=== PATIENT | male | born 1935 | race Two or more races ===

== ENCOUNTER 2017-02-19 11:00 | Inpatient (IN) | payer OTHER ==
[~2017-02-19] VITALS: Ht 172.7 cm; Wt 70.3 kg
[2017-02-19] MEDS ORDERED: HYDROCHLOROTH12.5 M2 ORAL (11:13)
[2017-02-19] MEDS ORDERED: TYLENOL EXTRA500 MG ORAL (11:13)
[2017-02-19] MEDS ORDERED: LANTUS SOL100 UNIT/1 SUBQ (11:13)
[2017-02-19] MEDS ORDERED: MIRTAZAPINE15 MG ORAL (11:13)
[2017-02-19] MEDS ORDERED: ASPIR 8181 MG ORAL (11:13)
[2017-02-19] MEDS ORDERED: DOCUSATE SODIU100 MG ORAL (11:13)
[2017-02-19] MEDS ORDERED: NORCO 10-325 T1 EACH ORAL (11:13)
--- NOTE | 2017-02-19 12:45 | Diagnostic Imaging Report ---
Indication: Head trauma, altered level of consciousness Technique: spiral acquisitions obtained through the brain. Angled axial and coronal 5 x 5 mm slices were reconstructed. No IV contrast utilized. Radiation dose was minimized using automated exposure control Total dose length product 1383 mGycm. CTDIvol(s) 70 mGy Comparison: none FINDINGS: No acute hemorrhage or edema. No mass effect or midline shift. There is age-related enlargement of the ventricles and extra axial CSF spaces. There is periventricular deep white matter ischemic change. Normal rodriguez-white differentiation. 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 Visualized orbits are unremarkable. There is ethmoid sinus disease and sphenoid sinus mucosal thickening. Intact calvarium. IMPRESSION: Chronic and age-related changes. Negative for acute intracranial bleed or mass effect Sinus disease The CT scanner at [facility] is accredited by the [employer] and the scans are performed using protocols designed to limit radiation exposure to as low as reasonably achievable to attain images of sufficient resolution adequate for diagnostic evaluation
[2017-02-19 12:47] LABS: EOSINOPHILS % (AUTO) 2.2 % (0.0-3.0); HEMOGLOBIN 14.6 G/DL (14.2-18.0); LYMPHOCYTES % (AUTO) 9.3 % (20.0-45.0); MEAN CORPUSCULAR VOLUME 89 FL (80-99); NEUTROPHILS % (AUTO) 78.5 % (45.0-75.0); PLATELET COUNT 185 K/UL (150-450); RED BLOOD COUNT 4.96 M/UL (4.70-6.10); WHITE BLOOD COUNT 7.1 K/UL (4.8-10.8)
--- NOTE | 2017-02-19 12:47 | Diagnostic Imaging Report ---
Indication: Chest pain Technique: One view of the chest Comparison: none Findings: There is a 2.6 cm mass in the right perihilar region. There is some atelectasis at the left lung base. The remainder the lungs and pleural spaces are clear. The heart size is upper limits of normal. The aorta is tortuous Impression: 2.6 cm right lung mass, worrisome for neoplasm. Further evaluation with chest CT recommended. Left basilar atelectasis
[2017-02-19 12:50] LABS: AMMONIA 25 umol/L (11-32); ANION GAP 11 mmol/L (5-15); BLOOD UREA NITROGEN 22 mg/dL (7-18); CALCIUM 7.5 MG/DL (8.5-10.1); CARBON DIOXIDE 24 MMOL/L (21-32); CHLORIDE 103 MMOL/L (98-107); CREATININE 0.9 MG/DL (0.55-1.30); POTASSIUM 3.4 MMOL/L (3.5-5.1); SODIUM 138 MMOL/L (136-145)
[2017-02-19 13:01] LABS: ALANINE AMINOTRANSFERASE 14 U/L (12-78); ALBUMIN 3.1 G/DL (3.4-5.0); ALBUMIN/GLOBULIN RATIO 0.8 (1.0-2.7); ALKALINE PHOSPHATASE 88 U/L (46-116); ASPARTATE AMINO TRANSFERASE 21 U/L (15-37); BILIRUBIN,TOTAL 0.5 MG/DL (0.2-1.0); CREATINE KINASE 341 U/L (26-308)
[2017-02-19 14:10] VITALS: BP 126/60
--- NOTE | 2017-02-19 16:25 | Emergency Room Report ---
History of Present Illness General Chief Complaint: Multiple Trauma/Fall Source: EMS Present Illness HPI The patient is sent in after a fall. Patient is unable to ambulate at the facility. He has also had a cough. He denies pain at this time. He is sent in for evaluation after the fall. He denies NVD, dysuria, chest pain, palpitations. Patient poor historian and only complains of weakness. In the past he was identified as high fall risk patient. Discharge dx 09/2016 from [facility]: H/O diabetes. H/O aortic aneurism. H/O bradycardia UTI-sepsis Allergies: Coded Allergies: No Known Allergies (Unverified , 02/19/17) Patient History Limited by: medical condition Past Medical History: see triage record Past Surgical History: other - aortic aneurism Social History Narrative SNF - Rehab Center [facility] Reviewed Nursing Documentation: PMH: Agreed, PSxH: Agreed Nursing Documentation-PMH Past Medical History: No History, Except For Hx Cardiac Problems: Yes - AAA Hx Diabetes: Yes Review of Systems All Other Systems: limited Physical Exam Vital Signs Date Time Temp Pulse Resp B/P (MAP) Pulse Ox O2 Delivery O2 Flow Rate FiO2 02/19/17 10:51 99.1 96 20 126/60 99 Nasal Cannula 3.0 Sp02 EP Interpretation: reviewed, normal General Appearance: no apparent distress, GCS 15, Chronically Ill Head: normocephalic Eyes: bilateral eye normal inspection, bilateral eye PERRL ENT: moist mucus membranes Neck: supple Respiratory: lungs clear, normal breath sounds Cardiovascular #1: regular rate, rhythm Cardiovascular #2: 2+ radial (R) Gastrointestinal: normal inspection, normal bowel sounds, non tender, no mass, non-distended, scaphoid Musculoskeletal: back normal, normal range of motion Neurologic: alert, motor strength/tone normal, DTRs symmetric, sensory intact, speech normal, oriented - X1 Psychiatric: mood/affect normal Skin: normal inspection, warm/dry Medical Decision Making Diagnostic Impression: Primary Impression: Pulmonary mass Additional Impressions: Multiple falls Weakness ER Course Patient presents after a fall. Ddx: CVA, AMI, chronic falls/weakness, electrolyte abnormalities, occult infection amongst others. No localized neurologic findings, but CT indicated. Evaluation with CT, CXR, EKG, labs. Treatment with gentle hydration. EKG without injury. CXR with lung mass. Labs with normal H/H, wbc, lytes ( slightly low potassium). Urine not obtained. CT with age related changes. Patient with continued unsteady gait. High risk for recurrent falls. With new lung mass and unsteady on feet, needs admission to hospital. Admit med, Dr. Aldana. Laboratory Tests Test 02/19/17 12:20 White Blood Count 7.1 K/UL (4.8-10.8) Red Blood Count 4.96 M/UL (4.70-6.10) Hemoglobin 14.6 G/DL (14.2-18.0) Hematocrit 44.0 % (42.0-52.0) Mean Corpuscular Volume 89 FL (80-99) Mean Corpuscular Hemoglobin 29.5 PG (27.0-31.0) Mean Corpuscular Hemoglobin Concent 33.3 G/DL (32.0-36.0) Red Cell Distribution Width 12.0 % (11.6-14.8) Platelet Count 185 K/UL (150-450) Mean Platelet Volume 8.4 FL (6.5-10.1) Neutrophils (%) (Auto) 78.5 % (45.0-75.0) H Lymphocytes (%) (Auto) 9.3 % (20.0-45.0) L Monocytes (%) (Auto) 9.0 % (1.0-10.0) Eosinophils (%) (Auto) 2.2 % (0.0-3.0) Basophils (%) (Auto) 1.0 % (0.0-2.0) Prothrombin Time 10.8 SEC (9.30-11.50) Prothrombin Time INR 1.0 (0.9-1.1) PTT 34 SEC (23-33) H Sodium Level 138 MMOL/L (136-145) Potassium Level 3.4 MMOL/L (3.5-5.1) L Chloride Level 103 MMOL/L (98-107) Carbon Dioxide Level 24 MMOL/L (21-32) Anion Gap 11 mmol/L (5-15) Blood Urea Nitrogen 22 mg/dL (7-18) H Creatinine 0.9 MG/DL (0.55-1.30) Estimate Glomerular Filtration Rate mL/min (>60) Glucose Level 207 MG/DL (74-106) H Lactic Acid Level 1.30 mmol/L (0.66-2.22) Calcium Level 7.5 MG/DL (8.5-10.1) L Magnesium Level 1.5 MG/DL (1.8-2.4) L Total Bilirubin 0.5 MG/DL (0.2-1.0) Aspartate Amino Transferase (AST) 21 U/L (15-37) Alanine Aminotransferase (ALT) 14 U/L (12-78) Alkaline Phosphatase 88 U/L (46-116) Ammonia 25 umol/L (11-32) Total Creatine Kinase 341 U/L (26-308) H Troponin I 0.040 ng/mL (0.000-0.056) Pro-B-Type Natriuretic Peptide 633 pg/mL (0-125) H Total Protein 6.8 G/DL (6.4-8.2) Albumin 3.1 G/DL (3.4-5.0) L Globulin 3.7 g/dL Albumin/Globulin Ratio 0.8 (1.0-2.7) L Lipase 69 U/L (73-393) L EKG Diagnostic Results Rate: normal Rhythm: NSR ST Segments: no acute changes - [facility] Rhythm Strip Diag. Results EP Interpretation: yes Rhythm: NSR, no PVC's, no ectopy Chest X-Ray Diagnostic Results Chest X-Ray Diagnostic Results : Chest X-Ray Ordered: Yes # of Views/Limited/Complete: 1 View Indication: Other EP Interpretation: Yes Interpretation: no consolidation, no effusion, no pneumothorax, other Impression: Other Electronically Signed by: Liang Cedillo MD CT/MRI/US Diagnostic Results CT/MRI/US Diagnostic Results : Imaging Test Ordered: head Impression age related changes. Sinus disease Last Vital Signs Date Time Temp Pulse Resp B/P (MAP) Pulse Ox O2 Delivery O2 Flow Rate FiO2 02/19/17 18:16 98.6 86 17 131/70 99 Room Air 02/19/17 14:10 3.0 Status: improved Disposition: ADMITTED INPATIENT Condition: Serious Referrals: NON PHYSICIAN (PCP) Liang Cedillo M.D. Feb 19, 2017 16:25
[2017-02-19 17:09] VITALS: BP 130/72
[2017-02-19 18:16] VITALS: BP 131/70
[2017-02-19 20:00] VITALS: BP 140/76
--- NOTE | 2017-02-19 21:56 | History & Physical ---
History and Physical History & Physicial The patient was noted to be confused and was sent in after a fall. Patient is unable to ambulate at the facility now worse than baseline. Patient is a poor historian and only complains of weakness. In the past he was identified as high fall risk patient. PMH H/O diabetes. H/O aortic aneurism. H/O bradycardia UTI-sepsis Allergies: No Known Allergies (Unverified , 02/19/17) Past Surgical History: aortic aneurysm Social History Narrative SNF - Rehab Center [facility] Reviewed of systems: noted physical exam WDWN NAD clear breath sounds bilaterally without rhonchi or wheeze [id number] without MRG NABS nontender no HSM no CCE confused Labs Test 02/19/17 12:20 White Blood Count 7.1 K/UL (4.8-10.8) Red Blood Count 4.96 M/UL (4.70-6.10) Hemoglobin 14.6 G/DL (14.2-18.0) Hematocrit 44.0 % (42.0-52.0) Mean Corpuscular Volume 89 FL (80-99) Mean Corpuscular Hemoglobin 29.5 PG (27.0-31.0) Mean Corpuscular Hemoglobin Concent 33.3 G/DL (32.0-36.0) Red Cell Distribution Width 12.0 % (11.6-14.8) Platelet Count 185 K/UL (150-450) Mean Platelet Volume 8.4 FL (6.5-10.1) Neutrophils (%) (Auto) 78.5 % (45.0-75.0) Lymphocytes (%) (Auto) 9.3 % (20.0-45.0) Monocytes (%) (Auto) 9.0 % (1.0-10.0) Eosinophils (%) (Auto) 2.2 % (0.0-3.0) Basophils (%) (Auto) 1.0 % (0.0-2.0) Prothrombin Time 10.8 SEC (9.30-11.50) Prothromb Time International Ratio 1.0 (0.9-1.1) Activated Partial Thromboplast Time 34 SEC (23-33) Sodium Level 138 MMOL/L (136-145) Potassium Level 3.4 MMOL/L (3.5-5.1) Chloride Level 103 MMOL/L (98-107) Carbon Dioxide Level 24 MMOL/L (21-32) Anion Gap 11 mmol/L (5-15) Blood Urea Nitrogen 22 mg/dL (7-18) Creatinine 0.9 MG/DL (0.55-1.30) Estimat Glomerular Filtration Rate mL/min (>60) Glucose Level 207 MG/DL (74-106) Lactic Acid Level 1.30 mmol/L (0.66-2.22) Calcium Level 7.5 MG/DL (8.5-10.1) Magnesium Level 1.5 MG/DL (1.8-2.4) Total Bilirubin 0.5 MG/DL (0.2-1.0) Aspartate Amino Transf (AST/SGOT) 21 U/L (15-37) Alanine Aminotransferase (ALT/SGPT) 14 U/L (12-78) Alkaline Phosphatase 88 U/L (46-116) Ammonia 25 umol/L (11-32) Total Creatine Kinase 341 U/L (26-308) Troponin I 0.040 ng/mL (0.000-0.056) Pro-B-Type Natriuretic Peptide 633 pg/mL (0-125) Total Protein 6.8 G/DL (6.4-8.2) Albumin 3.1 G/DL (3.4-5.0) Globulin 3.7 g/dL Albumin/Globulin Ratio 0.8 (1.0-2.7) Lipase 69 U/L (73-393) IMPRESSION s/pfall cough confusion acute on chronic encephalopathy possible mass PLAN care noted monitor PT resume meds CT noted impression, plan, and exam edited and reviewed in detail care discussed with REY PINEDA Feb 19, 2017 21:56
[2017-02-19] MEDS ORDERED: HYDROcodone/Acetamin 10/325 tab ORAL PRN ×2 (22:00→22:30)
[2017-02-19] MEDS ORDERED: Acetaminophen 500mg (ES) tab ORAL PRN (22:00)
[2017-02-20] VITALS: BP 135/73
[2017-02-20 04:00] VITALS: BP 133/87
[2017-02-20 08:00] VITALS: BP 105/63
[2017-02-20] MEDS ORDERED: Docusate 100mg cap ORAL SCH (09:00)
[2017-02-20] MEDS ORDERED: Heparin 5000 units/ml inj SUBQ SCH (09:00)
[2017-02-20] MEDS ORDERED: Aspirin EC 81mg tab ORAL SCH (09:00)
[2017-02-20 12:00] VITALS: BP 118/72
--- NOTE | 2017-02-20 12:58 | General Progress Note ---
Assessment/Plan Assessment/Plan IMPRESSION s/pfall cough confusion acute on chronic encephalopathy possible mass PLAN care noted ok to dc back to SNF impression, plan, and exam edited and reviewed in detail care discussed with RN Subjective Allergies: Coded Allergies: No Known Allergies (Unverified , 02/19/17) Subjective appears chronically confused no acute changes Objective Last 24 Hour Vital Signs Date Time Temp Pulse Resp B/P (MAP) Pulse Ox O2 Delivery O2 Flow Rate FiO2 02/20/17 12:00 98.1 78 19 118/72 94 Room Air 02/20/17 08:00 97.8 93 19 105/63 92 Room Air 02/20/17 04:00 86 02/20/17 04:00 98.2 90 22 133/87 96 02/20/17 00:00 91 02/20/17 00:00 99.1 96 21 135/73 95 02/19/17 20:00 98.4 87 21 140/76 93 02/19/17 20:00 92 02/19/17 18:16 98.6 86 17 131/70 99 Room Air 02/19/17 17:09 99.1 86 18 130/72 99 Room Air 02/19/17 14:10 99.1 78 20 126/60 99 Nasal Cannula 3.0 Height (Feet): 5 Height (Inches): 8.00 Weight (Pounds): 155 Objective WDWN NAD clear breath sounds bilaterally without rhonchi or wheeze [id number] without MRG NABS nontender no HSM no CCE nonfocal appears confused REY CARMEN Feb 20, 2017 12:58
--- NOTE | 2017-02-24 10:58 | Discharge Summary ---
Discharge Summary Hospital Course Date of Admission Feb 19, 2017 at 14:50 Date of Discharge Feb 20, 2017 at 17:30 Admitting Diagnosis sepsis/falls HPI Kt Vargas is a 81 year old male who was admitted on Feb 19, 2017 at 14 :50 for Sepsis,Falls Hospital Course dc summary #[id number] Discharge Condition Upon Discharge: stable Discharge Disposition Patient was discharged to SNF/Subacute Facility(03) Discharge Diagnoses: Discharge Instructions Discharge Instructions Special Instructions I have been assigned to complete a D/C Summary on this account. I was not involved in the patient management Caroline Purvis NP (Vanchtein) Feb 24, 2017 10:58
--- NOTE | 2017-02-24 20:30 | Discharge Summary 2 SIG ---
DATE OF ADMISSION: 02/19/2017 DATE OF DISCHARGE: 02/20/2017 REASON FOR ADMISSION: 81-year-old male with past medical history significant for diabetes, aortic aneurysm, urinary tract infection, sepsis, and bradycardia, was [facility] from the [facility] facility for evaluation after he sustained a fall. The patient noted to have cough. He denied nausea, vomiting, diarrhea, dysuria, chest pain, palpitations. Patient denied pain at that time. The patient was a poor historian and was only complaining of the weakness. Vital signs were stable. Pulse oximetry was stable on three liters of oxygen. CT of the head revealed no acute cardiopulmonary pathology. Troponin was negative. Pro-BNP - 633. Lactic acid -1.3. Albumin- 3.1. Potassium -3.4. Magnesium-1.5. Chest x-ray revealed a 2.6 cm right lung mass, worrisome for neoplasm and left basilar atelectasis. The patient was admitted status post fall with a history of recurrent falls, cough, acute on chronic encephalopathy, possible pulmonary mass. HOSPITAL COURSE: The patient was admitted. The patient was started on gentle IV hydration. PT/OT evaluation was requested along with swallow evaluation. The patient passed swallow evaluation, however, will benefit from speech therapy treatment for cognitive impairment. DVT prophylaxis provided. Bowel regimen instituted. Electrolytes such as potassium and magnesium were replaced. Supplemental oxygen titrated to keep pulse oximetry above 92%. Prior to discharge, pulse oximetry stable on room air. The patient will need an outpatient CT of the chest for further workup for pulmonary mass. The patient was stable for discharge. Due to the rapid and unexpected improvement in the patient's condition, the patient was discharged in one day. FINAL DIAGNOSES: 1. Status post fall with a history of multiple falls. 2. Cough. 3. Acute on chronic encephalopathy. 4. Possible pulmonary mass. DISCHARGE MEDICATIONS: List of medication was sent to admitting facility. DISCHARGE INSTRUCTIONS: The patient was discharged to [facility] facility. Outpatient workup for possible pulmonary mass. Micky Aldana M.D. I have been assigned to dictate discharge summary on this account and I was not involved in the patient's management. Caroline Purvis N.P. (Vanchtein) DR: CONSUELO JOB#: [id number] CC: THOR
--- NOTE | 2017-03-03 00:14 | Cardiology Report ---
APPROVED REPORT EKG Measurement Heart [id number] Normal sinus rhythm Left anterior fascicular block Inferior-posterior infarct, age undetermined Possible Anterolateral infarct, age undetermined Abnormal ECG
== END 2017-02-20 17:30 | DRG 947 ==
LOC: EDBD 11:00 → EMR 11:50 → 2E 14:50 → EDBEDREQ 16:17 → 2E 19:23
DX: R53.1 Weakness (principal); G93.49 Other encephalopathy; J98.11 Atelectasis; E11.9 Type 2 diabetes mellitus without complications; R05 Cough; R91.8 Other nonspecific abnormal finding of lung field; Z91.81 History of falling
CPT/HCPCS: 36415; 70450; 71010; 80053; 82140; 82550; 82962; 83605; 83690; 83735; 83880; 84484; 85025; 85610; 85730; 87040; 87081; 93005; 99285

== ENCOUNTER 2017-08-01 14:02 | Emergency (ER) | payer MEDICARE ==
[~2017-08-01] VITALS: Ht 162.6 cm; Wt 70.3 kg
[~2017-08-01 14:02] MED LIST: ASPIR 8181 MG ORAL; DOCUSATE SODIU100 MG ORAL; HYDROCHLOROTH12.5 M2 ORAL; LANTUS SOL100 UNIT/1 SUBQ; MIRTAZAPINE15 MG ORAL; NORCO 10-325 T1 EACH ORAL; TYLENOL EXTRA500 MG ORAL
--- NOTE | 2017-08-01 14:08 | Emergency Room Report ---
History of Present Illness General Chief Complaint: Male Urogenital Problems Source: Patient, EMS Present Illness HPI Patient presents from assisted living. He complains of dysuria. This has been going on for several days. He also has difficulty initiating a stream and also has dribbling afterwards. He feels like he can't move his bowels also and feels constipated. There is no nausea and vomiting and no diarrhea. The pain is pressure in his lower abdomen and also in the penis. He also complains of a rash on the penis which is painful. It is burning and he requests some cream to treat. Patient is a diabetic. History of aortic aneurysm. No chest pain, dyspnea, URI sy, extremity pain, headache, dizziness, change in vision. Allergies: Coded Allergies: No Known Allergies (Unverified , 02/19/17) Patient History Past Medical History: see triage record Social History: Denies: smoking, alcohol use Social History Narrative assisted-living Reviewed Nursing Documentation: PMH: Agreed; PSxH: Agreed Nursing Documentation-PMH Hx Cardiac Problems: Yes - AAA Hx Hypertension: Yes Hx Diabetes: Yes Review of Systems All Other Systems: negative except mentioned in HPI Physical Exam Vital Signs Date Time Temp Pulse Resp B/P (MAP) Pulse Ox O2 Delivery O2 Flow Rate FiO2 08/01/17 13:47 98.3 78 18 141/84 94 Room Air 98.2 Sp02 EP Interpretation: reviewed, normal General Appearance: well appearing, no apparent distress, GCS 15 Head: normocephalic Eyes: bilateral eye PERRL, bilateral eye other - Arcus ENT: moist mucus membranes Neck: supple Respiratory: lungs clear, normal breath sounds Cardiovascular #1: regular rate, rhythm Cardiovascular #2: 2+ radial (R) Gastrointestinal: normal inspection, normal bowel sounds, non tender, no mass, non-distended Rectal: other - uncircumcised with some inflammation under foreskin with out erythema Genitourinary: no CVA tenderness Musculoskeletal: back normal, gait/station normal, normal range of motion Neurologic: alert, normal gait, grossly normal, oriented - X2 Psychiatric: mood/affect normal Skin: normal inspection, warm/dry Medical Decision Making Diagnostic Impression: Primary Impression: Balanitis Additional Impressions: Diabetes Qualified Codes: E11.9 - Type 2 diabetes mellitus without complications; Z79.4 - group home (current) use of insulin Constipation Qualified Codes: K59.00 - Constipation, unspecified ER Course Patient presents with dysuria and difficulty moving his bowels. Differential includes urinary tract infection, urinary retention, aortic aneurysm exacerbation, constipation, exacerbation of diabetes amongst others. The patient will be evaluated with urinalysis and lab abdominal films. Depends on what these findings are. WBC, H/H and CMP normal. UA without pyuria. Bacitracin applied. Attempt to determine residual bladder volume (unable). Patient states improved. IV insulin given for hyperglycemia. Discussed with Dr. Gross who agrees with outpatient observation. Laboratory Tests Test 08/01/17 14:15 08/01/17 14:45 Urine Color Pale yellow Urine Appearance Clear Urine pH 6.5 (4.5-8.0) Urine Specific Gering 1.010 (1.005-1.035) Urine Protein Negative (NEGATIVE) Urine Glucose (UA) 4+ (NEGATIVE) H Urine Ketones Negative (NEGATIVE) Urine Occult Blood Negative (NEGATIVE) Urine Nitrite Negative (NEGATIVE) Urine Bilirubin Negative (NEGATIVE) Urine Urobilinogen Normal MG/DL (0.0-1.0) Urine Leukocyte Esterase 1+ (NEGATIVE) H Urine RBC 0-2 /HPF (0 - 0) H Urine WBC 0-2 /HPF (0 - 0) Urine Squamous Epithelial Cells None /LPF (NONE/OCC) Urine Bacteria None /HPF (NONE) White Blood Count 5.7 K/UL (4.8-10.8) Red Blood Count 5.01 M/UL (4.70-6.10) Hemoglobin 15.3 G/DL (14.2-18.0) Hematocrit 43.3 % (42.0-52.0) Mean Corpuscular Volume 86 FL (80-99) Mean Corpuscular Hemoglobin 30.6 PG (27.0-31.0) Mean Corpuscular Hemoglobin Concent 35.4 G/DL (32.0-36.0) Red Cell Distribution Width 12.1 % (11.6-14.8) Platelet Count 178 K/UL (150-450) Mean Platelet Volume 6.3 FL (6.5-10.1) L Neutrophils (%) (Auto) 63.6 % (45.0-75.0) Lymphocytes (%) (Auto) 21.5 % (20.0-45.0) Monocytes (%) (Auto) 7.8 % (1.0-10.0) Eosinophils (%) (Auto) 6.2 % (0.0-3.0) H Basophils (%) (Auto) 1.0 % (0.0-2.0) Prothrombin Time 10.7 SEC (9.30-11.50) Prothrombin Time INR 1.0 (0.9-1.1) PTT 34 SEC (23-33) H Sodium Level 138 MMOL/L (136-145) Potassium Level 3.7 MMOL/L (3.5-5.1) Chloride Level 102 MMOL/L (98-107) Carbon Dioxide Level 26 MMOL/L (21-32) Anion Gap 10 mmol/L (5-15) Blood Urea Nitrogen 13 mg/dL (7-18) Creatinine 0.8 MG/DL (0.55-1.30) Estimate Glomerular Filtration Rate mL/min (>60) Glucose Level 315 MG/DL (74-106) H Calcium Level 9.0 MG/DL (8.5-10.1) Total Bilirubin 0.4 MG/DL (0.2-1.0) Aspartate Amino Transferase (AST) 19 U/L (15-37) Alanine Aminotransferase (ALT) 19 U/L (12-78) Alkaline Phosphatase 106 U/L (46-116) Troponin I 0.009 ng/mL (0.000-0.056) Total Protein 7.5 G/DL (6.4-8.2) Albumin 3.6 G/DL (3.4-5.0) Globulin 3.9 g/dL Albumin/Globulin Ratio 0.9 (1.0-2.7) L Lipase 79 U/L (73-393) EKG Diagnostic Results Rate: normal Rhythm: NSR ST Segments: no acute changes Rhythm Strip Diag. Results EP Interpretation: yes Rhythm: NSR, no PVC's, no ectopy Other X-Ray Diagnostic Results Other X-Ray Diagnostic Results : X-Ray ordered: abd # of Views/Limited Vs Complete: 1 View Indication: Other Interpretation: nonspecific bowel gas, no sbo, other - DJD Impression: Other Electronically Signed by: Electronically signed by Liang Ceidllo MD Last Vital Signs Date Time Temp Pulse Resp B/P (MAP) Pulse Ox O2 Delivery O2 Flow Rate FiO2 6/9/18 19:12 98.3 73 18 149/92 98 Room Air 98.3 Status: improved Disposition: ASSISTED LIVING Condition: Improved Scripts Clotrimazole* (LOTRIMIN*) 15 Gm Cream..g. 1 APPLIC TOPIC TWICE A DAY, #20 GM Prov: Liang Cedillo M.D. 08/01/17 Bacitracin (Bacitracin) 28.4 Gm Oint...g. 1 APPLIC TOPIC BID, #20 GM 1 Refill Prov: Liang Cedillo M.D. 08/01/17 Liang Cedillo M.D. Aug 01, 2017 14:08
[2017-08-01] MEDS ORDERED: Lactulose 20gm/30ml UDC ORAL ONE (14:15)
[2017-08-01 14:39] LABS: APPEARANCE,URINE CLEAR; BILIRUBIN, URINE NEGATIVE (NEGATIVE); COLOR,URINE PALE YELLOW; GLUCOSE, URINE (UA) 4+ (NEGATIVE); KETONES,URINE NEGATIVE (NEGATIVE); LEUKOCYTE ESTERASE ,URINE 1+ (NEGATIVE); NITRITE,URINE NEGATIVE (NEGATIVE); PH,URINE 6.5 (4.5-8.0); PROTEIN,URINE NEGATIVE (NEGATIVE); UROBILINOGEN,URINE NORMAL MG/DL (0.0-1.0)
--- NOTE | 2017-08-01 14:51 | Diagnostic Imaging Report ---
EXAM: XR Abdomen, 2 Views CLINICAL HISTORY: ABD PAIN TECHNIQUE: Frontal view of the abdomen/pelvis with upright view of the abdomen. COMPARISON: No relevant prior studies available. FINDINGS: Intraperitoneal space: No free air. Gastrointestinal tract: Mild gaseous distention of colonic loops which remain within normal limits in diameter. Mild fecal retention in the right and transverse colon. Nonspecific, nonobstructive bowel gas pattern. No evidence of pneumatosis intestinalis, pneumoperitoneum, or portal venous gas. Renal shadows obscured by overlying bowel gas. No suspicious calcifications in the abdomen or pelvis. Radiodense sutures in the left pelvis. Bones/joints: Mild degenerative changes throughout the visualized lumbar spine and bilateral hip joints. IMPRESSION: Nonobstructive, nonspecific bowel gas pattern. Mild constipation in the ascending and transverse colon.
[2017-08-01 15:32] LABS: EOSINOPHILS % (AUTO) 6.2 % (0.0-3.0); HEMATOCRIT 43.3 % (42.0-52.0); HEMOGLOBIN 15.3 G/DL (14.2-18.0); LYMPHOCYTES % (AUTO) 21.5 % (20.0-45.0); MEAN CORPUSCULAR VOLUME 86 FL (80-99); MONOCYTES % (AUTO) 7.8 % (1.0-10.0); NEUTROPHILS % (AUTO) 63.6 % (45.0-75.0); PLATELET COUNT 178 K/UL (150-450); RED BLOOD COUNT 5.01 M/UL (4.70-6.10); RED CELL DISTRIBUTION WIDTH 12.1 % (11.6-14.8); WHITE BLOOD COUNT 5.7 K/UL (4.8-10.8)
[2017-08-01 15:54] LABS: ANION GAP 10 mmol/L (5-15); BLOOD UREA NITROGEN 13 mg/dL (7-18); CARBON DIOXIDE 26 MMOL/L (21-32); CHLORIDE 102 MMOL/L (98-107); CREATININE 0.8 MG/DL (0.55-1.30); POTASSIUM 3.7 MMOL/L (3.5-5.1); SODIUM 138 MMOL/L (136-145)
[2017-08-01 16:01] LABS: ALANINE AMINOTRANSFERASE 19 U/L (12-78); ALBUMIN 3.6 G/DL (3.4-5.0); ALBUMIN/GLOBULIN RATIO 0.9 (1.0-2.7); ALKALINE PHOSPHATASE 106 U/L (46-116); ASPARTATE AMINO TRANSFERASE 19 U/L (15-37); BILIRUBIN,TOTAL 0.4 MG/DL (0.2-1.0)
[2017-08-01 16:42] VITALS: BP 149/92
[2017-08-01] MEDS ORDERED: Bacitracin Oint UD TOPIC ONE (17:00)
[2017-08-01] MEDS ORDERED: Insulin Human Regular 100units/ml 3ml IV ONE (18:15)
[2017-08-01] MEDS ORDERED: CLOTRIMAZOLE15 GM TOPIC (18:16)
[2017-08-01] MEDS ORDERED: BACITRACIN15 GM TOPIC (18:16)
[2017-08-01 19:12] VITALS: BP 149/92
--- NOTE | 2017-08-04 14:14 | Cardiology Report ---
APPROVED REPORT EKG Measurement Heart [id number] Normal sinus rhythm Left anterior fascicular block Inferior infarct, age undetermined Abnormal ECG
== END 2017-08-01 19:13 | disposition home or self-care (01) ==
LOC: EDBD 14:02 → EMR 15:00
DX: N48.1 Balanitis (principal); E11.9 Type 2 diabetes mellitus without complications; Z79.4 Long term (current) use of insulin; K59.00 Constipation, unspecified; I10 Essential (primary) hypertension; I71.4 Abdominal aortic aneurysm, without rupture
CPT/HCPCS: 36415; 74018; 80053; 81003; 83690; 84484; 85025; 85610; 85730; 93005; 96374; 96375; 99284; J1815

== ENCOUNTER 2018-03-23 11:03 | Inpatient (IN) | payer MEDICARE, MEDICAID ==
[~2018-03-23] VITALS: Ht 167.6 cm; Wt 76.7 kg
[~2018-03-23 11:03] MED LIST changes: +BACITRACIN15 GM TOPIC; +CLOTRIMAZOLE15 GM TOPIC
[2018-03-23] MEDS ORDERED: SEROQUEL50 MG ORAL (11:11)
[2018-03-23] MEDS ORDERED: REMERON15 M1 ORAL (11:11)
[2018-03-23] MEDS ORDERED: TAMSULOSIN HCL0.4 MG ORAL (11:11)
[2018-03-23] MEDS ORDERED: LANTUS SOL100 UNIT/1 SUBQ (11:11)
[2018-03-23] MEDS ORDERED: HYDROCHLOROTH12.5 M2 ORAL (11:11)
[2018-03-23] MEDS ORDERED: DONEPEZIL HCL10 M2 ORAL (11:11)
--- NOTE | 2018-03-23 11:20 | NUR ---
ED Nurse Note: Pt came from [facility] due to staff stating that he has been weak x 2 days. According to staff, pt used to be able to walk and right now he is unable to do so. Denies pain. Pt has left eye swelling. Slight redness noted around the left eye area. A + O x4. Skin warm to touch. Icelandic speaking.
[2018-03-23 11:22] VITALS: BP 84/71
--- NOTE | 2018-03-23 11:45 | NUR ---
ED Nurse Note: Pt went down to CT
[2018-03-23 11:56] LABS: BASOPHILS % (AUTO) 0.9 % (0.0-2.0); EOSINOPHILS % (AUTO) 5.3 % (0.0-3.0); HEMATOCRIT 41.2 % (42.0-52.0); HEMOGLOBIN 13.9 G/DL (14.2-18.0); LYMPHOCYTES % (AUTO) 21.7 % (20.0-45.0); MEAN CORPUSCULAR VOLUME 87 FL (80-99); MONOCYTES % (AUTO) 7.1 % (1.0-10.0); NEUTROPHILS % (AUTO) 64.9 % (45.0-75.0); PLATELET COUNT 167 K/UL (150-450); RED BLOOD COUNT 4.76 M/UL (4.70-6.10); RED CELL DISTRIBUTION WIDTH 12.8 % (11.6-14.8); WHITE BLOOD COUNT 5.4 K/UL (4.8-10.8)
[2018-03-23 12:04] LABS: ANION GAP 7 mmol/L (5-15); BLOOD UREA NITROGEN 14 mg/dL (7-18); CALCIUM 8.8 MG/DL (8.5-10.1); CARBON DIOXIDE 27 MMOL/L (21-32); CHLORIDE 103 MMOL/L (98-107); CREATININE 0.9 MG/DL (0.55-1.30); POTASSIUM 4.1 MMOL/L (3.5-5.1); SODIUM 137 MMOL/L (136-145)
--- NOTE | 2018-03-23 12:04 | NUR ---
ED Nurse Note: Pt came back from CT.
[2018-03-23 12:08] LABS: ALANINE AMINOTRANSFERASE 24 U/L (12-78); ALBUMIN/GLOBULIN RATIO 0.9 (1.0-2.7); ALKALINE PHOSPHATASE 90 U/L (46-116); ASPARTATE AMINO TRANSFERASE 17 U/L (15-37); BILIRUBIN,TOTAL 0.5 MG/DL (0.2-1.0)
--- NOTE | 2018-03-23 12:08 | Diagnostic Imaging Report ---
Indication: Cough Technique: One view of the chest Comparison: 02/19/2017 Findings: Previously demonstrated right perihilar mass is less evident currently although likely still present. There is some atelectasis at the left lung base. The remainder of the lungs and pleural spaces are clear. The heart is mildly enlarged. The aorta is tortuous ectatic and calcified Impression: Right midlung mass, previously demonstrated, less apparent currently although still evident. Correlate with results of any prior workup Left basilar atelectasis. Borderline cardiomegaly
[2018-03-23 12:12] LABS: APPEARANCE,URINE CLEAR; BILIRUBIN, URINE NEGATIVE (NEGATIVE); COLOR,URINE PALE YELLOW; GLUCOSE, URINE (UA) 4+ (NEGATIVE); KETONES,URINE NEGATIVE (NEGATIVE); LEUKOCYTE ESTERASE ,URINE NEGATIVE (NEGATIVE); NITRITE,URINE NEGATIVE (NEGATIVE); PH,URINE 7 (4.5-8.0); PROTEIN,URINE 1+ (NEGATIVE); UROBILINOGEN,URINE NORMAL MG/DL (0.0-1.0)
--- NOTE | 2018-03-23 12:13 | Diagnostic Imaging Report ---
Indications: Altered mental status, left eye swelling, weakness Technique: Spiral acquisitions obtained through the brain. Angled axial and coronal 5 x 5 mm slices were reconstructed. Total dose length product 1326.82 mGycm. CTDI vol(s) 70.38 mGy. Dose reduction achieved using automated exposure control Comparison: 02/19/2017 Findings: Again demonstrated is age-related enlargement of the ventricles and extra axial CSF spaces. New finding of encephalomalacia in the posterior left frontal lobe. Small calcification on the right side of the interhemispheric fissure anteriorly is again demonstrated. Small calcification on the left side of the interhemispheric fissure near the vertex again demonstrated. Cortical calcification in the left anterior parasagittal frontal lobe is again demonstrated New finding of small lacunar infarct in the right caudate body. No acute intracranial hemorrhage nor edema. No mass effect or midline shift. Again demonstrated is periventricular deep white matter low-attenuation, consistent with chronic ischemic change. There is evidence of prior cataract surgery on the left. There is fairly extensive ethmoid and sphenoid sinus disease again demonstrated. The mastoids are clear. 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
--- NOTE | 2018-03-23 12:15 | NUR ---
ED Nurse Note: Notified MD of troponin level of 0.249. Will continue to monitor.
[2018-03-23 14:16] VITALS: BP 135/67
--- NOTE | 2018-03-23 15:13 | Emergency Room Report ---
History of Present Illness General Chief Complaint: Generalized Weakness Source: EMS Present Illness HPI Patient presents emergency department today complaining of generalized weakness. Patient apparently has been falling a lot he stays at a [place] [facility] is not doing well. Patient was sent to the emergency department for further thrive. Patient is Greek-speaking at baseline demented neighbor provide much history. History of same from medical records and discussion primary care physician. Patient's primary care physician is Dr. Ally Tovar. No other modifying factors. No other associated signs and symptoms. No other complaints were noted. Allergies: Coded Allergies: No Known Allergies (Unverified , 03/23/18) Patient History Past Medical History: DM, HTN, CAD Past Surgical History: none Pertinent Family History: none Social History: Denies: smoking, alcohol use, drug use Reviewed Nursing Documentation: PMH: Agreed; PSxH: Agreed Nursing Documentation-PMH Hx Cardiac Problems: Yes - AAA Hx Hypertension: Yes Hx Diabetes: Yes Review of Systems All Other Systems: negative except mentioned in HPI Physical Exam Vital Signs Date Time Temp Pulse Resp B/P (MAP) Pulse Ox O2 Delivery O2 Flow Rate FiO2 03/23/18 11:06 98.1 85 20 104/65 94 Room Air 03/23/18 11:22 97 Sp02 EP Interpretation: reviewed, normal General Appearance: alert, mild distress Head: atraumatic ENT: normal ENT inspection, hearing grossly normal, normal voice Neck: normal inspection, full range of motion, supple, no bony tend Respiratory: normal inspection, lungs clear, normal breath sounds, no respiratory distress, no retraction, no wheezing Cardiovascular #1: regular rate, rhythm, no edema Gastrointestinal: normal inspection, normal bowel sounds, non tender, soft, no guarding, no hernia Genitourinary: no CVA tenderness Musculoskeletal: normal inspection, back normal, normal range of motion Neurologic: normal inspection, alert, responsive, speech normal Psychiatric: depressed affect Skin: normal inspection, normal color, no rash Procedures Critical Care Time Critical Care Time Patient had a critical medical condition which untreated could potentially result in life or limb threatening injury. Total critical care time excluding procedures was approximately 45 minutes. Medical Decision Making Diagnostic Impression: Primary Impression: Altered mental status Additional Impressions: ACS (acute coronary syndrome) Elevated troponin Dehydration Falls ER Course Patient presents emergency department today with acute altered mental status. Differential considerations include acute CVA, acute electrolyte abnormality, acute VT, infectious process just name a few.Given the severity of the patient' s presentation I felt this is a highly complex patient. This patient required extensive workup. Patient's laboratory workup shows elevated elevated troponin. Patient also had evidence of dehydration was given fluids. Because of patient's altered mental status head CT was performed which is negative. Given patient's presentation I felt the patient require admission for further treatment. Case discussed with Dr. Ally Tovar for admission. Patient was given aspirin for the elevated troponin. Patient had a critical medical condition which untreated could potentially result in life or limb threatening injury. Total critical care time excluding procedures was approximately 45 minutes. Labs Test 03/23/18 11:30 White Blood Count 5.4 K/UL (4.8-10.8) Red Blood Count 4.76 M/UL (4.70-6.10) Hemoglobin 13.9 G/DL (14.2-18.0) Hematocrit 41.2 % (42.0-52.0) Mean Corpuscular Volume 87 FL (80-99) Mean Corpuscular Hemoglobin 29.1 PG (27.0-31.0) Mean Corpuscular Hemoglobin Concent 33.6 G/DL (32.0-36.0) Red Cell Distribution Width 12.8 % (11.6-14.8) Platelet Count 167 K/UL (150-450) Mean Platelet Volume 7.1 FL (6.5-10.1) Neutrophils (%) (Auto) 64.9 % (45.0-75.0) Lymphocytes (%) (Auto) 21.7 % (20.0-45.0) Monocytes (%) (Auto) 7.1 % (1.0-10.0) Eosinophils (%) (Auto) 5.3 % (0.0-3.0) Basophils (%) (Auto) 0.9 % (0.0-2.0) Urine Color Pale yellow Urine Appearance Clear Urine pH 7 (4.5-8.0) Urine Specific [place] 1.005 (1.005-1.035) Urine Protein 1+ (NEGATIVE) Urine Glucose (UA) 4+ (NEGATIVE) Urine Ketones Negative (NEGATIVE) Urine Blood Negative (NEGATIVE) Urine Nitrite Negative (NEGATIVE) Urine Bilirubin Negative (NEGATIVE) Urine Urobilinogen Normal MG/DL (0.0-1.0) Urine Leukocyte Esterase Negative (NEGATIVE) Urine RBC 0-2 /HPF (0 - 0) Urine WBC 0-2 /HPF (0 - 0) Urine Squamous Epithelial Cells Occasional /LPF Urine Bacteria Few /HPF (NONE) Sodium Level 137 MMOL/L (136-145) Potassium Level 4.1 MMOL/L (3.5-5.1) Chloride Level 103 MMOL/L (98-107) Carbon Dioxide Level 27 MMOL/L (21-32) Anion Gap 7 mmol/L (5-15) Blood Urea Nitrogen 14 mg/dL (7-18) Creatinine 0.9 MG/DL (0.55-1.30) Estimat Glomerular Filtration Rate mL/min (>60) Glucose Level 395 MG/DL (74-106) Calcium Level 8.8 MG/DL (8.5-10.1) Total Bilirubin 0.5 MG/DL (0.2-1.0) Aspartate Amino Transf (AST/SGOT) 17 U/L (15-37) Alanine Aminotransferase (ALT/SGPT) 24 U/L (12-78) Alkaline Phosphatase 90 U/L (46-116) Troponin I 0.249 ng/mL (0.000-0.056) Total Protein 6.4 G/DL (6.4-8.2) Albumin 3.0 G/DL (3.4-5.0) Globulin 3.4 g/dL Albumin/Globulin Ratio 0.9 (1.0-2.7) Lipase 94 U/L (73-393) EKG Diagnostic Results Rate: normal Rhythm: NSR ST Segments: no acute changes Other Impression left anterior fascicular block. T-wave flattening in V5 V6. Rhythm Strip Diag. Results EP Interpretation: yes Rate: 77 Rhythm: NSR, no PVC's, no ectopy Chest X-Ray Diagnostic Results Chest X-Ray Diagnostic Results : Chest X-Ray Ordered: Yes # of Views/Limited/Complete: 1 View Indication: Chest Pain EP Interpretation: No Impression: Other - Lung mass CT/MRI/US Diagnostic Results CT/MRI/US Diagnostic Results : Imaging Test Ordered: Head CT: Negative per rad Last Vital Signs Date Time Temp Pulse Resp B/P (MAP) Pulse Ox O2 Delivery O2 Flow Rate FiO2 03/23/18 14:16 98.1 70 14 135/67 100 Room Air 97 Status: improved Disposition: ADMITTED INPATIENT Condition: Serious Referrals: Ally Gross MD (PCP) Pierre London MD Mar 23, 2018 15:13
--- NOTE | 2018-03-23 15:33 | NUR ---
ED Nurse Note: Gave telephone report to ALICIA Chirinos. Bed and packet unavailable. Will call again.
--- NOTE | 2018-03-23 16:05 | NUR ---
ED Nurse Note: bed unavailable.
--- NOTE | 2018-03-23 16:43 | NUR ---
ED Nurse Note: Pt transferred to SDU unit. No acute distress noted. Left ER w/ all belongings. Pt received by ALICIA Chirinos.
--- NOTE | 2018-03-23 16:45 | NUR ---
NURSE NOTES: Received patient from ALICIA Ayala. Patient VS stable at this time. Patient BP 142/73, HR 56, temp 92.9, HR 85, and O2 98%. Patient denies pain at this time. Patient was admitted to ER for weakness and altered mental status x 2 days. Patient came from [facility]. Patient is on RA with stable saturation. Patient alert and oriented and burmese speaking at this time. Patient showing sinus rhythm on the monitor. Patient blood sugar is 150 at this time. Patient has a high troponin level of 0.249 at this time. ECG was done with no acute findings. Patient uses urinal for voiding. Urinal at the bedside. Patient weight on the bedscale is 77Kg. Patient bed in low position with bed alarm on and call light in reach at this time.
--- NOTE | 2018-03-23 17:00 | NUR ---
NURSE NOTES: Called Dr Gross for admission orders.
--- NOTE | 2018-03-23 19:28 | NUR ---
CASE MANAGEMENT: REVIEW 82/M FLORENTIN FROM [facility] CC: GENERALIZED WEAKNESS X2 DAYS SI: AMS . DEHYDRATION T 98.1 HR 81 RR 20 BP 84/71 SAT 97% ROOM AIR GLUCOSE 395 TROPONIN I 0.249 IS: NS IVF BOLUS X1 INTERQUAL CRITERIA MET: PATIENT ADMITTED TO STEP DOWN UNIT 03/23/2018 DCP: PATIENT IS FROM [facility]
--- NOTE | 2018-03-23 19:44 | NUR ---
HAND-OFF: Report given to ALICIA Ewing. Patient VS stable at this time with no sign of acute distress. Admission orders have been placed at this time. Patient does not have an order for repeat troponin at this time although the first troponin was elevated. Endorsed to follow up.
--- NOTE | 2018-03-23 19:45 | NUR ---
NURSE NOTES: Bedside report received from ALICIA Chirinos. Pt is Ecuadorean speaking, AOx4. 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 RA; sating well. Pt uses urinal, at bedside. Skin is intact, skin tear on hand prior to admission. RAC 20g SL; asymptomatic. Troponin elevated AM nurse will alert MD. Bed is locked in lowest position, SR x3, bed alarm on. Will continue to monitor and follow with plan of care.
[2018-03-23 20:00] VITALS: BP 153/77
--- NOTE | 2018-03-23 20:03 | NUR ---
NURSE NOTES: Called and left message for Dr. Gross regarding elevated troponin. Pt is asymptomatic at this time, will continue to monitor.
[2018-03-23] MEDS: NovoLOG Insulin Flexpen SUBQ SCH (20:42)
[2018-03-23] MEDS ORDERED: HYDROcodone/Acetamin 10/325 tab ORAL PRN ×2 (20:45→21:00)
[2018-03-23] MEDS ORDERED: Acetaminophen 500mg (ES) tab ORAL PRN (20:45)
--- NOTE | 2018-03-23 21:00 | NUR ---
NURSE NOTES: Spoke with the niece regarding refusal of troponin lab draw, had her speak with him on the phone. Still refusing. Will let MD know when he calls back. Niece does not want pt to return to same facility will endorse to AM nurse.
--- NOTE | 2018-03-23 22:00 | NUR ---
NURSE NOTES: Spoke w/ Dr. Gross regarding elevated troponin, no new orders. Repeat troponin first one stat was refused. MD aware, continue with AM troponin draw. Will continue to monitor and follow plan of care.
[2018-03-24] VITALS: BP 145/87
[2018-03-24 04:00] VITALS: BP 113/75
[2018-03-24 05:45] LABS: BASOPHILS % (AUTO) 0.8 % (0.0-2.0); EOSINOPHILS % (AUTO) 4.4 % (0.0-3.0); HEMATOCRIT 41.2 % (42.0-52.0); LYMPHOCYTES % (AUTO) 20.2 % (20.0-45.0); MEAN CORPUSCULAR VOLUME 86 FL (80-99); MONOCYTES % (AUTO) 6.5 % (1.0-10.0); NEUTROPHILS % (AUTO) 68.1 % (45.0-75.0); PLATELET COUNT 164 K/UL (150-450); RED CELL DISTRIBUTION WIDTH 12.8 % (11.6-14.8); WHITE BLOOD COUNT 5.8 K/UL (4.8-10.8)
[2018-03-24] MEDS: NovoLOG Insulin Flexpen SUBQ SCH ×4 (06:05→20:01)
[2018-03-24 06:30] LABS: ALANINE AMINOTRANSFERASE 21 U/L (12-78); ALBUMIN 2.9 G/DL (3.4-5.0); ALBUMIN/GLOBULIN RATIO 0.9 (1.0-2.7); ALKALINE PHOSPHATASE 76 U/L (46-116); ANION GAP 8 mmol/L (5-15); ASPARTATE AMINO TRANSFERASE 16 U/L (15-37); BILIRUBIN,TOTAL 0.5 MG/DL (0.2-1.0); BLOOD UREA NITROGEN 10 mg/dL (7-18); CALCIUM 8.6 MG/DL (8.5-10.1); CARBON DIOXIDE 26 MMOL/L (21-32); CHLORIDE 108 MMOL/L (98-107); CREATININE 0.7 MG/DL (0.55-1.30); POTASSIUM 3.2 MMOL/L (3.5-5.1); SODIUM 142 MMOL/L (136-145)
--- NOTE | 2018-03-24 07:19 | NUR ---
NURSE NOTES: TROPONIN RESULTS THIS MORNING, TROPONIN TRENDING DOWN FROM 0.249 TO 0.128.
--- NOTE | 2018-03-24 07:20 | NUR ---
HAND-OFF: Report given to ALICIA SHARP.
--- NOTE | 2018-03-24 07:30 | NUR ---
NURSE NOTES: Received report from Sujey Jackson RN. Patient asleep in bed, opens eyes spontaneously, oriented x 3-4. On room air, respirations even and unlabored. Right AC 20g saline lock patent and asymptomatic. Bed locked in lowest position with side rails up x 3. Bed alarm on. All needs attended to. Call light within reach. Will continue to monitor.
[2018-03-24 08:00] VITALS: BP 131/74
[2018-03-24] MEDS: hydroCHLOROthiazide 12.5mg TAB ORAL SCH (08:53)
[2018-03-24] MEDS: Donepezil 10mg tab ORAL SCH (08:53)
[2018-03-24] MEDS: Tamsulosin 0.4mg cap ORAL SCH (08:53)
[2018-03-24] MEDS: Levemir Flexpen SUBQ SCH (08:57)
--- NOTE | 2018-03-24 09:45 | Consultation ---
DATE OF CONSULTATION: 03/24/2018 ENDOCRINOLOGY CONSULTATION CONSULTING PHYSICIAN: Stas Angel M.D. REFERRING PHYSICIAN: Ally Gross M.D. REASON FOR CONSULTATION: Diabetes management. HISTORY OF PRESENT ILLNESS: The patient is an 82-year-old male with past medical history of diabetes, who presented to the hospital with chest discomfort, altered mental status, and glucose of 300. Troponin was elevated and admitted to telemetry bed for observation and treatment. I was called to manage diabetes. At home, he takes Lantus. PAST MEDICAL HISTORY: 1. Diabetes. 2. Hypertension. 3. Coronary artery disease. PAST SURGICAL HISTORY: None. ALLERGIES TO MEDICATIONS: None. MEDICATIONS: Reviewed and reconciled. FAMILY HISTORY: Diabetes. SOCIAL HISTORY: Denies smoking, alcohol, or drug use. REVIEW OF SYSTEMS: Difficult to obtain. LABORATORY VALUES: Sodium 142, potassium 3.2, chloride 108, bicarbonate 26, BUN 10, creatinine 0.7, glucose of 98, calcium of 8.6. Troponin of 0.128. Lipase of 94. PHYSICAL EXAMINATION: VITAL SIGNS: Blood pressure is 145/87, pulse 67, temperature of 98.3, and respiratory rate of 20. HEENT: Pupils equal and reactive to light. Sclerae anicteric. NECK: No JVD. HEART: Regular. LUNGS: Clear. ABDOMEN: Positive bowel sounds. Soft. EXTREMITIES: No clubbing, cyanosis, or edema. DIAGNOSES: 1. Elevated troponin. 2. Altered mental status. 3. Hyperglycemia. PLAN: 1. Start Levemir 8 units daily. 2. NovoLog sliding scale before meals and at bedtime. 3. Cardiac diabetic diet. 4. Further adjustment according to blood glucose values. 5. Check hemoglobin A1c. 6. I will follow the patient closely during hospital stay. Thank you, Dr. Gross, for the courtesy of this consultation. Stas Angel M.D. DR: John JOB#: [id number] CC:
[2018-03-24 12:00] VITALS: BP 136/78
[2018-03-24 16:00] VITALS: BP 153/73
--- NOTE | 2018-03-24 17:40 | Cardiology Report ---
APPROVED REPORT EKG Measurement Heart [id number] Normal sinus rhythm Left anterior fascicular block Inferior infarct, age undetermined Possible Anterolateral infarct, age undetermined Abnormal ECG
--- NOTE | 2018-03-24 19:20 | NUR ---
HAND-OFF: Report given to Orlando Delaney RN.
--- NOTE | 2018-03-24 19:25 | NUR ---
NURSE NOTES: Received report from Mouna VARGAS,. pt. in bed awake, able to make needs known, A/O x's 3, no signs of acute cardiac or respiratory distress noted, bed in lowest position and call light within easy reach, bed alarm on, side rails up x's3 and safety brakes engaged, pt. appears to be resting comfortably, pt. appears to be sating well on room air at 98%- no distress noted, Urinal at bedside and within easy reach, pt. is aware to ask for assistance when ambulating- per endorsement pt. does ambulate, Rt. AC 20G- Iv intact and patent, safety measures continued, will continue with plan of care.
--- NOTE | 2018-03-24 19:56 | NUR ---
NURSE NOTES: pt. refusing to have blood sugar checked and refusing to take 2100 medications- Seroquel and Remeron- pt. is Nepali speaking and had Zacarias Gu from ICU translate, pt. continued to refuse- risks and benefits were explained- but pt. stated that he does not need medications as he will be leaving tomorrow. Addendum: 03/24/18 at 2001 by KATHLEEN NIX RN RN pt. refused blood sugar check as well.
[2018-03-24 20:00] VITALS: BP 133/76
--- NOTE | 2018-03-24 20:00 | Cardiology Progress Note ---
Assessment/Plan Assessment/Plan The patient is seen and examined, full consult note will be dictated. Objective Last 24 Hour Vital Signs Date Time Temp Pulse Resp B/P (MAP) Pulse Ox O2 Delivery O2 Flow Rate FiO2 03/24/18 16:00 Room Air 03/24/18 16:00 69 03/24/18 16:00 97.3 72 18 153/73 (99) 99 03/24/18 12:00 97.3 69 20 136/78 (97) 96 03/24/18 12:00 Room Air 03/24/18 12:00 80 03/24/18 08:00 Room Air 03/24/18 08:00 71 03/24/18 08:00 97.5 64 18 131/74 (93) 97 03/24/18 04:00 55 03/24/18 04:00 98.0 62 20 113/75 (88) 95 03/24/18 04:00 Room Air 03/24/18 00:00 98.4 69 20 145/87 (106) 96 03/24/18 00:00 Room Air 03/24/18 00:00 68 Intake and Output 03/23/18 03/24/18 19:00 07:00 Intake Total 1240 ml Output Total 1100 ml Balance 1240 ml -1100 ml Intake Oral 240 ml IV Total 1000 ml Output Urine Total 1100 ml # Voids 4 Laboratory Tests Test 03/24/18 04:00 03/24/18 12:10 White Blood Count 5.8 K/UL (4.8-10.8) Red Blood Count 4.80 M/UL (4.70-6.10) Hemoglobin 14.0 G/DL (14.2-18.0) L Hematocrit 41.2 % (42.0-52.0) L Mean Corpuscular Volume 86 FL (80-99) Mean Corpuscular Hemoglobin 29.2 PG (27.0-31.0) Mean Corpuscular Hemoglobin Concent 34.1 G/DL (32.0-36.0) Red Cell Distribution Width 12.8 % (11.6-14.8) Platelet Count 164 K/UL (150-450) Mean Platelet Volume 6.2 FL (6.5-10.1) L Neutrophils (%) (Auto) 68.1 % (45.0-75.0) Lymphocytes (%) (Auto) 20.2 % (20.0-45.0) Monocytes (%) (Auto) 6.5 % (1.0-10.0) Eosinophils (%) (Auto) 4.4 % (0.0-3.0) H Basophils (%) (Auto) 0.8 % (0.0-2.0) Sodium Level 142 MMOL/L (136-145) Potassium Level 3.2 MMOL/L (3.5-5.1) L Chloride Level 108 MMOL/L (98-107) H Carbon Dioxide Level 26 MMOL/L (21-32) Anion Gap 8 mmol/L (5-15) Blood Urea Nitrogen 10 mg/dL (7-18) Creatinine 0.7 MG/DL (0.55-1.30) Estimat Glomerular Filtration Rate mL/min (>60) Glucose Level 98 MG/DL (74-106) # Hemoglobin A1c 9.5 % (4.3-6.0) H Calcium Level 8.6 MG/DL (8.5-10.1) Total Bilirubin 0.5 MG/DL (0.2-1.0) Aspartate Amino Transf (AST/SGOT) 16 U/L (15-37) Alanine Aminotransferase (ALT/SGPT) 21 U/L (12-78) Alkaline Phosphatase 76 U/L (46-116) Troponin I 0.128 ng/mL (0.000-0.056) 0.091 ng/mL (0.000-0.056) Total Protein 6.1 G/DL (6.4-8.2) L Albumin 2.9 G/DL (3.4-5.0) L Globulin 3.2 g/dL Albumin/Globulin Ratio 0.9 (1.0-2.7) L Microbiology Date/Time Source Procedure Growth Status 03/23/18 12:45 Rectum Received Rogerio Conway MD Mar 24, 2018 20:00
--- NOTE | 2018-03-24 21:15 | Consultation ---
DATE OF CONSULTATION: 03/24/2018 CARDIOLOGY CONSULTATION: CONSULTING PHYSICIAN: Rogerio Conway M.D. REFERRING PHYSICIAN: Ally Gross M.D. REASON FOR CONSULTATION: Management of elevated troponin I level. HISTORY OF PRESENT ILLNESS: The patient is a very unfortunate 82-year-old gentleman, who is a poor historian, presents to the hospital with generalized weakness and frequent falls at the nursing facility. The patient at the time of arrival to the hospital had a blood pressure of 104/65 mmHg and pulse of 85. A 12-lead electrocardiogram was significant for sinus rhythm with left axis deviation, left anterior fascicular block, but no acute ST and T-wave abnormalities except there were some nonspecific ST and T-wave abnormalities. The patient's risk factors for coronary artery disease including diabetes mellitus, hypertension. There is also prior history of coronary artery disease, the detail of which is unknown. The patient also suffers from abdominal aortic aneurysm. At the time of arrival to the hospital, laboratory findings showed glucosuria with 4+ sugar in the urine as well as hyperglycemia with a blood sugar of 395 and troponin I level, which was elevated at 0.249. The patient was admitted to [facility] for altered level of consciousness as well as acute coronary syndrome. Cardiology consultation was made at request of Dr. Gross for evaluation and management of this condition. PAST MEDICAL HISTORY: Diabetes mellitus, hypertension, history of coronary artery disease. PAST SURGICAL HISTORY: None. FAMILY HISTORY: No premature coronary artery disease in the first-degree relatives. SOCIAL HISTORY: Denies any tobacco, alcohol, or illicit drug use. ALLERGIES: No known drug allergies. REVIEW OF SYSTEMS: HEENT: Denies any headache, diplopia, or blurred vision. CONSTITUTIONAL: Complains of generalized weakness, but no fever, chills, or night sweats. PULMONARY: Denies any cough, hemoptysis, or wheezing. CARDIOVASCULAR: Denies any chest pain, shortness of breath, PND, orthopnea, or leg swelling. GASTROINTESTINAL: Denies any nausea, vomiting, diarrhea, constipation, abdominal pain, or GI bleed. GENITOURINARY: Denies any hematuria, dysuria, or incontinence. NEUROLOGY: Denies any motor dysfunction, sensory deficit, or altered speech. MEDICATIONS: List of medications in the nursing facility includes acetaminophen 500 mg q.6 hours p.r.n. temperature above 100.5 and mild pain, aspirin 81 mg p.o. daily, bacitracin topical twice daily, Lotrimin 1 application topical twice daily, Colace 100 mg twice daily, donepezil 10 mg p.o. daily, hydrochlorothiazide 12.5 mg p.o. daily, [place] 10/325 one tablet q.6 hours p.r.n. pain, insulin Lantus 22 units subcutaneous at bedtime, Remeron 50 mg p.o. at bedtime, Seroquel 25 mg p.o. daily, tamsulosin 0.5 mg p.o. at bedtime. PHYSICAL EXAMINATION: VITAL SIGNS: Blood pressure is 104/65, pulse of 85, respirations 20, temperature 98.1 degrees Fahrenheit, and O2 saturation 94% on room air. GENERAL: The patient is a very unfortunate 82-year-old gentleman, in no apparent respiratory distress. Alert and oriented x4. HEENT: Atraumatic and normocephalic. Anicteric. Pupils are equal, round, and reactive to light and accommodation. Extraocular muscles intact. NECK: JVP less than 5 cm. No carotid bruit. Carotid upstrokes 2+ bilaterally. CARDIOVASCULAR: Normal S1, S2. Regular rate and rhythm. No murmurs, gallops, or rubs. PMI is at fourth intercostal space at the midclavicular line. LUNGS: Clear to auscultation bilaterally. ABDOMEN: Soft, nontender, and nondistended. No hepatosplenomegaly. Positive bowel sounds. EXTREMITIES: No evidence of edema, clubbing, or cyanosis. LABORATORY FINDINGS: At the time of arrival to the hospital, sodium was 137, potassium is 4.1, chloride 103, bicarbonate 27, BUN of 14, creatinine 0.9, glucose is 395, calcium is 8.8. WBC is 5.4, hemoglobin of 13.9, hematocrit 41.2, and platelet count is 167. Chest x-ray showed right mid lung mass, left basilar atelectasis, borderline cardiomegaly. CT of head showed negative for acute intracranial bleed or mass effect. Left frontal encephalomalacia consistent with nonacute right caudate body lacunar infarct, which is new, chronic and age-related changes. ASSESSMENT AND PLAN: The patient is a very unfortunate 82-year-old gentleman who is seen in Cardiology consultation at request of Dr. Gross. 1. Elevated troponin I level in this patient could be demand ischemia or type 2 non-ST elevation myocardial infarction. A 12-lead electrocardiogram however does not show any acute changes. We will like to obtain 2D echocardiography for assessment of LV wall motion. If left ventricular systolic function is affected and is below 40%, then we may have to consider left heart catheterization and coronary angiography to address elevated troponin I level. In the meantime, the patient will be on aspirin, statins, and beta-blockers. 2. Diabetes mellitus, uncontrolled hyperglycemia. 3. History of CAD. 4. History of hypertension. The patient will be continued on hydrochlorothiazide. I would like to thank Dr. Gross for allowing me to participate in the care of this patient. Rogerio Conway M.D. DR: SANJEEV JOB#: [id number] CC:
--- NOTE | 2018-03-24 22:30 | History and Physical Report ---
DATE OF ADMISSION: 03/23/2018 HISTORY OF PRESENT ILLNESS: The patient basically is admitted for altered mental status. The patient is a poor historian. Comes from assisted living. The patient was complaining of weakness. Has been also falling at the assisted living. The patient is speaking Ukrainian and is a poor historian. Admitted for altered mental status. The patient also denies pain. Denies shortness of breath. Denies nausea, vomiting, or diarrhea. The patient is also found to have elevated troponin and elevated sugar as well. Admitted to [facility]. Cannot get any further history from the patient. PAST MEDICAL HISTORY: NIDDM, organic brain syndrome, hypertension, CAD. Also history of constipation, dementia, psychosis, BPH, and depression. ALLERGIES: No known allergies. MEDICATIONS: Aspirin, benazepril, hydrochlorothiazide, insulin Lantus, Remeron, Flomax, and Seroquel. FAMILY HISTORY: Noncontributory. SOCIAL HISTORY: Denies smoking. Denies history of drugs. Denies history of alcohol abuse. REVIEW OF SYSTEMS: HEENT: Denies headaches. RESPIRATORY: Denies shortness of breath. Denies cough. CARDIOVASCULAR: Denies chest pain. GASTROINTESTINAL: Denies nausea, vomiting, or diarrhea. EXTREMITIES: Denies pain in lower extremities. CENTRAL NERVOUS SYSTEM: Denies change in vision or speech pattern, however, he is a poor historian. PHYSICAL EXAMINATION: VITAL SIGNS: Temperature 98.4, pulse is 68, blood pressure 145/87. HEENT: PERRLA. NECK: Supple. No lymphadenopathy. CHEST: Clear to auscultation. CARDIOVASCULAR: Regular rate and rhythm. No murmurs or extra sounds. GASTROINTESTINAL: Soft, nontender, nondistended. No organomegaly. EXTREMITIES: 1+ edema. Reflexes equal on both sides. Moves all extremities. NEUROLOGIC: Oriented x2. LABORATORY AND DIAGNOSTIC DATA: WBC of 5.4, hemoglobin 13.9, platelet 167. Sodium 142, potassium 3.2, BUN of 10, creatinine 0.7. Troponin 0.249. EKG, no significant changes. No ST elevation. ASSESSMENT AND PLAN: Electrolyte imbalance, hypokalemia, elevated troponin, AMS, and elevated blood sugar. I have asked Dr. Conway, Dr. Angel, and Dr. Casey to see the patient for the above-mentioned diagnoses and treatment. Ally Gross M.D. DR: RUPESH JOB#: [id number] CC:
[2018-03-25] VITALS: BP 130/72
[2018-03-25 04:00] VITALS: BP 147/95
[2018-03-25] MEDS: NovoLOG Insulin Flexpen SUBQ SCH ×4 (05:39→20:33)
--- NOTE | 2018-03-25 05:40 | NUR ---
NURSE NOTES: pt. refused to have blood sugar checked- explained benefits and importance of having blood sugar checked- pt. continued to refuse.
--- NOTE | 2018-03-25 07:11 | General Progress Note ---
Assessment/Plan Problem List: (1) Altered mental status ICD Codes: R41.82 - Altered mental status, unspecified SNOMED: 275432912 (2) Diabetes ICD Codes: E11.9 - Type 2 diabetes mellitus without complications SNOMED: 57742426 (3) Weakness ICD Codes: R53.1 - Weakness SNOMED: 37458792 Assessment/Plan increase Levemir to 12 units daily continue NISS Subjective Allergies: Coded Allergies: No Known Allergies (Unverified , 03/23/18) All Systems: reviewed and negative except above Subjective events noted glucose in 200 ranged received Levemir 8 units but refused Novolog coverage Objective Last 24 Hour Vital Signs Date Time Temp Pulse Resp B/P (MAP) Pulse Ox O2 Delivery O2 Flow Rate FiO2 03/25/18 04:00 53 03/25/18 04:00 Room Air 03/25/18 04:00 97.8 66 20 147/95 (112) 98 03/25/18 00:00 Room Air 03/25/18 00:00 67 03/25/18 00:00 97.6 70 20 130/72 (91) 97 03/24/18 20:00 Room Air 03/24/18 20:00 97.9 71 20 133/76 (95) 97 03/24/18 20:00 71 03/24/18 16:00 Room Air 03/24/18 16:00 69 03/24/18 16:00 97.3 72 18 153/73 (99) 99 03/24/18 12:00 97.3 69 20 136/78 (97) 96 03/24/18 12:00 Room Air 03/24/18 12:00 80 03/24/18 08:00 Room Air 03/24/18 08:00 71 03/24/18 08:00 97.5 64 18 131/74 (93) 97 Intake and Output 03/24/18 03/25/18 19:00 07:00 Intake Total 720 ml Output Total 1150 ml Balance -430 ml Intake Oral 720 ml Output Urine Total 1150 ml # Voids 4 Laboratory Tests 03/24/18 12:10: Troponin I 0.091H Height (Feet): 5 Height (Inches): 6.00 Weight (Pounds): 169 General Appearance: no apparent distress Neck: normal alignment Cardiovascular: normal rate Respiratory/Chest: normal breath sounds Abdomen: normal bowel sounds Objective Current Medications Medications (Trade) Dose Ordered Sig/Charlette Route PRN Reason Start Time Stop Time Status Last Admin Dose Admin Acetaminophen (Tylenol) 500 mg Q6H PRN ORAL Mild Pain/Temp > 100.5 03/23/18 20:45 04/22/18 20:44 Acetaminophen/ Hydrocodone Bitart ([place] 10/325) 1 tab Q6H PRN ORAL For severe Pain (7-10) 03/23/18 21:00 03/30/18 20:44 Dextrose (Dextrose 50%) 25 ml Q30M PRN IV Hypoglycemia 03/24/18 07:30 04/23/18 07:29 Dextrose (Dextrose 50%) 50 ml Q30M PRN IV Hypoglycemia 03/24/18 07:30 04/23/18 07:29 Donepezil HCl (Aricept) 10 mg DAILY ORAL 03/24/18 09:00 04/23/18 08:59 03/24/18 08:53 Hydrochlorothiazide (Hydrodiuril) 12.5 mg DAILY ORAL 03/24/18 09:00 04/23/18 08:59 03/24/18 08:53 Insulin Aspart (NovoLOG) BEFORE MEALS AND HS SUBQ 03/23/18 21:00 04/22/18 20:59 03/24/18 16:42 Insulin Detemir (Levemir) 8 units DAILY SUBQ 03/24/18 09:00 04/23/18 08:59 03/24/18 08:57 Mirtazapine (Remeron) 15 mg BEDTIME ORAL 03/23/18 21:00 04/22/18 20:59 03/23/18 20:42 Quetiapine Fumarate (SEROquel) 25 mg QHS ORAL 03/23/18 21:00 04/22/18 20:59 03/23/18 20:42 Tamsulosin HCl (Flomax) 0.4 mg DAILY ORAL 03/24/18 09:00 04/23/18 08:59 03/24/18 08:53 Item Value Date Time Bedside Blood Glucose 203 mg/dl H 03/24/18 1642 Bedside Blood Glucose 239 mg/dl H 03/24/18 1118 Bedside Blood Glucose 252 mg/dl H 03/24/18 0857 Bedside Blood Glucose 121 mg/dl H 03/24/18 0622 Stas Angel MD Mar 25, 2018 07:11
--- NOTE | 2018-03-25 07:15 | NUR ---
NURSE NOTES: RECEIVED BED SIDE REPORT FROM SANTOSH COAT OPERATOR INSULATOR OF NOC SHIFT.RECEIVED PT RESTING IN BED QUIETLY,AWAKE AND ALERT ESTONIAN SPEAKING ABLE TO FOLLOWS SIMPLE COMMANDS.PT DENIES CP OR SOB AT THIS TIME.FULL BODY ASSESSMENT DONE.PT WITH YaaL ON RT AC G# 20 INTACT.PT REMAINS FREE OF INJURIES AT THIS TIME.WILL CONT TO MONITOR.
--- NOTE | 2018-03-25 07:30 | NUR ---
6HAND-OFF: Report given to Prosper RN, pt. remains stable and no signs of distress noted.
[2018-03-25 08:00] VITALS: BP 139/77
[2018-03-25] MEDS: Levemir Flexpen SUBQ SCH (09:59)
[2018-03-25] MEDS: Donepezil 10mg tab ORAL SCH (09:59)
[2018-03-25] MEDS: Tamsulosin 0.4mg cap ORAL SCH (09:59)
[2018-03-25] MEDS: hydroCHLOROthiazide 12.5mg TAB ORAL SCH (09:59)
[2018-03-25 12:00] VITALS: BP 118/83
[2018-03-25 16:00] VITALS: BP 160/88
--- NOTE | 2018-03-25 19:10 | NUR ---
NURSE NOTES: Received report from Prosper VARGAS,. pt. in bed awake, able to make needs known, A/O x's 2, no signs of acute cardiac or respiratory distress noted, bed in lowest position and call light within easy reach, Pt. aware to ask for assistance when ambulating, bed alarm on, side rails up x's3 and safety brakes engaged, pt. appears to be resting comfortably, pt. appears to be sating well on room air at 99%- no distress noted, Urinal at bedside and within easy reach, Rt. AC 20G- Iv intact and patent, comfort measures provided, linens changed and bed bath given to patient, safety measures continued, will continue with plan of care.
--- NOTE | 2018-03-25 19:15 | NUR ---
HAND-OFF: Report given to .SANTOSH VARGAS.
[2018-03-25 20:00] VITALS: BP 129/75
--- NOTE | 2018-03-25 20:41 | Consultation ---
History of Present Illness General Chief Complaint: Generalized Weakness Present Illness HPI 82-year-old male , who is a poor historian, presents to the hospital with generalized weakness and frequent falls at the nursing facility. the pt has hx of dementia and mdd. the pt was agitated with poor cognition. the pt is on seroquel and remron Allergies: Coded Allergies: No Known Allergies (Unverified , 03/23/18) Medication History Scheduled Aspirin* (Aspir 81*), 81 MG ORAL DAILY, (Reported) Bacitracin (Bacitracin), 1 APPLIC TOPIC BID Clotrimazole* (Lotrimin*), 1 APPLIC TOPIC TWICE A DAY Docusate Sodium* (Docusate Sodium*), 100 MG ORAL TWICE A DAY, (Reported) Donepezil Hcl* (Donepezil Hcl*), 10 MG ORAL DAILY, (Reported) Hydrochlorothiazide* (Hydrochlorothiazide*), 12.5 MG ORAL DAILY, (Reported) Hydrochlorothiazide* (Hydrochlorothiazide*), 12.5 MG ORAL DAILY, (Reported) Insulin Glargine (Lantus), 0 SUBQ BEDTIME, (Reported) Insulin Glargine (Lantus), 0 SUBQ BEDTIME, (Reported) Insulin Glargine (Lantus), 22 SUBQ BEDTIME, (Reported) Mirtazapine (Remeron), 15 MG ORAL BEDTIME, (Reported) Mirtazapine* (Remeron*), 7.5 MG ORAL BEDTIME, (Reported) Quetiapine Fumarate (Seroquel), 25 MG ORAL DAILY, (Reported) Tamsulosin Hcl (Tamsulosin Hcl*), 0.4 MG ORAL BEDTIME, (Reported) Scheduled PRN Acetaminophen* (Tylenol Extra Strength*), 500 MG ORAL Q6H PRN for Mild Pain/ Temp > 100.5, (Reported) Hydrocodone Bit/Acetaminophen 10-325* ([place] 10-325*), 1 TAB ORAL Q6H PRN for For Pain, (Reported) Patient History Limited by: medical condition History Provided By: Patient, Medical Record, PMD Healthcare decision maker Resuscitation status Full Code Advanced Directive on File No Past Medical/Surgical History Past Medical/Surgical History: (1) Balanitis (2) Dehydration (3) Falls (4) ACS (acute coronary syndrome) (5) Elevated troponin (6) Diabetes (7) Weakness (8) Altered mental status (9) Constipation (10) Encephalopathy acute Review of Systems Psychiatric: Reports: prior hx, anxiety, depressed feelings, emotional problems Physical Exam General Appearance: no apparent distress, alert, confused, agitated Last 24 Hour Vital Signs Date Time Temp Pulse Resp B/P (MAP) Pulse Ox O2 Delivery O2 Flow Rate FiO2 03/25/18 16:00 Room Air 03/25/18 16:00 97.5 72 20 160/88 (112) 98 03/25/18 15:30 73 03/25/18 12:00 98.6 110 16 118/83 (95) 100 03/25/18 11:47 80 03/25/18 08:00 63 03/25/18 08:00 Room Air 03/25/18 08:00 97.7 77 20 139/77 (97) 97 03/25/18 04:00 53 03/25/18 04:00 Room Air 03/25/18 04:00 97.8 66 20 147/95 (112) 98 03/25/18 00:00 Room Air 03/25/18 00:00 67 03/25/18 00:00 97.6 70 20 130/72 (91) 97 Intake and Output 03/24/18 03/25/18 19:00 07:00 Intake Total 720 ml Output Total 1150 ml Balance -430 ml Intake Oral 720 ml Output Urine Total 1150 ml # Voids 4 Laboratory Tests Test 03/25/18 06:50 Troponin I 0.091 ng/mL (0.000-0.056) Height (Feet): 5 Height (Inches): 6.00 Weight (Pounds): 169 Medications Current Medications Medications (Trade) Dose Ordered Sig/Charlette Route PRN Reason Start Time Stop Time Status Last Admin Dose Admin Acetaminophen (Tylenol) 500 mg Q6H PRN ORAL Mild Pain/Temp > 100.5 03/23/18 20:45 04/22/18 20:44 Acetaminophen/ Hydrocodone Bitart ([place] 10/325) 1 tab Q6H PRN ORAL For severe Pain (7-10) 03/23/18 21:00 03/30/18 20:44 Dextrose (Dextrose 50%) 25 ml Q30M PRN IV Hypoglycemia 03/24/18 07:30 04/23/18 07:29 Dextrose (Dextrose 50%) 50 ml Q30M PRN IV Hypoglycemia 03/24/18 07:30 04/23/18 07:29 Donepezil HCl (Aricept) 10 mg DAILY ORAL 03/24/18 09:00 04/23/18 08:59 03/25/18 09:59 Hydrochlorothiazide (Hydrodiuril) 12.5 mg DAILY ORAL 03/24/18 09:00 04/23/18 08:59 03/25/18 09:59 Insulin Aspart (NovoLOG) BEFORE MEALS AND HS SUBQ 03/23/18 21:00 04/22/18 20:59 03/25/18 20:33 Insulin Detemir (Levemir) 8 units DAILY SUBQ 03/24/18 09:00 04/23/18 08:59 03/25/18 09:59 Mirtazapine (Remeron) 15 mg BEDTIME ORAL 03/23/18 21:00 04/22/18 20:59 03/25/18 20:31 Quetiapine Fumarate (SEROquel) 25 mg QHS ORAL 03/23/18 21:00 04/22/18 20:59 03/25/18 20:31 Tamsulosin HCl (Flomax) 0.4 mg DAILY ORAL 03/24/18 09:00 04/23/18 08:59 03/25/18 09:59 Assessment/Plan Problem List: (1) Encephalopathy acute ICD Codes: G93.40 - Encephalopathy, unspecified SNOMED: 67743931, 410242744 Assessment/Plan lauren tai provided /Klaudia Cross MD Mar 25, 2018 20:41
--- NOTE | 2018-03-25 20:41 | Cardiology Progress Note ---
Assessment/Plan Assessment/Plan 1. Elevated troponin I level in this patient could be demand ischemia or type 2 non-ST elevation myocardial infarction. 12-lead electrocardiogram however does not show any acute changes. 2D echocardiography reveals normal LV systolic function with normalwall motion, continue aspirin, statins, and beta-blockers. 2. Diabetes mellitus, uncontrolled hyperglycemia. 3. History of CAD. 4. History of hypertension, continue HCTZ. Subjective Subjective Sinus rhythm at rate of 72. Objective Last 24 Hour Vital Signs Date Time Temp Pulse Resp B/P (MAP) Pulse Ox O2 Delivery O2 Flow Rate FiO2 03/25/18 16:00 Room Air 03/25/18 16:00 97.5 72 20 160/88 (112) 98 03/25/18 15:30 73 03/25/18 12:00 98.6 110 16 118/83 (95) 100 03/25/18 11:47 80 03/25/18 08:00 63 03/25/18 08:00 Room Air 03/25/18 08:00 97.7 77 20 139/77 (97) 97 03/25/18 04:00 53 03/25/18 04:00 Room Air 03/25/18 04:00 97.8 66 20 147/95 (112) 98 03/25/18 00:00 Room Air 03/25/18 00:00 67 03/25/18 00:00 97.6 70 20 130/72 (91) 97 Intake and Output 03/24/18 03/25/18 19:00 07:00 Intake Total 720 ml Output Total 1150 ml Balance -430 ml Intake Oral 720 ml Output Urine Total 1150 ml # Voids 4 2D Echo: LVEF 55%, Grade I LVDD, RVSP 14 mmHg Laboratory Tests Test 03/25/18 06:50 Troponin I 0.091 ng/mL (0.000-0.056) Microbiology Date/Time Source Procedure Growth Status 03/23/18 12:45 Nasal Nares MRSA Culture - Final NO METHICILLIN RESISTANT STAPH AUREUS... Complete 03/23/18 12:45 Rectum - Final NO CARBAPENEM-RESISTANT ENTEROBACTERI... Complete 03/23/18 12:45 Rectum VRE Culture - Final NO VANCOMYCIN RESISTANT ENTEROCOCCUS ... Complete Objective HEENT: Atraumatic and normocephalic. Anicteric. Pupils are equal, round, and reactive to light and accommodation. Extraocular muscles intact. NECK: JVP less than 5 cm. No carotid bruit. Carotid upstrokes 2+ bilaterally. CARDIOVASCULAR: Normal S1, S2. Regular rate and rhythm. No murmurs, gallops, or rubs. PMI is at fourth intercostal space at the midclavicular line. LUNGS: Clear to auscultation bilaterally. ABDOMEN: Soft, nontender, and nondistended. No hepatosplenomegaly. Positive bowel sounds. EXTREMITIES: No evidence of edema, clubbing, or cyanosis. Rogerio Conway MD Mar 25, 2018 20:41
--- NOTE | 2018-03-25 21:17 | General Progress Note ---
Assessment/Plan Problem List: (1) Constipation ICD Codes: K59.00 - Constipation, unspecified SNOMED: 23462925 (2) ACS (acute coronary syndrome) ICD Codes: I24.9 - Acute ischemic heart disease, unspecified SNOMED: 891445673 (3) Elevated troponin ICD Codes: R74.8 - Abnormal levels of other serum enzymes SNOMED: 464943663, 898437031, 887134451 (4) Diabetes ICD Codes: E11.9 - Type 2 diabetes mellitus without complications SNOMED: 88155376 (5) Weakness ICD Codes: R53.1 - Weakness SNOMED: 14980077 (6) Altered mental status ICD Codes: R41.82 - Altered mental status, unspecified SNOMED: 771010348 Status: progressing Assessment/Plan afebrile ams elevated sugar elevated troponin dehydration improving elev trop can be due to dehyration as well Subjective ROS Limited/Unobtainable: Yes Allergies: Coded Allergies: No Known Allergies (Unverified , 03/23/18) Objective Last 24 Hour Vital Signs Date Time Temp Pulse Resp B/P (MAP) Pulse Ox O2 Delivery O2 Flow Rate FiO2 03/25/18 20:00 98.2 78 20 129/75 (93) 96 03/25/18 19:25 78 03/25/18 16:00 Room Air 03/25/18 16:00 97.5 72 20 160/88 (112) 98 03/25/18 15:30 73 03/25/18 12:00 98.6 110 16 118/83 (95) 100 03/25/18 11:47 80 03/25/18 08:00 63 03/25/18 08:00 Room Air 03/25/18 08:00 97.7 77 20 139/77 (97) 97 03/25/18 04:00 53 03/25/18 04:00 Room Air 03/25/18 04:00 97.8 66 20 147/95 (112) 98 03/25/18 00:00 Room Air 03/25/18 00:00 67 03/25/18 00:00 97.6 70 20 130/72 (91) 97 Intake and Output 03/24/18 03/25/18 19:00 07:00 Intake Total 720 ml Output Total 1150 ml Balance -430 ml Intake Oral 720 ml Output Urine Total 1150 ml # Voids 4 Laboratory Tests 03/25/18 06:50: Troponin I 0.091H Height (Feet): 5 Height (Inches): 6.00 Weight (Pounds): 169 General Appearance: confused Cardiovascular: normal rate Respiratory/Chest: lungs clear Abdomen: soft Ally Gross MD Mar 25, 2018 21:17
[2018-03-26] VITALS: BP 132/76
[2018-03-26 04:00] VITALS: BP 143/94
[2018-03-26] MEDS: NovoLOG Insulin Flexpen SUBQ SCH ×4 (06:25→21:02)
--- NOTE | 2018-03-26 07:07 | NUR ---
HAND-OFF: Report given to Mouna Gu, pt. remains stable and no signs of distress noted.
--- NOTE | 2018-03-26 07:15 | NUR ---
NURSE NOTES: Received report from Orlando Delaney RN. Patient asleep in bed, opens eyes spontaneously, oriented x 2-3. On room air, respirations even and unlabored. Right AC 20g saline lock patent and asymptomatic. Bed locked in lowest position with side rails up x 3. Bed alarm on. All needs attended to. Call light within reach. Will continue to monitor.
[2018-03-26 08:00] VITALS: BP 117/70
[2018-03-26] MEDS: Tamsulosin 0.4mg cap ORAL SCH (08:54)
[2018-03-26] MEDS: Donepezil 10mg tab ORAL SCH (08:54)
[2018-03-26] MEDS: hydroCHLOROthiazide 12.5mg TAB ORAL SCH (08:54)
[2018-03-26] MEDS: Levemir Flexpen SUBQ SCH (08:55)
--- NOTE | 2018-03-26 09:09 | Cardiology Report ---
APPROVED REPORT EXAM: Two-dimensional and M-mode echocardiogram with Doppler and color Doppler. INDICATION LV FUNCTION M-Mode DIMENSIONS IVSd1.4 (0.7-1.1cm)Left Atrium (MM)2.7 (1.6-4.0cm) LVDd3.0 (3.5-5.6cm)Aortic Root3.5 (2.0-3.7cm) PWd0.8 (0.7-1.1cm)Aortic Cusp Exc.1.7 (1.5-2.0cm) IVSs1.6 cm LVDs1.9 (2.5-4.0cm) PWs1.2 cm Technically difficult study due to poor acoustical windows. Study quality precludes accurate assessment of regional wall motion. Normal left ventricular chamber size, systolic function and wall motion to extent visualized. Left ventricular ejection fraction estimated to be grossly normal. No left ventricular hypertrophy. All other cardiac chamber sizes are within normal limits. Focal aortic valve sclerosis with adequate cusp excursion. Thickened mitral valve leaflets with normal cusp excursion. Mitral annulus and aortic root calcification. Pulmonic valve not well visualized. IVC at normal size with physiologic collapse . A color flow and spectral Doppler study was performed and revealed: No aortic insufficiency . Mitral diastolic velocities suggest reduced left ventricular relaxation c/w mild LV diastolic dysfunction (Grade I ) Trace mitral regurgitation. Trace tricuspid regurgitation. Tricuspid systolic velocities suggests peak right ventricular systolic pressure of 14mmHg
[2018-03-26 12:00] VITALS: BP 131/87
--- NOTE | 2018-03-26 12:36 | NUR ---
HAND-OFF: Report given to Amari Kline RN.
--- NOTE | 2018-03-26 12:40 | NUR ---
NURSE NOTES: Assumed pt care,report received from Mouna Whyte RN.Pt awake appears confused ,ambulating around the room,noted no resp distress,denies any c/o pain or discomfort,SR on the monitor.Pt assisted back to bed ,SR up x2 call rico placed within reach ,HOB elevated ,bed lock in lowest position,Uses urinal to void,IV site to RAC intact,skin warm and dry to touch,will continue to monitor pt.
[2018-03-26 16:00] VITALS: BP 132/80
--- NOTE | 2018-03-26 18:00 | NUR ---
NURSE NOTES: Pt stable no resp distress presented ,ambulatory.
--- NOTE | 2018-03-26 19:15 | NUR ---
HAND-OFF: Report given to Stephanie York RN .
--- NOTE | 2018-03-26 19:26 | NUR ---
NURSE NOTES: Received patient from Erica Kline RN. Patient is awake, alert and oriented x2-3 German speaking only. Patient is in bed but ambulatory. Urinal at bedside, bed on lowest position, and call light within reach. Patient shows no signs and symptoms of pain and distress. Will continue plan of care.
[2018-03-26 20:00] VITALS: BP 124/81
--- NOTE | 2018-03-26 21:32 | General Progress Note ---
Assessment/Plan Problem List: (1) Constipation ICD Codes: K59.00 - Constipation, unspecified SNOMED: 80034761 (2) ACS (acute coronary syndrome) ICD Codes: I24.9 - Acute ischemic heart disease, unspecified SNOMED: 515174966 (3) Elevated troponin ICD Codes: R74.8 - Abnormal levels of other serum enzymes SNOMED: 011598105, 523888393, 543850861 (4) Diabetes ICD Codes: E11.9 - Type 2 diabetes mellitus without complications SNOMED: 13598426 (5) Weakness ICD Codes: R53.1 - Weakness SNOMED: 51609100 (6) Altered mental status ICD Codes: R41.82 - Altered mental status, unspecified SNOMED: 730627343 Status: progressing Assessment/Plan elevated sugar elevated troponin is stable niddm weak and debilitated needs snf for pt/ot dehydration improv Subjective ROS Limited/Unobtainable: Yes Allergies: Coded Allergies: No Known Allergies (Unverified , 03/23/18) Objective Last 24 Hour Vital Signs Date Time Temp Pulse Resp B/P (MAP) Pulse Ox O2 Delivery O2 Flow Rate FiO2 03/26/18 20:00 97.2 66 18 124/81 (95) 100 03/26/18 20:00 65 03/26/18 16:00 97.5 66 20 132/80 (97) 98 03/26/18 16:00 73 03/26/18 16:00 Room Air 03/26/18 12:00 98.3 63 18 131/87 (102) 96 03/26/18 12:00 70 03/26/18 12:00 Room Air 03/26/18 08:00 84 03/26/18 08:00 98.1 72 20 117/70 (86) 97 03/26/18 08:00 Room Air 03/26/18 04:00 Room Air 03/26/18 04:00 97.3 82 22 143/94 (110) 98 03/26/18 03:44 67 03/26/18 00:00 98.0 77 20 132/76 (94) 96 03/26/18 00:00 Room Air 03/25/18 23:54 61 Intake and Output 03/25/18 03/26/18 19:00 07:00 Intake Total 800 ml Output Total 680 ml Balance 120 ml Intake Oral 800 ml Output Urine Total 680 ml # Voids 3 4 Height (Feet): 5 Height (Inches): 6.00 Weight (Pounds): 169 Neck: supple Cardiovascular: normal rate Respiratory/Chest: lungs clear Abdomen: soft Ally Gross MD Mar 26, 2018 21:32
--- NOTE | 2018-03-26 22:03 | Cardiology Progress Note ---
Assessment/Plan Assessment/Plan 1. Elevated troponin I level in this patient could be demand ischemia or type 2 non-ST elevation myocardial infarction. 12-lead electrocardiogram however does not show any acute changes. 2D echocardiography reveals normal LV systolic function with normal wall motion, continue aspirin, statins, and beta-blockers. 2. Diabetes mellitus, uncontrolled hyperglycemia. 3. History of CAD. 4. History of hypertension, continue HCTZ. Subjective Subjective Sinus rhythm at rate of 66. Objective Last 24 Hour Vital Signs Date Time Temp Pulse Resp B/P (MAP) Pulse Ox O2 Delivery O2 Flow Rate FiO2 03/26/18 20:00 97.2 66 18 124/81 (95) 100 03/26/18 20:00 65 03/26/18 16:00 97.5 66 20 132/80 (97) 98 03/26/18 16:00 73 03/26/18 16:00 Room Air 03/26/18 12:00 98.3 63 18 131/87 (102) 96 03/26/18 12:00 70 03/26/18 12:00 Room Air 03/26/18 08:00 84 03/26/18 08:00 98.1 72 20 117/70 (86) 97 03/26/18 08:00 Room Air 03/26/18 04:00 Room Air 03/26/18 04:00 97.3 82 22 143/94 (110) 98 03/26/18 03:44 67 03/26/18 00:00 98.0 77 20 132/76 (94) 96 03/26/18 00:00 Room Air 03/25/18 23:54 61 Intake and Output 03/25/18 03/26/18 19:00 07:00 Intake Total 800 ml Output Total 680 ml Balance 120 ml Intake Oral 800 ml Output Urine Total 680 ml # Voids 3 4 2D Echo: LVEF 55%, Grade I LVDD, RVSP 14 mmHg Objective GENERAL: The patient is a very unfortunate 82-year-old gentleman, in no apparent respiratory distress. Alert and oriented x4. HEENT: Atraumatic and normocephalic. Anicteric. Pupils are equal, round, and reactive to light and accommodation. Extraocular muscles intact. NECK: JVP less than 5 cm. No carotid bruit. Carotid upstrokes 2+ bilaterally. CARDIOVASCULAR: Normal S1, S2. Regular rate and rhythm. No murmurs, gallops, or rubs. PMI is at fourth intercostal space at the midclavicular line. LUNGS: Clear to auscultation bilaterally. ABDOMEN: Soft, nontender, and nondistended. No hepatosplenomegaly. Positive bowel sounds. EXTREMITIES: No evidence of edema, clubbing, or cyanosis. Rogerio Conway MD Mar 26, 2018 22:03
--- NOTE | 2018-03-26 23:58 | General Progress Note ---
Assessment/Plan Problem List: (1) MDD (major depressive disorder), recurrent episode ICD Codes: F33.9 - Major depressive disorder, recurrent, unspecified SNOMED: 017454908 (2) Encephalopathy acute ICD Codes: G93.40 - Encephalopathy, unspecified SNOMED: 44592046, 576615017 Assessment/Plan remron seroquel provided ro/st Subjective Neurologic/Psychiatric: Reports: anxiety, depressed, emotional problems Allergies: Coded Allergies: No Known Allergies (Unverified , 03/23/18) Objective Last 24 Hour Vital Signs Date Time Temp Pulse Resp B/P (MAP) Pulse Ox O2 Delivery O2 Flow Rate FiO2 03/26/18 21:00 Room Air 03/26/18 20:00 97.2 66 18 124/81 (95) 100 03/26/18 20:00 65 03/26/18 16:00 97.5 66 20 132/80 (97) 98 03/26/18 16:00 73 03/26/18 16:00 Room Air 03/26/18 12:00 98.3 63 18 131/87 (102) 96 03/26/18 12:00 70 03/26/18 12:00 Room Air 03/26/18 08:00 84 03/26/18 08:00 98.1 72 20 117/70 (86) 97 03/26/18 08:00 Room Air 03/26/18 04:00 Room Air 03/26/18 04:00 97.3 82 22 143/94 (110) 98 03/26/18 03:44 67 03/26/18 00:00 98.0 77 20 132/76 (94) 96 03/26/18 00:00 Room Air Intake and Output 03/25/18 03/26/18 19:00 07:00 Intake Total 800 ml Output Total 680 ml Balance 120 ml Intake Oral 800 ml Output Urine Total 680 ml # Voids 3 4 Height (Feet): 5 Height (Inches): 6.00 Weight (Pounds): 169 General Appearance: alert, lethargic, confused, agitated Klaudia Samuels MD Mar 26, 2018 23:58
[2018-03-27] VITALS: BP 132/79
[2018-03-27 04:00] VITALS: BP 124/82
--- NOTE | 2018-03-27 04:59 | NUR ---
HAND-OFF: Report given to ALICIA Reynolds. Patient is cleaned and stable.
[2018-03-27] MEDS: NovoLOG Insulin Flexpen SUBQ SCH ×5 (05:15→20:55)
--- NOTE | 2018-03-27 05:50 | NUR ---
TRANSFER TO FLOOR: Patient transferred to Telemetry Unit. Report given to ALICIA Adams. Belongings and medication taken to floor. Pt in no acute distress. VSS.
--- NOTE | 2018-03-27 06:00 | NUR ---
NURSE NOTES: Pt. transferred from 2 [place] to [facility] via bed without any incident. personnel monitor is in placed, IV site intact, asymptomatic and patent. Bed is in the lowest position and locked. Call light within reach. Belongings list check and accounted. No acute distress noted at this time. Will continue plan of care. Addendum: 03/27/18 at 2006 by Renetta Yen Mai, RN Report received from ALICIA Reynolds.
--- NOTE | 2018-03-27 07:12 | General Progress Note ---
Assessment/Plan Problem List: (1) Altered mental status ICD Codes: R41.82 - Altered mental status, unspecified SNOMED: 365396995 (2) Diabetes ICD Codes: E11.9 - Type 2 diabetes mellitus without complications SNOMED: 65366248 (3) Weakness ICD Codes: R53.1 - Weakness SNOMED: 58073518 Assessment/Plan increase Levemir to 14 units daily add Starlix 120 mg ac tid continue NISS Subjective ROS Limited/Unobtainable: No Allergies: Coded Allergies: No Known Allergies (Unverified , 03/23/18) Subjective events noted he is feeling better Objective Last 24 Hour Vital Signs Date Time Temp Pulse Resp B/P (MAP) Pulse Ox O2 Delivery O2 Flow Rate FiO2 03/27/18 04:00 65 03/27/18 04:00 97.2 64 18 124/82 (96) 100 03/27/18 00:00 74 03/27/18 00:00 97.2 69 20 132/79 (96) 92 03/26/18 21:00 Room Air 03/26/18 20:00 97.2 66 18 124/81 (95) 100 03/26/18 20:00 65 03/26/18 16:00 97.5 66 20 132/80 (97) 98 03/26/18 16:00 73 03/26/18 16:00 Room Air 03/26/18 12:00 98.3 63 18 131/87 (102) 96 03/26/18 12:00 70 03/26/18 12:00 Room Air 03/26/18 08:00 84 03/26/18 08:00 98.1 72 20 117/70 (86) 97 03/26/18 08:00 Room Air Intake and Output 03/26/18 03/27/18 18:59 06:59 Intake Total 960 ml 920 ml Output Total 800 ml 800 ml Balance 160 ml 120 ml Intake Oral 960 ml 920 ml Output Urine Total 800 ml 800 ml # Voids 4 3 Height (Feet): 5 Height (Inches): 6.00 Weight (Pounds): 169 General Appearance: no apparent distress Neck: normal alignment Cardiovascular: normal rate Respiratory/Chest: normal breath sounds Abdomen: normal bowel sounds Objective Current Medications Medications (Trade) Dose Ordered Sig/Charlette Route PRN Reason Start Time Stop Time Status Last Admin Dose Admin Acetaminophen (Tylenol) 500 mg Q6H PRN ORAL Mild Pain/Temp > 100.5 03/27/18 08:45 04/22/18 20:44 Acetaminophen/ Hydrocodone Bitart ([place] 10/325) 1 tab Q6H PRN ORAL For severe Pain (7-10) 03/27/18 09:00 03/30/18 20:44 Dextrose (Dextrose 50%) 25 ml Q30M PRN IV Hypoglycemia 03/27/18 06:00 04/23/18 07:29 Dextrose (Dextrose 50%) 50 ml Q30M PRN IV Hypoglycemia 03/27/18 06:00 04/23/18 07:29 Donepezil HCl (Aricept) 10 mg DAILY ORAL 03/27/18 09:00 04/23/18 08:59 Hydrochlorothiazide (Hydrodiuril) 12.5 mg DAILY ORAL 03/27/18 09:00 04/23/18 08:59 Insulin Aspart (NovoLOG) BEFORE MEALS AND HS SUBQ 03/27/18 06:30 04/22/18 20:59 Insulin Detemir (Levemir) 8 units DAILY SUBQ 03/27/18 09:00 04/23/18 08:59 Mirtazapine (Remeron) 15 mg BEDTIME ORAL 03/27/18 21:00 04/22/18 20:59 Quetiapine Fumarate (SEROquel) 25 mg QHS ORAL 03/27/18 21:00 04/22/18 20:59 Tamsulosin HCl (Flomax) 0.4 mg DAILY ORAL 03/27/18 09:00 04/23/18 08:59 Item Value Date Time Bedside Blood Glucose 136 mg/dl H 03/27/18 0630 Bedside Blood Glucose 338 mg/dl H 03/26/18 210 Bedside Blood Glucose 234 mg/dl H 03/26/18 1826 Bedside Blood Glucose 261 mg/dl H 03/26/18 1136 Bedside Blood Glucose 274 mg/dl H 03/26/18 0855 Stas Angel MD Mar 27, 2018 07:12
--- NOTE | 2018-03-27 07:28 | NUR ---
NURSE NOTES: Received report from ALICIA Beltran. Patient is resting in bed, in stable condition. No s/sx of SOB, breathing is even and unlabored. Denies any presence of pain or discomfort at this time. Bed is in lowest position, brakes engaged. Call light is kept within easy reach. Will continue to monitor patient.
--- NOTE | 2018-03-27 07:38 | NUR ---
HAND-OFF: Report given to ALICIA Steward.
[2018-03-27 08:00] VITALS: BP 117/70
[2018-03-27] MEDS: Tamsulosin 0.4mg cap ORAL SCH (08:17)
[2018-03-27] MEDS: Donepezil 10mg tab ORAL SCH (08:17)
[2018-03-27] MEDS: hydroCHLOROthiazide 12.5mg TAB ORAL SCH (08:17)
[2018-03-27] MEDS ORDERED: Acetaminophen 500mg (ES) tab ORAL PRN (08:45)
[2018-03-27] MEDS ORDERED: HYDROcodone/Acetamin 10/325 tab ORAL PRN (09:00)
[2018-03-27] MEDS ORDERED: Levemir Flexpen SUBQ SCH (09:00)
[2018-03-27 09:43] LABS: ALANINE AMINOTRANSFERASE 22 U/L (12-78); ALBUMIN 2.9 G/DL (3.4-5.0); ALBUMIN/GLOBULIN RATIO 0.8 (1.0-2.7); ALKALINE PHOSPHATASE 84 U/L (46-116); ANION GAP 8 mmol/L (5-15); ASPARTATE AMINO TRANSFERASE 13 U/L (15-37); BILIRUBIN,TOTAL 0.5 MG/DL (0.2-1.0); BLOOD UREA NITROGEN 14 mg/dL (7-18); CALCIUM 8.6 MG/DL (8.5-10.1); CARBON DIOXIDE 27 MMOL/L (21-32); CHLORIDE 106 MMOL/L (98-107); CREATININE 0.9 MG/DL (0.55-1.30); POTASSIUM 3.7 MMOL/L (3.5-5.1); SODIUM 141 MMOL/L (136-145)
[2018-03-27] MEDS: Levemir Flexpen SUBQ SCH (09:50)
[2018-03-27 10:03] LABS: BASOPHILS % (AUTO) 0.6 % (0.0-2.0); EOSINOPHILS % (AUTO) 4.1 % (0.0-3.0); HEMATOCRIT 44.2 % (42.0-52.0); HEMOGLOBIN 15.1 G/DL (14.2-18.0); LYMPHOCYTES % (AUTO) 16.2 % (20.0-45.0); MEAN CORPUSCULAR VOLUME 86 FL (80-99); NEUTROPHILS % (AUTO) 73.1 % (45.0-75.0); PLATELET COUNT 155 K/UL (150-450); RED BLOOD COUNT 5.15 M/UL (4.70-6.10); RED CELL DISTRIBUTION WIDTH 12.9 % (11.6-14.8); WHITE BLOOD COUNT 6.5 K/UL (4.8-10.8)
[2018-03-27 12:00] VITALS: BP 129/82
[2018-03-27 16:00] VITALS: BP 104/70
--- NOTE | 2018-03-27 18:09 | General Progress Note ---
Assessment/Plan Problem List: (1) Constipation ICD Codes: K59.00 - Constipation, unspecified SNOMED: 66959626 (2) ACS (acute coronary syndrome) ICD Codes: I24.9 - Acute ischemic heart disease, unspecified SNOMED: 611721984 (3) Elevated troponin ICD Codes: R74.8 - Abnormal levels of other serum enzymes SNOMED: 901710399, 534491826, 078282875 (4) Diabetes ICD Codes: E11.9 - Type 2 diabetes mellitus without complications SNOMED: 10881795 (5) Weakness ICD Codes: R53.1 - Weakness SNOMED: 48164660 (6) Altered mental status ICD Codes: R41.82 - Altered mental status, unspecified SNOMED: 984206197 Status: progressing Assessment/Plan no cp reviewed chart and labs elevated sugar is improving elevated troponin is stable niddm weak and debilitated needs snf for pt/ot Subjective ROS Limited/Unobtainable: Yes Allergies: Coded Allergies: No Known Allergies (Unverified , 03/23/18) Objective Last 24 Hour Vital Signs Date Time Temp Pulse Resp B/P (MAP) Pulse Ox O2 Delivery O2 Flow Rate FiO2 03/27/18 16:00 98.4 80 19 104/70 (81) 98 03/27/18 12:00 98.1 81 19 129/82 (98) 98 03/27/18 12:00 81 03/27/18 09:00 Room Air 03/27/18 08:00 74 03/27/18 08:00 97.8 81 18 117/70 (86) 98 03/27/18 04:00 65 03/27/18 04:00 97.2 64 18 124/82 (96) 100 03/27/18 00:00 74 03/27/18 00:00 97.2 69 20 132/79 (96) 92 03/26/18 21:00 Room Air 03/26/18 20:00 97.2 66 18 124/81 (95) 100 03/26/18 20:00 65 Intake and Output 03/26/18 03/27/18 19:00 07:00 Intake Total 960 ml 920 ml Output Total 800 ml 800 ml Balance 160 ml 120 ml Intake Oral 960 ml 920 ml Output Urine Total 800 ml 800 ml # Voids 4 3 Laboratory Tests 2/2/19 09:08: White Blood Count 6.5, Red Blood Count 5.15, Hemoglobin 15.1, Hematocrit 44.2, Mean Corpuscular Volume 86, Mean Corpuscular Hemoglobin 29.2, Mean Corpuscular Hemoglobin Concent 34.1, Red Cell Distribution Width 12.9, Platelet Count 155, Mean Platelet Volume 6.7, Neutrophils (%) (Auto) 73.1, Lymphocytes (%) (Auto) 16.2L, Monocytes (%) (Auto) 6.0, Eosinophils (%) (Auto) 4.1H, Basophils (%) ( Auto) 0.6, Sodium Level 141, Potassium Level 3.7, Chloride Level 106, Carbon Dioxide Level 27, Anion Gap 8, Blood Urea Nitrogen 14, Creatinine 0.9, Estimat Glomerular Filtration Rate , Glucose Level 275H, Calcium Level 8.6, Total Bilirubin 0.5, Aspartate Amino Transf (AST/SGOT) 13L, Alanine Aminotransferase ( ALT/SGPT) 22, Alkaline Phosphatase 84, Total Protein 6.4, Albumin 2.9L, Globulin 3.5, Albumin/Globulin Ratio 0.8L Height (Feet): 5 Height (Inches): 6.00 Weight (Pounds): 169 General Appearance: confused Neck: supple Cardiovascular: normal rate Respiratory/Chest: lungs clear Abdomen: soft Ally Gross MD Mar 27, 2018 18:09
--- NOTE | 2018-03-27 19:00 | NUR ---
NURSE NOTES: Received pt. and report from ALICIA Steward. Observed pt. resting in bed. Pt. is A/Ox3. nuclear monitoring technician is in placed, IV site intact, asymptomatic, and patent. Bed is in the lowest position and locked. Call light within reach. No altered mental status or acute distress noted at this time. Will continue plan of care.
--- NOTE | 2018-03-27 19:16 | NUR ---
HAND-OFF: Report given to ALICIA Beltran.
--- NOTE | 2018-03-27 23:02 | General Progress Note ---
Assessment/Plan Problem List: (1) Encephalopathy acute ICD Codes: G93.40 - Encephalopathy, unspecified SNOMED: 44219303, 586773873 Status: stable Assessment/Plan remron seroquel provided ro/st Subjective Neurologic/Psychiatric: Reports: anxiety, depressed, emotional problems Allergies: Coded Allergies: No Known Allergies (Unverified , 03/23/18) Objective Last 24 Hour Vital Signs Date Time Temp Pulse Resp B/P (MAP) Pulse Ox O2 Delivery O2 Flow Rate FiO2 03/27/18 20:00 68 03/27/18 16:00 98.4 80 19 104/70 (81) 98 03/27/18 16:00 75 03/27/18 12:00 98.1 81 19 129/82 (98) 98 03/27/18 12:00 81 03/27/18 09:00 Room Air 03/27/18 08:00 74 03/27/18 08:00 97.8 81 18 117/70 (86) 98 03/27/18 04:00 65 03/27/18 04:00 97.2 64 18 124/82 (96) 100 03/27/18 00:00 74 03/27/18 00:00 97.2 69 20 132/79 (96) 92 Intake and Output 03/26/18 03/27/18 19:00 07:00 Intake Total 960 ml 920 ml Output Total 800 ml 800 ml Balance 160 ml 120 ml Intake Oral 960 ml 920 ml Output Urine Total 800 ml 800 ml # Voids 4 3 Laboratory Tests 03/27/18 09:08: White Blood Count 6.5, Red Blood Count 5.15, Hemoglobin 15.1, Hematocrit 44.2, Mean Corpuscular Volume 86, Mean Corpuscular Hemoglobin 29.2, Mean Corpuscular Hemoglobin Concent 34.1, Red Cell Distribution Width 12.9, Platelet Count 155, Mean Platelet Volume 6.7, Neutrophils (%) (Auto) 73.1, Lymphocytes (%) (Auto) 16.2L, Monocytes (%) (Auto) 6.0, Eosinophils (%) (Auto) 4.1H, Basophils (%) ( Auto) 0.6, Sodium Level 141, Potassium Level 3.7, Chloride Level 106, Carbon Dioxide Level 27, Anion Gap 8, Blood Urea Nitrogen 14, Creatinine 0.9, Estimat Glomerular Filtration Rate , Glucose Level 275H, Calcium Level 8.6, Total Bilirubin 0.5, Aspartate Amino Transf (AST/SGOT) 13L, Alanine Aminotransferase ( ALT/SGPT) 22, Alkaline Phosphatase 84, Total Protein 6.4, Albumin 2.9L, Globulin 3.5, Albumin/Globulin Ratio 0.8L Height (Feet): 5 Height (Inches): 6.00 Weight (Pounds): 169 General Appearance: alert, confused, agitated Klaudia Samuels MD Mar 27, 2018 23:02
[2018-03-28] VITALS: BP 109/75
--- NOTE | 2018-03-28 01:14 | Cardiology Progress Note ---
Assessment/Plan Assessment/Plan LATE NOTE ENTRY DOS: Mar 27, 2018 Time of Encounter: 23:49 1. Elevated troponin I level in this patient could be demand ischemia or type 2 non-ST elevation myocardial infarction. 12-lead electrocardiogram however does not show any acute changes. 2D echocardiography reveals normal LV systolic function with normal wall motion, continue aspirin, statins, and beta-blockers. 2. Diabetes mellitus, uncontrolled hyperglycemia. 3. History of CAD. 4. History of hypertension, continue HCTZ. Subjective Subjective Sinus rhythm at rate of 77. Objective Last 24 Hour Vital Signs Date Time Temp Pulse Resp B/P (MAP) Pulse Ox O2 Delivery O2 Flow Rate FiO2 03/28/18 00:00 104 03/28/18 00:00 96.6 77 18 109/75 (86) 96 03/27/18 21:00 Room Air 03/27/18 20:00 68 03/27/18 16:00 98.4 80 19 104/70 (81) 98 03/27/18 16:00 75 03/27/18 12:00 98.1 81 19 129/82 (98) 98 03/27/18 12:00 81 03/27/18 09:00 Room Air 03/27/18 08:00 74 03/27/18 08:00 97.8 81 18 117/70 (86) 98 03/27/18 04:00 65 03/27/18 04:00 97.2 64 18 124/82 (96) 100 Intake and Output 03/27/18 03/28/18 19:00 07:00 Intake Total 750 ml Output Total 750 ml Balance 0 ml Intake Oral 750 ml Output Urine Total 750 ml # Bowel Movements 1 2D Echo: LVEF 55%, Grade I LVDD, RVSP 14 mmHg Laboratory Tests Test 03/27/18 09:08 White Blood Count 6.5 K/UL (4.8-10.8) Red Blood Count 5.15 M/UL (4.70-6.10) Hemoglobin 15.1 G/DL (14.2-18.0) Hematocrit 44.2 % (42.0-52.0) Mean Corpuscular Volume 86 FL (80-99) Mean Corpuscular Hemoglobin 29.2 PG (27.0-31.0) Mean Corpuscular Hemoglobin Concent 34.1 G/DL (32.0-36.0) Red Cell Distribution Width 12.9 % (11.6-14.8) Platelet Count 155 K/UL (150-450) Mean Platelet Volume 6.7 FL (6.5-10.1) Neutrophils (%) (Auto) 73.1 % (45.0-75.0) Lymphocytes (%) (Auto) 16.2 % (20.0-45.0) L Monocytes (%) (Auto) 6.0 % (1.0-10.0) Eosinophils (%) (Auto) 4.1 % (0.0-3.0) H Basophils (%) (Auto) 0.6 % (0.0-2.0) Sodium Level 141 MMOL/L (136-145) Potassium Level 3.7 MMOL/L (3.5-5.1) Chloride Level 106 MMOL/L (98-107) Carbon Dioxide Level 27 MMOL/L (21-32) Anion Gap 8 mmol/L (5-15) Blood Urea Nitrogen 14 mg/dL (7-18) Creatinine 0.9 MG/DL (0.55-1.30) Estimat Glomerular Filtration Rate mL/min (>60) Glucose Level 275 MG/DL (74-106) H Calcium Level 8.6 MG/DL (8.5-10.1) Total Bilirubin 0.5 MG/DL (0.2-1.0) Aspartate Amino Transf (AST/SGOT) 13 U/L (15-37) L Alanine Aminotransferase (ALT/SGPT) 22 U/L (12-78) Alkaline Phosphatase 84 U/L (46-116) Total Protein 6.4 G/DL (6.4-8.2) Albumin 2.9 G/DL (3.4-5.0) L Globulin 3.5 g/dL Albumin/Globulin Ratio 0.8 (1.0-2.7) L Objective GENERAL: The patient is a very unfortunate 82-year-old gentleman, in no apparent respiratory distress. Alert and oriented x4. HEENT: Atraumatic and normocephalic. Anicteric. Pupils are equal, round, and reactive to light and accommodation. Extraocular muscles intact. NECK: JVP less than 5 cm. No carotid bruit. Carotid upstrokes 2+ bilaterally. CARDIOVASCULAR: Normal S1, S2. Regular rate and rhythm. No murmurs, gallops, or rubs. PMI is at fourth intercostal space at the midclavicular line. LUNGS: Clear to auscultation bilaterally. ABDOMEN: Soft, nontender, and nondistended. No hepatosplenomegaly. Positive bowel sounds. EXTREMITIES: No evidence of edema, clubbing, or cyanosis. Rogerio Conway MD Mar 28, 2018 01:14
[2018-03-28 04:00] VITALS: BP 112/66
[2018-03-28] MEDS: NovoLOG Insulin Flexpen SUBQ SCH ×4 (06:05→20:31)
--- NOTE | 2018-03-28 07:10 | NUR ---
NURSE NOTES: Received report from ALICIA Beltran. Patient is sleeping in bed, in stable condition. No s/sx of SOB, breathing is even and unlabored. Observed no presence of pain or discomfort at this time. Bed is in lowest position, brakes engaged. Call light is kept within easy reach. Will continue to monitor patient.
--- NOTE | 2018-03-28 07:16 | General Progress Note ---
Assessment/Plan Problem List: (1) Altered mental status ICD Codes: R41.82 - Altered mental status, unspecified SNOMED: 787118310 (2) Diabetes ICD Codes: E11.9 - Type 2 diabetes mellitus without complications SNOMED: 68952391 (3) Weakness ICD Codes: R53.1 - Weakness SNOMED: 58862722 Assessment/Plan continue Levemir 14 units daily continue Starlix 120 mg ac tid continue NISS Subjective Allergies: Coded Allergies: No Known Allergies (Unverified , 03/23/18) All Systems: reviewed and negative except above Subjective events noted glycemic control improved Objective Last 24 Hour Vital Signs Date Time Temp Pulse Resp B/P (MAP) Pulse Ox O2 Delivery O2 Flow Rate FiO2 03/28/18 04:00 97.1 68 18 112/66 (81) 96 03/28/18 04:00 60 03/28/18 00:00 104 03/28/18 00:00 96.6 77 18 109/75 (86) 96 03/27/18 21:00 Room Air 03/27/18 20:00 68 03/27/18 16:00 98.4 80 19 104/70 (81) 98 03/27/18 16:00 75 03/27/18 12:00 98.1 81 19 129/82 (98) 98 03/27/18 12:00 81 03/27/18 09:00 Room Air 03/27/18 08:00 74 03/27/18 08:00 97.8 81 18 117/70 (86) 98 Intake and Output 03/27/18 03/28/18 18:59 06:59 Intake Total 750 ml Output Total 750 ml Balance 0 ml Intake Oral 750 ml Output Urine Total 750 ml # Voids 3 # Bowel Movements 1 Laboratory Tests 03/27/18 09:08: White Blood Count 6.5, Red Blood Count 5.15, Hemoglobin 15.1, Hematocrit 44.2, Mean Corpuscular Volume 86, Mean Corpuscular Hemoglobin 29.2, Mean Corpuscular Hemoglobin Concent 34.1, Red Cell Distribution Width 12.9, Platelet Count 155, Mean Platelet Volume 6.7, Neutrophils (%) (Auto) 73.1, Lymphocytes (%) (Auto) 16.2L, Monocytes (%) (Auto) 6.0, Eosinophils (%) (Auto) 4.1H, Basophils (%) ( Auto) 0.6, Sodium Level 141, Potassium Level 3.7, Chloride Level 106, Carbon Dioxide Level 27, Anion Gap 8, Blood Urea Nitrogen 14, Creatinine 0.9, Estimat Glomerular Filtration Rate , Glucose Level 275H, Calcium Level 8.6, Total Bilirubin 0.5, Aspartate Amino Transf (AST/SGOT) 13L, Alanine Aminotransferase ( ALT/SGPT) 22, Alkaline Phosphatase 84, Total Protein 6.4, Albumin 2.9L, Globulin 3.5, Albumin/Globulin Ratio 0.8L Height (Feet): 5 Height (Inches): 6.00 Weight (Pounds): 169 General Appearance: no apparent distress Neck: normal alignment Cardiovascular: normal rate Respiratory/Chest: lungs clear Abdomen: normal bowel sounds Pelvis: normal external exam Objective Current Medications Medications (Trade) Dose Ordered Sig/Charlette Route PRN Reason Start Time Stop Time Status Last Admin Dose Admin Acetaminophen (Tylenol) 500 mg Q6H PRN ORAL Mild Pain/Temp > 100.5 03/27/18 08:45 04/22/18 20:44 Acetaminophen/ Hydrocodone Bitart ([place] 10/325) 1 tab Q6H PRN ORAL For severe Pain (7-10) 03/27/18 09:00 03/30/18 20:44 Dextrose (Dextrose 50%) 25 ml Q30M PRN IV Hypoglycemia 03/27/18 06:00 04/23/18 07:29 Dextrose (Dextrose 50%) 50 ml Q30M PRN IV Hypoglycemia 03/27/18 06:00 04/23/18 07:29 Donepezil HCl (Aricept) 10 mg DAILY ORAL 03/27/18 09:00 04/23/18 08:59 03/27/18 08:17 Hydrochlorothiazide (Hydrodiuril) 12.5 mg DAILY ORAL 03/27/18 09:00 04/23/18 08:59 03/27/18 08:17 Insulin Aspart (NovoLOG) BEFORE MEALS AND HS SUBQ 03/27/18 06:30 04/22/18 20:59 03/28/18 06:05 Insulin Detemir (Levemir) 14 units DAILY SUBQ 03/27/18 09:00 04/23/18 08:59 03/27/18 09:50 Mirtazapine (Remeron) 15 mg BEDTIME ORAL 03/27/18 21:00 04/22/18 20:59 03/27/18 20:54 Nateglinide (Starlix) 120 mg TIAC ORAL 03/27/18 07:15 04/26/18 07:14 03/28/18 06:04 Quetiapine Fumarate (SEROquel) 25 mg QHS ORAL 03/27/18 21:00 04/22/18 20:59 03/27/18 20:53 Tamsulosin HCl (Flomax) 0.4 mg DAILY ORAL 03/27/18 09:00 04/23/18 08:59 03/27/18 08:17 Item Value Date Time Bedside Blood Glucose 128 mg/dl H 03/28/18 0630 Bedside Blood Glucose 214 mg/dl H 03/27/18 2100 Bedside Blood Glucose 156 mg/dl H 03/27/18 1718 Bedside Blood Glucose 194 mg/dl H 03/27/18 1155 Bedside Blood Glucose 191 mg/dl H 03/27/18 0950 Bedside Blood Glucose 136 mg/dl H 03/27/18 0630 Stas Angel MD Mar 28, 2018 07:16
--- NOTE | 2018-03-28 07:31 | NUR ---
HAND-OFF: Report given to ALICIA Steward.
[2018-03-28 08:00] VITALS: BP 113/68
[2018-03-28] MEDS: Tamsulosin 0.4mg cap ORAL SCH (08:31)
[2018-03-28] MEDS: hydroCHLOROthiazide 12.5mg TAB ORAL SCH (08:31)
[2018-03-28] MEDS: Donepezil 10mg tab ORAL SCH (08:31)
[2018-03-28] MEDS: Levemir Flexpen SUBQ SCH (08:32)
--- NOTE | 2018-03-28 11:13 | NUR ---
NURSE NOTES: patient remain SR in the monitor, vital sign stable, notified Dr Gross and gave okay to transfer to [facility].
[2018-03-28 12:00] VITALS: BP 117/81
--- NOTE | 2018-03-28 12:35 | NUR ---
RD ASSESSMENT & RECOMMENDATIONS SEE CARE ACTIVITY FOR COMPLETE ASSESSMENT DAILY ESTIMATED NEEDS: Needs based on DM 69kg 25-30 kcals/kg 1840-8605 total kcals 1-1.5 g protein/kg 69-104 g total protein Fluid per MD, on diuretics NUTRITION DIAGNOSIS: Altered nutrition related lab values r/t diabetes as evidenced by A1C 9.5, elev BG, elev POC, adm w/ Uglu 4+. CURRENT DIET: CCHO MED chopped PO DIET RECOMMENDATIONS: REC CCHO LOW + HIGH PROTEIN/ 1-CARB SNACK BID IN B/W MEALS ADDITIONAL RECOMMENDATIONS: 1) Obtain RE-calibrated bed scale wt (169# per EMR vs 152# per Bed wt) 2) Add B-complex for max glu metabolism 3) Monitor lytes daily on HCTZ 4) CAREER EDUCATION TEACHER eval for appropriate texture
--- NOTE | 2018-03-28 13:06 | NUR ---
NURSE NOTES: received patient A/A/Ox4, ambulatory. personal belongings reviewed and noted. no acute resp distress noted. bed is in lowest position and call light is within reach. siderails are up x3. will cont to monitor.
--- NOTE | 2018-03-28 13:11 | NUR ---
TRANSFER TO FLOOR: Patient transferred to [facility] RM 419-2, per Dr. Gross. Report given to Lauren. Belongings and medications given to Lauren. Family informed of transfer.
[2018-03-28] MEDS ORDERED: Acetaminophen 500mg (ES) tab ORAL PRN (14:45)
[2018-03-28] MEDS ORDERED: HYDROcodone/Acetamin 10/325 tab ORAL PRN (15:00)
[2018-03-28 16:00] VITALS: BP 131/88
--- NOTE | 2018-03-28 18:50 | NUR ---
NURSE NOTES: patient was sitting in a chair for dinner. no acute resp distress noted. ambulate with steady gait. kept bed in the lowest position. call light is within reach. will cont to monitor.
--- NOTE | 2018-03-28 19:02 | NUR ---
NURSE NOTES: Received patient on bed awake, no s/s of any distress, denies any pain. IV line patent and intact, Bed in low position and locked, call light within reach, will continue to monitor.
--- NOTE | 2018-03-28 19:02 | NUR ---
HAND-OFF: Report given to Darien.
[2018-03-28 20:00] VITALS: BP 130/75
--- NOTE | 2018-03-28 21:45 | General Progress Note ---
Assessment/Plan Problem List: (1) MDD (major depressive disorder), recurrent episode ICD Codes: F33.9 - Major depressive disorder, recurrent, unspecified SNOMED: 383483759 (2) Encephalopathy acute ICD Codes: G93.40 - Encephalopathy, unspecified SNOMED: 17775890, 849007566 Assessment/Plan remron seroquel provided ro/st Subjective Neurologic/Psychiatric: Reports: anxiety, depressed, emotional problems Allergies: Coded Allergies: No Known Allergies (Unverified , 03/23/18) Objective Last 24 Hour Vital Signs Date Time Temp Pulse Resp B/P (MAP) Pulse Ox O2 Delivery O2 Flow Rate FiO2 03/28/18 21:00 Room Air 03/28/18 20:00 98.0 77 18 130/75 (93) 96 03/28/18 16:00 97.9 80 18 131/88 (102) 96 03/28/18 12:00 97.3 77 18 117/81 (93) 95 03/28/18 09:00 Room Air 03/28/18 08:00 97.3 70 18 113/68 (83) 94 03/28/18 08:00 66 03/28/18 04:00 97.1 68 18 112/66 (81) 96 03/28/18 04:00 60 03/28/18 00:00 104 03/28/18 00:00 96.6 77 18 109/75 (86) 96 Intake and Output 03/27/18 03/28/18 19:00 07:00 Intake Total 750 ml Output Total 750 ml Balance 0 ml Intake Oral 750 ml Output Urine Total 750 ml # Voids 3 # Bowel Movements 1 Height (Feet): 5 Height (Inches): 6.00 Weight (Pounds): 169 General Appearance: alert, confused, agitated Klaudia Samuels MD Mar 28, 2018 21:45
--- NOTE | 2018-03-28 21:50 | General Progress Note ---
Assessment/Plan Problem List: (1) Constipation ICD Codes: K59.00 - Constipation, unspecified SNOMED: 16290241 (2) ACS (acute coronary syndrome) ICD Codes: I24.9 - Acute ischemic heart disease, unspecified SNOMED: 516900945 (3) Elevated troponin ICD Codes: R74.8 - Abnormal levels of other serum enzymes SNOMED: 473995592, 820298543, 905514472 (4) Diabetes ICD Codes: E11.9 - Type 2 diabetes mellitus without complications SNOMED: 07595565 (5) Weakness ICD Codes: R53.1 - Weakness SNOMED: 64672514 (6) Altered mental status ICD Codes: R41.82 - Altered mental status, unspecified SNOMED: 325402041 Status: progressing Assessment/Plan will dc in am no acute events no chest pain elevated troponin is stable niddm weak and debilitated needs snf for pt/ot Subjective ROS Limited/Unobtainable: Yes Allergies: Coded Allergies: No Known Allergies (Unverified , 03/23/18) Objective Last 24 Hour Vital Signs Date Time Temp Pulse Resp B/P (MAP) Pulse Ox O2 Delivery O2 Flow Rate FiO2 03/28/18 21:00 Room Air 03/28/18 20:00 98.0 77 18 130/75 (93) 96 03/28/18 16:00 97.9 80 18 131/88 (102) 96 03/28/18 12:00 97.3 77 18 117/81 (93) 95 03/28/18 09:00 Room Air 03/28/18 08:00 97.3 70 18 113/68 (83) 94 03/28/18 08:00 66 03/28/18 04:00 97.1 68 18 112/66 (81) 96 03/28/18 04:00 60 03/28/18 00:00 104 03/28/18 00:00 96.6 77 18 109/75 (86) 96 Intake and Output 03/27/18 03/28/18 19:00 07:00 Intake Total 750 ml Output Total 750 ml Balance 0 ml Intake Oral 750 ml Output Urine Total 750 ml # Voids 3 # Bowel Movements 1 Height (Feet): 5 Height (Inches): 6.00 Weight (Pounds): 169 General Appearance: confused Neck: supple Cardiovascular: normal rate Respiratory/Chest: lungs clear Abdomen: soft Hadadz,Ali MD Mar 28, 2018 21:50
--- NOTE | 2018-03-28 22:05 | Cardiology Progress Note ---
Assessment/Plan Assessment/Plan 1. Elevated troponin I level in this patient could be demand ischemia or type 2 non-ST elevation myocardial infarction. 12-lead electrocardiogram however does not show any acute changes. 2D echocardiography reveals normal LV systolic function with normal wall motion, continue aspirin, statins, and beta-blockers. 2. Diabetes mellitus, uncontrolled hyperglycemia. 3. History of CAD. 4. History of hypertension, continue HCTZ. Subjective Subjective No cardiac events. Objective Last 24 Hour Vital Signs Date Time Temp Pulse Resp B/P (MAP) Pulse Ox O2 Delivery O2 Flow Rate FiO2 03/28/18 21:00 Room Air 03/28/18 20:00 98.0 77 18 130/75 (93) 96 03/28/18 16:00 97.9 80 18 131/88 (102) 96 03/28/18 12:00 97.3 77 18 117/81 (93) 95 03/28/18 09:00 Room Air 03/28/18 08:00 97.3 70 18 113/68 (83) 94 03/28/18 08:00 66 03/28/18 04:00 97.1 68 18 112/66 (81) 96 03/28/18 04:00 60 03/28/18 00:00 104 03/28/18 00:00 96.6 77 18 109/75 (86) 96 Intake and Output 03/27/18 03/28/18 19:00 07:00 Intake Total 750 ml Output Total 750 ml Balance 0 ml Intake Oral 750 ml Output Urine Total 750 ml # Voids 3 # Bowel Movements 1 2D Echo: LVEF 55%, Grade I LVDD, RVSP 14 mmHg Objective HEENT: Atraumatic and normocephalic. Anicteric. Pupils are equal, round, and reactive to light and accommodation. Extraocular muscles intact. NECK: JVP less than 5 cm. No carotid bruit. Carotid upstrokes 2+ bilaterally. CARDIOVASCULAR: Normal S1, S2. Regular rate and rhythm. No murmurs, gallops, or rubs. PMI is at fourth intercostal space at the midclavicular line. LUNGS: Clear to auscultation bilaterally. ABDOMEN: Soft, nontender, and nondistended. No hepatosplenomegaly. Positive bowel sounds. EXTREMITIES: No evidence of edema, clubbing, or cyanosis. Rogerio Conway MD Mar 28, 2018 22:05
[2018-03-29] VITALS: BP 140/76
[2018-03-29 04:00] VITALS: BP 137/77
[2018-03-29] MEDS: NovoLOG Insulin Flexpen SUBQ SCH ×2 (05:47→11:30)
--- NOTE | 2018-03-29 06:41 | General Progress Note ---
Assessment/Plan Problem List: (1) Altered mental status ICD Codes: R41.82 - Altered mental status, unspecified SNOMED: 614025734 (2) Diabetes ICD Codes: E11.9 - Type 2 diabetes mellitus without complications SNOMED: 59284613 (3) Weakness ICD Codes: R53.1 - Weakness SNOMED: 34058224 Assessment/Plan continue Levemir 14 units daily continue Starlix 120 mg ac tid continue NISS Subjective ROS Limited/Unobtainable: Yes Allergies: Coded Allergies: No Known Allergies (Unverified , 03/23/18) Subjective events noted Objective Last 24 Hour Vital Signs Date Time Temp Pulse Resp B/P (MAP) Pulse Ox O2 Delivery O2 Flow Rate FiO2 03/29/18 04:00 96.5 60 18 137/77 (97) 98 03/29/18 00:00 96.4 65 18 140/76 (97) 98 03/28/18 21:00 Room Air 03/28/18 20:00 98.0 77 18 130/75 (93) 96 03/28/18 16:00 97.9 80 18 131/88 (102) 96 03/28/18 12:00 97.3 77 18 117/81 (93) 95 03/28/18 09:00 Room Air 03/28/18 08:00 97.3 70 18 113/68 (83) 94 03/28/18 08:00 66 Intake and Output 03/28/18 03/29/18 19:00 07:00 Intake Total 220 ml Balance 220 ml Intake Oral 220 ml # Voids 3 Height (Feet): 5 Height (Inches): 6.00 Weight (Pounds): 169 General Appearance: no apparent distress Neck: normal alignment Cardiovascular: regular rhythm Respiratory/Chest: lungs clear Abdomen: normal bowel sounds Pelvis: normal external exam Objective Current Medications Medications (Trade) Dose Ordered Sig/Charlette Route PRN Reason Start Time Stop Time Status Last Admin Dose Admin Acetaminophen (Tylenol) 500 mg Q6H PRN ORAL Mild Pain/Temp > 100.5 03/28/18 14:45 04/22/18 20:44 Acetaminophen/ Hydrocodone Bitart ([place] 10/325) 1 tab Q6H PRN ORAL For severe Pain (7-10) 03/28/18 15:00 03/30/18 20:44 Dextrose (Dextrose 50%) 25 ml Q30M PRN IV Hypoglycemia 03/28/18 13:30 04/23/18 07:29 Dextrose (Dextrose 50%) 50 ml Q30M PRN IV Hypoglycemia 03/28/18 13:30 04/23/18 07:29 Donepezil HCl (Aricept) 10 mg DAILY ORAL 03/29/18 09:00 04/23/18 08:59 Hydrochlorothiazide (Hydrodiuril) 12.5 mg DAILY ORAL 03/29/18 09:00 04/23/18 08:59 Insulin Aspart (NovoLOG) BEFORE MEALS AND HS SUBQ 03/28/18 16:30 04/22/18 20:59 03/29/18 05:47 Insulin Detemir (Levemir) 14 units DAILY SUBQ 03/29/18 09:00 04/23/18 08:59 Mirtazapine (Remeron) 15 mg BEDTIME ORAL 03/28/18 21:00 04/22/18 20:59 03/28/18 20:31 Nateglinide (Starlix) 120 mg TIAC ORAL 03/28/18 16:30 04/26/18 07:14 03/29/18 05:44 Quetiapine Fumarate (SEROquel) 25 mg QHS ORAL 03/28/18 21:00 04/22/18 20:59 03/28/18 20:31 Tamsulosin HCl (Flomax) 0.4 mg DAILY ORAL 03/29/18 09:00 04/23/18 08:59 Item Value Date Time Bedside Blood Glucose 167 mg/dl H 03/29/18 0549 Bedside Blood Glucose 226 mg/dl H 03/28/18 2100 Bedside Blood Glucose 233 mg/dl H 03/28/18 1722 Bedside Blood Glucose 191 mg/dl H 03/28/18 1200 Bedside Blood Glucose 119 mg/dl 03/28/18 0832 Bedside Blood Glucose 128 mg/dl H 03/28/18 0630 Stas Angel MD Mar 29, 2018 06:41
--- NOTE | 2018-03-29 07:46 | NUR ---
HAND-OFF: Report given to Vero VARGAS.
--- NOTE | 2018-03-29 07:50 | NUR ---
NURSE NOTES: Patient received in stable condition, eating breakfast in bed. Alert and oriented, breathing unlabored on room air. Denies SOB or pain at this time. IV site on right arm patent and intact. Call light within reach, will continue to monitor.
[2018-03-29 08:00] VITALS: BP 133/77
[2018-03-29] MEDS ORDERED: Donepezil 10mg tab ORAL SCH (09:00)
[2018-03-29] MEDS ORDERED: Tamsulosin 0.4mg cap ORAL SCH (09:00)
[2018-03-29] MEDS ORDERED: Levemir Flexpen SUBQ SCH (09:00)
[2018-03-29] MEDS ORDERED: hydroCHLOROthiazide 12.5mg TAB ORAL SCH (09:00)
[2018-03-29] MEDS ORDERED: ACETAMINOPHEN325 M1 ORAL (09:41)
[2018-03-29] MEDS ORDERED: HYDROCHLOROTHIA50 MG ORAL (09:42)
[2018-03-29] MEDS ORDERED: DONEPEZIL HCL10 MG ORAL (09:42)
[2018-03-29] MEDS ORDERED: HYDROCODON-ACE1 EA13 ORAL (09:44)
[2018-03-29] MEDS ORDERED: NOVOLOG100 UNITS1 SUBQ (09:46)
[2018-03-29] MEDS ORDERED: LEVEMIR FL100 UNIT/1 SUBQ (09:47)
[2018-03-29] MEDS ORDERED: STARLIX60 MG ORAL (09:48)
[2018-03-29] MEDS ORDERED: MIRTAZAPINE15 M3 ORAL (09:48)
[2018-03-29] MEDS ORDERED: QUETIAPINE FUMA25 MG ORAL (09:49)
[2018-03-29] MEDS ORDERED: TAMSULOSIN HCL0.4 MG ORAL (09:49)
--- NOTE | 2018-03-29 11:34 | NUR ---
*-* DISCHARGE PLANNING *-* PATIENT HAS BEEN REFERRED TO: [facility] P:[phone] F:[phone]
[2018-03-29 11:53] VITALS: BP 135/72
--- NOTE | 2018-03-29 12:16 | NUR ---
*-* DISCAHRGE PLANNED *-* [facility]B [facility] T:[phone] FOR NURSE TO NURSE REPORT [facility] HAS BEEN ARRAGEND FOR COLOR TELEVISION CONSOLE MONITOR AT 2PM S/W BASSEM [id number]
--- NOTE | 2018-03-29 13:36 | NUR ---
NURSE NOTES: RN spoke with patient's niece regarding patient's discharge to [facility] for rehabilitation. Natalie verbalized understanding.
--- NOTE | 2018-03-29 13:42 | NUR ---
NURSE NOTES: Patient discharged to [facility] on [address], transported by ambulance personnel. Patient in stable condition, breathing unlabored on room air. Ambulates independently with steady gait. IV safely removed, IV site covered with gauze and tape. Patient's belongings reviewed and confirmed. Contact Natalie aware of discharge. Report given to Carmen VARGAS at [facility].
--- NOTE | 2018-03-29 20:23 | General Progress Note ---
Assessment/Plan Problem List: (1) MDD (major depressive disorder), recurrent episode ICD Codes: F33.9 - Major depressive disorder, recurrent, unspecified SNOMED: 624371630 (2) Encephalopathy acute ICD Codes: G93.40 - Encephalopathy, unspecified SNOMED: 47555386, 774738247 Assessment/Plan remron seroquel provided ro/st Subjective Neurologic/Psychiatric: Reports: anxiety, depressed, emotional problems Allergies: Coded Allergies: No Known Allergies (Unverified , 03/23/18) Objective Last 24 Hour Vital Signs Date Time Temp Pulse Resp B/P (MAP) Pulse Ox O2 Delivery O2 Flow Rate FiO2 03/29/18 11:53 97.6 69 20 135/72 (93) 97 03/29/18 09:00 Room Air 03/29/18 08:00 97.5 73 20 133/77 (95) 97 03/29/18 04:00 96.5 60 18 137/77 (97) 98 03/29/18 00:00 96.4 65 18 140/76 (97) 98 03/28/18 21:00 Room Air Intake and Output 03/28/18 03/29/18 19:00 07:00 Intake Total 220 ml 200 ml Balance 220 ml 200 ml Intake Oral 220 ml 200 ml # Voids 3 2 Height (Feet): 5 Height (Inches): 6.00 Weight (Pounds): 169 General Appearance: alert, confused, agitated Klaudia Samuels MD Mar 29, 2018 20:23
--- NOTE | 2018-03-30 14:25 | Diagnostic Imaging Report ---
APPROVED REPORT CPT Code: 86063 Present Symptoms Comments: Screening BILATERAL: Imaging reveals a patent deep venous system bilaterally. There is no evidence of thrombus within the femoral, popliteal or tibial segments. The greater saphenous veins are also within normal limits. Doppler indicates normal spontaneous flow within these segments.
--- NOTE | 2018-03-31 09:36 | Discharge Summary ---
Discharge Summary Discharge Summary _ DATE OF ADMISSION: 03/23/2018 DATE OF DISCHARGE: 03/29/2018 DISCHARGED BY: Dr. Gross REASON FOR ADMISSION: 82 years old male with past medical history of diabetes mellitus, hypertension, coronary artery disease, aortic abdominal aneurysm, presented to emergency room from [facility] facility for evaluation due to generalized weakness. Patein by himself was unable to provide much of information. Upon evaluation vital signs were stable. Laboratory workup revealed no leukocytosis , stable hemoglobin hematocrit . Urinalysis revealed no evidence of UTI , but showed +4 glucose and negative for ketones. Glucose 395. Stable LFT and lipase. Troponin -0.249. EKG revealed normal sinus rhythm with left anterior fascicular block. No acute ischemic changes. CT of the head revealed no acute intracranial bleeding or mass-effect. Patient was admitted for further management. CONSULTANTS: commercial loan officer Dr. Steward psychiatrist wireless telegrapher Dr. Angel [facility] COURSE: Patient admitted to telemetry floor. Serial troponin were monitored ; trending down from initial 0.259 down to 0.091. Echocardiogram revealed normal left ventricular chamber size , systolic function and wall motion to the extent visualized. Right ventricular systolic pressure of 14. No aortic insufficiency. Venous duplex bilateral lower extremity revealed no evidence of acute DVT. Per commercial loan officer, elevated troponin could be demand ischemia or type II non- STEMI. 12-lead EKG did not show any acute changes. Antiplatelet therapy with aspirin , statin, and beta-jakub continued. Blood pressure was managed with beta-jakub and hydrochlorothiazide and remained stable. Pain management was addressed as needed. Supplemental oxygen provided as needed to keep pulse oximetry above 92% . Anti-glycemic regimen was optimized by wireless telegrapher and consisted of long- acting Levemir , Starlix and sliding scale of insulin as needed. Blood sugar stabilized. Hemoglobin A1c 9.5, not at goal. Patient was instructed on compliance with medication regimen and diet at the nursing facility. Patient will need further optimization of anti-glycemic regimen as outpatient. Psychiatrist closely followed. Patient was diagnosed woth of major depressive disorder with recurrent episode . Psychiatric medication regimen was optimized as per ps Supportive care provided. Fall precautions maintained. Patient was ambulated with the help of nursing staff. Bowel regimen instituted. Patient clinically stabilized and was ready for transfer back to [facility] facility FINAL DIAGNOSES: Acute encephalopathy with acute delirium Elevated troponin due to possible type II NSTEMI versus demand ischemia Hypertension History of coronary artery disease Diabetes mellitus , uncontrolled with hyperglycemia Major depressive disorder, recurrent episode DISCHARGE MEDICATIONS: See Medication Reconciliation list. DISCHARGE INSTRUCTIONS: Patient was discharged to the [facility] facility/ [facility], follow up with medical doctor at the facility. I have been assigned to dictate discharge summary for this account. I was not involved in the patient's management. Caroline Purvis NP Mar 31, 2018 09:35
== END 2018-03-29 14:00 | DRG 281 ==
LOC: EDUNIT# 11:03 → EDBD 11:03 → EMR 12:15 → EDBEDREQ 12:27 → 2W 12:43 → EDBEDREQ 15:06 → 2E 03-27 05:31 → 4E 03-28 13:08
DX: I21.A1 Myocardial infarction type 2 (principal); G93.40 Encephalopathy, unspecified; F05 Delirium due to known physiological condition; F33.9 Major depressive disorder, recurrent, unspecified; E86.0 Dehydration; I25.10 Atherosclerotic heart disease of native coronary artery without angina pectoris; I10 Essential (primary) hypertension; E11.65 Type 2 diabetes mellitus with hyperglycemia; F03.90 Unspecified dementia, unspecified severity, without behavioral disturbance, psychotic disturbance, mood disturbance, and anxiety; E87.6 Hypokalemia; K59.00 Constipation, unspecified; I44.4 Left anterior fascicular block; Z79.4 Long term (current) use of insulin
CPT/HCPCS: 36415; 70450; 71045; 80053; 81003; 82962; 83036; 83690; 84484; 85025; 87081; 93005; 93306; 93970; 96360; 99291; J1815; J8499; S5561

== ENCOUNTER 2018-07-08 17:00 | Inpatient (IN) | payer MEDICAID, MEDICARE ==
[~2018-07-08] VITALS: Ht 167.6 cm; Wt 77.1 kg
[~2018-07-08 17:00] MED LIST changes: +ACETAMINOPHEN325 M1 ORAL; +DONEPEZIL HCL10 M2 ORAL; +DONEPEZIL HCL10 MG ORAL; +HYDROCHLOROTHIA50 MG ORAL; +HYDROCODON-ACE1 EA13 ORAL; +LEVEMIR FL100 UNIT/1 SUBQ; +MIRTAZAPINE15 M3 ORAL; +NOVOLOG100 UNITS1 SUBQ; +QUETIAPINE FUMA25 MG ORAL; +REMERON15 M1 ORAL; +SEROQUEL50 MG ORAL; +STARLIX60 MG ORAL; +TAMSULOSIN HCL0.4 MG ORAL
--- NOTE | 2018-07-08 17:05 | NUR ---
ED Nurse Note: Patient brought in by [facility] ambulance from [facility] for abnormal lab: Increased hemoglobin A1C: 10.0 Dr. Gross referred patient to ED. Patient is alert awake ambulatory with minimal assistance, breathing unlabored and equal.
[2018-07-08] MEDS ORDERED: CRANBERRY500 M4 PO (17:25)
[2018-07-08] MEDS ORDERED: PAXIL10 MG ORAL (17:25)
[2018-07-08] MEDS ORDERED: MILK OF MA400 MG/51 ORAL (17:25)
--- NOTE | 2018-07-08 17:30 | NUR ---
ED Nurse Note: blood and urine sent to lab
[2018-07-08 17:32] VITALS: BP 132/72
[2018-07-08 17:40] LABS: APPEARANCE,URINE CLEAR; BILIRUBIN, URINE NEGATIVE (NEGATIVE); COLOR,URINE PALE YELLOW; GLUCOSE, URINE (UA) 4+ (NEGATIVE); KETONES,URINE NEGATIVE (NEGATIVE); LEUKOCYTE ESTERASE ,URINE NEGATIVE (NEGATIVE); NITRITE,URINE NEGATIVE (NEGATIVE); PH,URINE 7 (4.5-8.0); PROTEIN,URINE NEGATIVE (NEGATIVE); UROBILINOGEN,URINE NORMAL MG/DL (0.0-1.0)
--- NOTE | 2018-07-08 17:46 | Emergency Room Report ---
History of Present Illness General Chief Complaint: Abnormal Labs Source: Medical Record Present Illness HPI 83-year-old male presents ED for evaluation. Brought in from nursing home facility for elevated blood sugar. Per nursing staff sugar has been difficult to control. Upon arrival patient showing no signs of distress. No reported fevers or chills. No nausea or vomiting. No chest pain shortness of breath. No other aggravating relieving factors. Denies any other associated symptoms Allergies: Coded Allergies: No Known Allergies (Unverified , 03/23/18) Patient History Past Medical History: DM, HTN Pertinent Family History: none Social History: Denies: smoking, alcohol use, drug use Immunizations: UTD Reviewed Nursing Documentation: PMH: Agreed; PSxH: Agreed Nursing Documentation-PMH Past Medical History: No History, Except For Hx Cardiac Problems: Yes Hx Hypertension: Yes Hx Diabetes: Yes Hx Cancer: No Hx Gastrointestinal Problems: Yes - Dysphagia Hx Neurological Problems: No Review of Systems All Other Systems: negative except mentioned in HPI Physical Exam Vital Signs Date Time Temp Pulse Resp B/P (MAP) Pulse Ox O2 Delivery O2 Flow Rate FiO2 07/08/18 16:57 98.1 70 16 94 Room Air 07/08/18 17:32 132/72 Sp02 EP Interpretation: reviewed, normal General Appearance: no apparent distress, alert, GCS 15, non-toxic Head: normocephalic, atraumatic Eyes: bilateral eye normal inspection, bilateral eye PERRL ENT: hearing grossly normal, normal pharynx, no angioedema, normal voice Neck: full range of motion, supple/symm/no masses Respiratory: chest non-tender, lungs clear, normal breath sounds, speaking full sentences Cardiovascular #1: regular rate, rhythm, no edema Cardiovascular #2: 2+ carotid (R), 2+ carotid (L), 2+ radial (R), 2+ radial (L) , 2+ dorsalis pedis (R), 2+ dorsalis pedis (L) Gastrointestinal: normal bowel sounds, non tender, soft, non-distended, no guarding, no rebound Rectal: deferred Genitourinary: normal inspection, no CVA tenderness Musculoskeletal: back normal, gait/station normal, normal range of motion, non- tender Neurologic: alert, oriented x3, responsive, motor strength/tone normal, sensory intact, speech normal Psychiatric: judgement/insight normal, memory normal, mood/affect normal, no suicidal/homicidal ideation Reflexes: 3+ bicep (R), 3+ bicep (L), 3+ tricep (R), 3+ tricep (L), 3+ knee (R) , 3+ knee (L) Skin: normal color, no rash, warm/dry, well hydrated Lymphatic: no adenopathy Medical Decision Making Diagnostic Impression: Primary Impression: Uncontrolled diabetes mellitus Qualified Codes: E13.65 - Other specified diabetes mellitus with hyperglycemia ER Course Hospital Course 83 yo M presents with elevated FS from SNF Differential diagnoses include: ETOH/drug ingestion, sepsis, DKA Clinical course Patient placed on stretcher. On monitoring coordinator. After initial history and physical I ordered labs, IV fluids, urine and chest Xray Labs-glucose greater than 300, no evidence of DKA. no leukocytosis, hb/hct stable Chest x-ray unremarkable EKG - NSR, no acute ischemic changes interpreted by me IVFs given. given that glucose is difficult to control at SNF despite medication , patient will be admitted Case discussed with Dr. Gross and he agreed to accept the patient to his service for further care and support i. I feel this is a highly complex case requiring extensive working including EKG/Rhythm strip, Xray/CT/US, Blood/urine lab work, repeat exams while in ED, and administration of strong opiates/narcotics for pain control, admission to hospital or close patient follow up. diagnosis -Uncontrolled diabetes admitted to floor in serious condition Labs Test 07/08/18 17:14 07/08/18 17:23 Urine Color Pale yellow Urine Appearance Clear Urine pH 7 (4.5-8.0) Urine Specific [place] 1.010 (1.005-1.035) Urine Protein Negative (NEGATIVE) Urine Glucose (UA) 4+ (NEGATIVE) Urine Ketones Negative (NEGATIVE) Urine Blood Negative (NEGATIVE) Urine Nitrite Negative (NEGATIVE) Urine Bilirubin Negative (NEGATIVE) Urine Urobilinogen Normal MG/DL (0.0-1.0) Urine Leukocyte Esterase Negative (NEGATIVE) White Blood Count 6.3 K/UL (4.8-10.8) Red Blood Count 4.97 M/UL (4.70-6.10) Hemoglobin 14.5 G/DL (14.2-18.0) Hematocrit 41.5 % (42.0-52.0) Mean Corpuscular Volume 84 FL (80-99) Mean Corpuscular Hemoglobin 29.2 PG (27.0-31.0) Mean Corpuscular Hemoglobin Concent 34.9 G/DL (32.0-36.0) Red Cell Distribution Width 11.8 % (11.6-14.8) Platelet Count 161 K/UL (150-450) Mean Platelet Volume 5.7 FL (6.5-10.1) Neutrophils (%) (Auto) 66.9 % (45.0-75.0) Lymphocytes (%) (Auto) 20.2 % (20.0-45.0) Monocytes (%) (Auto) 7.7 % (1.0-10.0) Eosinophils (%) (Auto) 4.2 % (0.0-3.0) Basophils (%) (Auto) 1.1 % (0.0-2.0) Sodium Level 137 MMOL/L (136-145) Potassium Level 3.5 MMOL/L (3.5-5.1) Chloride Level 100 MMOL/L (98-107) Carbon Dioxide Level 29 MMOL/L (21-32) Anion Gap 8 mmol/L (5-15) Blood Urea Nitrogen 14 mg/dL (7-18) Creatinine 1.0 MG/DL (0.55-1.30) Estimat Glomerular Filtration Rate mL/min (>60) Glucose Level 305 MG/DL (74-106) Calcium Level 9.0 MG/DL (8.5-10.1) Magnesium Level 1.6 MG/DL (1.8-2.4) Total Bilirubin 0.4 MG/DL (0.2-1.0) Aspartate Amino Transf (AST/SGOT) 10 U/L (15-37) Alanine Aminotransferase (ALT/SGPT) 19 U/L (12-78) Alkaline Phosphatase 119 U/L (46-116) Total Protein 7.2 G/DL (6.4-8.2) Albumin 3.4 G/DL (3.4-5.0) Globulin 3.8 g/dL Albumin/Globulin Ratio 0.9 (1.0-2.7) Acetone Level Negative (NEGATIVE) EKG Diagnostic Results Rate: normal Rhythm: NSR ST Segments: no acute changes ASA given to the pt in ED: No Rhythm Strip Diag. Results EP Interpretation: yes Rhythm: NSR, no PVC's, no ectopy Chest X-Ray Diagnostic Results Chest X-Ray Diagnostic Results : Chest X-Ray Ordered: Yes # of Views/Limited/Complete: 1 View Indication: Other EP Interpretation: Yes Interpretation: no consolidation, no effusion, no pneumothorax, no acute cardiopulmonary disease Impression: No acute disease Electronically Signed by: Electronically signed by Darci Devries MD Last Vital Signs Date Time Temp Pulse Resp B/P (MAP) Pulse Ox O2 Delivery O2 Flow Rate FiO2 07/08/18 17:32 98.1 80 22 132/72 97 Room Air Status: improved Disposition: ADMITTED INPATIENT Condition: Serious Darci Devries MD July 08, 2018 17:46
[2018-07-08 18:04] LABS: ANION GAP 8 mmol/L (5-15); BLOOD UREA NITROGEN 14 mg/dL (7-18); CARBON DIOXIDE 29 MMOL/L (21-32); CHLORIDE 100 MMOL/L (98-107); POTASSIUM 3.5 MMOL/L (3.5-5.1); SODIUM 137 MMOL/L (136-145)
[2018-07-08 18:06] LABS: BASOPHILS % (AUTO) 1.1 % (0.0-2.0); EOSINOPHILS % (AUTO) 4.2 % (0.0-3.0); HEMATOCRIT 41.5 % (42.0-52.0); HEMOGLOBIN 14.5 G/DL (14.2-18.0); LYMPHOCYTES % (AUTO) 20.2 % (20.0-45.0); MEAN CORPUSCULAR VOLUME 84 FL (80-99); MONOCYTES % (AUTO) 7.7 % (1.0-10.0); NEUTROPHILS % (AUTO) 66.9 % (45.0-75.0); PLATELET COUNT 161 K/UL (150-450); RED BLOOD COUNT 4.97 M/UL (4.70-6.10); RED CELL DISTRIBUTION WIDTH 11.8 % (11.6-14.8); WHITE BLOOD COUNT 6.3 K/UL (4.8-10.8)
[2018-07-08 18:09] LABS: ALANINE AMINOTRANSFERASE 19 U/L (12-78); ALBUMIN 3.4 G/DL (3.4-5.0); ALBUMIN/GLOBULIN RATIO 0.9 (1.0-2.7); ALKALINE PHOSPHATASE 119 U/L (46-116); ASPARTATE AMINO TRANSFERASE 10 U/L (15-37); BILIRUBIN,TOTAL 0.4 MG/DL (0.2-1.0)
--- NOTE | 2018-07-08 18:33 | NUR ---
ED Nurse Note: called 3E x3, nobody is picking up at this time. Dr Srini olmedo for the patient to go up
--- NOTE | 2018-07-08 18:34 | NUR ---
ED Nurse Note: CN made aware that 3E not picking up
--- NOTE | 2018-07-08 19:02 | NUR ---
ED Nurse Note: 3E is not picking up mulitples phone calls tried.
--- NOTE | 2018-07-08 19:03 | NUR ---
HAND-OFF: Report given to Gloria VARGAS. patient is stable in bed
--- NOTE | 2018-07-08 19:14 | NUR ---
ED Nurse Note: Report given to 3E. all belongings and care endorsed to Sona VARGAS Patient is stable in bed. Sona RN said she has not been taking any reports yet, she said she cannot receive the patient at this time due to shift change. NESTOR Baker made aware
--- NOTE | 2018-07-08 19:21 | NUR ---
ED Nurse Note: endorsed Gloria RN that report was given and Sona VARGAS cannot take pt at this time.
[2018-07-08 19:25] VITALS: BP 148/69
[2018-07-08 19:50] VITALS: BP 164/85
--- NOTE | 2018-07-08 19:50 | NUR ---
ER Nurse Note: Report given to ALICIA Magallanes by AM nurse. Pt stable, no signs of distress. BS 196. Pt cleaned; left with all belongings.
--- NOTE | 2018-07-08 19:52 | NUR ---
NURSE NOTES: Pt received in stable condition, on room air, no signs of distress. Pt is a x O x2 to self and place, confused at times, on room air. Pt is supine in bed, bed alarm on, bed locked in lowest position. Side rails x2. urinal at bedside, call light within reach. Explained unit policies and educated pt. Pt verbalized understanding. Will continue to monitor pt.
[2018-07-08] MEDS ORDERED: Acetaminophen 500mg (ES) tab ORAL PRN (22:00)
[2018-07-08] MEDS ORDERED: HYDROcodone/Acetamin 10/325 tab ORAL PRN (22:00)
[2018-07-09] VITALS: BP 152/74
[2018-07-09] MEDS ORDERED: Milk of Magnesia 30ml Ud ORAL PRN (01:15)
[2018-07-09 04:00] VITALS: BP 141/78
[2018-07-09] MEDS: NovoLOG Insulin Flexpen SUBQ SCH ×4 (06:38→21:44)
[2018-07-09 06:55] LABS: BASOPHILS % (AUTO) 0.7 % (0.0-2.0); EOSINOPHILS % (AUTO) 5.3 % (0.0-3.0); HEMATOCRIT 41.4 % (42.0-52.0); HEMOGLOBIN 14.4 G/DL (14.2-18.0); LYMPHOCYTES % (AUTO) 23.6 % (20.0-45.0); MEAN CORPUSCULAR VOLUME 85 FL (80-99); NEUTROPHILS % (AUTO) 62.5 % (45.0-75.0); PLATELET COUNT 159 K/UL (150-450); RED BLOOD COUNT 4.88 M/UL (4.70-6.10); RED CELL DISTRIBUTION WIDTH 12.1 % (11.6-14.8); WHITE BLOOD COUNT 5.7 K/UL (4.8-10.8)
[2018-07-09 07:10] LABS: ALANINE AMINOTRANSFERASE 19 U/L (12-78); ALBUMIN/GLOBULIN RATIO 0.9 (1.0-2.7); ALKALINE PHOSPHATASE 87 U/L (46-116); ANION GAP 7 mmol/L (5-15); ASPARTATE AMINO TRANSFERASE 13 U/L (15-37); BILIRUBIN,TOTAL 0.5 MG/DL (0.2-1.0); BLOOD UREA NITROGEN 8 mg/dL (7-18); CALCIUM 8.2 MG/DL (8.5-10.1); CARBON DIOXIDE 29 MMOL/L (21-32); CHLORIDE 105 MMOL/L (98-107); CHOLESTEROL 133 MG/DL (< 200); CREATININE 0.7 MG/DL (0.55-1.30); GAMMA GLUTAMYL TRANSPEPTIDASE 15 U/L (5-85); HDL CHOLESTEROL 36 MG/DL (40-60); PHOSPHORUS 2.6 MG/DL (2.5-4.9); POTASSIUM 3.5 MMOL/L (3.5-5.1); SODIUM 140 MMOL/L (136-145); TRIGLYCERIDES 105 MG/DL (30-150)
--- NOTE | 2018-07-09 07:55 | NUR ---
HAND-OFF: Report given to ALICIA Ley.
[2018-07-09 08:00] VITALS: BP 130/65
--- NOTE | 2018-07-09 08:00 | NUR ---
NURSE NOTES: Received report from Aarti VARGAS. Patient is awake alert and oriented x2, no acute distress noted. IV intact and asymptomatic, running IVF as ordered. Reporting no pain. SCD's on. Fall precautions maintained. Needs met. Side rails upx3, bed low and locked, call light in reach. Will continue to monitor.
--- NOTE | 2018-07-09 08:17 | Cardiology Progress Note ---
Assessment/Plan Assessment/Plan The patient is seen and examined, full consult note will be dictated. Objective Last 24 Hour Vital Signs Date Time Temp Pulse Resp B/P (MAP) Pulse Ox O2 Delivery O2 Flow Rate FiO2 07/09/18 04:00 97.8 61 16 141/78 (99) 96 07/09/18 00:00 98.1 58 18 152/74 (100) 98 07/08/18 21:50 Room Air 07/08/18 20:20 Room Air 07/08/18 19:52 98.1 64 16 148/69 99 Room Air 07/08/18 19:50 98.2 54 21 164/85 (111) 98 07/08/18 19:25 98.1 64 16 148/69 99 Room Air 07/08/18 17:32 98.1 80 22 132/72 97 Room Air 07/08/18 16:57 98.1 70 16 94 Room Air Intake and Output 07/08/18 07/09/18 18:59 06:59 Intake Total 300 ml Output Total 825 ml Balance -525 ml Intake IV Total 300 ml Output Urine Total 825 ml Laboratory Tests Test 07/08/18 17:14 07/08/18 17:23 07/09/18 06:05 Urine Color Pale yellow Urine Appearance Clear Urine pH 7 (4.5-8.0) Urine Specific [place] 1.010 (1.005-1.035) Urine Protein Negative (NEGATIVE) Urine Glucose (UA) 4+ (NEGATIVE) H Urine Ketones Negative (NEGATIVE) Urine Blood Negative (NEGATIVE) Urine Nitrite Negative (NEGATIVE) Urine Bilirubin Negative (NEGATIVE) Urine Urobilinogen Normal MG/DL (0.0-1.0) Urine Leukocyte Esterase Negative (NEGATIVE) White Blood Count 6.3 K/UL (4.8-10.8) 5.7 K/UL (4.8-10.8) Red Blood Count 4.97 M/UL (4.70-6.10) 4.88 M/UL (4.70-6.10) Hemoglobin 14.5 G/DL (14.2-18.0) 14.4 G/DL (14.2-18.0) Hematocrit 41.5 % (42.0-52.0) L 41.4 % (42.0-52.0) L Mean Corpuscular Volume 84 FL (80-99) 85 FL (80-99) Mean Corpuscular Hemoglobin 29.2 PG (27.0-31.0) 29.5 PG (27.0-31.0) Mean Corpuscular Hemoglobin Concent 34.9 G/DL (32.0-36.0) 34.7 G/DL (32.0-36.0) Red Cell Distribution Width 11.8 % (11.6-14.8) 12.1 % (11.6-14.8) Platelet Count 161 K/UL (150-450) 159 K/UL (150-450) Mean Platelet Volume 5.7 FL (6.5-10.1) L 6.0 FL (6.5-10.1) L Neutrophils (%) (Auto) 66.9 % (45.0-75.0) 62.5 % (45.0-75.0) Lymphocytes (%) (Auto) 20.2 % (20.0-45.0) 23.6 % (20.0-45.0) Monocytes (%) (Auto) 7.7 % (1.0-10.0) 8.0 % (1.0-10.0) Eosinophils (%) (Auto) 4.2 % (0.0-3.0) H 5.3 % (0.0-3.0) H Basophils (%) (Auto) 1.1 % (0.0-2.0) 0.7 % (0.0-2.0) Sodium Level 137 MMOL/L (136-145) 140 MMOL/L (136-145) Potassium Level 3.5 MMOL/L (3.5-5.1) 3.5 MMOL/L (3.5-5.1) Chloride Level 100 MMOL/L (98-107) 105 MMOL/L (98-107) Carbon Dioxide Level 29 MMOL/L (21-32) 29 MMOL/L (21-32) Anion Gap 8 mmol/L (5-15) 7 mmol/L (5-15) Blood Urea Nitrogen 14 mg/dL (7-18) 8 mg/dL (7-18) Creatinine 1.0 MG/DL (0.55-1.30) 0.7 MG/DL (0.55-1.30) Estimat Glomerular Filtration Rate mL/min (>60) mL/min (>60) Glucose Level 305 MG/DL (74-106) H 212 MG/DL (74-106) H Calcium Level 9.0 MG/DL (8.5-10.1) 8.2 MG/DL (8.5-10.1) L Magnesium Level 1.6 MG/DL (1.8-2.4) L 1.7 MG/DL (1.8-2.4) L Total Bilirubin 0.4 MG/DL (0.2-1.0) 0.5 MG/DL (0.2-1.0) Aspartate Amino Transf (AST/SGOT) 10 U/L (15-37) L 13 U/L (15-37) L Alanine Aminotransferase (ALT/SGPT) 19 U/L (12-78) 19 U/L (12-78) Alkaline Phosphatase 119 U/L (46-116) H 87 U/L (46-116) Total Protein 7.2 G/DL (6.4-8.2) 6.3 G/DL (6.4-8.2) L Albumin 3.4 G/DL (3.4-5.0) 3.0 G/DL (3.4-5.0) L Globulin 3.8 g/dL 3.3 g/dL Albumin/Globulin Ratio 0.9 (1.0-2.7) L 0.9 (1.0-2.7) L Acetone Level Negative (NEGATIVE) Uric Acid 5.2 MG/DL (2.6-7.2) Phosphorus Level 2.6 MG/DL (2.5-4.9) Gamma Glutamyl Transpeptidase 15 U/L (5-85) C-Reactive Protein, Quantitative 0.7 mg/dL (0.00-0.90) Pro-B-Type Natriuretic Peptide 296 pg/mL (0-125) H Triglycerides Level 105 MG/DL (30-150) Cholesterol Level 133 MG/DL (< 200) LDL Cholesterol 87 mg/dL (<100) HDL Cholesterol 36 MG/DL (40-60) L Cholesterol/HDL Ratio 3.7 (3.3-4.4) Thyroid Stimulating Hormone (TSH) 1.479 uiU/mL (0.358-3.740) Microbiology Date/Time Source Procedure Growth Status 07/08/18 18:00 Rectum Received Rogerio Conway MD July 09, 2018 08:17
[2018-07-09] MEDS ORDERED: Milk of Magnesia 30ml Ud ORAL SCH (09:00)
[2018-07-09] MEDS: Donepezil 10mg tab ORAL SCH (09:33)
[2018-07-09] MEDS: Docusate 100mg cap ORAL SCH ×2 (09:34→18:26)
[2018-07-09] MEDS: Aspirin EC 81mg tab ORAL SCH (09:34)
[2018-07-09] MEDS: Tamsulosin 0.4mg cap ORAL SCH (09:34)
[2018-07-09] MEDS: Nateglinide 60mg tab ORAL SCH ×3 (09:34→18:26)
[2018-07-09] MEDS: Levemir Flexpen SUBQ SCH (09:36)
[2018-07-09] MEDS: PARoxetine 10mg tab ORAL SCH (09:43)
--- NOTE | 2018-07-09 10:26 | Consultation ---
Consult Note Consult Note asked to eval for BP and electrolyte management ER: 83-year-old male presents ED for evaluation. Brought in from longterm facility for elevated blood sugar. Per nursing staff sugar has been difficult to control. Upon arrival patient showing no signs of distress. No reported fevers or chills. No nausea or vomiting. No chest pain shortness of breath. No other aggravating relieving factors. Denies any other associated symptoms Allergies: Coded Allergies: No Known Allergies (Unverified , 03/23/18) Past Medical History: DM, HTN Pertinent Family History: none Social History: Denies: smoking, alcohol use, drug use Immunizations: UTD Reviewed Nursing Documentation: PMH: Agreed; PSxH: Agreed Past Medical History: No History, Except For Hx Cardiac Problems: Yes Hx Hypertension: Yes Hx Diabetes: Yes Hx Gastrointestinal Problems: Yes - Dysphagia examined interviewed via interpretor data reviewed Assessment/Plan DM OOC on insulin Abnormal electrolyte HTN BPH Plan: Adjust BP and BS meds DC IV Supplement Mag and k per orders Travis Casey MD July 09, 2018 10:26
[2018-07-09 12:00] VITALS: BP 136/71
--- NOTE | 2018-07-09 13:47 | Diagnostic Imaging Report ---
Indication: Dyspnea Comparison: 03/23/2018 A single view chest radiograph was obtained. Findings: There is prominence of the right hilum. Suggest further evaluation. Heart size is normal. The interstitium of the lung is prominent. Bones are unremarkable. IMPRESSION: Right hilar fullness. Suggest CT for further evaluation. This was discussed with Dr. Ally Kim in the emergency department. Patient was admitted
--- NOTE | 2018-07-09 14:03 | NUR ---
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 Suggest CT for further evaluation IS:NS x 1L IV POTASSIUM CHLORIDE 1,005mL IV MAGNESIUM SULFATE 100ml IVPB ADMITTED TO MED/SURG DCP: RETURN TO [facility]
[2018-07-09 16:00] VITALS: BP 139/71
--- NOTE | 2018-07-09 17:45 | Consultation ---
DATE OF CONSULTATION: 07/09/2018 ENDOCRINOLOGY CONSULTATION: CONSULTING PHYSICIAN: Stas Angel M.D. REFERRING PHYSICIAN: Ally Gross M.D. REASON FOR CONSULTATION: Diabetes management. HISTORY OF PRESENT ILLNESS: The patient is an 83-year-old male, known to me from his previous admission to the hospital in February with history of diabetes and history of longterm facility, brought to the hospital with uncontrolled glucose and chest pain for rule out acute coronary syndrome. I was called to manage diabetes. PAST MEDICAL HISTORY: 1. Diabetes. 2. Hypertension. 3. Coronary artery disease. PAST SURGICAL HISTORY: None. SOCIAL HISTORY: No smoking, alcohol, or drug use. From longterm. REVIEW OF SYSTEMS: As per HPI. MEDICATIONS: Reviewed and reconciled. LABORATORY DATA: WBC 6, hemoglobin 14, hematocrit 41, platelets of 161. Sodium 137, potassium 3.5, chloride 100, bicarbonate 29, BUN 14, creatinine 1.3, glucose of 305, calcium of 9. PHYSICAL EXAMINATION: VITAL SIGNS: Blood pressure 141/78, pulse 61, temperature 97.8, respiratory rate of 16. HEENT: Pupils are equal and reactive to light. Sclerae anicteric. NECK: No JVD. No thyromegaly. LUNGS: Clear. ABDOMEN: Positive bowel sounds. EXTREMITIES: No clubbing, cyanosis. Positive for trace edema. DIAGNOSES: 1. Diabetes, out of control. 2. Chest pain. 3. Hypertension. PLAN: 1. Start Levemir 14 units daily. 2. Start Starlix 120 mg before each meal. 3. NovoLog sliding scale before meals and at bedtime. 4. Further adjustment according to blood glucose values. Thank you, Dr. Gross, for the courtesy of this consultation. tSas Angel M.D. DR: KIKE JOB#: [id number] CC: THOR
--- NOTE | 2018-07-09 19:30 | NUR ---
NURSE NOTES: Received report from ALICIA Ley and rounds made. Received pt laying in bed, AOX4, Burmese speaking, able to make needs known without any prblems. Denies any pain, no distress noted. IV R AC # 20 heplock patent and intact. Safety measures maintained. Bed in lowest position and locked, side rails up x 2, call light within reach. Will continue to monitor.
--- NOTE | 2018-07-09 19:30 | NUR ---
HAND-OFF: Report given to Calderon VARGAS. Patient is in stable condition.
[2018-07-09 20:00] VITALS: BP 136/73
[2018-07-10] VITALS: BP 111/63
[2018-07-10 04:00] VITALS: BP 121/67
[2018-07-10] MEDS: NovoLOG Insulin Flexpen SUBQ SCH ×4 (05:49→20:33)
--- NOTE | 2018-07-10 06:51 | General Progress Note ---
Assessment/Plan Problem List: (1) Weakness ICD Codes: R53.1 - Weakness SNOMED: 03945943 (2) Altered mental status ICD Codes: R41.82 - Altered mental status, unspecified SNOMED: 058445317 (3) Constipation ICD Codes: K59.00 - Constipation, unspecified SNOMED: 23660084 (4) Uncontrolled diabetes mellitus ICD Codes: E11.65 - Type 2 diabetes mellitus with hyperglycemia SNOMED: 64944781, 879387131 Qualifiers: Qualified Codes: E13.65 - Other specified diabetes mellitus with hyperglycemia Assessment/Plan: continue Levemir 14 units daily continue Starlix 120 mg ac tid continue NISS ac / hs Subjective Allergies: Coded Allergies: No Known Allergies (Unverified , 03/23/18) All Systems: reviewed and negative except above Subjective events noted Item Value Date Time Bedside Blood Glucose 163 mg/dl H 07/10/18 0610 Bedside Blood Glucose 183 mg/dl H 07/09/18 2144 Bedside Blood Glucose 125 mg/dl H 07/09/18 1642 Bedside Blood Glucose 190 mg/dl H 07/09/18 1143 Objective Last 24 Hour Vital Signs Date Time Temp Pulse Resp B/P (MAP) Pulse Ox O2 Delivery O2 Flow Rate FiO2 07/10/18 04:00 97.5 63 20 121/67 (85) 94 07/10/18 00:00 97.6 60 20 111/63 (79) 95 07/09/18 21:00 Room Air 07/09/18 20:00 98.6 63 20 136/73 (94) 94 07/09/18 16:00 99.0 72 20 139/71 (93) 20 07/09/18 12:00 98.3 64 18 136/71 (92) 98 07/09/18 09:00 Room Air 07/09/18 08:00 98.3 60 18 130/65 (86) 95 Intake and Output 07/09/18 07/10/18 19:00 07:00 Intake Total 850 ml 100 ml Output Total 300 ml Balance 850 ml -200 ml Intake Oral 700 ml 100 ml IV Total 150 ml Output Urine Total 300 ml # Voids 5 2 Height (Feet): 5 Height (Inches): 6.00 Weight (Pounds): 170 General Appearance: no apparent distress Neck: normal alignment Cardiovascular: normal rate Respiratory/Chest: lungs clear Abdomen: normal bowel sounds Edema: no edema noted Arm (L), no edema noted Arm (R), no edema noted Leg (L), no edema noted Leg (R), no edema noted Pedal (L), no edema noted Pedal (R), no edema noted Generalized Objective Current Medications Medications (Trade) Dose Ordered Sig/Charlette Route PRN Reason Start Time Stop Time Status Last Admin Dose Admin Acetaminophen (Tylenol) 500 mg Q6HR PRN ORAL Mild Pain/Temp > 100.5 07/08/18 22:00 08/07/18 21:59 Acetaminophen/ Hydrocodone Bitart ([place] 10/325) 1 tab Q6H PRN ORAL Severe Pain (Pain Scale 7-10) 07/08/18 22:00 07/15/18 21:59 Aspirin (Ecotrin) 81 mg DAILY ORAL 07/09/18 09:00 08/08/18 08:59 07/09/18 09:34 Dextrose (Dextrose 50%) 25 ml Q30M PRN IV Hypoglycemia 07/08/18 22:15 08/07/18 22:14 Dextrose (Dextrose 50%) 50 ml Q30M PRN IV Hypoglycemia 07/08/18 22:15 08/07/18 22:14 Docusate Sodium (Colace) 100 mg TWICE A DAY ORAL 07/09/18 09:00 08/08/18 08:59 07/09/18 18:26 Donepezil HCl (Aricept) 10 mg DAILY ORAL 07/09/18 09:00 08/08/18 08:59 07/09/18 09:33 Insulin Aspart (NovoLOG) BEFORE MEALS AND HS SUBQ 07/09/18 06:30 08/08/18 06:29 07/10/18 05:49 Insulin Detemir (Levemir) 14 units DAILY SUBQ 07/09/18 09:00 08/08/18 08:59 07/09/18 09:36 Magnesium Hydroxide (Mom) 30 ml DAILYPRN PRN ORAL Constipation 07/09/18 01:15 08/08/18 01:14 Mirtazapine (Remeron) 7.5 mg BEDTIME ORAL 07/09/18 21:00 08/08/18 20:59 07/09/18 21:40 Nateglinide (Starlix) 120 mg THREE TIMES A DAY ORAL 07/09/18 09:00 08/08/18 08:59 07/09/18 18:26 Pantoprazole (Protonix) 40 mg DAILY ORAL 07/09/18 11:00 08/08/18 10:59 07/09/18 11:16 Paroxetine HCl (Paxil) 10 mg DAILY ORAL 07/09/18 09:00 08/08/18 08:59 07/09/18 09:43 Potassium Chloride (K-Dur) 40 meq DAILY ORAL 07/09/18 11:00 08/08/18 10:59 07/09/18 11:17 Quetiapine Fumarate (SEROquel) 25 mg QHS ORAL 07/09/18 21:00 08/08/18 20:59 07/09/18 21:40 Tamsulosin HCl (Flomax) 0.4 mg DAILY ORAL 07/09/18 09:00 08/08/18 08:59 07/09/18 09:34 Stas Angel MD July 10, 2018 06:51
--- NOTE | 2018-07-10 07:21 | NUR ---
NURSE NOTES:BEDSIDE ROUNDS DONE WITH NIGHT RN(CECIL),PATIENT EATING BREAKFAST,ROOM AIR,A/OX2-3,NO SIGN OF DISTRESS.WILL CONTINUE CURRENT PLAN OF CARE.
--- NOTE | 2018-07-10 07:21 | NUR ---
HAND-OFF: Report given to ALICIA Wilson. Pt in stable condition.
[2018-07-10 08:00] VITALS: BP 127/75
[2018-07-10] MEDS: Docusate 100mg cap ORAL SCH ×2 (08:25→16:25)
[2018-07-10] MEDS: PARoxetine 10mg tab ORAL SCH (08:25)
[2018-07-10] MEDS: Donepezil 10mg tab ORAL SCH (08:25)
[2018-07-10] MEDS: Aspirin EC 81mg tab ORAL SCH (08:26)
[2018-07-10] MEDS: Nateglinide 60mg tab ORAL SCH ×3 (08:26→16:25)
[2018-07-10] MEDS: Tamsulosin 0.4mg cap ORAL SCH (08:26)
[2018-07-10] MEDS: Levemir Flexpen SUBQ SCH (08:28)
[2018-07-10] MEDS ORDERED: Tubing IV Secondary IV ONE (10:10)
[2018-07-10 12:00] VITALS: BP 124/79
--- NOTE | 2018-07-10 13:55 | Nephrology Progress Note ---
Assessment/Plan Problem List: (1) Uncontrolled blood glucose (2) Uncontrolled diabetes mellitus (3) HTN (hypertension) (4) BPH (benign prostatic hyperplasia) Assessment DM OOC on insulin Abnormal electrolyte HTN BPH Plan Plan: Adjust BP and BS meds DC IV Supplement Mag and k per orders Subjective ROS Limited/Unobtainable: No Objective Objective Last 24 Hour Vital Signs Date Time Temp Pulse Resp B/P (MAP) Pulse Ox O2 Delivery O2 Flow Rate FiO2 07/10/18 12:00 98.3 74 19 124/79 (94) 94 07/10/18 08:00 98.3 84 17 127/75 (92) 93 07/10/18 07:21 Room Air 07/10/18 04:00 97.5 63 20 121/67 (85) 94 07/10/18 00:00 97.6 60 20 111/63 (79) 95 07/09/18 21:00 Room Air 07/09/18 20:00 98.6 63 20 136/73 (94) 94 07/09/18 16:00 99.0 72 20 139/71 (93) 20 Intake and Output 07/09/18 07/10/18 18:59 06:59 Intake Total 900 ml 100 ml Output Total 300 ml Balance 900 ml -200 ml Intake Oral 700 ml 100 ml IV Total 200 ml Output Urine Total 300 ml # Voids 5 2 Height (Feet): 5 Height (Inches): 6.00 Weight (Pounds): 170 General Appearance: no apparent distress Neck: limited range of motion Respiratory/Chest: decreased breath sounds Abdomen: soft Travis Casey MD July 10, 2018 13:55
[2018-07-10 16:00] VITALS: BP 126/73
--- NOTE | 2018-07-10 17:30 | History and Physical Report ---
DATE OF ADMISSION: 07/08/2018 HISTORY OF PRESENT ILLNESS: The patient is a relatively poor historian, comes with elevated sugar, labile sugar, low potassium, NIDDM, left-sided chest pain that is constant. EKG showed possible first-degree AV block and anterior fascicular block, for those reasons and hyperglycemia as well reliable history from the patient. PAST MEDICAL HISTORY: NIDDM, dementia, history of constipation, hypertension, mood disorder, psychosis. PAST SURGICAL HISTORY: Has abdominal surgical scar, but cannot tell me which surgery he had. Also has some kind of left lower extremity surgery and I again cannot ascertain what it is. The patient is a poor historian. ALLERGIES: No known allergies. MEDICATIONS: Aspirin, Colace, benazepril, insulin, mirtazapine, Seroquel, and Flomax. FAMILY HISTORY: Noncontributory. SOCIAL HISTORY: Denies history of smoking, alcohol, or illicit drugs. REVIEW OF SYSTEMS: HEENT: Denies headache. RESPIRATORY: Denies cough. CARDIOVASCULAR: Denies chest pain. . GASTROINTESTINAL: Denies nausea, vomiting, diarrhea. EXTREMITIES: Does have some left pain in the lower extremity, which is chronic. NEUROLOGIC: Denies any changes in speech pattern. He is a poor historian. PHYSICAL EXAMINATION: VITAL SIGNS: Temperature 97.8, pulse 61, blood pressure 141/78. HEENT: PERRLA. NECK: Supple. No lymphadenopathy. CHEST: Clear to auscultation. CARDIOVASCULAR: Regular rate and rhythm. GASTROINTESTINAL: Soft. Positive bowel sounds. EXTREMITIES: He does have contractures. . NEUROLOGIC: Reflexes in both sides. weakness, which is chronic . LABORATORY DATA: WBC of 6.3, hemoglobin 14.5, platelets 161. Sodium 137, potassium of 3.5, BUN of 14, creatinine of 1, glucose of 305. ASSESSMENT AND PLAN: Hyperglycemia, chest pain, uncontrolled diabetes mellitus. Dr. Conway, Dr. Sharif, Dr. Angel to see the patient for the management of the above-mentioned diagnoses and . Ally Gross M.D. DR: RUPESH JOB#: [id number] CC:
[2018-07-10] MEDS ORDERED: FLOMAX0.4 MG ORAL (18:23)
[2018-07-10] MEDS ORDERED: FLEET ENEMA133 ML RECTAL (18:23)
[2018-07-10] MEDS ORDERED: CRAN-MAX500 MG PO (18:23)
--- NOTE | 2018-07-10 19:02 | NUR ---
HAND-OFF: Report given to CECIL ALLISON RN.PATIENT STABLE.
--- NOTE | 2018-07-10 19:30 | NUR ---
NURSE NOTES: Received report from ALICIA Wilson and rounds done. Received pt laying in bed, awake, alert and oriented x 2, denies any pain, no distress noted. IV R FA # 20 patent and intact. Magnesium sulfate infusing at this time. Pt refused SCD. Bed lowest position and locked, side rails up x 2, call light within reach. Will continue to monitor.
[2018-07-10 20:00] VITALS: BP 116/61
--- NOTE | 2018-07-10 21:15 | General Progress Note ---
Assessment/Plan Problem List: (1) Diabetes ICD Codes: E11.9 - Type 2 diabetes mellitus without complications SNOMED: 17914739 (2) Weakness ICD Codes: R53.1 - Weakness SNOMED: 78802095 (3) Uncontrolled diabetes mellitus ICD Codes: E11.65 - Type 2 diabetes mellitus with hyperglycemia SNOMED: 15343045, 846092964 Qualifiers: Qualified Codes: E13.65 - Other specified diabetes mellitus with hyperglycemia (4) HTN (hypertension) ICD Codes: I10 - Essential (primary) hypertension SNOMED: 58267934 (5) BPH (benign prostatic hyperplasia) ICD Codes: N40.0 - Benign prostatic hyperplasia without lower urinary tract symptoms SNOMED: 366852259 Status: progressing Assessment/Plan: afebrile niddm uncontrolled niddm sugar is improving vitals stable Subjective ROS Limited/Unobtainable: Yes Allergies: Coded Allergies: No Known Allergies (Unverified , 03/23/18) Objective Last 24 Hour Vital Signs Date Time Temp Pulse Resp B/P (MAP) Pulse Ox O2 Delivery O2 Flow Rate FiO2 07/10/18 16:00 97.9 72 20 126/73 (90) 96 07/10/18 12:00 98.3 74 19 124/79 (94) 94 07/10/18 08:00 98.3 84 17 127/75 (92) 93 07/10/18 07:21 Room Air 07/10/18 04:00 97.5 63 20 121/67 (85) 94 07/10/18 00:00 97.6 60 20 111/63 (79) 95 Intake and Output 07/09/18 07/10/18 19:00 07:00 Intake Total 850 ml 100 ml Output Total 300 ml Balance 850 ml -200 ml Intake Oral 700 ml 100 ml IV Total 150 ml Output Urine Total 300 ml # Voids 5 2 Height (Feet): 5 Height (Inches): 6.00 Weight (Pounds): 170 Neck: supple Cardiovascular: normal rate Respiratory/Chest: lungs clear Abdomen: soft Ally Gross MD July 10, 2018 21:15
[2018-07-11] VITALS: BP 125/68
[2018-07-11 04:00] VITALS: BP 124/68
[2018-07-11] MEDS: NovoLOG Insulin Flexpen SUBQ SCH ×4 (05:58→20:53)
--- NOTE | 2018-07-11 07:31 | NUR ---
HAND-OFF: Report given to ALICIA Marte. Pt in stable condition .
[2018-07-11 07:53] LABS: ALANINE AMINOTRANSFERASE 18 U/L (12-78); ALBUMIN 2.9 G/DL (3.4-5.0); ALBUMIN/GLOBULIN RATIO 0.9 (1.0-2.7); ALKALINE PHOSPHATASE 81 U/L (46-116); ANION GAP 7 mmol/L (5-15); ASPARTATE AMINO TRANSFERASE 14 U/L (15-37); BILIRUBIN,TOTAL 0.5 MG/DL (0.2-1.0); BLOOD UREA NITROGEN 14 mg/dL (7-18); CALCIUM 8.2 MG/DL (8.5-10.1); CARBON DIOXIDE 28 MMOL/L (21-32); CHLORIDE 108 MMOL/L (98-107); CREATININE 0.7 MG/DL (0.55-1.30); POTASSIUM 3.8 MMOL/L (3.5-5.1); SODIUM 143 MMOL/L (136-145)
[2018-07-11 08:00] VITALS: BP 122/66
--- NOTE | 2018-07-11 08:03 | NUR ---
NURSE NOTES: Pt awake Japanese speaker mood calm . Per outgoing nurse report pt requires to be redirected, due to aggressive bx. Call light in reach. Current plan of care will be followed
[2018-07-11] MEDS: Docusate 100mg cap ORAL SCH ×3 (08:51→17:20)
[2018-07-11] MEDS: Donepezil 10mg tab ORAL SCH (08:51)
[2018-07-11] MEDS: Aspirin EC 81mg tab ORAL SCH (08:51)
[2018-07-11] MEDS: Nateglinide 60mg tab ORAL SCH ×3 (08:51→18:00)
--- NOTE | 2018-07-11 08:51 | General Progress Note ---
Assessment/Plan Problem List: (1) Weakness ICD Codes: R53.1 - Weakness SNOMED: 94720391 (2) Altered mental status ICD Codes: R41.82 - Altered mental status, unspecified SNOMED: 394946909 (3) Constipation ICD Codes: K59.00 - Constipation, unspecified SNOMED: 18278424 (4) Uncontrolled diabetes mellitus ICD Codes: E11.65 - Type 2 diabetes mellitus with hyperglycemia SNOMED: 40031674, 971281503 Qualifiers: Qualified Codes: E13.65 - Other specified diabetes mellitus with hyperglycemia Status: progressing Assessment/Plan: continue Levemir 14 units daily continue Starlix 120 mg ac tid continue NISS ac / hs Subjective Allergies: Coded Allergies: No Known Allergies (Unverified , 03/23/18) All Systems: reviewed and negative except above Subjective events noted Item Value Date Time Bedside Blood Glucose 111 mg/dl 07/11/18 0613 Bedside Blood Glucose 195 mg/dl H 07/10/18 2100 Bedside Blood Glucose 161 mg/dl H 07/10/18 1621 Bedside Blood Glucose 212 mg/dl H 07/10/18 1144 Bedside Blood Glucose 163 mg/dl H 07/10/18 0828 Objective Last 24 Hour Vital Signs Date Time Temp Pulse Resp B/P (MAP) Pulse Ox O2 Delivery O2 Flow Rate FiO2 07/11/18 04:00 98.0 67 18 124/68 (86) 94 07/11/18 00:00 98.2 64 18 125/68 (87) 97 07/10/18 21:00 Room Air 07/10/18 20:00 99.0 72 18 116/61 (79) 94 07/10/18 16:00 97.9 72 20 126/73 (90) 96 07/10/18 12:00 98.3 74 19 124/79 (94) 94 Intake and Output 07/10/18 07/11/18 19:00 07:00 Intake Total 300 ml 100 ml Balance 300 ml 100 ml Intake Oral 300 ml IV Total 100 ml # Voids 2 3 # Bowel Movements 1 Laboratory Tests 07/11/18 06:30: Sodium Level 143, Potassium Level 3.8, Chloride Level 108H, Carbon Dioxide Level 28, Anion Gap 7, Blood Urea Nitrogen 14, Creatinine 0.7, Estimat Glomerular Filtration Rate , Glucose Level 129H, Hemoglobin A1c 8.7H, Uric Acid 6.3, Calcium Level 8.2L, Calcium (Send out) [Pending], Magnesium Level 2.0, Total Bilirubin 0.5, Aspartate Amino Transf (AST/SGOT) 14L, Alanine Aminotransferase (ALT/SGPT) 18, Alkaline Phosphatase 81, Total Protein 6.2L, Albumin 2.9L, Globulin 3.3, Albumin/Globulin Ratio 0.9L, Parathyroid Hormone ( Intact) [Pending] Height (Feet): 5 Height (Inches): 6.00 Weight (Pounds): 170 General Appearance: no apparent distress Neck: normal alignment Cardiovascular: normal rate Respiratory/Chest: lungs clear Abdomen: normal bowel sounds Objective Current Medications Medications (Trade) Dose Ordered Sig/Charlette Route PRN Reason Start Time Stop Time Status Last Admin Dose Admin Acetaminophen (Tylenol) 500 mg Q6HR PRN ORAL Mild Pain/Temp > 100.5 07/08/18 22:00 08/07/18 21:59 Acetaminophen/ Hydrocodone Bitart ([place] 10/325) 1 tab Q6H PRN ORAL Severe Pain (Pain Scale 7-10) 07/08/18 22:00 07/15/18 21:59 Aspirin (Ecotrin) 81 mg DAILY ORAL 07/09/18 09:00 08/08/18 08:59 07/10/18 08:26 Dextrose (Dextrose 50%) 25 ml Q30M PRN IV Hypoglycemia 07/08/18 22:15 08/07/18 22:14 Dextrose (Dextrose 50%) 50 ml Q30M PRN IV Hypoglycemia 07/08/18 22:15 08/07/18 22:14 Docusate Sodium (Colace) 100 mg TID ORAL 07/10/18 18:00 08/08/18 08:59 Donepezil HCl (Aricept) 10 mg DAILY ORAL 07/09/18 09:00 08/08/18 08:59 07/10/18 08:25 Insulin Aspart (NovoLOG) BEFORE MEALS AND HS SUBQ 07/09/18 06:30 08/08/18 06:29 07/11/18 05:58 Insulin Detemir (Levemir) 14 units DAILY SUBQ 07/09/18 09:00 08/08/18 08:59 07/10/18 08:28 Magnesium Hydroxide (Mom) 30 ml DAILYPRN PRN ORAL Constipation 07/09/18 01:15 08/08/18 01:14 Mirtazapine (Remeron) 7.5 mg BEDTIME ORAL 07/09/18 21:00 08/08/18 20:59 07/10/18 20:30 Nateglinide (Starlix) 120 mg THREE TIMES A DAY ORAL 07/09/18 09:00 08/08/18 08:59 07/10/18 16:25 Pantoprazole (Protonix) 40 mg DAILY ORAL 07/09/18 11:00 08/08/18 10:59 07/10/18 08:25 Paroxetine HCl (Paxil) 10 mg DAILY ORAL 07/09/18 09:00 08/08/18 08:59 07/10/18 08:25 Potassium Chloride (K-Dur) 40 meq DAILY ORAL 07/09/18 11:00 08/08/18 10:59 07/10/18 08:25 Quetiapine Fumarate (SEROquel) 25 mg QHS ORAL 07/09/18 21:00 08/08/18 20:59 07/10/18 20:30 Tamsulosin HCl (Flomax) 0.4 mg DAILY ORAL 07/09/18 09:00 08/08/18 08:59 07/10/18 08:26 Stas Angel MD July 11, 2018 08:51
[2018-07-11] MEDS: PARoxetine 10mg tab ORAL SCH (08:52)
[2018-07-11] MEDS: Tamsulosin 0.4mg cap ORAL SCH (08:52)
[2018-07-11] MEDS: Levemir Flexpen SUBQ SCH (08:54)
--- NOTE | 2018-07-11 09:35 | NUR ---
NURSE NOTES: Pt cooperated with with medication regimen. Provided with water. Repositioned, able to verbalize what position he wants to be in . Call light well in reach
--- NOTE | 2018-07-11 10:44 | Consultation ---
DATE OF CONSULTATION: 07/09/2018 CARDIOLOGY CONSULTATION CONSULTING PHYSICIAN: Rogerio Conway M.D. REFERRING PHYSICIAN: Ally Gross M.D. REASON FOR CONSULTATION: Management of coronary artery disease in a patient with DKA. HISTORY OF PRESENT ILLNESS: The patient is a very unfortunate 83-year-old gentleman, resident of a [place] [facility] facility, who presents with another episode of hyperglycemia like his presentation in February of this year. The patient had trouble controlling his sugar in the nursing facility. At the time of arrival to the hospital, he did not have any chest pain or shortness of breath. As mentioned above, his cardiovascular history is significant for history of diabetes mellitus, hypertension, history of coronary artery disease detail of which is unknown, and history of non-ST elevation myocardial infarction in the previous admission in this facility in February 2018. At that time, a 2-D echocardiography was done and showed normal LV systolic function with no wall motion abnormalities, grade 1 LV diastolic dysfunction, and normal right ventricular systolic pressure measured at 14 mmHg. In this admission, his vital signs at time of arrival to the hospital was 132/72, pulse of 70. A 12-lead electrocardiogram showed sinus rhythm with no acute ischemia. ProBNP was 296. Chest x-ray showed right hilar fullness, but no acute cardiopulmonary disease. The patient was admitted to an Med/Surg unit for further evaluation and management of hyperglycemia. PAST MEDICAL HISTORY: 1. History of coronary artery disease. 2. History of diabetes mellitus. 3. History of hypertension. 4. History of non-ST elevation myocardial infarction. PAST SURGICAL HISTORY: None. ALLERGIES: No known drug allergies. MEDICATIONS: List of medication in nursing facility includes acetaminophen 1000 mg every 4 hours p.r.n. moderate pain or temperature above 100.5, cranberry 450 mg p.o. twice daily, Colace 100 mg p.o. daily, donepezil 10 mg p.o. daily, hydrochlorothiazide 12.5 mg p.o. daily, insulin Levemir 14 units subcutaneous daily, milk of magnesia 30 mL nightly p.r.n. constipation, Fleet Enema 133 mL rectal q.2 hours p.r.n. constipation, Starlix 60 mg p.o. three times a day, Paxil 10 mg p.o. daily, and Flomax 0.4 mg p.o. daily. FAMILY HISTORY: No premature coronary artery disease in first-degree relatives. SOCIAL HISTORY: No history of tobacco, alcohol, or illicit drug use. REVIEW OF SYSTEMS: HEENT: Denies any headache, diplopia, or blurred vision. CONSTITUTIONAL: Has complaints of generalized weakness, but no fever, chills, or night sweats. PULMONARY: Denies any cough, hemoptysis, or wheezing. CARDIOVASCULAR: Denies any chest pain, shortness of breath, PND, orthopnea, leg swelling, or syncope. GASTROINTESTINAL: Denies any nausea, vomiting, diarrhea, constipation, abdominal pain, or GI bleed. GENITOURINARY: Denies any hematuria, dysuria, or incontinence. NEUROLOGIC: Denies any motor dysfunction, sensory deficit, or altered speech. PHYSICAL EXAMINATION: VITAL SIGNS: Blood pressure at the time of arrival to the hospital was 132/72, pulse 70, respirations 16, and temperature 98.1 degrees Fahrenheit. O2 saturation 94% on room air. GENERAL: The patient is a very unfortunate 83-year-old gentleman, in no apparent respiratory distress. Alert and oriented x4. HEENT: Atraumatic and normocephalic. Anicteric. Pupils are equal, round, and reactive to light and accommodation. Extraocular muscles intact. NECK: JVP less than 5 cm. No carotid bruit. CARDIOVASCULAR: Normal S1, S2. Regular rate and rhythm. No murmurs, gallops, or rubs. PMI is at fourth intercostal space in the midclavicular. LUNGS: Clear to auscultation bilaterally. ABDOMEN: Soft, nontender, and nondistended. No hepatosplenomegaly. Positive bowel sounds. EXTREMITIES: No evidence of edema, clubbing, or cyanosis. LABORATORY FINDINGS: WBC 6.3, hemoglobin 14.5, hematocrit 41.5, and platelet count 161. Chemistry showed sodium 137, potassium 3.5, chloride 100, bicarbonate 29, BUN 14, and creatinine 1.0. Glucose is 305. Calcium 9.0. Magnesium 1.6. ProBNP was 296. LDL 87, total cholesterol 133, and HDL 36. TSH 1.479. ASSESSMENT AND PLAN: The patient is a very unfortunate 83-year-old gentleman, seen in Cardiology consultation. 1. History of coronary artery disease, stable. Last admission, the patient had type 2 non-ST elevation myocardial infarction, however, 12-lead ECG did not show any acute changes. A 12-lead EKG remains to be within normal limits in this admission as well. We will continue the patient on aspirin, statins, and beta blockers. Of note, 2-D echocardiography has revealed normal LV systolic function with grade 1 LV diastolic dysfunction, pulmonary artery pressure appears to be within normal limits. 2. Diabetes mellitus, uncontrolled hyperglycemia with hemoglobin A1c, which is elevated. Recommend Endocrine consultation. 3. History of hypertension. The patient will probably benefit from SHANITA inhibitors. However, in the nursing facility, he was on hydrochlorothiazide. Blood pressure at time of arrival to the hospital was within normal limits. We will consider adding SHANITA inhibitors to the regimen. 4. No further cardiac intervention is necessary. I would like to thank Dr. Gross for the courtesy of this consultation. Rogerio Conway M.D. DR: SAGE JOB#: [id number] CC:
[2018-07-11] MEDS: Lisinopril 2.5mg tab ORAL SCH (11:01)
[2018-07-11 12:00] VITALS: BP 135/81
--- NOTE | 2018-07-11 12:34 | Cardiology Progress Note ---
Assessment/Plan Assessment/Plan 1. History of coronary artery disease, stable. 2-D echocardiography has revealed normal LV systolic function. 2. Diabetes mellitus, uncontrolled hyperglycemia, f/u with endocrine. 3. History of hypertension. Continue lisinopril. Subjective Subjective No cardiac events. Objective Last 24 Hour Vital Signs Date Time Temp Pulse Resp B/P (MAP) Pulse Ox O2 Delivery O2 Flow Rate FiO2 07/11/18 11:01 120/66 07/11/18 09:00 Room Air 07/11/18 08:00 98.1 58 16 122/66 (84) 98 07/11/18 04:00 98.0 67 18 124/68 (86) 94 07/11/18 00:00 98.2 64 18 125/68 (87) 97 07/10/18 21:00 Room Air 07/10/18 20:00 99.0 72 18 116/61 (79) 94 07/10/18 16:00 97.9 72 20 126/73 (90) 96 Intake and Output 07/10/18 07/11/18 19:00 07:00 Intake Total 300 ml 100 ml Balance 300 ml 100 ml Intake Oral 300 ml IV Total 100 ml # Voids 2 3 # Bowel Movements 1 Laboratory Tests Test 07/11/18 06:30 Sodium Level 143 MMOL/L (136-145) Potassium Level 3.8 MMOL/L (3.5-5.1) Chloride Level 108 MMOL/L (98-107) H Carbon Dioxide Level 28 MMOL/L (21-32) Anion Gap 7 mmol/L (5-15) Blood Urea Nitrogen 14 mg/dL (7-18) Creatinine 0.7 MG/DL (0.55-1.30) Estimat Glomerular Filtration Rate mL/min (>60) Glucose Level 129 MG/DL (74-106) H Hemoglobin A1c 8.7 % (4.3-6.0) H Uric Acid 6.3 MG/DL (2.6-7.2) Calcium Level 8.2 MG/DL (8.5-10.1) L Calcium (Send out) Pending Magnesium Level 2.0 MG/DL (1.8-2.4) Total Bilirubin 0.5 MG/DL (0.2-1.0) Aspartate Amino Transf (AST/SGOT) 14 U/L (15-37) L Alanine Aminotransferase (ALT/SGPT) 18 U/L (12-78) Alkaline Phosphatase 81 U/L (46-116) Total Protein 6.2 G/DL (6.4-8.2) L Albumin 2.9 G/DL (3.4-5.0) L Globulin 3.3 g/dL Albumin/Globulin Ratio 0.9 (1.0-2.7) L Parathyroid Hormone (Intact) Pending Microbiology Date/Time Source Procedure Growth Status 07/08/18 18:00 Nasal Nares MRSA Culture - Final NO METHICILLIN RESISTANT STAPH AUREUS... Complete 07/08/18 18:00 Rectum - Final NO CARBAPENEM-RESISTANT ENTEROBACTERI... Complete 07/08/18 18:00 Rectum VRE Culture - Final NO VANCOMYCIN RESISTANT ENTEROCOCCUS ... Complete Objective HEENT: Atraumatic and normocephalic. Anicteric. Pupils are equal, round, and reactive to light and accommodation. Extraocular muscles intact. NECK: JVP less than 5 cm. No carotid bruit. CARDIOVASCULAR: Normal S1, S2. Regular rate and rhythm. No murmurs, gallops, or rubs. PMI is at fourth intercostal space in the midclavicular. LUNGS: Clear to auscultation bilaterally. ABDOMEN: Soft, nontender, and nondistended. No hepatosplenomegaly. Positive bowel sounds. EXTREMITIES: No evidence of edema, clubbing, or cyanosis. Rogerio Conway MD July 11, 2018 12:34
--- NOTE | 2018-07-11 12:47 | Nephrology Progress Note ---
Assessment/Plan Problem List: (1) Uncontrolled blood glucose (2) Uncontrolled diabetes mellitus (3) HTN (hypertension) (4) BPH (benign prostatic hyperplasia) Assessment DM OOC on insulin Abnormal electrolyte HTN BPH Plan Plan: Adjust BP and BS meds DC IV Supplement Mag and k per orders Subjective ROS Limited/Unobtainable: No Objective Objective Last 24 Hour Vital Signs Date Time Temp Pulse Resp B/P (MAP) Pulse Ox O2 Delivery O2 Flow Rate FiO2 07/11/18 11:01 120/66 07/11/18 09:00 Room Air 07/11/18 08:00 98.1 58 16 122/66 (84) 98 07/11/18 04:00 98.0 67 18 124/68 (86) 94 07/11/18 00:00 98.2 64 18 125/68 (87) 97 07/10/18 21:00 Room Air 07/10/18 20:00 99.0 72 18 116/61 (79) 94 07/10/18 16:00 97.9 72 20 126/73 (90) 96 Intake and Output 07/10/18 07/11/18 19:00 07:00 Intake Total 300 ml 100 ml Balance 300 ml 100 ml Intake Oral 300 ml IV Total 100 ml # Voids 2 3 # Bowel Movements 1 Laboratory Tests 07/11/18 06:30: Sodium Level 143, Potassium Level 3.8, Chloride Level 108H, Carbon Dioxide Level 28, Anion Gap 7, Blood Urea Nitrogen 14, Creatinine 0.7, Estimat Glomerular Filtration Rate , Glucose Level 129H, Hemoglobin A1c 8.7H, Uric Acid 6.3, Calcium Level 8.2L, Calcium (Send out) [Pending], Magnesium Level 2.0, Total Bilirubin 0.5, Aspartate Amino Transf (AST/SGOT) 14L, Alanine Aminotransferase (ALT/SGPT) 18, Alkaline Phosphatase 81, Total Protein 6.2L, Albumin 2.9L, Globulin 3.3, Albumin/Globulin Ratio 0.9L, Parathyroid Hormone ( Intact) [Pending] Height (Feet): 5 Height (Inches): 6.00 Weight (Pounds): 170 General Appearance: no apparent distress Objective no change Travis Casey MD July 11, 2018 12:47
--- NOTE | 2018-07-11 13:31 | NUR ---
NURSE NOTES: Pt incontinent episode x 3 . " Who keeps throwing water on me" " The water is coming from the jas" Pt clean and dry redirected, repositioned. Call light in reach
--- NOTE | 2018-07-11 15:12 | NUR ---
NURSE NOTES: Pt has intermittent confusion. Requires to be checked for incontinent episodes. Ate well without assistance. Call light is in reach, but baseline interferes with use. Anticipated needs require to be
--- NOTE | 2018-07-11 15:15 | NUR ---
NURSE NOTES: Pt laying in bed talking softly to self. Sitter remains at bedside Addendum: 07/11/18 at 1516 by Rosanna Coyle RN wrong pt
[2018-07-11 16:00] VITALS: BP 111/69
--- NOTE | 2018-07-11 18:19 | NUR ---
NURSE NOTES: Pt has periods of confusions has responded to direct questions appropriately , matters related incontinence, pt has been incontinent of urine and bm. Patient noted playing feces smearing feces on blanket. Required complete linen change times 3 . Currently sleeping
--- NOTE | 2018-07-11 19:46 | NUR ---
NURSE NOTES: Taryn VARGAS
[2018-07-11 20:00] VITALS: BP 131/69
--- NOTE | 2018-07-11 21:35 | General Progress Note ---
Assessment/Plan Problem List: (1) Diabetes ICD Codes: E11.9 - Type 2 diabetes mellitus without complications SNOMED: 08095880 (2) Weakness ICD Codes: R53.1 - Weakness SNOMED: 45684500 (3) Uncontrolled diabetes mellitus ICD Codes: E11.65 - Type 2 diabetes mellitus with hyperglycemia SNOMED: 88174819, 195702765 Qualifiers: Qualified Codes: E13.65 - Other specified diabetes mellitus with hyperglycemia (4) HTN (hypertension) ICD Codes: I10 - Essential (primary) hypertension SNOMED: 50708659 (5) BPH (benign prostatic hyperplasia) ICD Codes: N40.0 - Benign prostatic hyperplasia without lower urinary tract symptoms SNOMED: 217025843 Status: progressing Assessment/Plan: htn niddm uncontrolled niddm sugar is improving dc planning Subjective ROS Limited/Unobtainable: Yes Allergies: Coded Allergies: No Known Allergies (Unverified , 03/23/18) Objective Last 24 Hour Vital Signs Date Time Temp Pulse Resp B/P (MAP) Pulse Ox O2 Delivery O2 Flow Rate FiO2 07/11/18 16:00 98.4 79 20 111/69 (83) 07/11/18 12:00 97.3 76 19 135/81 (99) 07/11/18 11:01 120/66 07/11/18 09:00 Room Air 07/11/18 08:00 98.1 58 16 122/66 (84) 98 07/11/18 04:00 98.0 67 18 124/68 (86) 94 07/11/18 00:00 98.2 64 18 125/68 (87) 97 Intake and Output 07/10/18 07/11/18 18:59 06:59 Intake Total 300 ml 100 ml Balance 300 ml 100 ml Intake Oral 300 ml IV Total 100 ml # Voids 2 3 # Bowel Movements 1 Laboratory Tests 07/11/18 06:30: Sodium Level 143, Potassium Level 3.8, Chloride Level 108H, Carbon Dioxide Level 28, Anion Gap 7, Blood Urea Nitrogen 14, Creatinine 0.7, Estimat Glomerular Filtration Rate , Glucose Level 129H, Hemoglobin A1c 8.7H, Uric Acid 6.3, Calcium Level 8.2L, Calcium (Send out) [Pending], Magnesium Level 2.0, Total Bilirubin 0.5, Aspartate Amino Transf (AST/SGOT) 14L, Alanine Aminotransferase (ALT/SGPT) 18, Alkaline Phosphatase 81, Total Protein 6.2L, Albumin 2.9L, Globulin 3.3, Albumin/Globulin Ratio 0.9L, Parathyroid Hormone ( Intact) [Pending] Height (Feet): 5 Height (Inches): 6.00 Weight (Pounds): 170 General Appearance: confused Cardiovascular: normal rate Respiratory/Chest: lungs clear Ally Gross MD July 11, 2018 21:35
[2018-07-12] VITALS: BP 127/69
[2018-07-12 04:00] VITALS: BP 128/67
--- NOTE | 2018-07-12 06:47 | General Progress Note ---
Assessment/Plan Problem List: (1) Weakness ICD Codes: R53.1 - Weakness SNOMED: 34643134 (2) Altered mental status ICD Codes: R41.82 - Altered mental status, unspecified SNOMED: 823581494 (3) Constipation ICD Codes: K59.00 - Constipation, unspecified SNOMED: 47808779 (4) Uncontrolled diabetes mellitus ICD Codes: E11.65 - Type 2 diabetes mellitus with hyperglycemia SNOMED: 42794737, 976558813 Qualifiers: Qualified Codes: E13.65 - Other specified diabetes mellitus with hyperglycemia Status: progressing Assessment/Plan: continue Levemir 14 units daily continue Starlix 120 mg ac tid continue NISS ac / hs Subjective Allergies: Coded Allergies: No Known Allergies (Unverified , 03/23/18) All Systems: reviewed and negative except above Subjective events noted Item Value Date Time Bedside Blood Glucose 162 mg/dl H 07/12/18 0630 Bedside Blood Glucose 173 mg/dl H 07/11/18 2100 Bedside Blood Glucose 169 mg/dl H 07/11/18 1721 Bedside Blood Glucose 203 mg/dl H 07/11/18 1221 Bedside Blood Glucose 111 mg/dl 07/11/18 0854 Bedside Blood Glucose 111 mg/dl 07/11/18 0613 Objective Last 24 Hour Vital Signs Date Time Temp Pulse Resp B/P (MAP) Pulse Ox O2 Delivery O2 Flow Rate FiO2 07/12/18 04:00 97.0 68 20 128/67 (87) 07/12/18 00:00 98.1 74 20 127/69 (88) 07/11/18 21:00 Room Air 07/11/18 20:00 97.9 66 20 131/69 (89) 07/11/18 16:00 98.4 79 20 111/69 (83) 07/11/18 12:00 97.3 76 19 135/81 (99) 07/11/18 11:01 120/66 07/11/18 09:00 Room Air 07/11/18 08:00 98.1 58 16 122/66 (84) 98 Intake and Output 07/11/18 07/12/18 19:00 07:00 Intake Total 300 ml Balance 300 ml Intake Oral 300 ml # Voids 2 3 # Bowel Movements 2 Height (Feet): 5 Height (Inches): 6.00 Weight (Pounds): 170 General Appearance: no apparent distress Neck: normal alignment Cardiovascular: normal rate Respiratory/Chest: lungs clear Abdomen: normal bowel sounds Objective Current Medications Medications (Trade) Dose Ordered Sig/Charlette Route PRN Reason Start Time Stop Time Status Last Admin Dose Admin Acetaminophen (Tylenol) 500 mg Q6HR PRN ORAL Mild Pain/Temp > 100.5 07/08/18 22:00 08/07/18 21:59 Acetaminophen/ Hydrocodone Bitart (Deforest 10/325) 1 tab Q6H PRN ORAL Severe Pain (Pain Scale 7-10) 07/08/18 22:00 07/15/18 21:59 Aspirin (Ecotrin) 81 mg DAILY ORAL 07/09/18 09:00 08/08/18 08:59 07/11/18 08:51 Dextrose (Dextrose 50%) 25 ml Q30M PRN IV Hypoglycemia 07/08/18 22:15 08/07/18 22:14 Dextrose (Dextrose 50%) 50 ml Q30M PRN IV Hypoglycemia 07/08/18 22:15 08/07/18 22:14 Docusate Sodium (Colace) 100 mg TID ORAL 07/10/18 18:00 08/08/18 08:59 07/11/18 17:20 Donepezil HCl (Aricept) 10 mg DAILY ORAL 07/09/18 09:00 08/08/18 08:59 07/11/18 08:51 Insulin Aspart (NovoLOG) BEFORE MEALS AND HS SUBQ 07/09/18 06:30 08/08/18 06:29 07/11/18 20:53 Insulin Detemir (Levemir) 14 units DAILY SUBQ 07/09/18 09:00 08/08/18 08:59 07/11/18 08:54 Lisinopril (Zestril) 2.5 mg DAILY ORAL 07/11/18 09:00 08/10/18 08:59 Magnesium Hydroxide (Mom) 30 ml DAILYPRN PRN ORAL Constipation 07/09/18 01:15 08/08/18 01:14 Mirtazapine (Remeron) 7.5 mg BEDTIME ORAL 07/09/18 21:00 08/08/18 20:59 07/11/18 20:54 Nateglinide (Starlix) 120 mg THREE TIMES A DAY ORAL 07/09/18 09:00 08/08/18 08:59 07/11/18 18:00 Pantoprazole (Protonix) 40 mg DAILY ORAL 07/09/18 11:00 08/08/18 10:59 07/11/18 08:51 Paroxetine HCl (Paxil) 10 mg DAILY ORAL 07/09/18 09:00 08/08/18 08:59 07/11/18 08:52 Potassium Chloride (K-Dur) 40 meq DAILY ORAL 07/09/18 11:00 08/08/18 10:59 07/11/18 08:51 Quetiapine Fumarate (SEROquel) 25 mg QHS ORAL 07/09/18 21:00 08/08/18 20:59 07/11/18 20:53 Tamsulosin HCl (Flomax) 0.4 mg DAILY ORAL 07/09/18 09:00 08/08/18 08:59 07/11/18 08:52 Stas Angel MD July 12, 2018 06:47
[2018-07-12] MEDS: NovoLOG Insulin Flexpen SUBQ SCH ×2 (06:51→13:17)
--- NOTE | 2018-07-12 07:14 | NUR ---
NURSE NOTES: Pt sitting up eating breakfast. Will have to be supervised for incontinence of urine and bowel. Anticipated need require to be 2 to baseline
[2018-07-12 08:00] VITALS: BP 128/69
[2018-07-12] MEDS: Donepezil 10mg tab ORAL SCH (09:15)
[2018-07-12] MEDS: Tamsulosin 0.4mg cap ORAL SCH (09:15)
[2018-07-12 09:16] VITALS: BP 128/66
[2018-07-12] MEDS: Docusate 100mg cap ORAL SCH ×2 (09:16→13:15)
[2018-07-12] MEDS: Nateglinide 60mg tab ORAL SCH (09:16)
[2018-07-12] MEDS: Aspirin EC 81mg tab ORAL SCH (09:16)
[2018-07-12] MEDS: Lisinopril 2.5mg tab ORAL SCH (09:16)
[2018-07-12] MEDS: Levemir Flexpen SUBQ SCH (09:18)
[2018-07-12] MEDS: PARoxetine 10mg tab ORAL SCH (09:20)
--- NOTE | 2018-07-12 13:00 | NUR ---
NURSE NOTES: Pt family phoned earlier in shift to inform them that pt will be returning to [facility]. [employer] spoke to Rayne Martin. Pt is in stable condition. With no new orders provided.
--- NOTE | 2018-07-12 15:28 | Nephrology Progress Note ---
Assessment/Plan Problem List: (1) Uncontrolled blood glucose (2) Uncontrolled diabetes mellitus (3) HTN (hypertension) (4) BPH (benign prostatic hyperplasia) Assessment DM OOC on insulin Abnormal electrolyte HTN BPH Plan Plan: Adjust BP and BS meds DC IV Supplement Mag and k per orders Subjective ROS Limited/Unobtainable: No Interval Events/Complaints seen at 9.30 in am- late entry Objective Objective Last 24 Hour Vital Signs Date Time Temp Pulse Resp B/P (MAP) Pulse Ox O2 Delivery O2 Flow Rate FiO2 07/12/18 09:16 128/66 07/12/18 09:00 Room Air 07/12/18 08:00 98.9 69 19 128/69 (88) 07/12/18 04:00 97.0 68 20 128/67 (87) 07/12/18 00:00 98.1 74 20 127/69 (88) 07/11/18 21:00 Room Air 07/11/18 20:00 97.9 66 20 131/69 (89) 07/11/18 16:00 98.4 79 20 111/69 (83) Intake and Output 07/11/18 07/12/18 19:00 07:00 Intake Total 300 ml Balance 300 ml Intake Oral 300 ml # Voids 2 3 # Bowel Movements 2 Height (Feet): 5 Height (Inches): 6.00 Weight (Pounds): 170 General Appearance: no apparent distress Objective no change Travis Casey MD July 12, 2018 15:28
--- NOTE | 2018-07-12 15:33 | NUR ---
NURSE NOTES: Pt discharged to [facility] , IV removed. Belongings given, Report given to Boy at [facility]. Informed that pt was treated for hyperglycemia and will be returning with no new orders. Pt requires additional care , appearance is disheveled.
--- NOTE | 2018-07-12 19:47 | Cardiology Report ---
APPROVED REPORT EKG Measurement Heart [id number] OK [id number] Sinus rhythm with 1st degree AV block Left anterior fascicular block Possible Inferior infarct, age undetermined Cannot rule out Anterior infarct, age undetermined Abnormal ECG
--- NOTE | 2018-07-13 10:53 | Discharge Summary ---
Discharge Summary Discharge Summary _ DATE OF ADMISSION: 07/08/2018 DATE OF DISCHARGE: 07/12/2018 DISCHARGED BY: Dr Gross REASON FOR ADMISSION: 83 years old male with past medical history of diabetes mellitus, hypertension, resident of residential facility, presented for evaluation due to elevated blood sugar. According to nursing staff , blood sugar was difficult to control. Upon arrival patient denied fever or chills. He denied nausea and vomiting. He denied chest pain or shortness of breath. Vital signs were stable. Laboratory work-up revealed no leukocytosis, stable hemoglobin and hematocrit. Stable electrolytes and renal parameters. Glucose 305. No evidence of DKA. Magnesium 1.6. K-3.5. Stable LFT. Acetone level negative. Urinalysis revealed +4 glucose, no evidence of UTI. EKG revealed normal sinus rhythm , no acute ischemic changes. Chest x-ray revealed right hilar fullness. Patient started on the IV fluids and admitted for further management. CONSULTANTS: passenger elevator operator Dr. Conway pipe fitter marine Dr. Casey manager location Dr. Angel [facility] COURSE: Patient admitted and started on the IV fluids. Tanyard Worker followed. Hemoglobin A1c- 8.7. Blood sugar was managed with the long-acting Levemir, Starlix with meals and sliding scale of insulin as needed. Blood sugar stabilized while in the hospital. Patient will need further optimization of anti-glycemic regimen as outpatient. Diabetic diet provided. Patient was counseled on compliance with \diabetic diet and medication regimen. Internist Medical Doctor Md followed. Renal parameters and electrolytes were closely monitored. Electrolytes corrected as needed. Nephrotoxins were avoided. Antihypertensive medication regimen was optimized. Blood pressure was managed with SHANITA inhibitor and remained stable. IV fluids discontinued. Meter Maker followed . Patient with known a history of coronary artery disease. Echocardiogram revealed preserved ejection fraction. Antiplatelet therapy with aspirin was continued. GI prophylaxis provided. Pain management was addressed as needed. Supportive care provided. Bowel regimen instituted. SNF medications, including Aricept, Seroquel and Paxil continued. Patient clinically stabilized and was ready for transfer back to residential [facility] for continuation of care. FINAL DIAGNOSES: Uncontrolled diabetes mellitus with hyperglycemia Hypertension BPH Electrolyte abnormalities : hypokalemia , hypomagnesemia Coronary artery disease DISCHARGE MEDICATIONS: See Medication Reconciliation list. DISCHARGE INSTRUCTIONS: Patient was discharged to the residential facility. Follow up with medical doctor at the facility. I have been assigned to dictate discharge summary for this account. I was not involved in the patient's management. Caroline Purvis NP July 13, 2018 10:53
== END 2018-07-12 15:10 | DRG 639 ==
LOC: EDBD 17:00 → EMR 17:35 → 3E 17:49 → EDBEDREQ 18:22 → 3E 07-10 03:19
DX: E11.65 Type 2 diabetes mellitus with hyperglycemia (principal); I10 Essential (primary) hypertension; F03.90 Unspecified dementia, unspecified severity, without behavioral disturbance, psychotic disturbance, mood disturbance, and anxiety; Z79.811 Long term (current) use of aromatase inhibitors; Z79.4 Long term (current) use of insulin; N40.0 Benign prostatic hyperplasia without lower urinary tract symptoms; E87.6 Hypokalemia; E83.42 Hypomagnesemia; I25.10 Atherosclerotic heart disease of native coronary artery without angina pectoris; I25.2 Old myocardial infarction
CPT/HCPCS: 36415; 71045; 80053; 80061; 81003; 82009; 82962; 82977; 83036; 83735; 83880; 83970; 84100; 84443; 84550; 85025; 86140; 87081; 93005; 96361; 96365; 99285; J1815; J8499; S5561

== ENCOUNTER 2019-06-03 08:46 | Inpatient (IN) | payer MEDICARE, MEDICAID ==
[~2019-06-03] VITALS: Ht 165.1 cm; Wt 68.5 kg
[~2019-06-03 08:46] MED LIST changes: +CRAN-MAX500 MG PO; +CRANBERRY500 M4 PO; +FLEET ENEMA133 ML RECTAL; +FLOMAX0.4 MG ORAL; +MILK OF MA400 MG/51 ORAL; +PAXIL10 MG ORAL
[2019-06-03 09:19] VITALS: BP 136/88
--- NOTE | 2019-06-03 09:21 | Emergency Room Report ---
History of Present Illness General Chief Complaint: Upper Respiratory Illness Source: EMS Present Illness HPI Patient presents from nursing facility with reports of fever and upper respiratory symptoms including cough and runny nose patient himself does not provide significant input he had reported that he do not feel short of breath There was no reports of chest pain There was no reports of vomiting or diarrhea Patient does reside at a nursing facility Allergies: Coded Allergies: No Known Allergies (Unverified , 03/23/18) COVID-19 Screening Contact w/high risk pt: Yes Recent Travel to affected area: No Experienced COVID-19 symptoms?: Yes COVID-19 symptoms experienced: Fever (T>100.4F or >38C), Cough Patient History Past Medical History: see triage record Reviewed Nursing Documentation: PMH: Agreed; PSxH: Agreed Nursing Documentation-PMH Hx Cardiac Problems: Yes - acute ischemic heart disease Hx Hypertension: Yes - primary HTN Hx Diabetes: Yes - DM II with hyperglycemia Hx Cancer: No Hx Gastrointestinal Problems: No Hx Neurological Problems: Yes Hx Dementia: Yes - unspecified dementia without behavioral disturbance Hx Syncope: Yes Hx Weakness: Yes - muscle weakness, generalized Review of Systems All Other Systems: negative except mentioned in HPI Physical Exam Vital Signs Date Time Temp Pulse Resp B/P (MAP) Pulse Ox O2 Delivery O2 Flow Rate FiO2 06/03/19 08:46 100.8 95 22 136/88 (104) 99 Nasal Cannula 2.0 Sp02 EP Interpretation: reviewed, normal General Appearance: no apparent distress Head: normocephalic, atraumatic Eyes: bilateral eye PERRL ENT: EOM grossly intact, normal pharynx Neck: supple Respiratory: lungs clear, no respiratory distress, no retraction Cardiovascular #1: regular rate, rhythm Gastrointestinal: non tender, soft Musculoskeletal: other - No obvious focal deficit Neurologic: responsive - To physical and verbal stimuli Skin: no rash Lymphatic: no adenopathy Medical Decision Making Diagnostic Impression: Primary Impression: Cholelithiases Additional Impressions: Altered mental status Cholecystitis ER Course With the history exam and presentation, multiple differentials considered, including but not limited to appendicitis, gastritis, cholecystitis, diverticulitis Other differential such as upper respiratory infection and covid-19 entertained given the initial presentation of fever Blood work reveals elevated liver function test further investigation for cholecystitis is made Ultrasound shows gallstones Specialty consultation was made and patient admitted for further care Rhythm Strip Diag. Results EP Interpretation: yes Rate: 77 Rhythm: NSR, no PVC's, no ectopy Chest X-Ray Diagnostic Results Chest X-Ray Diagnostic Results : Chest X-Ray Ordered: Yes # of Views/Limited/Complete: 1 View Indication: Chest Pain EP Interpretation: Yes Interpretation: no consolidation, no effusion, no pneumothorax Impression: No acute disease Electronically Signed by: Ally Kim DO CT/MRI/US Diagnostic Results CT/MRI/US Diagnostic Results : Impression Abdominal ultrasoundImpression: Cholelithiasis and gallbladder sludge Mildly dilated common bile duct. May be related to senescent changes, but downstream obstruction also possible. Correlate with liver function tests Liver demonstrates diffusely increased echogenicity, consistent with diffuse hepatocellular disease, most likely fatty change. Note area of focal sparing adjacent to the gallbladder fossa Incidental finding bilateral renal cysts Last Vital Signs Date Time Temp Pulse Resp B/P (MAP) Pulse Ox O2 Delivery O2 Flow Rate FiO2 06/03/19 08:46 100.8 95 22 136/88 (104) 99 Nasal Cannula 2.0 Status: improved Disposition: ADMITTED INPATIENT Condition: Serious Referrals: Ally Gross MD (PCP) Ally Kim DO Jun 03, 2019 09:21
--- NOTE | 2019-06-03 09:23 | NUR ---
ED Nurse Note: Patient was BIB [id number] from [facility] home due to cough and fever 100.7 Patient presented calm, no pain, AAO x1, salvadorean speaking only. Patient's temp 99.5 at bedside, other VSS at this time, skin is warm to touch. IV acces established on L AC 20 ga, blood and urine spesimen collected sent down.
[2019-06-03 09:26] LABS: APPEARANCE,URINE SLIGHTLY CLOUDY; BILIRUBIN, URINE 1+ (NEGATIVE); COLOR,URINE BROWN; GLUCOSE, URINE (UA) 4+ (NEGATIVE); HEMATOCRIT 40.8 % (42.0-52.0); HEMOGLOBIN 13.9 G/DL (14.2-18.0); KETONES,URINE NEGATIVE (NEGATIVE); LEUKOCYTE ESTERASE ,URINE 1+ (NEGATIVE); MEAN CORPUSCULAR VOLUME 87 FL (80-99); NITRITE,URINE NEGATIVE (NEGATIVE); PH,URINE 6 (4.5-8.0); PLATELET COUNT 172 K/UL (150-450); PROTEIN,URINE 2+ (NEGATIVE); RED BLOOD COUNT 4.71 M/UL (4.70-6.10); RED CELL DISTRIBUTION WIDTH 12.8 % (11.6-14.8); UROBILINOGEN,URINE 4 MG/DL (0.0-1.0); WHITE BLOOD COUNT 15.3 K/UL (4.8-10.8)
[2019-06-03] MEDS ORDERED: FLEET ENEMA133 ML RECTAL (10:00)
[2019-06-03] MEDS ORDERED: SEROQUEL50 MG ORAL (10:00)
[2019-06-03] MEDS ORDERED: FLOMAX0.4 MG ORAL (10:00)
--- NOTE | 2019-06-03 10:00 | NUR ---
ED Nurse Note: Nazanin charge nurse notifyed Dr. Kim about patient's lactic acid (3.1). No further order.
[2019-06-03 10:04] LABS: ALANINE AMINOTRANSFERASE 217 U/L (12-78); ALBUMIN 2.9 G/DL (3.4-5.0); ALBUMIN/GLOBULIN RATIO 0.8 (1.0-2.7); ALKALINE PHOSPHATASE 219 U/L (46-116); ASPARTATE AMINO TRANSFERASE 288 U/L (15-37); BILIRUBIN,TOTAL 3.6 MG/DL (0.2-1.0); BLOOD UREA NITROGEN 14 mg/dL (7-18); CALCIUM 8.3 MG/DL (8.5-10.1); CHLORIDE 104 MMOL/L (98-107); CKMB 1.4 NG/ML (0.0-3.6); CREATINE KINASE 71 U/L (26-308); CREATININE 1.1 MG/DL (0.55-1.30); POTASSIUM 3.2 MMOL/L (3.5-5.1); SODIUM 142 MMOL/L (136-145)
[2019-06-03 10:07] LABS: BILIRUBIN,DIRECT 2.8 MG/DL (0.0-0.3); CARBON DIOXIDE 26 MMOL/L (21-32)
--- NOTE | 2019-06-03 13:36 | Diagnostic Imaging Report ---
Indication: Shortness of breath Technique: One view of the chest Comparison: 07/08/2018 Findings: Patient is rotated to the right. The lungs pleural spaces are clear. The heart size is normal. The aorta is tortuous ectatic and calcified. No significant interim change Impression: No acute process
--- NOTE | 2019-06-03 14:13 | NUR ---
ED Nurse Note: Called to give report, charge nurse stated will call back in 10 min
--- NOTE | 2019-06-03 14:25 | Diagnostic Imaging Report ---
Indication: Abnormal liver function tests, abdominal pain Technique: Oconnell-scale and duplex images of the upper abdomen were obtained Comparison: none Findings: Gallbladder demonstrates dependent layering of sludge and small stones. Sonographic Swift's sign is negative. Common bile duct measures 9 mm in diameter. No intrahepatic biliary ductal dilatation. Liver demonstrates diffusely increased echogenicity, consistent with diffuse hepatocellular disease, most likely fatty change. There is an area of focal sparing in the usual location adjacent to the gallbladder fossa. Portal vein and hepatic veins are patent. Pancreas is unremarkable. Spleen is unremarkable. Left kidney measures 11.4 cm in length. Right kidney measures 11 cm length. Both kidneys demonstrate normal echogenicity. There is no hydronephrosis. There are small cysts in both kidneys . Non-aneurysmal abdominal aorta . Impression: Cholelithiasis and gallbladder sludge Mildly dilated common bile duct. May be related to senescent changes, but downstream obstruction also possible. Correlate with liver function tests Liver demonstrates diffusely increased echogenicity, consistent with diffuse hepatocellular disease, most likely fatty change. Note area of focal sparing adjacent to the gallbladder fossa Incidental finding bilateral renal cysts Findings discussed by phone with Dr. Kim at the time of interpretation
[2019-06-03 15:28] VITALS: BP 102/54
--- NOTE | 2019-06-03 15:30 | NUR ---
CHARGE NURSE NOTE: Received patient from ER, Alert, oriented x1, thai speaking, noncontinent, skin is intact. No complains of pain or distress. R/o covid19. Er dep. sent 2nd test. According to ER nurse [facility] covid19 test is negative. Dr. Valero checked pt, no surgery needed. will be called for admission orders. Pt is on striker bed, call light within reach, pt instructed to call if he needs it.
--- NOTE | 2019-06-03 16:16 | Consultation ---
History of Present Illness General Date patient seen: Jun 03, 2019 Reason for Hospitalization: Upper Respiratory Illness Present Illness HPI This is a 84-year-old male with multiple medical communities who is a [facility] resident that presented with cough possible fever abnormal labs and was cited emergency department identified to have abnormal labs including LFTs and bilirubin with considerations for likely cholecystitis possible choledocholithiasis. Surgery called to evaluate and assist with care. Patient seen, patient evaluated, chart reviewed. Patient fairly comfortable appearing at this time. No nausea vomiting fever chills reported. Patient minimally communicative Allergies: Coded Allergies: No Known Allergies (Unverified , 03/23/18) COVID-19 Screening Contact w/high risk pt: Yes Recent Travel to affected area: No Experienced COVID-19 symptoms?: Yes COVID-19 symptoms experienced: Fever (T>100.4F or >38C), Cough Medication History Scheduled Cranberry Extract (Cran-Max), 450 MG PO BID, (Reported) Docusate Sodium* (Docusate Sodium*), 100 MG ORAL DAILY, (Reported) Donepezil Hcl* (Donepezil Hcl*), 10 MG ORAL DAILY, (Reported) Hydrochlorothiazide* (Hydrochlorothiazide*), 12.5 MG ORAL DAILY, (Reported) Insulin Detemir (Levemir Flexpen), 14 UNITS SUBQ DAILY, (Reported) Na Phos,M-B/Na Phos,Di-Ba* (Fleet Enema*), 133 ML RECTAL DAILY, (Reported) Nateglinide* (Starlix*), 60 MG ORAL TID AC, (Reported) Paroxetine Hcl* (Paxil*), 10 MG ORAL DAILY, (Reported) Quetiapine Fumarate (Seroquel), 25 MG ORAL DAILY, (Reported) Tamsulosin HCl (Flomax), 0.4 MG ORAL DAILY, (Reported) Tamsulosin HCl (Flomax), 0.4 MG ORAL DAILY, (Reported) Scheduled PRN Acetaminophen* (Tylenol Extra Strength*), 1,000 MG ORAL Q4H PRN for Moderate Pain (Pain Scale 4-6), (Reported) Acetaminophen* (Acetaminophen 325MG Tablet*), 650 MG ORAL Q4H PRN for Mild Pain/ Temp > 100.5, (Reported) Magnesium Hydroxide* (Milk Of Magnesia*), 30 ML ORAL QHS PRN for Constipation, ( Reported) Na Phos,M-B/Na Phos,Di-Ba* (Fleet Enema*), 133 ML RECTAL Q2DAYS PRN for Constipation, (Reported) Patient History Limited by: medical condition History Provided By: Patient, Medical Record, PMD Healthcare decision maker Resuscitation status Advanced Directive on File Past Medical/Surgical History Past Medical/Surgical History: (1) Encephalopathy acute (2) Balanitis (3) MDD (major depressive disorder), recurrent episode (4) Constipation (5) Weakness (6) Altered mental status (7) Uncontrolled blood glucose (8) HTN (hypertension) (9) BPH (benign prostatic hyperplasia) (10) Diabetes (11) Cholelithiases (12) Fever Review of Systems Review of Symptoms General ROS: no weight loss or fever Psychological ROS: no depression or mood changes, no memory loss Ophthalmic ROS: no visual changes or eye irritation ENT ROS: no nasal congestion, hearing loss, dizziness Allergy and Immunology ROS: no allergic symptoms or urticaria Hematological and Lymphatic ROS: no swollen glands, unusual bleeding or bruising Endocrine ROS: no polyuria, polydipsia, weight changes, temperature intolerance Respiratory ROS: no cough, shortness of breath, or wheezing Cardiovascular ROS: no chest pain or dyspnea on exertion Gastrointestinal ROS: denies abdominal pain, bright red blood in stool. Musculoskeletal ROS: no myalgias or arthralgias Neurological ROS: no TIA or stroke symptoms Dermatological ROS: no new or changing skin lesions, rashes or pruritis Physical Exam Physical Exam General appearance: alert, cooperative, no distress, appears stated age Head: Normocephalic, without obvious abnormality, atraumatic Eyes: conjunctivae/corneas clear. PERRL, EOM's intact. Fundi benign Throat: Lips, mucosa, and tongue normal. Teeth and gums normal Neck: supple, symmetrical, trachea midline, no adenopathy, thyroid: not enlarged, symmetric, no tenderness/mass/nodules, no carotid bruit and no JVD Lungs: clear to auscultation bilaterally Heart: regular rate and rhythm, S1, S2 normal, no murmur, click, rub or gallop Abdomen: soft, non-tender. Bowel sounds normal. No masses, no organomegaly Extremities: extremities normal, atraumatic, no cyanosis or edema Pulses: 2+ and symmetric Skin: Skin color, texture, turgor normal. No rashes or lesions Neurologic: Grossly normal Last 24 Hour Vital Signs Date Time Temp Pulse Resp B/P (MAP) Pulse Ox O2 Delivery O2 Flow Rate FiO2 06/03/19 15:28 97.8 67 16 102/54 (70) 96 06/03/19 09:19 99.5 89 22 136/88 99 Nasal Cannula 2.0 06/03/19 09:19 95 22 Nasal Cannula 2.0 06/03/19 08:46 100.8 95 22 136/88 (104) 99 Nasal Cannula 2.0 Laboratory Tests Test 06/03/19 09:00 06/03/19 11:00 White Blood Count 15.3 K/UL (4.8-10.8) H Red Blood Count 4.71 M/UL (4.70-6.10) Hemoglobin 13.9 G/DL (14.2-18.0) L Hematocrit 40.8 % (42.0-52.0) L Mean Corpuscular Volume 87 FL (80-99) Mean Corpuscular Hemoglobin 29.6 PG (27.0-31.0) Mean Corpuscular Hemoglobin Concent 34.1 G/DL (32.0-36.0) Red Cell Distribution Width 12.8 % (11.6-14.8) Platelet Count 172 K/UL (150-450) Mean Platelet Volume 6.2 FL (6.5-10.1) L Neutrophils (%) (Auto) % (45.0-75.0) Lymphocytes (%) (Auto) % (20.0-45.0) Monocytes (%) (Auto) % (1.0-10.0) Eosinophils (%) (Auto) % (0.0-3.0) Basophils (%) (Auto) % (0.0-2.0) Differential Total Cells Counted 100 Neutrophils % (Manual) 71 % (45-75) Lymphocytes % (Manual) 5 % (20-45) L Monocytes % (Manual) 6 % (1-10) Eosinophils % (Manual) 0 % (0-3) Basophils % (Manual) 0 % (0-2) Band Neutrophils 18 % (0-8) H Platelet Estimate Adequate Platelet Morphology Normal Red Blood Cell Morphology Normal Urine Color Brown Urine Appearance Slightly cloudy Urine pH 6 (4.5-8.0) Urine Specific [place] 1.010 (1.005-1.035) Urine Protein 2+ (NEGATIVE) H Urine Glucose (UA) 4+ (NEGATIVE) H Urine Ketones Negative (NEGATIVE) Urine Blood 5+ (NEGATIVE) H Urine Nitrite Negative (NEGATIVE) Urine Bilirubin 1+ (NEGATIVE) H Urine Ictotest Positive (NEGATIVE) Urine Urobilinogen 4 MG/DL (0.0-1.0) H Urine Leukocyte Esterase 1+ (NEGATIVE) H Urine RBC Tntc /HPF (0 - 0) H Urine WBC 2-4 /HPF (0 - 0) Urine Squamous Epithelial Cells None /LPF (NONE/OCC) Urine Bacteria Few /HPF (NONE) Sodium Level 142 MMOL/L (136-145) Potassium Level 3.2 MMOL/L (3.5-5.1) L Chloride Level 104 MMOL/L (98-107) Carbon Dioxide Level 26 MMOL/L (21-32) Blood Urea Nitrogen 14 mg/dL (7-18) Creatinine 1.1 MG/DL (0.55-1.30) Estimat Glomerular Filtration Rate > 60 mL/min (>60) Glucose Level 321 MG/DL (74-106) H Lactic Acid Level 3.10 mmol/L (0.4-2.0) H 2.10 mmol/L (0.66-2.22) Calcium Level 8.3 MG/DL (8.5-10.1) L Total Bilirubin 3.6 MG/DL (0.2-1.0) H Direct Bilirubin 2.8 MG/DL (0.0-0.3) H Aspartate Amino Transf (AST/SGOT) 288 U/L (15-37) H Alanine Aminotransferase (ALT/SGPT) 217 U/L (12-78) H Alkaline Phosphatase 219 U/L (46-116) H Total Creatine Kinase 71 U/L (26-308) Creatine Kinase MB 1.4 NG/ML (0.0-3.6) Creatine Kinase MB Relative Index 1.9 Troponin I 0.023 ng/mL (0.000-0.056) Pro-B-Type Natriuretic Peptide 1714 pg/mL (0-125) H Total Protein 6.5 G/DL (6.4-8.2) Albumin 2.9 G/DL (3.4-5.0) L Globulin 3.6 g/dL Albumin/Globulin Ratio 0.8 (1.0-2.7) L Lipase 99 U/L (73-393) Microbiology Date/Time Source Procedure Growth Status 06/03/19 09:00 Nasal Nares - Final Complete 06/03/19 09:00 Nasal Nares - Final Complete Height (Feet): 5 Height (Inches): 7.00 Weight (Pounds): 85 Medications Current Medications Medications (Trade) Dose Ordered Sig/Charlette Route PRN Reason Start Time Stop Time Status Last Admin Dose Admin Dextrose (Dextrose 50%) 25 ml Q30M PRN IV Hypoglycemia 06/03/19 16:00 09/01/19 15:59 Dextrose (Dextrose 50%) 50 ml Q30M PRN IV Hypoglycemia 06/03/19 16:00 09/01/19 15:59 Ibuprofen (Advil) 200 mg Q6H PRN ORAL Temp >100.5 06/03/19 16:00 07/03/19 15:59 Insulin Aspart (NovoLOG) BEFORE MEALS AND HS SUBQ 06/03/19 16:30 09/01/19 16:29 Piperacillin Sod/ Tazobactam Sod 3.375 gm/Sodium Chloride 110 ml @ 27.5 mls/hr EVERY 8 HOURS IVPB 06/03/19 22:00 06/08/19 21:59 Assessment/Plan Problem List: (1) Choledocholithiasis with acute cholecystitis Assessment & Plan: 84-year-old male with leukocytosis, lactic acidosis, elevated LFTs, elevated T bilirubin direct and indirect indicative of potential duct obstruction, ultrasound with stones and liver disease. Physical examination fairly benign patient does not elicit any tenderness on right upper quadrant palpation. Labs noted and reviewed Imaging reviewed Would recommend an MRI but given patient's current condition and potential COVID r/o will hold on MRI as he is stable trend labs GI eval npo iv fluids iv abx will follow with recs thank you ICD Codes: K80.42 - Calculus of bile duct with acute cholecystitis without obstruction SNOMED: 39096044 (2) Cholecystitis Assessment & Plan: Gallbladder demonstrates dependent layering of sludge and small stones. Sonographic Swift's sign is negative. Common bile duct measures 9 mm in diameter. No intrahepatic biliary ductal dilatation. Liver demonstrates diffusely increased echogenicity, consistent with diffuse hepatocellular disease, most likely fatty change. There is an area of focal sparing in the usual location adjacent to the gallbladder fossa. Portal vein and hepatic veins are patent. Pancreas is unremarkable. Spleen is unremarkable. Left kidney measures 11.4 cm in length. Right kidney measures 11 cm length. Both kidneys demonstrate normal echogenicity. There is no hydronephrosis. There are small cysts in both kidneys . Non- aneurysmal abdominal aorta . Impression: Cholelithiasis and gallbladder sludge Mildly dilated common bile duct. May be related to senescent changes, but downstream obstruction also possible. Correlate with liver function tests Liver demonstrates diffusely increased echogenicity, consistent with diffuse hepatocellular disease, most likely fatty change. Note area of focal sparing adjacent to the gallbladder fossa ICD Codes: K81.9 - Cholecystitis, unspecified SNOMED: 50138788 (3) Constipation ICD Codes: K59.00 - Constipation, unspecified SNOMED: 81634143 (4) Balanitis ICD Codes: N48.1 - Balanitis SNOMED: 15949765 (5) Fever ICD Codes: R50.9 - Fever, unspecified SNOMED: 552148077 (6) Cholelithiases ICD Codes: K80.20 - Calculus of gallbladder without cholecystitis without obstruction SNOMED: 023092509 (7) Diabetes ICD Codes: E11.9 - Type 2 diabetes mellitus without complications SNOMED: 24190767 (8) Weakness ICD Codes: R53.1 - Weakness SNOMED: 76700887 (9) Altered mental status ICD Codes: R41.82 - Altered mental status, unspecified SNOMED: 873662158 (10) HTN (hypertension) ICD Codes: I10 - Essential (primary) hypertension SNOMED: 87720197 (11) Encephalopathy acute ICD Codes: G93.40 - Encephalopathy, unspecified SNOMED: 33525120, 993961724 (12) BPH (benign prostatic hyperplasia) ICD Codes: N40.0 - Benign prostatic hyperplasia without lower urinary tract symptoms SNOMED: 241545404 (13) MDD (major depressive disorder), recurrent episode ICD Codes: F33.9 - Major depressive disorder, recurrent, unspecified SNOMED: 311658681 (14) Uncontrolled blood glucose ICD Codes: R73.09 - Other abnormal glucose SNOMED: 72738838, 926682882 Mark Valero Jun 03, 2019 16:16
[2019-06-03] MEDS ORDERED: HydrALAZINE 25mg tab ORAL PRN (16:45)
[2019-06-03] MEDS ORDERED: Acetaminophen 500mg (ES) tab ORAL PRN (16:45)
[2019-06-03] MEDS: 1/2NS w/KCl 20mEq 1000ml 1,000 ML IV SCH (17:30)
[2019-06-03] MEDS: Docusate 100mg cap ORAL SCH (19:01)
[2019-06-03] MEDS: NovoLOG Insulin Flexpen SUBQ SCH ×2 (19:20→21:25)
--- NOTE | 2019-06-03 19:20 | NUR ---
HAND-OFF: Report given to Charlie.
--- NOTE | 2019-06-03 19:28 | NUR ---
NURSE NOTES: Pt. received from ALICIA Narayanan. Pt. AAOx2, NC 2L, breathing is even and unlabored, no complaints of pain at this time. IV left arm 20g, asymptomatic, intact, running 1/2NS 20 mEq KCl at 75cc/hr. Bed is low and locked, side rails x3 up, bed alarm active, and call light is in reach. Will continue to monitor.
--- NOTE | 2019-06-03 19:30 | Consultation ---
DATE OF CONSULTATION: 06/03/2019 CHIEF COMPLAINT: Abdominal pain, abnormal liver function tests. HISTORY OF PRESENT ILLNESS: The patient is an 84-year-old male came from [facility]. Most of the history was chart, admitted to the hospital with complaint of shortness of breath. He was found to have abnormal liver function tests. GI consult requested for further evaluation. PAST MEDICAL HISTORY: 1. Coronary artery disease. 2. Diabetes. 3. Hypertension. 4. Myocardial infarction. ALLERGIES: No known allergies. MEDICATIONS: Please see medication reconciliation list. SOCIAL HISTORY: Currently lives in a [facility]. No history of tobacco, alcohol, or drug abuse. FAMILY HISTORY: Noncontributory. REVIEW OF SYSTEMS: Unable to obtain. PHYSICAL EXAMINATION: VITAL SIGNS: T-max 100.8, T-current 99.5, pulse is 95, respirations 22, blood pressure 136/88. HEENT: Normocephalic and atraumatic. Sclerae anicteric. NECK: Supple. No evidence of obvious lymphadenopathy. CARDIOVASCULAR: Regular rate and rhythm. Plus S1 and S2. LUNGS: Clear to auscultation bilaterally. ABDOMEN: Positive bowel sounds. Soft and nontender. No rebound. No guarding. No peritoneal sign. EXTREMITIES: No cyanosis, no clubbing, no edema. LABORATORY DATA: White count is , hemoglobin 13, hematocrit 40, and platelet count is 172. Chem-7, sodium is 142, potassium 3.2, bilirubin total is 3.6, direct bilirubin is 2.8, AST of 288, ALT of 217, alkaline phosphatase of 219. ASSESSMENT AND PLAN: The patient is an 84-year-old male with respiratory issues, abnormal liver function tests, which is new for this patient. Abdominal ultrasound and MRI has been ordered, the results are pending. We are going to repeat liver function tests for tomorrow. Keep the patient NPO for now. Repeat hepatitis panel also for tomorrow. Consider ERCP evidence of biliary obstruction secondary to stone. I want to thank Dr. Binh Akers for this kind referral. Yakov Quintero M.D. DR: Jenn JOB#: [id number] CC: Binh Akers D.O.
[2019-06-03 20:00] VITALS: BP 134/75
[2019-06-03] MEDS: Pantoprazole Inj IVP SCH (20:58)
[2019-06-03] MEDS: Piperacillin/Tazobactam 3.375 GM in NS 110 ML IVPB SCH (21:00)
[2019-06-04 04:00] VITALS: BP 109/72
[2019-06-04] MEDS: 1/2NS w/KCl 20mEq 1000ml 1,000 ML IV SCH ×3 (05:20→22:34)
[2019-06-04] MEDS: Piperacillin/Tazobactam 3.375 GM in NS 110 ML IVPB SCH ×4 (05:20→22:34)
[2019-06-04] MEDS: NovoLOG Insulin Flexpen SUBQ SCH ×3 (05:31→17:55)
--- NOTE | 2019-06-04 06:43 | General Progress Note ---
Assessment/Plan Assessment/Plan: 1. Coronary artery disease. 2. Diabetes. 3. Hypertension. 4. Myocardial infarction. 5. GB sludge + stones 6. fatty liver 7. Elevated LFTS us reviewed pending MRCP fu labs ERCP if needed fu surg recs Subjective ROS Limited/Unobtainable: No Allergies: Coded Allergies: No Known Allergies (Unverified , 03/23/18) Objective Last 24 Hour Vital Signs Date Time Temp Pulse Resp B/P (MAP) Pulse Ox O2 Delivery O2 Flow Rate FiO2 06/03/19 21:00 Nasal Cannula 2.0 06/03/19 16:07 Nasal Cannula 2.0 06/03/19 16:07 Nasal Cannula 2.0 06/03/19 15:28 97.8 67 16 102/54 (70) 96 06/03/19 09:19 99.5 89 22 136/88 99 Nasal Cannula 2.0 06/03/19 09:19 95 22 Nasal Cannula 2.0 06/03/19 08:46 100.8 95 22 136/88 (104) 99 Nasal Cannula 2.0 Intake and Output 06/03/19 06/04/19 19:00 07:00 Intake Total 410.0 ml Balance 410.0 ml Intake IV Total 410.0 ml # Voids 3 # Bowel Movements 1 Laboratory Tests 06/03/19 09:00: White Blood Count 15.3H, Red Blood Count 4.71, Hemoglobin 13.9L, Hematocrit 40.8L, Mean Corpuscular Volume 87, Mean Corpuscular Hemoglobin 29.6, Mean Corpuscular Hemoglobin Concent 34.1, Red Cell Distribution Width 12.8, Platelet Count 172, Mean Platelet Volume 6.2L, Neutrophils (%) (Auto) , Lymphocytes (%) ( Auto) , Monocytes (%) (Auto) , Eosinophils (%) (Auto) , Basophils (%) (Auto) , Differential Total Cells Counted 100, Neutrophils % (Manual) 71, Lymphocytes % ( Manual) 5L, Monocytes % (Manual) 6, Eosinophils % (Manual) 0, Basophils % ( Manual) 0, Band Neutrophils 18H, Platelet Estimate Adequate, Platelet Morphology Normal, Red Blood Cell Morphology Normal, Urine Color Brown, Urine Appearance Slightly cloudy, Urine pH 6, Urine Specific [place] 1.010, Urine Protein 2+H, Urine Glucose (UA) 4+H, Urine Ketones Negative, Urine Blood 5+H, Urine Nitrite Negative, Urine Bilirubin 1+H, Urine Ictotest Positive, Urine Urobilinogen 4H, Urine Leukocyte Esterase 1+H, Urine RBC TntcH, Urine WBC 2-4, Urine Squamous Epithelial Cells None, Urine Bacteria Few, Sodium Level 142, Potassium Level 3.2L, Chloride Level 104, Carbon Dioxide Level 26, Blood Urea Nitrogen 14, Creatinine 1.1, Estimat Glomerular Filtration Rate > 60, Glucose Level 321H, Lactic Acid Level 3.10H, Calcium Level 8.3L, Total Bilirubin 3.6H, Direct Bilirubin 2.8H, Aspartate Amino Transf (AST/SGOT) 288H, Alanine Aminotransferase (ALT/SGPT) 217H, Alkaline Phosphatase 219H, Total Creatine Kinase 71, Creatine Kinase MB 1.4, Creatine Kinase MB Relative Index 1.9, Troponin I 0.023, Pro-B-Type Natriuretic Peptide 1714H, Total Protein 6.5, Albumin 2.9L, Globulin 3.6, Albumin/Globulin Ratio 0.8L, Lipase 99 06/03/19 11:00: Lactic Acid Level 2.10 Height (Feet): 5 Height (Inches): 7.00 Weight (Pounds): 85 General Appearance: no apparent distress EENT: normal ENT inspection Neck: supple Cardiovascular: normal rate Respiratory/Chest: decreased breath sounds Abdomen: soft, hypoactive bowel sounds, tender Extremities: non-tender Yakov Quintero MD Jun 04, 2019 06:43
--- NOTE | 2019-06-04 06:45 | NUR ---
NURSE NOTES: Pt. slept through most of the night, awoke to eat jello, able to tolerate well. X1 bowel movement and x1 episode of incontinence.
[2019-06-04 07:04] VITALS: BP 120/72
[2019-06-04 07:07] LABS: HEMATOCRIT 42.1 % (42.0-52.0); HEMOGLOBIN 14.7 G/DL (14.2-18.0); MEAN CORPUSCULAR VOLUME 84 FL (80-99); PLATELET COUNT 163 K/UL (150-450); RED CELL DISTRIBUTION WIDTH 12.2 % (11.6-14.8); WHITE BLOOD COUNT 11.8 K/UL (4.8-10.8)
[2019-06-04 07:52] LABS: ALANINE AMINOTRANSFERASE 217 U/L (12-78); ALBUMIN 2.7 G/DL (3.4-5.0); ALBUMIN/GLOBULIN RATIO 0.7 (1.0-2.7); ALKALINE PHOSPHATASE 221 U/L (46-116); AMYLASE 21 U/L (25-115); ANION GAP 10 mmol/L (5-15); ASPARTATE AMINO TRANSFERASE 166 U/L (15-37); BILIRUBIN,TOTAL 4.4 MG/DL (0.2-1.0); BLOOD UREA NITROGEN 11 mg/dL (7-18); CALCIUM 8.8 MG/DL (8.5-10.1); CARBON DIOXIDE 29 MMOL/L (21-32); CHLORIDE 101 MMOL/L (98-107); CREATININE 0.9 MG/DL (0.55-1.30); POTASSIUM 3.4 MMOL/L (3.5-5.1); SODIUM 140 MMOL/L (136-145)
--- NOTE | 2019-06-04 07:52 | NUR ---
NURSE NOTES: Received report from ALICIA Guerra. Patient in bed. On nasal cannula 2L. No signs of distress or labored breathing. IV intact, patent, and infusing IV fluids. Bed in lowest position with call light in reach. Will continue with plan of care.
[2019-06-04 07:57] LABS: CHOLESTEROL 98 MG/DL (< 200); GAMMA GLUTAMYL TRANSPEPTIDASE 209 U/L (5-85); HDL CHOLESTEROL 14 MG/DL (40-60); PHOSPHORUS 1.9 MG/DL (2.5-4.9); TRIGLYCERIDES 90 MG/DL (30-150)
[2019-06-04 08:00] VITALS: BP 123/78
--- NOTE | 2019-06-04 08:00 | NUR ---
HAND-OFF: Report given to Lorena Bosch RN. Rounds done. Addendum: 06/04/19 at 2050 by Janett Bartlett RN WRONG TIME. IGNORE.
[2019-06-04 08:04] LABS: BILIRUBIN,DIRECT 3.9 MG/DL (0.0-0.3)
--- NOTE | 2019-06-04 08:04 | NUR ---
HAND-OFF: Report given to ALICIA Rowland. Pt. endorsed as fall risk and to continue safety precautions.
--- NOTE | 2019-06-04 08:51 | NUR ---
NURSE NOTES: Blood culture results reported to RN by Jose Vaughan from lab. RN notified primary MD Dr. Gross and ID MD Dr. Dominguez of blood cultures positive for gram pos cocci cluster and chains as well as gram negative rods. Awaiting call back. Charge nurse aware.
[2019-06-04] MEDS: Pantoprazole Inj IVP SCH ×3 (09:28→22:34)
[2019-06-04] MEDS: Docusate 100mg cap ORAL SCH ×2 (09:28→17:51)
[2019-06-04] MEDS ORDERED: Vancomycin 750mg/NS 275ml IVPB ONE ×2 (11:00)
--- NOTE | 2019-06-04 11:46 | Consultation ---
Consult Note Consult Note I was asked to evaluate the patient at the request of Dr. Gross for fluid and electrolyte management Patient presents from nursing facility with reports of fever and upper respiratory symptoms including cough and runny nose patient himself does not provide significant input he had reported that he do not feel short of breath here was no reports of chest pain There was no reports of vomiting or diarrhea Patient does reside at a nursing facility No Known Allergies (Unverified , 03/23/18) COVID-19 Screening Contact w/high risk pt: Yes Experienced COVID-19 symptoms?: Yes COVID-19 symptoms experienced: Fever (T>100.4F or >38C), Cough Hx Cardiac Problems: Yes - acute ischemic heart disease Hx Hypertension: Yes - primary HTN Hx Diabetes: Yes - DM II with hyperglycemia Hx Neurological Problems: Yes Hx Dementia: Yes - unspecified dementia without behavioral disturbance Hx Syncope: Yes Hx Weakness: Yes - muscle weakness, generalized Data reviewed patient examined discussed with certified nurse aide/Plan Hypokalemia Hypoalbuminemia coronary artery disease. Diabetes. Hypertension. Myocardial infarction. GB sludge + stones Cholelithiasis and gallbladder sludge fatty liver Elevated LFTS Patient on clear liquids IV hydration with potassium supplement Monitor electrolytes Monitor liver function enzymes Per consultants Travis Casey MD Jun 04, 2019 11:46
[2019-06-04 12:00] VITALS: BP 138/70
[2019-06-04] MEDS: Potassium Phosphate 15mm/250ml 250 ML IVPB SCH ×2 (14:10→18:16)
--- NOTE | 2019-06-04 14:30 | NUR ---
NURSE NOTES: boom operator was informed that Patient scratched RN while doing the IV stuff. No other injuries but redness on right forearm. house painting instructor,MD and family are aware.
[2019-06-04 16:00] VITALS: BP 134/76
--- NOTE | 2019-06-04 16:07 | NUR ---
NURSE NOTES: RN received a call from Dr. Samuels who said Dr. Gross contacted her. RN relayed patient's behavior of pulling out IV and tried to hit with new order to give risperidone 0.5 TID, haldol 5mg TID PRN and bilateral soft wrist restraints. Order read back and verified.
[2019-06-04] MEDS ORDERED: Haloperidol 5mg/ml Inj IM PRN (16:15)
--- NOTE | 2019-06-04 17:30 | NUR ---
NURSE NOTES: RN relayed elevated AST/ALT and patient is diabetic with clear liquid to Dr. Samuels if she continues risperidone. Dr. Samuels wants to continue and said hold if patient is asleep or sedated.
--- NOTE | 2019-06-04 19:30 | NUR ---
NURSE NOTES: Received patient on bed, awake.irritable. PUI COVID -19. with iv line on the right hand running potassium phosphate. refused to get checked the iv line. with restraints on bilateral wrist. no injury noted. per previous nurse" he took out the iv in the morning and inserted a new line while the patient had an episode of kicking the staff and fighting. patient speaks togolese only. no episode of fever in the morning. patient is incontinent. bed locked and in lowest position. call light and light button within easy reach. strictly observed isolation precautions. will continue plan of care
--- NOTE | 2019-06-04 19:38 | Surgery Progress Note ---
Surgery Progress Note Subjective Additional Comments worsening lft/ t bili wbc improved no n/v/f/c denies pain Objective Last 24 Hour Vital Signs Date Time Temp Pulse Resp B/P (MAP) Pulse Ox O2 Delivery O2 Flow Rate FiO2 06/04/19 12:00 97.3 73 18 138/70 (92) 97 06/04/19 09:00 Nasal Cannula 2.0 06/04/19 08:00 98.2 86 17 123/78 (93) 96 06/04/19 07:04 98.2 83 16 120/72 (88) 95 06/04/19 04:00 98.2 85 18 109/72 (84) 97 06/03/19 21:00 Nasal Cannula 2.0 06/03/19 20:00 97.7 73 16 134/75 (94) 97 I&O Intake and Output 06/03/19 06/04/19 19:00 07:00 Intake Total 860.0 ml Balance 860.0 ml Intake Oral 450 ml IV Total 410.0 ml # Voids 3 1 # Bowel Movements 1 1 Cardiovascular: RSR Respiratory: clear Abdomen: soft, flat, non-tender, present bowel sounds, non-distended Extremities: no edema, no tenderness, no cyanosis Laboratory Tests Test 06/04/19 06:30 White Blood Count 11.8 K/UL (4.8-10.8) H Red Blood Count 5.00 M/UL (4.70-6.10) Hemoglobin 14.7 G/DL (14.2-18.0) Hematocrit 42.1 % (42.0-52.0) Mean Corpuscular Volume 84 FL (80-99) Mean Corpuscular Hemoglobin 29.3 PG (27.0-31.0) Mean Corpuscular Hemoglobin Concent 34.9 G/DL (32.0-36.0) Red Cell Distribution Width 12.2 % (11.6-14.8) Platelet Count 163 K/UL (150-450) Mean Platelet Volume 5.4 FL (6.5-10.1) L Neutrophils (%) (Auto) % (45.0-75.0) Lymphocytes (%) (Auto) % (20.0-45.0) Monocytes (%) (Auto) % (1.0-10.0) Eosinophils (%) (Auto) % (0.0-3.0) Basophils (%) (Auto) % (0.0-2.0) Differential Total Cells Counted 100 Neutrophils % (Manual) 86 % (45-75) H Lymphocytes % (Manual) 8 % (20-45) L Monocytes % (Manual) 4 % (1-10) Eosinophils % (Manual) 2 % (0-3) Basophils % (Manual) 0 % (0-2) Band Neutrophils 0 % (0-8) Platelet Estimate Adequate Platelet Morphology Normal Red Blood Cell Morphology Normal Sodium Level 140 MMOL/L (136-145) Potassium Level 3.4 MMOL/L (3.5-5.1) L Chloride Level 101 MMOL/L (98-107) Carbon Dioxide Level 29 MMOL/L (21-32) Anion Gap 10 mmol/L (5-15) Blood Urea Nitrogen 11 mg/dL (7-18) Creatinine 0.9 MG/DL (0.55-1.30) Estimat Glomerular Filtration Rate > 60 mL/min (>60) Glucose Level 169 MG/DL (74-106) #H Hemoglobin A1c 8.8 % (4.3-6.0) H Lactic Acid Level 1.30 mmol/L (0.4-2.0) Uric Acid 3.2 MG/DL (2.6-7.2) Calcium Level 8.8 MG/DL (8.5-10.1) Phosphorus Level 1.9 MG/DL (2.5-4.9) L Magnesium Level 1.6 MG/DL (1.8-2.4) L Total Bilirubin 4.4 MG/DL (0.2-1.0) H Direct Bilirubin 3.9 MG/DL (0.0-0.3) H Gamma Glutamyl Transpeptidase 209 U/L (5-85) H Aspartate Amino Transf (AST/SGOT) 166 U/L (15-37) H Alanine Aminotransferase (ALT/SGPT) 217 U/L (12-78) H Alkaline Phosphatase 221 U/L (46-116) H Lactate Dehydrogenase 302 U/L (81-234) H C-Reactive Protein, Quantitative 20.8 mg/dL (0.00-0.90) H Pro-B-Type Natriuretic Peptide 1009 pg/mL (0-125) H Total Protein 6.7 G/DL (6.4-8.2) Albumin 2.7 G/DL (3.4-5.0) L Globulin 4.0 g/dL Albumin/Globulin Ratio 0.7 (1.0-2.7) L Triglycerides Level 90 MG/DL (30-150) Cholesterol Level 98 MG/DL (< 200) LDL Cholesterol 53 mg/dL (<100) HDL Cholesterol 14 MG/DL (40-60) L Cholesterol/HDL Ratio 7.0 (3.3-4.4) H Amylase Level 21 U/L (25-115) L Lipase 54 U/L (73-393) L Thyroid Stimulating Hormone (TSH) 0.320 uiU/mL (0.358-3.740) Hepatitis A IgM Antibody Pending Hepatitis B Surface Antigen Pending Hepatitis B Core IgM Antibody Pending Hepatitis C Antibody Pending Plan Problems: (1) Choledocholithiasis with acute cholecystitis Assessment & Plan: 84-year-old male with leukocytosis, lactic acidosis, elevated LFTs, elevated T bilirubin direct and indirect indicative of potential duct obstruction, ultrasound with stones and liver disease. Physical examination fairly benign patient does not elicit any tenderness on right upper quadrant palpation. Labs noted and reviewed Imaging reviewed Would recommend an MRI but given patient's current condition and potential COVID r/o will hold on MRI as he is stable trend labs GI eval npo iv fluids iv abx will follow with recs thank you (2) Cholecystitis Assessment & Plan: Gallbladder demonstrates dependent layering of sludge and small stones. Sonographic Swift's sign is negative. Common bile duct measures 9 mm in diameter. No intrahepatic biliary ductal dilatation. Liver demonstrates diffusely increased echogenicity, consistent with diffuse hepatocellular disease, most likely fatty change. There is an area of focal sparing in the usual location adjacent to the gallbladder fossa. Portal vein and hepatic veins are patent. Pancreas is unremarkable. Spleen is unremarkable. Left kidney measures 11.4 cm in length. Right kidney measures 11 cm length. Both kidneys demonstrate normal echogenicity. There is no hydronephrosis. There are small cysts in both kidneys . Non- aneurysmal abdominal aorta . Impression: Cholelithiasis and gallbladder sludge Mildly dilated common bile duct. May be related to senescent changes, but downstream obstruction also possible. Correlate with liver function tests Liver demonstrates diffusely increased echogenicity, consistent with diffuse hepatocellular disease, most likely fatty change. Note area of focal sparing adjacent to the gallbladder fossa (3) Constipation (4) Balanitis (5) Fever (6) Cholelithiases (7) Diabetes (8) Weakness (9) Altered mental status (10) HTN (hypertension) (11) Encephalopathy acute (12) BPH (benign prostatic hyperplasia) (13) MDD (major depressive disorder), recurrent episode (14) Uncontrolled blood glucose Mark Valero Jun 04, 2019 19:38
[2019-06-04 20:00] VITALS: BP 120/73
--- NOTE | 2019-06-04 20:00 | NUR ---
HAND-OFF: Report given to Lorena Bosch RN. Rounds done.
--- NOTE | 2019-06-04 20:00 | NUR ---
NURSE NOTES: went to the room to check vitals. iv tubing is on the floor. no iv line. with noted bleeding on the right hand. patient refused to have another iv access. per patient" he doesn't want any needles or any of the staff to take blood from him. patient refused acucheck. charge nurse made aware.
--- NOTE | 2019-06-04 21:00 | Consultation ---
DATE OF CONSULTATION: 06/04/2019 INFECTIOUS DISEASES CONSULTATION CONSULTING PHYSICIAN: Miladis Kelsey MD. REFERRING PHYSICIAN: Ally Gross MD. This consultation has been done on behalf of Melvin Dominguez MD. REASON FOR CONSULTATION: Rule out COVID-19 pneumonia. HISTORY OF PRESENTING ILLNESS: This is an 84-year-old gentleman with history of hypertension, diabetes, ischemic heart disease, dementia, who came in with fever along with cough, runny nose, and shortness of breath. There was a concern for COVID-19 pneumonia and an Infectious Diseases consultation has been obtained for antibiotics. PAST MEDICAL HISTORY: 1. History of diabetes. 2. Hypertension. 3. Coronary artery disease. 4. Dementia. SOCIAL HISTORY: Unknown. FAMILY HISTORY: Unknown. REVIEW OF SYSTEMS: Unable to obtain currently. MEDICATIONS: As an inpatient, he is on IV vancomycin, potassium, magnesium sulfate, Zosyn, Protonix, docusate, Tylenol, Zofran, hydralazine, and insulin. ALLERGIES: No known drug allergies. PHYSICAL EXAMINATION: VITAL SIGNS: Temperature of 98.2, T-max of 100.8, pulse of 86, respiratory rate 17, blood pressure 123/78, O2 saturation of 96%. GENERAL: Examination deferred due to possibility of COVID-19. LABORATORY AND DIAGNOSTIC DATA: White count 11.8, white count of 15.3 yesterday. Hemoglobin 14.7, hematocrit 42.1, MCV 84, platelet count of 163,000. Sodium 140, potassium 3.4, chloride 101, bicarb 29, BUN 11, creatinine 0.9, glucose 169, calcium 8.8. Total bilirubin 4.4, direct bilirubin 3.9, AST 166, ALT 217, alkaline phosphatase 221. LDH 302. C-reactive protein 20.8. Beta-natriuretic peptide 1009. Total protein 6.7, albumin 2.7. Cholesterol of 98. UA is showing 2-4 white cells. Blood cultures growing gram-negative rods and gram-positive cocci in clusters and chains. Nasal swab was negative for influenza A and B. Chest x-ray is showing no acute process. Abdominal ultrasound is showing cholelithiasis and gallbladder sludge, mildly dilated common bile duct. ASSESSMENT: This is an 84-year-old gentleman with history of diabetes, hypertension, coronary artery disease, who comes in with fever, cough, and shortness of breath. 1. Would like to rule out COVID-19 pneumonia. 2. Would also like to rule out cholecystitis. 3. Diabetes. 4. Hypertension. 5. Leukocytosis, improving. 6. Elevated liver function tests. 7. Gram-positive and gram-negative sepsis. PLAN: 1. Continue IV vancomycin and Zosyn. 2. An MRCP is planned. 3. We will order COVID-19 testing. 4. Continue isolation. I would like to thank, Dr. Gross, for this consultation. Miladis Kelsey M.D. DR: FAMILIA JOB#: [id number] CC: Ally Gross M.D.; Fax#: [phone]
--- NOTE | 2019-06-04 21:00 | NUR ---
NURSE NOTES: went to the room with other staff (speaks korean)convinced patient the need to check blood sugar and iv line access. explained the risks and benefits. patient agreed to have blood sugar check but firmly refused to have iv insertion. charge nurse made aware.
--- NOTE | 2019-06-04 23:23 | Initial Psychiatric Evaluation ---
Psychiatry Consultation Psychiatry Consultation Chief Complaint: Upper Respiratory Illness Allergies: Coded Allergies: No Known Allergies (Unverified , 03/23/18) Medication History Scheduled Cranberry Extract (Cran-Max), 450 MG PO BID, (Reported) Docusate Sodium* (Docusate Sodium*), 100 MG ORAL DAILY, (Reported) Donepezil Hcl* (Donepezil Hcl*), 10 MG ORAL DAILY, (Reported) Hydrochlorothiazide* (Hydrochlorothiazide*), 12.5 MG ORAL DAILY, (Reported) Insulin Detemir (Levemir Flexpen), 14 UNITS SUBQ DAILY, (Reported) Na Phos,M-B/Na Phos,Di-Ba* (Fleet Enema*), 133 ML RECTAL DAILY, (Reported) Nateglinide* (Starlix*), 60 MG ORAL TID AC, (Reported) Paroxetine Hcl* (Paxil*), 10 MG ORAL DAILY, (Reported) Quetiapine Fumarate (Seroquel), 25 MG ORAL DAILY, (Reported) Tamsulosin HCl (Flomax), 0.4 MG ORAL DAILY, (Reported) Scheduled PRN Acetaminophen* (Tylenol Extra Strength*), 1,000 MG ORAL Q4H PRN for Moderate Pain (Pain Scale 4-6), (Reported) Acetaminophen* (Acetaminophen 325MG Tablet*), 650 MG ORAL Q4H PRN for Mild Pain/ Temp > 100.5, (Reported) Magnesium Hydroxide* (Milk Of Magnesia*), 30 ML ORAL QHS PRN for Constipation, ( Reported) Discontinued Medications Na Phos,M-B/Na Phos,Di-Ba* (Fleet Enema*), 133 ML RECTAL Q2DAYS PRN for Constipation, (Reported) Discontinued Reason: Therapy completed Tamsulosin HCl (Flomax), 0.4 MG ORAL DAILY, (Reported) Discontinued Reason: Therapy completed Objective Data Height (Feet): 5 Height (Inches): 7.00 Weight (Pounds): 85 Klaudia Samuels MD Jun 04, 2019 23:23
[2019-06-05] VITALS: BP 115/75
[2019-06-05] MEDS: NovoLOG Insulin Flexpen SUBQ SCH ×5 (00:14→20:37)
--- NOTE | 2019-06-05 00:14 | History and Physical Report ---
DATE OF ADMISSION: 06/03/2019 HISTORY OF PRESENT ILLNESS: The patient is a very poor historian and [place] [facility] [place] [facility] COVID test was already sent. The patient came in with fever, upper respiratory symptoms, shortness of breath, mainly cough, and also possible cholecystitis, elevated LFTs, hypokalemia, leukocytosis, cannot get any further history from the patient. He is a very poor historian. PAST MEDICAL HISTORY: Significant for constipation, advanced dementia, hypertension, NIDDM, electrolyte imbalance, psychosis, depression, BPH. PAST SURGICAL HISTORY: Denies. ALLERGIES: No known allergies. MEDICATIONS: Colace, benazepril, hydrochlorothiazide, Levemir, Starlix, paroxetine, Seroquel, and Flomax. FAMILY HISTORY: Noncontributory. SOCIAL HISTORY: Denies history of smoking, alcohol, or illicit drugs. However, the patient is a poor historian. Comes from a jail. PHYSICAL EXAMINATION: VITAL SIGNS: Temperature is 98.2, pulse is 85, blood pressure 109/72. HEENT: PERRLA. NECK: Supple. No lymphadenopathy. CHEST: Clear to auscultation. CARDIOVASCULAR: Regular rate and rhythm. No murmurs or extra sounds. GASTROINTESTINAL: Soft, nontender, nondistended. No organomegaly. EXTREMITIES: No edema. NEUROLOGIC: Reflexes on both sides. Moves all four extremities. Not oriented. Poor historian, which is his baseline. LABORATORY AND DIAGNOSTIC DATA: Chest x-ray shows no acute process. WBC of 15.3, hemoglobin 13.9, and platelets 172. Sodium 140, potassium 3.4, BUN of 11, creatinine of 0.9, and glucose of 169. AST of 166, ALT of 217, alkaline phosphatase of 221. ASSESSMENT AND PLAN: Fever, rule out sepsis, rule out pneumonia, respiratory insufficiency, COVID test already been sent, elevated LFTs, hypokalemia, possible acute cholecystitis, leukocytosis. I have asked Dr. Valero, Dr. Samuels, Dr. Casey and Dr. Melvin Dominguez, Dr. Quintero to see the patient for the management of agitation as well as for rule out pneumonia, rule out COVID as well as possible acute cholecystitis. We will keep the patient NPO. Antibiotics per Dr. Melvin Dominguez. Ally Gross M.D. DR: Eliseo JOB#: [id number] CC:
[2019-06-05 04:00] VITALS: BP 101/60
--- NOTE | 2019-06-05 04:00 | NUR ---
NURSE NOTES; took vitals signs. patient still refused to have IV re-insertion. per patient" no iv no blood". charge nurse made aware.
[2019-06-05] MEDS: Piperacillin/Tazobactam 3.375 GM in NS 110 ML IVPB SCH ×2 (06:00→14:00)
--- NOTE | 2019-06-05 07:10 | NUR ---
NURSE NOTES: dr. jesi rodriguez aware regarding no iv access. per md to start levaquin 750 mg PO daily until further order. charge nurse made aware
--- NOTE | 2019-06-05 07:23 | General Progress Note ---
Assessment/Plan Assessment/Plan: 1. Coronary artery disease. 2. Diabetes. 3. Hypertension. 4. Myocardial infarction. 5. GB sludge + stones 6. fatty liver 7. Elevated LFTS patient refusing care pulling out IV refusing labs us reviewed pending MRCP>>> on covid isolation fu labs ERCP if needed fu surg recs advance diet to full liquid abx repeat labs in am Subjective ROS Limited/Unobtainable: Yes Allergies: Coded Allergies: No Known Allergies (Unverified , 03/23/18) Objective Last 24 Hour Vital Signs Date Time Temp Pulse Resp B/P (MAP) Pulse Ox O2 Delivery O2 Flow Rate FiO2 06/05/19 04:00 98.2 90 18 101/60 (74) 98 06/05/19 00:00 97.9 77 20 115/75 (88) 98 06/04/19 21:00 Nasal Cannula 2.0 06/04/19 20:00 98.2 75 20 120/73 (89) 98 06/04/19 16:00 97.9 77 18 134/76 (95) 98 06/04/19 12:00 97.3 73 18 138/70 (92) 97 06/04/19 09:00 Nasal Cannula 2.0 06/04/19 08:00 98.2 86 17 123/78 (93) 96 Intake and Output 06/04/19 06/05/19 19:00 07:00 Intake Total 82.5 ml 500 ml Balance 82.5 ml 500 ml Intake Oral 500 ml IV Total 82.5 ml # Voids 2 2 # Bowel Movements 1 1 Height (Feet): 5 Height (Inches): 7.00 Weight (Pounds): 85 General Appearance: no apparent distress EENT: normal ENT inspection Neck: supple Cardiovascular: normal rate Respiratory/Chest: decreased breath sounds Abdomen: normal bowel sounds, non tender, soft Extremities: non-tender Yakov Quintero MD Jun 05, 2019 07:23
--- NOTE | 2019-06-05 07:53 | NUR ---
HAND-OFF: Report given to ALICIA RICE.
--- NOTE | 2019-06-05 07:57 | NUR ---
NURSE NOTES: received pt in bed, awake, no sign of distress, no complaint of pain or discomfort. Patient in contact and droplet isolation to R/O COVID19. On bilateral soft wrist restraints, extremities warm to touch intact wrists. No IV access, MD aware. Bed locked at the lowest position possible, call light within easy reach, siderails up x3. Will continue to monitor pt and follow up with the plan of care.
[2019-06-05] MEDS ORDERED: Levofloxacin 750mg tab ORAL SCH (09:00)
[2019-06-05] MEDS: 1/2NS w/KCl 20mEq 1000ml 1,000 ML IV SCH ×2 (09:00→22:20)
[2019-06-05] MEDS: Pantoprazole Inj IVP SCH ×2 (09:00→20:36)
[2019-06-05] MEDS ORDERED: Vancomycin 500mg/D5W 110ml IVPB SCH ×2 (11:00)
[2019-06-05 12:00] VITALS: BP 133/80
--- NOTE | 2019-06-05 12:16 | Nephrology Progress Note ---
Assessment/Plan Problem List: (1) Electrolyte imbalance (2) Hypoalbuminemia (3) Diabetes (4) Encephalopathy acute (5) BPH (benign prostatic hyperplasia) (6) Choledocholithiasis with acute cholecystitis Assessment Hypokalemia Hypoalbuminemia coronary artery disease. Diabetes. Hypertension. Myocardial infarction. GB sludge + stones Cholelithiasis and gallbladder sludge fatty liver Elevated LFTS Plan Patient on clear liquids IV hydration with potassium supplement Monitor electrolytes Monitor liver function enzymes Per consultants Subjective ROS Limited/Unobtainable: No Constitutional: Reports: malaise, weakness Objective Objective Last 24 Hour Vital Signs Date Time Temp Pulse Resp B/P (MAP) Pulse Ox O2 Delivery O2 Flow Rate FiO2 06/05/19 04:00 98.2 90 18 101/60 (74) 98 06/05/19 00:00 97.9 77 20 115/75 (88) 98 06/04/19 21:00 Nasal Cannula 2.0 06/04/19 20:00 98.2 75 20 120/73 (89) 98 06/04/19 16:00 97.9 77 18 134/76 (95) 98 Intake and Output 06/04/19 06/05/19 19:00 07:00 Intake Total 82.5 ml 500 ml Balance 82.5 ml 500 ml Intake Oral 500 ml IV Total 82.5 ml # Voids 2 2 # Bowel Movements 1 1 No results available yet Height (Feet): 5 Height (Inches): 7.00 Weight (Pounds): 85 General Appearance: no apparent distress, lethargic Cardiovascular: other - Variable Respiratory/Chest: decreased breath sounds Abdomen: soft Objective No change Travis Casey MD Jun 05, 2019 12:16
[2019-06-05] MEDS: Docusate 100mg cap ORAL SCH ×2 (12:46→17:40)
--- NOTE | 2019-06-05 14:00 | NUR ---
NURSE NOTES: nurse performed blood draw from peripheral janusz at [facility] with butterfly, collected red, light green and purple top. Only order so far is CMP. Labeled and initialed. Delivered sample to lab per protocol.
[2019-06-05 14:17] LABS: HEMATOCRIT 40.2 % (42.0-52.0); MEAN CORPUSCULAR VOLUME 84 FL (80-99); PLATELET COUNT 153 K/UL (150-450); WHITE BLOOD COUNT 7.4 K/UL (4.8-10.8)
--- NOTE | 2019-06-05 14:25 | Infectious Diseases Prog Note ---
Assessment/Plan Assessment/Plan A 1.Gram-positive and gram-negative sepsis 2. Cholelithiasis.? cholecystitis. 3. Diabetes. 4. Hypertension. 5. Leukocytosis, improving. 6. Elevated liver function tests. 7. Negative COVID19 PLAN: 1. Change IV vancomycin and Zosyn To Levaquin & Zyvox 2. An MRCP is planned. 2. Discontinue isolation. Subjective ROS Limited/Unobtainable: Yes Psychiatric: Reports: other - refuses IV medications & labs Allergies: Coded Allergies: No Known Allergies (Unverified , 03/23/18) Objective Vital Signs Last 24 Hour Vital Signs Date Time Temp Pulse Resp B/P (MAP) Pulse Ox O2 Delivery O2 Flow Rate FiO2 06/05/19 04:00 98.2 90 18 101/60 (74) 98 06/05/19 00:00 97.9 77 20 115/75 (88) 98 06/04/19 21:00 Nasal Cannula 2.0 06/04/19 20:00 98.2 75 20 120/73 (89) 98 06/04/19 16:00 97.9 77 18 134/76 (95) 98 Height (Feet): 5 Height (Inches): 7.00 Weight (Pounds): 85 General Appearance: no acute distress HEENT: mucous membranes moist Respiratory/Chest: lungs clear Cardiovascular: normal rate Abdomen: soft, non tender Extremities: no edema Neurologic/Psychiatric: alert, responsive, other - Drowsy Microbiology Date/Time Source Procedure Growth Status 06/03/19 09:00 Blood Blood Culture - Preliminary Gram Negative Tadeo Resulted 06/03/19 09:00 Blood Blood Culture - Preliminary Gram Negative Tadeo Gram Positive Cocci Resulted 06/03/19 09:00 Nasopharynx Coronavirus COVID-19 PCR ([facility]E) - Final Complete 06/03/19 09:00 Nasal Nares - Final Complete 06/03/19 09:00 Nasal Nares - Final Complete Laboratory Tests Test 06/05/19 13:30 White Blood Count 7.4 K/UL (4.8-10.8) Red Blood Count 4.80 M/UL (4.70-6.10) Hemoglobin 14.0 G/DL (14.2-18.0) L Hematocrit 40.2 % (42.0-52.0) L Mean Corpuscular Volume 84 FL (80-99) Mean Corpuscular Hemoglobin 29.1 PG (27.0-31.0) Mean Corpuscular Hemoglobin Concent 34.7 G/DL (32.0-36.0) Red Cell Distribution Width 12.0 % (11.6-14.8) Platelet Count 153 K/UL (150-450) Mean Platelet Volume 6.0 FL (6.5-10.1) L Neutrophils (%) (Auto) % (45.0-75.0) Lymphocytes (%) (Auto) % (20.0-45.0) Monocytes (%) (Auto) % (1.0-10.0) Eosinophils (%) (Auto) % (0.0-3.0) Basophils (%) (Auto) % (0.0-2.0) Neutrophils % (Manual) Pending Lymphocytes % (Manual) Pending Platelet Estimate Pending Platelet Morphology Pending Sodium Level Pending Potassium Level Pending Chloride Level Pending Carbon Dioxide Level Pending Blood Urea Nitrogen Pending Creatinine Pending Estimat Glomerular Filtration Rate Pending Glucose Level Pending Calcium Level Pending Phosphorus Level Pending Magnesium Level Pending Total Bilirubin Pending Aspartate Amino Transf (AST/SGOT) Pending Alanine Aminotransferase (ALT/SGPT) Pending Alkaline Phosphatase Pending Troponin I Pending C-Reactive Protein, Quantitative Pending Pro-B-Type Natriuretic Peptide Pending Total Protein Pending Albumin Pending Globulin Pending Current Medications Medications (Trade) Dose Ordered Sig/Charlette Route PRN Reason Start Time Stop Time Status Last Admin Dose Admin Acetaminophen (Tylenol) 500 mg Q4H PRN ORAL Mild Pain (Pain Scale 1-3) 06/03/19 16:45 07/03/19 16:44 Dextrose (Dextrose 50%) 25 ml Q30M PRN IV Hypoglycemia 06/03/19 16:00 09/01/19 15:59 Dextrose (Dextrose 50%) 50 ml Q30M PRN IV Hypoglycemia 06/03/19 16:00 09/01/19 15:59 Docusate Sodium (Colace) 100 mg TWICE A DAY ORAL 06/03/19 18:00 07/03/19 17:59 06/05/19 12:46 Haloperidol Lactate (Haldol) 5 mg Q6H PRN IM Agitation 06/04/19 16:15 5/26/20 16:14 Hydralazine HCl (Apresoline) 25 mg Q4H PRN ORAL bp over 160 syst 06/03/19 16:45 09/01/19 16:44 Insulin Aspart (NovoLOG) BEFORE MEALS AND HS SUBQ 06/03/19 16:30 09/01/19 16:29 06/05/19 07:01 Levofloxacin (Levaquin) 750 mg Q48H ORAL 06/05/19 09:00 06/12/19 08:59 06/05/19 12:46 Ondansetron HCl (Zofran) 4 mg Q6H PRN IV Nausea & Vomiting 06/03/19 16:45 07/03/19 16:44 Pantoprazole (Protonix) 40 mg EVERY 12 HOURS IVP 06/03/19 21:00 07/03/19 20:59 06/04/19 09:28 Piperacillin Sod/ Tazobactam Sod 3.375 gm/Sodium Chloride 110 ml @ 27.5 mls/hr EVERY 8 HOURS IVPB 06/03/19 22:00 06/08/19 21:59 06/04/19 15:00 Risperidone (RisperDAL) 0.5 mg TID ORAL 06/04/19 18:00 07/19/19 17:59 06/05/19 12:46 Sodium 1,000 ml @ 75 mls/hr [id number] IV 06/03/19 17:00 07/03/19 16:59 06/04/19 05:20 Vancomycin HCl (Vanco rx to dose) 1 ea DAILY PRN MISC Per rx protocol 06/04/19 09:15 07/04/19 09:14 Vancomycin HCl 500 mg/Dextrose 110 ml @ 110 mls/hr Q24H IVPB 06/05/19 11:00 06/10/19 10:59 Melvin Dominguez MD Jun 05, 2019 14:25
[2019-06-05 14:30] LABS: ANION GAP 9 mmol/L (5-15); BLOOD UREA NITROGEN 11 mg/dL (7-18); CALCIUM 8.8 MG/DL (8.5-10.1); CARBON DIOXIDE 29 MMOL/L (21-32); CHLORIDE 105 MMOL/L (98-107); CREATININE 0.8 MG/DL (0.55-1.30); POTASSIUM 3.2 MMOL/L (3.5-5.1); SODIUM 142 MMOL/L (136-145)
[2019-06-05 14:41] LABS: ALANINE AMINOTRANSFERASE 128 U/L (12-78); ALBUMIN 2.5 G/DL (3.4-5.0); ALBUMIN/GLOBULIN RATIO 0.6 (1.0-2.7); ALKALINE PHOSPHATASE 277 U/L (46-116); ASPARTATE AMINO TRANSFERASE 43 U/L (15-37); BILIRUBIN,TOTAL 2.2 MG/DL (0.2-1.0)
[2019-06-05 14:42] LABS: BILIRUBIN,DIRECT 1.5 MG/DL (0.0-0.3)
[2019-06-05 14:44] LABS: PHOSPHORUS 2.2 MG/DL (2.5-4.9)
--- NOTE | 2019-06-05 15:06 | Surgery Progress Note ---
Surgery Progress Note Subjective Additional Comments labs improve lft's t bili improved no pain no n/v/f/c Objective Last 24 Hour Vital Signs Date Time Temp Pulse Resp B/P (MAP) Pulse Ox O2 Delivery O2 Flow Rate FiO2 06/05/19 04:00 98.2 90 18 101/60 (74) 98 06/05/19 00:00 97.9 77 20 115/75 (88) 98 06/04/19 21:00 Nasal Cannula 2.0 06/04/19 20:00 98.2 75 20 120/73 (89) 98 06/04/19 16:00 97.9 77 18 134/76 (95) 98 I&O Intake and Output 06/04/19 06/05/19 19:00 07:00 Intake Total 82.5 ml 500 ml Balance 82.5 ml 500 ml Intake Oral 500 ml IV Total 82.5 ml # Voids 2 2 # Bowel Movements 1 1 Cardiovascular: RSR Respiratory: clear Abdomen: soft, non-tender, present bowel sounds, non-distended Extremities: no tenderness, no cyanosis Laboratory Tests Test 06/05/19 13:30 White Blood Count 7.4 K/UL (4.8-10.8) Red Blood Count 4.80 M/UL (4.70-6.10) Hemoglobin 14.0 G/DL (14.2-18.0) L Hematocrit 40.2 % (42.0-52.0) L Mean Corpuscular Volume 84 FL (80-99) Mean Corpuscular Hemoglobin 29.1 PG (27.0-31.0) Mean Corpuscular Hemoglobin Concent 34.7 G/DL (32.0-36.0) Red Cell Distribution Width 12.0 % (11.6-14.8) Platelet Count 153 K/UL (150-450) Mean Platelet Volume 6.0 FL (6.5-10.1) L Neutrophils (%) (Auto) % (45.0-75.0) Lymphocytes (%) (Auto) % (20.0-45.0) Monocytes (%) (Auto) % (1.0-10.0) Eosinophils (%) (Auto) % (0.0-3.0) Basophils (%) (Auto) % (0.0-2.0) Differential Total Cells Counted 100 Neutrophils % (Manual) 84 % (45-75) H Lymphocytes % (Manual) 10 % (20-45) L Monocytes % (Manual) 5 % (1-10) Eosinophils % (Manual) 1 % (0-3) Basophils % (Manual) 0 % (0-2) Band Neutrophils 0 % (0-8) Platelet Estimate Adequate Platelet Morphology Normal Red Blood Cell Morphology Normal Sodium Level 142 MMOL/L (136-145) Potassium Level 3.2 MMOL/L (3.5-5.1) L Chloride Level 105 MMOL/L (98-107) Carbon Dioxide Level 29 MMOL/L (21-32) Anion Gap 9 mmol/L (5-15) Blood Urea Nitrogen 11 mg/dL (7-18) Creatinine 0.8 MG/DL (0.55-1.30) Estimat Glomerular Filtration Rate > 60 mL/min (>60) Glucose Level 245 MG/DL (74-106) H Calcium Level 8.8 MG/DL (8.5-10.1) Phosphorus Level 2.2 MG/DL (2.5-4.9) L Magnesium Level 1.7 MG/DL (1.8-2.4) L Total Bilirubin 2.2 MG/DL (0.2-1.0) H Direct Bilirubin 1.5 MG/DL (0.0-0.3) H Aspartate Amino Transf (AST/SGOT) 43 U/L (15-37) H Alanine Aminotransferase (ALT/SGPT) 128 U/L (12-78) H Alkaline Phosphatase 277 U/L (46-116) H Troponin I 0.011 ng/mL (0.000-0.056) C-Reactive Protein, Quantitative 15.4 mg/dL (0.00-0.90) H Pro-B-Type Natriuretic Peptide 2015 pg/mL (0-125) H Total Protein 6.4 G/DL (6.4-8.2) Albumin 2.5 G/DL (3.4-5.0) L Globulin 3.9 g/dL Albumin/Globulin Ratio 0.6 (1.0-2.7) L Plan Problems: (1) Choledocholithiasis with acute cholecystitis Assessment & Plan: 84-year-old male with leukocytosis, lactic acidosis, elevated LFTs, elevated T bilirubin direct and indirect indicative of potential duct obstruction, ultrasound with stones and liver disease. Physical examination fairly benign patient does not elicit any tenderness on right upper quadrant palpation. Labs noted and reviewed Imaging reviewed Would recommend an MRI but given patient's current condition and potential COVID r/o will hold on MRI as he is stable trend labs GI eval npo iv fluids iv abx will follow with recs thank you (2) Cholecystitis Assessment & Plan: Gallbladder demonstrates dependent layering of sludge and small stones. Sonographic Swift's sign is negative. Common bile duct measures 9 mm in diameter. No intrahepatic biliary ductal dilatation. Liver demonstrates diffusely increased echogenicity, consistent with diffuse hepatocellular disease, most likely fatty change. There is an area of focal sparing in the usual location adjacent to the gallbladder fossa. Portal vein and hepatic veins are patent. Pancreas is unremarkable. Spleen is unremarkable. Left kidney measures 11.4 cm in length. Right kidney measures 11 cm length. Both kidneys demonstrate normal echogenicity. There is no hydronephrosis. There are small cysts in both kidneys . Non- aneurysmal abdominal aorta . Impression: Cholelithiasis and gallbladder sludge Mildly dilated common bile duct. May be related to senescent changes, but downstream obstruction also possible. Correlate with liver function tests Liver demonstrates diffusely increased echogenicity, consistent with diffuse hepatocellular disease, most likely fatty change. Note area of focal sparing adjacent to the gallbladder fossa (3) Constipation (4) Balanitis (5) Fever (6) Cholelithiases (7) Diabetes (8) Weakness (9) Altered mental status (10) HTN (hypertension) (11) Encephalopathy acute (12) BPH (benign prostatic hyperplasia) (13) MDD (major depressive disorder), recurrent episode (14) Uncontrolled blood glucose Mark Valero Jun 05, 2019 15:06
[2019-06-05 16:00] VITALS: BP 123/71
--- NOTE | 2019-06-05 16:19 | NUR ---
NURSE NOTES: Dr. Melvin Dominguez ID who covered for Dr. Kelsey made round and RN relayed negative covid-[address] Dominguez reviewed patient's chart and assesses the patient with order to d/c current isolation. Dr. Dominguez also mentioned to d/c isolation on his note. Patient has no episodes of coughing, or SOB, afebrile. Will continue to monitor.
--- NOTE | 2019-06-05 16:20 | NUR ---
NURSE NOTES: RN asked to Dr. Dominguez if he wants to do the second test and he said no.
[2019-06-05] MEDS: Phospha 250 Neutral tab ORAL SCH (17:41)
--- NOTE | 2019-06-05 19:30 | NUR ---
HAND-OFF: Report given to ALICIA Valdez.
[2019-06-05 20:00] VITALS: BP 115/62
--- NOTE | 2019-06-05 20:07 | NUR ---
NURSE NOTES: Received patient asleep, comfortable, on bilateral soft wrist restraints.
--- NOTE | 2019-06-05 20:31 | General Progress Note ---
Assessment/Plan Problem List: (1) Fever ICD Codes: R50.9 - Fever, unspecified SNOMED: 260037981 (2) Diabetes ICD Codes: E11.9 - Type 2 diabetes mellitus without complications SNOMED: 76774855 (3) Cholelithiases ICD Codes: K80.20 - Calculus of gallbladder without cholecystitis without obstruction SNOMED: 388329782 (4) Weakness ICD Codes: R53.1 - Weakness SNOMED: 94995011 (5) HTN (hypertension) ICD Codes: I10 - Essential (primary) hypertension SNOMED: 86123289 (6) Encephalopathy acute ICD Codes: G93.40 - Encephalopathy, unspecified SNOMED: 43360337, 470512346 (7) Choledocholithiasis with acute cholecystitis ICD Codes: K80.42 - Calculus of bile duct with acute cholecystitis without obstruction SNOMED: 76331705 (8) Cholecystitis ICD Codes: K81.9 - Cholecystitis, unspecified SNOMED: 73949136 (9) Hypoalbuminemia ICD Codes: E88.09 - Other disorders of plasma-protein metabolism, not elsewhere classified SNOMED: 758022923 Status: progressing Assessment/Plan: r/o vovid afebrile acute cholycystitis htn obs abx per id surgeon and id following Subjective ROS Limited/Unobtainable: Yes Allergies: Coded Allergies: No Known Allergies (Unverified , 03/23/18) Objective Last 24 Hour Vital Signs Date Time Temp Pulse Resp B/P (MAP) Pulse Ox O2 Delivery O2 Flow Rate FiO2 06/05/19 20:16 Nasal Cannula 2.0 06/05/19 16:00 98.0 88 19 123/71 (88) 97 06/05/19 12:00 99.1 87 19 133/80 (97) 96 06/05/19 09:00 Nasal Cannula 2.0 06/05/19 04:00 98.2 90 18 101/60 (74) 98 06/05/19 00:00 97.9 77 20 115/75 (88) 98 06/04/19 21:00 Nasal Cannula 2.0 Intake and Output 06/04/19 06/05/19 19:00 07:00 Intake Total 82.5 ml 500 ml Balance 82.5 ml 500 ml Intake Oral 500 ml IV Total 82.5 ml # Voids 2 2 # Bowel Movements 1 1 Laboratory Tests 4/12/20 13:30: White Blood Count 7.4, Red Blood Count 4.80, Hemoglobin 14.0L, Hematocrit 40.2L , Mean Corpuscular Volume 84, Mean Corpuscular Hemoglobin 29.1, Mean Corpuscular Hemoglobin Concent 34.7, Red Cell Distribution Width 12.0, Platelet Count 153, Mean Platelet Volume 6.0L, Neutrophils (%) (Auto) , Lymphocytes (%) ( Auto) , Monocytes (%) (Auto) , Eosinophils (%) (Auto) , Basophils (%) (Auto) , Differential Total Cells Counted 100, Neutrophils % (Manual) 84H, Lymphocytes % (Manual) 10L, Monocytes % (Manual) 5, Eosinophils % (Manual) 1, Basophils % ( Manual) 0, Band Neutrophils 0, Platelet Estimate Adequate, Platelet Morphology Normal, Red Blood Cell Morphology Normal, Sodium Level 142, Potassium Level 3.2L , Chloride Level 105, Carbon Dioxide Level 29, Anion Gap 9, Blood Urea Nitrogen 11, Creatinine 0.8, Estimat Glomerular Filtration Rate > 60, Glucose Level 245H , Calcium Level 8.8, Phosphorus Level 2.2L, Magnesium Level 1.7L, Total Bilirubin 2.2H, Direct Bilirubin 1.5H, Aspartate Amino Transf (AST/SGOT) 43H, Alanine Aminotransferase (ALT/SGPT) 128H, Alkaline Phosphatase 277H, Troponin I 0.011, C-Reactive Protein, Quantitative 15.4H, Pro-B-Type Natriuretic Peptide 2015H, Total Protein 6.4, Albumin 2.5L, Globulin 3.9, Albumin/Globulin Ratio 0.6L Height (Feet): 5 Height (Inches): 7.00 Weight (Pounds): 85 Ally Gross MD Jun 05, 2019 20:31
[2019-06-06] VITALS: BP 123/65
[2019-06-06 04:12] VITALS: BP 133/71
[2019-06-06] MEDS: NovoLOG Insulin Flexpen SUBQ SCH ×4 (05:42→20:59)
[2019-06-06 06:55] LABS: ALANINE AMINOTRANSFERASE 22 U/L (12-78); ALBUMIN 2.4 G/DL (3.4-5.0); ALBUMIN/GLOBULIN RATIO 0.8 (1.0-2.7); ALKALINE PHOSPHATASE 231 U/L (46-116); ANION GAP 8 mmol/L (5-15); ASPARTATE AMINO TRANSFERASE 28 U/L (15-37); BLOOD UREA NITROGEN 11 mg/dL (7-18); CALCIUM 8.6 MG/DL (8.5-10.1); CARBON DIOXIDE 29 MMOL/L (21-32); CHLORIDE 99 MMOL/L (98-107); CREATININE 1.4 MG/DL (0.55-1.30); POTASSIUM 3.4 MMOL/L (3.5-5.1); SODIUM 136 MMOL/L (136-145)
[2019-06-06 07:09] LABS: BASOPHILS % (AUTO) 2.3 % (0.0-2.0); EOSINOPHILS % (AUTO) 4.6 % (0.0-3.0); HEMATOCRIT 33.2 % (42.0-52.0); HEMOGLOBIN 11.1 G/DL (14.2-18.0); MEAN CORPUSCULAR VOLUME 72 FL (80-99); NEUTROPHILS % (AUTO) 71.1 % (45.0-75.0); PLATELET COUNT 213 K/UL (150-450); RED BLOOD COUNT 4.63 M/UL (4.70-6.10); RED CELL DISTRIBUTION WIDTH 18.7 % (11.6-14.8); WHITE BLOOD COUNT 14.2 K/UL (4.8-10.8)
--- NOTE | 2019-06-06 07:18 | NUR ---
HAND-OFF: Report given to Philomena Dennis RN.
--- NOTE | 2019-06-06 07:54 | NUR ---
NURSE NOTES: received pt in bed, awake, no sign of distress, no complaint of pain or discomfort. Patient NPO prior to diagnostic procedure. On bilateral soft wrist restraints, extremities warm to touch intact wrists. No IV access, MD aware. Bed locked at the lowest position possible, call light within easy reach, siderails up x3. Will continue to monitor pt and follow up with the plan of care.
[2019-06-06 08:00] VITALS: BP 121/75
--- NOTE | 2019-06-06 08:19 | NUR ---
CHARGE NURSE NOTE: Received call from nuclear medicine. Pt is scheduled for HIDA scan, refuses IV insertion. Test is not available without IV. notified.
[2019-06-06] MEDS: Pantoprazole Inj IVP SCH ×2 (09:00→20:58)
[2019-06-06] MEDS: Docusate 100mg cap ORAL SCH ×2 (09:00→17:46)
--- NOTE | 2019-06-06 09:11 | NUR ---
NURSE NOTES: [employer] avionics technician evaluated pt, told nurse pt would probably stay still as he's very forgetful. Dr Minor Valero on the floor, asked if ok to give am meds, said better to hold meds until test is done. Also as pt is somewhat agitated nurse will give haldol 5mg IM as ordered PRN for that condition.
--- NOTE | 2019-06-06 09:30 | General Progress Note ---
Assessment/Plan Status: progressing Assessment/Plan: 1. Coronary artery disease. 2. Diabetes. 3. Hypertension. 4. Myocardial infarction. 5. GB sludge + stones 6. fatty liver 7. Elevated LFTS us reviewed pending MRCP>>> on covid isolation fu labs ERCP if needed fu surg recs advance diet abx repeat labs in am Subjective ROS Limited/Unobtainable: No Allergies: Coded Allergies: No Known Allergies (Unverified , 03/23/18) Objective Last 24 Hour Vital Signs Date Time Temp Pulse Resp B/P (MAP) Pulse Ox O2 Delivery O2 Flow Rate FiO2 06/06/19 04:12 98.2 66 19 133/71 (91) 96 06/06/19 00:00 98.0 65 20 123/65 (84) 95 06/05/19 20:16 Nasal Cannula 2.0 06/05/19 20:00 98.6 72 20 115/62 (79) 95 06/05/19 16:00 98.0 88 19 123/71 (88) 97 06/05/19 12:00 99.1 87 19 133/80 (97) 96 Intake and Output 06/05/19 06/06/19 19:00 07:00 Intake Total 960 ml Balance 960 ml Intake Oral 960 ml # Voids 2 2 # Bowel Movements 1 Laboratory Tests 06/05/19 13:30: White Blood Count 7.4, Red Blood Count 4.80, Hemoglobin 14.0L, Hematocrit 40.2L , Mean Corpuscular Volume 84, Mean Corpuscular Hemoglobin 29.1, Mean Corpuscular Hemoglobin Concent 34.7, Red Cell Distribution Width 12.0, Platelet Count 153, Mean Platelet Volume 6.0L, Neutrophils (%) (Auto) , Lymphocytes (%) ( Auto) , Monocytes (%) (Auto) , Eosinophils (%) (Auto) , Basophils (%) (Auto) , Differential Total Cells Counted 100, Neutrophils % (Manual) 84H, Lymphocytes % (Manual) 10L, Monocytes % (Manual) 5, Eosinophils % (Manual) 1, Basophils % ( Manual) 0, Band Neutrophils 0, Platelet Estimate Adequate, Platelet Morphology Normal, Red Blood Cell Morphology Normal, Sodium Level 142, Potassium Level 3.2L , Chloride Level 105, Carbon Dioxide Level 29, Anion Gap 9, Blood Urea Nitrogen 11, Creatinine 0.8, Estimat Glomerular Filtration Rate > 60, Glucose Level 245H , Calcium Level 8.8, Phosphorus Level 2.2L, Magnesium Level 1.7L, Total Bilirubin 2.2H, Direct Bilirubin 1.5H, Aspartate Amino Transf (AST/SGOT) 43H, Alanine Aminotransferase (ALT/SGPT) 128H, Alkaline Phosphatase 277H, Troponin I 0.011, C-Reactive Protein, Quantitative 15.4H, Pro-B-Type Natriuretic Peptide 2015H, Total Protein 6.4, Albumin 2.5L, Globulin 3.9, Albumin/Globulin Ratio 0.6L 06/06/19 05:20: White Blood Count 14.2#H, Red Blood Count 4.63L, Hemoglobin 11.1L, Hematocrit 33.2L, Mean Corpuscular Volume 72#L, Mean Corpuscular Hemoglobin 23.9L, Mean Corpuscular Hemoglobin Concent 33.4, Red Cell Distribution Width 18.7H, Platelet Count 213, Mean Platelet Volume 5.5L, Neutrophils (%) (Auto) 71.1, Lymphocytes (%) (Auto) 8.0L, Monocytes (%) (Auto) 14.0H, Eosinophils (%) (Auto) 4.6H, Basophils (%) (Auto) 2.3H, Sodium Level 136, Potassium Level 3.4L, Chloride Level 99, Carbon Dioxide Level 29, Anion Gap 8, Blood Urea Nitrogen 11 , Creatinine 1.4#H, Estimat Glomerular Filtration Rate 48.3, Glucose Level 111#H , Calcium Level 8.6, Total Bilirubin 1.0, Aspartate Amino Transf (AST/SGOT) 28, Alanine Aminotransferase (ALT/SGPT) 22, Alkaline Phosphatase 231H, Total Protein 5.6L, Albumin 2.4L, Globulin 3.2, Albumin/Globulin Ratio 0.8L Height (Feet): 5 Height (Inches): 7.00 Weight (Pounds): 85 General Appearance: no apparent distress EENT: normal ENT inspection Neck: supple Cardiovascular: normal rate Respiratory/Chest: decreased breath sounds Abdomen: normal bowel sounds, non tender, soft Extremities: non-tender Yakov Quintero MD Jun 06, 2019 09:30
[2019-06-06] MEDS: 1/2NS w/KCl 20mEq 1000ml 1,000 ML IV SCH (11:40)
--- NOTE | 2019-06-06 11:55 | NUR ---
CASE MANAGEMENT: REVIEW SI: CHOLEDOCHOLITHIASIS w/ ACUTE CHOLECYSTITIS . DM . MRCP 06/05 COVID-19 RESULTS PENDING T 98.0 HR 65 RR 19 BP 115/62 SAT 95% NC/2L WBC 14.2 ALK PHOS 231 IS: NS w/KCl 20MEQ @ 75ML/HR PROTONIX IV Q12HR LEVAQUIN PO Q48HR ZYVOX PO Q12HR NOVOLOG SUBQ AC+HS CEFTRIAXONE IV Q24HR MED/SURG STATUS DCP: PATIENT IS FROM [facility]
[2019-06-06] MEDS: Phospha 250 Neutral tab ORAL SCH (11:57)
[2019-06-06 12:00] VITALS: BP 110/59
[2019-06-06] MEDS ORDERED: Phospha 250 Neutral tab ORAL SCH (12:00)
--- NOTE | 2019-06-06 12:00 | Surgery Progress Note ---
Surgery Progress Note Subjective Additional Comments leukocytosis lfts resolved exam stable pending MRI cancel hida Objective Last 24 Hour Vital Signs Date Time Temp Pulse Resp B/P (MAP) Pulse Ox O2 Delivery O2 Flow Rate FiO2 06/06/19 08:00 98.0 79 20 121/75 (90) 98 06/06/19 04:12 98.2 66 19 133/71 (91) 96 06/06/19 00:00 98.0 65 20 123/65 (84) 95 06/05/19 20:16 Nasal Cannula 2.0 06/05/19 20:00 98.6 72 20 115/62 (79) 95 06/05/19 16:00 98.0 88 19 123/71 (88) 97 06/05/19 12:00 99.1 87 19 133/80 (97) 96 I&O Intake and Output 06/05/19 06/06/19 19:00 07:00 Intake Total 960 ml Balance 960 ml Intake Oral 960 ml # Voids 2 2 # Bowel Movements 1 Cardiovascular: RSR Respiratory: clear Abdomen: soft, non-tender, present bowel sounds Extremities: no edema, no tenderness, no cyanosis Laboratory Tests Test 06/05/19 13:30 06/06/19 05:20 White Blood Count 7.4 K/UL (4.8-10.8) 14.2 K/UL (4.8-10.8) #H Red Blood Count 4.80 M/UL (4.70-6.10) 4.63 M/UL (4.70-6.10) L Hemoglobin 14.0 G/DL (14.2-18.0) L 11.1 G/DL (14.2-18.0) L Hematocrit 40.2 % (42.0-52.0) L 33.2 % (42.0-52.0) L Mean Corpuscular Volume 84 FL (80-99) 72 FL (80-99) #L Mean Corpuscular Hemoglobin 29.1 PG (27.0-31.0) 23.9 PG (27.0-31.0) L Mean Corpuscular Hemoglobin Concent 34.7 G/DL (32.0-36.0) 33.4 G/DL (32.0-36.0) Red Cell Distribution Width 12.0 % (11.6-14.8) 18.7 % (11.6-14.8) H Platelet Count 153 K/UL (150-450) 213 K/UL (150-450) Mean Platelet Volume 6.0 FL (6.5-10.1) L 5.5 FL (6.5-10.1) L Neutrophils (%) (Auto) % (45.0-75.0) 71.1 % (45.0-75.0) Lymphocytes (%) (Auto) % (20.0-45.0) 8.0 % (20.0-45.0) L Monocytes (%) (Auto) % (1.0-10.0) 14.0 % (1.0-10.0) H Eosinophils (%) (Auto) % (0.0-3.0) 4.6 % (0.0-3.0) H Basophils (%) (Auto) % (0.0-2.0) 2.3 % (0.0-2.0) H Differential Total Cells Counted 100 Neutrophils % (Manual) 84 % (45-75) H Lymphocytes % (Manual) 10 % (20-45) L Monocytes % (Manual) 5 % (1-10) Eosinophils % (Manual) 1 % (0-3) Basophils % (Manual) 0 % (0-2) Band Neutrophils 0 % (0-8) Platelet Estimate Adequate Platelet Morphology Normal Red Blood Cell Morphology Normal Sodium Level 142 MMOL/L (136-145) 136 MMOL/L (136-145) Potassium Level 3.2 MMOL/L (3.5-5.1) L 3.4 MMOL/L (3.5-5.1) L Chloride Level 105 MMOL/L (98-107) 99 MMOL/L (98-107) Carbon Dioxide Level 29 MMOL/L (21-32) 29 MMOL/L (21-32) Anion Gap 9 mmol/L (5-15) 8 mmol/L (5-15) Blood Urea Nitrogen 11 mg/dL (7-18) 11 mg/dL (7-18) Creatinine 0.8 MG/DL (0.55-1.30) 1.4 MG/DL (0.55-1.30) #H Estimat Glomerular Filtration Rate > 60 mL/min (>60) 48.3 mL/min (>60) Glucose Level 245 MG/DL (74-106) H 111 MG/DL (74-106) #H Calcium Level 8.8 MG/DL (8.5-10.1) 8.6 MG/DL (8.5-10.1) Phosphorus Level 2.2 MG/DL (2.5-4.9) L Magnesium Level 1.7 MG/DL (1.8-2.4) L Total Bilirubin 2.2 MG/DL (0.2-1.0) H 1.0 MG/DL (0.2-1.0) Direct Bilirubin 1.5 MG/DL (0.0-0.3) H Aspartate Amino Transf (AST/SGOT) 43 U/L (15-37) H 28 U/L (15-37) Alanine Aminotransferase (ALT/SGPT) 128 U/L (12-78) H 22 U/L (12-78) Alkaline Phosphatase 277 U/L (46-116) H 231 U/L (46-116) H Troponin I 0.011 ng/mL (0.000-0.056) C-Reactive Protein, Quantitative 15.4 mg/dL (0.00-0.90) H Pro-B-Type Natriuretic Peptide 2015 pg/mL (0-125) H Total Protein 6.4 G/DL (6.4-8.2) 5.6 G/DL (6.4-8.2) L Albumin 2.5 G/DL (3.4-5.0) L 2.4 G/DL (3.4-5.0) L Globulin 3.9 g/dL 3.2 g/dL Albumin/Globulin Ratio 0.6 (1.0-2.7) L 0.8 (1.0-2.7) L Plan Problems: (1) Choledocholithiasis with acute cholecystitis Assessment & Plan: 84-year-old male with leukocytosis, lactic acidosis, elevated LFTs, elevated T bilirubin direct and indirect indicative of potential duct obstruction, ultrasound with stones and liver disease. Physical examination fairly benign patient does not elicit any tenderness on right upper quadrant palpation. Labs noted and reviewed Imaging reviewed Would recommend an MRI but given patient's current condition and potential COVID r/o will hold on MRI as he is stable trend labs GI eval npo iv fluids iv abx will follow with recs d/c hida pending MRCP no surgical intervention planned at this time thank you (2) Cholecystitis Assessment & Plan: Gallbladder demonstrates dependent layering of sludge and small stones. Sonographic Swift's sign is negative. Common bile duct measures 9 mm in diameter. No intrahepatic biliary ductal dilatation. Liver demonstrates diffusely increased echogenicity, consistent with diffuse hepatocellular disease, most likely fatty change. There is an area of focal sparing in the usual location adjacent to the gallbladder fossa. Portal vein and hepatic veins are patent. Pancreas is unremarkable. Spleen is unremarkable. Left kidney measures 11.4 cm in length. Right kidney measures 11 cm length. Both kidneys demonstrate normal echogenicity. There is no hydronephrosis. There are small cysts in both kidneys . Non- aneurysmal abdominal aorta . Impression: Cholelithiasis and gallbladder sludge Mildly dilated common bile duct. May be related to senescent changes, but downstream obstruction also possible. Correlate with liver function tests Liver demonstrates diffusely increased echogenicity, consistent with diffuse hepatocellular disease, most likely fatty change. Note area of focal sparing adjacent to the gallbladder fossa (3) Constipation (4) Balanitis (5) Fever (6) Cholelithiases (7) Diabetes (8) Weakness (9) Altered mental status (10) HTN (hypertension) (11) Encephalopathy acute (12) BPH (benign prostatic hyperplasia) (13) MDD (major depressive disorder), recurrent episode (14) Uncontrolled blood glucose Mark Valero Jun 06, 2019 12:00
--- NOTE | 2019-06-06 12:09 | Infectious Diseases Prog Note ---
Assessment/Plan Assessment/Plan A 1.Gram-positive and Ecoli sepsis 2. Cholelithiasis.? cholecystitis. 3. Diabetes. 4. Hypertension. 5. Leukocytosis, improving. 6. Elevated liver function tests. 7. Negative COVID19 PLAN: 1. Change Levaquin to Ceftriaxone , Continue Zyvox 2. An MRCP is planned. 2. Case was D/W RN Subjective ROS Limited/Unobtainable: Yes Respiratory: Reports: no symptoms Gastrointestinal/Abdominal: Reports: no symptoms Neurologic: Reports: confusion, other - on restraint Allergies: Coded Allergies: No Known Allergies (Unverified , 03/23/18) Objective Vital Signs Last 24 Hour Vital Signs Date Time Temp Pulse Resp B/P (MAP) Pulse Ox O2 Delivery O2 Flow Rate FiO2 06/06/19 08:00 98.0 79 20 121/75 (90) 98 06/06/19 04:12 98.2 66 19 133/71 (91) 96 06/06/19 00:00 98.0 65 20 123/65 (84) 95 06/05/19 20:16 Nasal Cannula 2.0 06/05/19 20:00 98.6 72 20 115/62 (79) 95 06/05/19 16:00 98.0 88 19 123/71 (88) 97 Height (Feet): 5 Height (Inches): 7.00 Weight (Pounds): 85 General Appearance: no acute distress HEENT: mucous membranes moist Respiratory/Chest: lungs clear Cardiovascular: normal rate Abdomen: soft, non tender Extremities: no edema Neurologic/Psychiatric: alert, responsive Laboratory Tests Test 06/05/19 13:30 06/06/19 05:20 White Blood Count 7.4 K/UL (4.8-10.8) 14.2 K/UL (4.8-10.8) #H Red Blood Count 4.80 M/UL (4.70-6.10) 4.63 M/UL (4.70-6.10) L Hemoglobin 14.0 G/DL (14.2-18.0) L 11.1 G/DL (14.2-18.0) L Hematocrit 40.2 % (42.0-52.0) L 33.2 % (42.0-52.0) L Mean Corpuscular Volume 84 FL (80-99) 72 FL (80-99) #L Mean Corpuscular Hemoglobin 29.1 PG (27.0-31.0) 23.9 PG (27.0-31.0) L Mean Corpuscular Hemoglobin Concent 34.7 G/DL (32.0-36.0) 33.4 G/DL (32.0-36.0) Red Cell Distribution Width 12.0 % (11.6-14.8) 18.7 % (11.6-14.8) H Platelet Count 153 K/UL (150-450) 213 K/UL (150-450) Mean Platelet Volume 6.0 FL (6.5-10.1) L 5.5 FL (6.5-10.1) L Neutrophils (%) (Auto) % (45.0-75.0) 71.1 % (45.0-75.0) Lymphocytes (%) (Auto) % (20.0-45.0) 8.0 % (20.0-45.0) L Monocytes (%) (Auto) % (1.0-10.0) 14.0 % (1.0-10.0) H Eosinophils (%) (Auto) % (0.0-3.0) 4.6 % (0.0-3.0) H Basophils (%) (Auto) % (0.0-2.0) 2.3 % (0.0-2.0) H Differential Total Cells Counted 100 Neutrophils % (Manual) 84 % (45-75) H Lymphocytes % (Manual) 10 % (20-45) L Monocytes % (Manual) 5 % (1-10) Eosinophils % (Manual) 1 % (0-3) Basophils % (Manual) 0 % (0-2) Band Neutrophils 0 % (0-8) Platelet Estimate Adequate Platelet Morphology Normal Red Blood Cell Morphology Normal Sodium Level 142 MMOL/L (136-145) 136 MMOL/L (136-145) Potassium Level 3.2 MMOL/L (3.5-5.1) L 3.4 MMOL/L (3.5-5.1) L Chloride Level 105 MMOL/L (98-107) 99 MMOL/L (98-107) Carbon Dioxide Level 29 MMOL/L (21-32) 29 MMOL/L (21-32) Anion Gap 9 mmol/L (5-15) 8 mmol/L (5-15) Blood Urea Nitrogen 11 mg/dL (7-18) 11 mg/dL (7-18) Creatinine 0.8 MG/DL (0.55-1.30) 1.4 MG/DL (0.55-1.30) #H Estimat Glomerular Filtration Rate > 60 mL/min (>60) 48.3 mL/min (>60) Glucose Level 245 MG/DL (74-106) H 111 MG/DL (74-106) #H Calcium Level 8.8 MG/DL (8.5-10.1) 8.6 MG/DL (8.5-10.1) Phosphorus Level 2.2 MG/DL (2.5-4.9) L Magnesium Level 1.7 MG/DL (1.8-2.4) L Total Bilirubin 2.2 MG/DL (0.2-1.0) H 1.0 MG/DL (0.2-1.0) Direct Bilirubin 1.5 MG/DL (0.0-0.3) H Aspartate Amino Transf (AST/SGOT) 43 U/L (15-37) H 28 U/L (15-37) Alanine Aminotransferase (ALT/SGPT) 128 U/L (12-78) H 22 U/L (12-78) Alkaline Phosphatase 277 U/L (46-116) H 231 U/L (46-116) H Troponin I 0.011 ng/mL (0.000-0.056) C-Reactive Protein, Quantitative 15.4 mg/dL (0.00-0.90) H Pro-B-Type Natriuretic Peptide 2015 pg/mL (0-125) H Total Protein 6.4 G/DL (6.4-8.2) 5.6 G/DL (6.4-8.2) L Albumin 2.5 G/DL (3.4-5.0) L 2.4 G/DL (3.4-5.0) L Globulin 3.9 g/dL 3.2 g/dL Albumin/Globulin Ratio 0.6 (1.0-2.7) L 0.8 (1.0-2.7) L Current Medications Medications (Trade) Dose Ordered Sig/Charlette Route PRN Reason Start Time Stop Time Status Last Admin Dose Admin Acetaminophen (Tylenol) 500 mg Q4H PRN ORAL Mild Pain (Pain Scale 1-3) 06/03/19 16:45 07/03/19 16:44 Dextrose (Dextrose 50%) 25 ml Q30M PRN IV Hypoglycemia 06/03/19 16:00 09/01/19 15:59 Dextrose (Dextrose 50%) 50 ml Q30M PRN IV Hypoglycemia 06/03/19 16:00 09/01/19 15:59 Docusate Sodium (Colace) 100 mg TWICE A DAY ORAL 06/03/19 18:00 07/03/19 17:59 06/05/19 17:40 Haloperidol Lactate (Haldol) 5 mg Q6H PRN IM Agitation 06/04/19 16:15 07/19/19 16:14 06/06/19 09:40 Hydralazine HCl (Apresoline) 25 mg Q4H PRN ORAL bp over 160 syst 06/03/19 16:45 09/01/19 16:44 Insulin Aspart (NovoLOG) BEFORE MEALS AND HS SUBQ 06/03/19 16:30 09/01/19 16:29 06/06/19 05:42 Levofloxacin (Levaquin) 750 mg Q48H ORAL 06/05/19 09:00 06/12/19 08:59 06/05/19 12:46 Linezolid (Zyvox) 600 mg EVERY 12 HOURS ORAL 06/05/19 14:30 06/10/19 14:29 06/06/19 12:02 Ondansetron HCl (Zofran) 4 mg Q6H PRN IV Nausea & Vomiting 06/03/19 16:45 07/03/19 16:44 Pantoprazole (Protonix) 40 mg EVERY 12 HOURS IVP 06/03/19 21:00 07/03/19 20:59 06/04/19 09:28 Phosphorus (Phospha 250 Neutral) 500 mg ONCE ORAL 06/06/19 12:00 06/06/19 13:00 Potassium Chloride (K-Dur) 40 meq ONCE ORAL 06/06/19 12:00 06/06/19 13:00 Risperidone (RisperDAL) 0.5 mg TID ORAL 06/04/19 18:00 07/19/19 17:59 06/06/19 11:56 Sodium 1,000 ml @ 75 mls/hr [id number] IV 06/03/19 17:00 07/03/19 16:59 06/04/19 05:20 Melvin Dominguez MD Jun 06, 2019 12:09
--- NOTE | 2019-06-06 12:33 | Nephrology Progress Note ---
Assessment/Plan Problem List: (1) Electrolyte imbalance (2) Hypoalbuminemia (3) Diabetes (4) Encephalopathy acute (5) BPH (benign prostatic hyperplasia) (6) Choledocholithiasis with acute cholecystitis Assessment Hypokalemia Hypoalbuminemia coronary artery disease. Diabetes. Hypertension. Myocardial infarction. GB sludge + stones Cholelithiasis and gallbladder sludge fatty liver Elevated LFTS Plan Patient now on cardiac diet IV hydration with potassium supplement Monitor electrolytes Monitor liver function enzymes which appears to be improving Per consultants Subjective ROS Limited/Unobtainable: No Constitutional: Reports: malaise, weakness Objective Objective Last 24 Hour Vital Signs Date Time Temp Pulse Resp B/P (MAP) Pulse Ox O2 Delivery O2 Flow Rate FiO2 06/06/19 08:00 98.0 79 20 121/75 (90) 98 06/06/19 04:12 98.2 66 19 133/71 (91) 96 06/06/19 00:00 98.0 65 20 123/65 (84) 95 06/05/19 20:16 Nasal Cannula 2.0 06/05/19 20:00 98.6 72 20 115/62 (79) 95 06/05/19 16:00 98.0 88 19 123/71 (88) 97 Intake and Output 06/05/19 06/06/19 19:00 07:00 Intake Total 960 ml Balance 960 ml Intake Oral 960 ml # Voids 2 2 # Bowel Movements 1 Current Medications Medications (Trade) Dose Ordered Sig/Charlette Route PRN Reason Start Time Stop Time Status Last Admin Dose Admin Acetaminophen (Tylenol) 500 mg Q4H PRN ORAL Mild Pain (Pain Scale 1-3) 06/03/19 16:45 07/03/19 16:44 Ceftriaxone Sodium 1 gm/ Dextrose 55 ml @ 110 mls/hr Q24H IVPB 06/06/19 13:00 06/13/19 12:59 Dextrose (Dextrose 50%) 25 ml Q30M PRN IV Hypoglycemia 06/03/19 16:00 09/01/19 15:59 Dextrose (Dextrose 50%) 50 ml Q30M PRN IV Hypoglycemia 06/03/19 16:00 09/01/19 15:59 Docusate Sodium (Colace) 100 mg TWICE A DAY ORAL 06/03/19 18:00 07/03/19 17:59 06/05/19 17:40 Haloperidol Lactate (Haldol) 5 mg Q6H PRN IM Agitation 06/04/19 16:15 07/19/19 16:14 06/06/19 09:40 Hydralazine HCl (Apresoline) 25 mg Q4H PRN ORAL bp over 160 syst 06/03/19 16:45 09/01/19 16:44 Insulin Aspart (NovoLOG) BEFORE MEALS AND HS SUBQ 06/03/19 16:30 09/01/19 16:29 06/06/19 12:11 Linezolid (Zyvox) 600 mg EVERY 12 HOURS ORAL 06/05/19 14:30 06/10/19 14:29 06/06/19 12:02 Ondansetron HCl (Zofran) 4 mg Q6H PRN IV Nausea & Vomiting 06/03/19 16:45 07/03/19 16:44 Pantoprazole (Protonix) 40 mg EVERY 12 HOURS IVP 06/03/19 21:00 07/03/19 20:59 06/04/19 09:28 Phosphorus (Phospha 250 Neutral) 500 mg ONCE ORAL 06/06/19 12:00 06/06/19 13:00 Potassium Chloride (K-Dur) 40 meq ONCE ORAL 06/06/19 12:00 06/06/19 13:00 Risperidone (RisperDAL) 0.5 mg TID ORAL 06/04/19 18:00 07/19/19 17:59 06/06/19 11:56 Sodium 1,000 ml @ 75 mls/hr [id number] IV 06/03/19 17:00 07/03/19 16:59 06/04/19 05:20 Laboratory Tests 06/05/19 13:30: White Blood Count 7.4, Red Blood Count 4.80, Hemoglobin 14.0L, Hematocrit 40.2L , Mean Corpuscular Volume 84, Mean Corpuscular Hemoglobin 29.1, Mean Corpuscular Hemoglobin Concent 34.7, Red Cell Distribution Width 12.0, Platelet Count 153, Mean Platelet Volume 6.0L, Neutrophils (%) (Auto) , Lymphocytes (%) ( Auto) , Monocytes (%) (Auto) , Eosinophils (%) (Auto) , Basophils (%) (Auto) , Differential Total Cells Counted 100, Neutrophils % (Manual) 84H, Lymphocytes % (Manual) 10L, Monocytes % (Manual) 5, Eosinophils % (Manual) 1, Basophils % ( Manual) 0, Band Neutrophils 0, Platelet Estimate Adequate, Platelet Morphology Normal, Red Blood Cell Morphology Normal, Sodium Level 142, Potassium Level 3.2L , Chloride Level 105, Carbon Dioxide Level 29, Anion Gap 9, Blood Urea Nitrogen 11, Creatinine 0.8, Estimat Glomerular Filtration Rate > 60, Glucose Level 245H , Calcium Level 8.8, Phosphorus Level 2.2L, Magnesium Level 1.7L, Total Bilirubin 2.2H, Direct Bilirubin 1.5H, Aspartate Amino Transf (AST/SGOT) 43H, Alanine Aminotransferase (ALT/SGPT) 128H, Alkaline Phosphatase 277H, Troponin I 0.011, C-Reactive Protein, Quantitative 15.4H, Pro-B-Type Natriuretic Peptide 2015H, Total Protein 6.4, Albumin 2.5L, Globulin 3.9, Albumin/Globulin Ratio 0.6L 06/06/19 05:20: White Blood Count 14.2#H, Red Blood Count 4.63L, Hemoglobin 11.1L, Hematocrit 33.2L, Mean Corpuscular Volume 72#L, Mean Corpuscular Hemoglobin 23.9L, Mean Corpuscular Hemoglobin Concent 33.4, Red Cell Distribution Width 18.7H, Platelet Count 213, Mean Platelet Volume 5.5L, Neutrophils (%) (Auto) 71.1, Lymphocytes (%) (Auto) 8.0L, Monocytes (%) (Auto) 14.0H, Eosinophils (%) (Auto) 4.6H, Basophils (%) (Auto) 2.3H, Sodium Level 136, Potassium Level 3.4L, Chloride Level 99, Carbon Dioxide Level 29, Anion Gap 8, Blood Urea Nitrogen 11 , Creatinine 1.4#H, Estimat Glomerular Filtration Rate 48.3, Glucose Level 111#H , Calcium Level 8.6, Total Bilirubin 1.0, Aspartate Amino Transf (AST/SGOT) 28, Alanine Aminotransferase (ALT/SGPT) 22, Alkaline Phosphatase 231H, Total Protein 5.6L, Albumin 2.4L, Globulin 3.2, Albumin/Globulin Ratio 0.8L Height (Feet): 5 Height (Inches): 7.00 Weight (Pounds): 85 General Appearance: no apparent distress Cardiovascular: normal rate Respiratory/Chest: decreased breath sounds Abdomen: soft Objective No change Travis Casey MD Jun 06, 2019 12:33
[2019-06-06] MEDS: cefTRIAXone 1 GM in D5W 55 ML IVPB SCH ×2 (13:00→13:42)
--- NOTE | 2019-06-06 13:13 | NUR ---
RD ASSESSMENT & RECOMMENDATIONS SEE CARE ACTIVITY FOR COMPLETE ASSESSMENT DAILY ESTIMATED NEEDS: Needs based on DM, liver dysfunction/ 68kg 25-30 kcals/kg 2359-1515 total kcals 1-1.5 g protein/kg 68-102 g total protein 25-30 mL/kg 3954-5410 total fluid mLs NUTRITION DIAGNOSIS: Altered nutrition related lab values r/t diabetes, + GB sludge + stones, and fatty liver per MD tty liver as evidenced by A1C 9.5, as evidenced by elev POC (196-328), adm w/ Uglu 4+, A1C of 8.8, elev LFTs, trend down. CURRENT DIET:CARDIAC PO DIET RECOMMENDATIONS: CARDIAC + CCHO MED ADDITIONAL RECOMMENDATIONS: 1) Obtain RE-calibrated bed scale wt (85# per EMR vs 150# per Bed wt) 2) Monitor BGs closely, consider long acting insulin for improved BG control 3) Monitor lytes, replete as needed .
--- NOTE | 2019-06-06 15:06 | Diagnostic Imaging Report ---
Indication: Acute cholecystitis, choledocholithiasis, abdominal pain Technique: Coronal and axial single shot fast spin-echo breath-hold, axial T2 FRFSE, 2-D thick slab MRCP, AXIAL 2-D FIESTA fat saturated, axial 3-D dual echo breath-hold, water weighted axial LAVA FLEX, images were obtained of the abdomen. MIP reconstructions were generated of the bile ducts Comparison: abdominal sonogram 06/03/2019 Findings: Exam is limited, as patient was unable to cooperate with breath-holding. 3 or 4 filling defects consistent with calculi are seen within the common bile duct, which is dilated, measures up to 12 mm in diameter. There is very mild central intrahepatic biliary duct dilatation. The small intraluminal calculi seen in the gallbladder on recent sonogram are not clearly evident on this exam, probably due to the motion artifact. The liver is grossly unremarkable. The pancreas demonstrates an ectatic pancreatic duct and mild atrophy, is otherwise unremarkable. The spleen and adrenals are unremarkable. Bilateral renal cysts are noted. There is evidence of prior TURP. No pelvic mass. There are degenerative changes of the lumbar spine, Impression: Limited exam, due to patient motion artifact Choledocholithiasis. Dilatation of the common bile duct, up to 12 mm in diameter. Note that small intraluminal gallstones demonstrated on previous sonogram are not clearly evident. This is probably due to motion artifact Incidental finding bilateral renal cysts
[2019-06-06 16:00] VITALS: BP 140/76
--- NOTE | 2019-06-06 17:28 | Coder Physician Query ---
Clarification is required for compliance, coding accuracy, and to reflect severity of illness for this patient Dear ____Sonja Date: 06/05 CDS Name: Kelli Rooney Presentation: The patient is a very poor historian and comes in because of fever of 102 at the intermediate.(H/P) NEUROLOGIC: Not oriented. (4) Encephalopathy acute(P.N 06/05) H/P: hypokalemia Please respond to the following question: Is there a diagnosis specific to these symptoms or values? If so please state below. PHYSICIAN RESPONSE: [ ] Metabolic Encephalopathy [ ] Other [ ] Unable to determine Present on Admission: [] Yes [] No [] Clinically Undetermined Physician signature Date Please also document in your Progress Notes and/or Discharge Summary and indicate if the condition was present on admission. THOR
--- NOTE | 2019-06-06 19:24 | NUR ---
HAND-OFF: Report given to ALICIA Valdez.
--- NOTE | 2019-06-06 19:45 | NUR ---
NURSE NOTES: Received patient comfortably sleeping, with bilateral soft wrist restraints on.
[2019-06-06 20:07] VITALS: BP 150/84
--- NOTE | 2019-06-06 21:21 | General Progress Note ---
Assessment/Plan Problem List: (1) Fever ICD Codes: R50.9 - Fever, unspecified SNOMED: 472598176 (2) Diabetes ICD Codes: E11.9 - Type 2 diabetes mellitus without complications SNOMED: 09296765 (3) Cholelithiases ICD Codes: K80.20 - Calculus of gallbladder without cholecystitis without obstruction SNOMED: 539227468 (4) Weakness ICD Codes: R53.1 - Weakness SNOMED: 31623872 (5) HTN (hypertension) ICD Codes: I10 - Essential (primary) hypertension SNOMED: 40220790 (6) Encephalopathy acute ICD Codes: G93.40 - Encephalopathy, unspecified SNOMED: 28353276, 567561484 (7) Choledocholithiasis with acute cholecystitis ICD Codes: K80.42 - Calculus of bile duct with acute cholecystitis without obstruction SNOMED: 76396560 (8) Cholecystitis ICD Codes: K81.9 - Cholecystitis, unspecified SNOMED: 84509206 (9) Hypoalbuminemia ICD Codes: E88.09 - Other disorders of plasma-protein metabolism, not elsewhere classified SNOMED: 272808512 Status: progressing Assessment/Plan: r/o covid low k azotemia worsening leukocytosis afebrile acute cholycystitis htn obs abx Subjective ROS Limited/Unobtainable: Yes Allergies: Coded Allergies: No Known Allergies (Unverified , 03/23/18) Objective Last 24 Hour Vital Signs Date Time Temp Pulse Resp B/P (MAP) Pulse Ox O2 Delivery O2 Flow Rate FiO2 06/06/19 21:11 Nasal Cannula 2.0 06/06/19 20:07 98.7 74 18 150/84 (106) 96 06/06/19 16:00 98.8 91 20 140/76 (97) 98 06/06/19 12:00 98.6 88 20 110/59 (76) 97 06/06/19 09:00 Nasal Cannula 2.0 06/06/19 08:00 98.0 79 20 121/75 (90) 98 06/06/19 04:12 98.2 66 19 133/71 (91) 96 06/06/19 00:00 98.0 65 20 123/65 (84) 95 Intake and Output 06/05/19 06/06/19 19:00 07:00 Intake Total 960 ml Balance 960 ml Intake Oral 960 ml # Voids 2 2 # Bowel Movements 1 Laboratory Tests 06/06/19 05:20: White Blood Count 14.2#H, Red Blood Count 4.63L, Hemoglobin 11.1L, Hematocrit 33.2L, Mean Corpuscular Volume 72#L, Mean Corpuscular Hemoglobin 23.9L, Mean Corpuscular Hemoglobin Concent 33.4, Red Cell Distribution Width 18.7H, Platelet Count 213, Mean Platelet Volume 5.5L, Neutrophils (%) (Auto) 71.1, Lymphocytes (%) (Auto) 8.0L, Monocytes (%) (Auto) 14.0H, Eosinophils (%) (Auto) 4.6H, Basophils (%) (Auto) 2.3H, Sodium Level 136, Potassium Level 3.4L, Chloride Level 99, Carbon Dioxide Level 29, Anion Gap 8, Blood Urea Nitrogen 11 , Creatinine 1.4#H, Estimat Glomerular Filtration Rate 48.3, Glucose Level 111#H , Calcium Level 8.6, Total Bilirubin 1.0, Aspartate Amino Transf (AST/SGOT) 28, Alanine Aminotransferase (ALT/SGPT) 22, Alkaline Phosphatase 231H, Total Protein 5.6L, Albumin 2.4L, Globulin 3.2, Albumin/Globulin Ratio 0.8L Height (Feet): 5 Height (Inches): 7.00 Weight (Pounds): 85 Cardiovascular: regular rhythm Abdomen: non tender Ally Gross MD Jun 06, 2019 21:21
[2019-06-07 00:13] VITALS: BP 154/89
[2019-06-07] MEDS: 1/2NS w/KCl 20mEq 1000ml 1,000 ML IV SCH ×2 (01:00→14:20)
[2019-06-07 04:00] VITALS: BP 149/82
[2019-06-07] MEDS: NovoLOG Insulin Flexpen SUBQ SCH ×4 (05:44→21:15)
[2019-06-07 07:19] LABS: ALANINE AMINOTRANSFERASE 79 U/L (12-78); ALBUMIN 2.5 G/DL (3.4-5.0); ALBUMIN/GLOBULIN RATIO 0.6 (1.0-2.7); ALKALINE PHOSPHATASE 326 U/L (46-116); ANION GAP 8 mmol/L (5-15); ASPARTATE AMINO TRANSFERASE 26 U/L (15-37); BILIRUBIN,TOTAL 1.3 MG/DL (0.2-1.0); BLOOD UREA NITROGEN 8 mg/dL (7-18); CARBON DIOXIDE 28 MMOL/L (21-32); CHLORIDE 105 MMOL/L (98-107); CREATININE 0.7 MG/DL (0.55-1.30); POTASSIUM 3.8 MMOL/L (3.5-5.1); SODIUM 141 MMOL/L (136-145)
[2019-06-07 07:28] LABS: BILIRUBIN,DIRECT 0.7 MG/DL (0.0-0.3); HEMATOCRIT 41.3 % (42.0-52.0); HEMOGLOBIN 14.6 G/DL (14.2-18.0); MEAN CORPUSCULAR VOLUME 84 FL (80-99); PLATELET COUNT 175 K/UL (150-450); RED BLOOD COUNT 4.88 M/UL (4.70-6.10); RED CELL DISTRIBUTION WIDTH 12.5 % (11.6-14.8); WHITE BLOOD COUNT 6.3 K/UL (4.8-10.8)
--- NOTE | 2019-06-07 07:40 | NUR ---
HAND-OFF: Report given to Sravanthi Martel RN.
[2019-06-07 07:44] LABS: PHOSPHORUS 3.4 MG/DL (2.5-4.9)
[2019-06-07 08:00] VITALS: BP 146/80
--- NOTE | 2019-06-07 08:11 | NUR ---
NURSE NOTES: Received report from Olya VARGAS, pt a/a/o laying in bed with no signs of distress or other issues at this time. per report pt is incontinent. per report patient has no IV access since pt has pull it multiple times, MD is aware. pt in bilateral soft wrist restrains. RN feed patient and able to eat 100% with no s/s of n/v. call light within reach, bed in lowest position. side rales up x2. I will f/u as needed.
[2019-06-07] MEDS: Pantoprazole Inj IVP SCH ×2 (09:28→21:00)
[2019-06-07] MEDS: Docusate 100mg cap ORAL SCH ×2 (09:28→17:55)
[2019-06-07] MEDS: Magnesium Oxide 400mg tab ORAL SCH ×3 (09:29→17:55)
--- NOTE | 2019-06-07 10:13 | General Progress Note ---
Assessment/Plan Status: progressing Assessment/Plan: 1. Coronary artery disease. 2. Diabetes. 3. Hypertension. 4. Myocardial infarction. 5. GB sludge + stones 6. fatty liver 7. Elevated LFTS us reviewed MRCP reviewed needs ERCP, will plan for tomorrow fu labs fu surg recs abx repeat labs in am Subjective ROS Limited/Unobtainable: No Allergies: Coded Allergies: No Known Allergies (Unverified , 03/23/18) Objective Last 24 Hour Vital Signs Date Time Temp Pulse Resp B/P (MAP) Pulse Ox O2 Delivery O2 Flow Rate FiO2 06/07/19 08:00 98.6 85 18 146/80 (102) 96 06/07/19 04:00 98.2 80 18 149/82 (104) 96 06/07/19 00:13 98.5 82 20 154/89 (110) 96 06/06/19 21:11 Nasal Cannula 2.0 06/06/19 20:07 98.7 74 18 150/84 (106) 96 06/06/19 16:00 98.8 91 20 140/76 (97) 98 06/06/19 12:00 98.6 88 20 110/59 (76) 97 Intake and Output 06/06/19 06/07/19 19:00 07:00 Intake Total 620 ml Balance 620 ml Intake Oral 620 ml # Voids 5 3 Laboratory Tests 06/07/19 05:30: White Blood Count 6.3#, Red Blood Count 4.88, Hemoglobin 14.6#, Hematocrit 41.3L , Mean Corpuscular Volume 84#, Mean Corpuscular Hemoglobin 29.9, Mean Corpuscular Hemoglobin Concent 35.4, Red Cell Distribution Width 12.5, Platelet Count 175, Mean Platelet Volume 5.8L, Neutrophils (%) (Auto) , Lymphocytes (%) ( Auto) , Monocytes (%) (Auto) , Eosinophils (%) (Auto) , Basophils (%) (Auto) , Neutrophils % (Manual) [Pending], Lymphocytes % (Manual) [Pending], Platelet Estimate [Pending], Platelet Morphology [Pending], Sodium Level 141, Potassium Level 3.8, Chloride Level 105, Carbon Dioxide Level 28, Anion Gap 8, Blood Urea Nitrogen 8, Creatinine 0.7, Estimat Glomerular Filtration Rate > 60, Glucose Level 180H, Calcium Level 9.0, Phosphorus Level 3.4, Magnesium Level 1.6L, Total Bilirubin 1.3H, Direct Bilirubin 0.7H, Gamma Glutamyl Transpeptidase 155H , Aspartate Amino Transf (AST/SGOT) 26, Alanine Aminotransferase (ALT/SGPT) 79H , Alkaline Phosphatase 326H, Total Protein 6.6, Albumin 2.5L, Globulin 4.1, Albumin/Globulin Ratio 0.6L, Carcinoembryonic Antigen [Pending], CA 19-9 Antigen [Pending] Height (Feet): 5 Height (Inches): 7.00 Weight (Pounds): 85 General Appearance: alert EENT: normal ENT inspection Neck: supple Cardiovascular: normal rate Respiratory/Chest: decreased breath sounds Abdomen: normal bowel sounds, non tender, soft Extremities: non-tender Yakov Quintero MD Jun 07, 2019 10:13
--- NOTE | 2019-06-07 10:45 | Consultation ---
DATE OF CONSULTATION: 06/03/2019 INCOMPLETE DICTATION CHIEF COMPLAINT: Abnormal liver function tests. HISTORY OF PRESENT ILLNESS: This is a 83-year-old gentleman who came from a [facility] complaining of shortness of breath. The patient also complained of abdominal pain. Yakov Quintero M.D. DR: Jenn JOB#: [id number] CC:
--- NOTE | 2019-06-07 11:41 | Infectious Diseases Prog Note ---
Assessment/Plan Assessment/Plan A 1.Strep and Ecoli sepsis 2. Cholelithiasis.? cholecystitis. 3. Diabetes. 4. Hypertension. 5. Leukocytosis, improving. 6. Elevated liver function tests. 7. Negative COVID19 PLAN: 1. Change Ceftriaxone & Zyvox to PO Augmentin 2. Clear of MRCP . 2. Case was D/W GI specialist Subjective ROS Limited/Unobtainable: Yes Neurologic: Reports: confusion, other - on restraint Allergies: Coded Allergies: No Known Allergies (Unverified , 03/23/18) Objective Vital Signs Last 24 Hour Vital Signs Date Time Temp Pulse Resp B/P (MAP) Pulse Ox O2 Delivery O2 Flow Rate FiO2 06/07/19 08:00 98.6 85 18 146/80 (102) 96 06/07/19 04:00 98.2 80 18 149/82 (104) 96 06/07/19 00:13 98.5 82 20 154/89 (110) 96 06/06/19 21:11 Nasal Cannula 2.0 06/06/19 20:07 98.7 74 18 150/84 (106) 96 06/06/19 16:00 98.8 91 20 140/76 (97) 98 06/06/19 12:00 98.6 88 20 110/59 (76) 97 Height (Feet): 5 Height (Inches): 7.00 Weight (Pounds): 85 General Appearance: no acute distress HEENT: mucous membranes moist Respiratory/Chest: lungs clear Cardiovascular: normal rate Abdomen: soft, non tender Extremities: no edema Neurologic/Psychiatric: alert, responsive, disoriented Laboratory Tests Test 06/07/19 05:30 White Blood Count 6.3 K/UL (4.8-10.8) # Red Blood Count 4.88 M/UL (4.70-6.10) Hemoglobin 14.6 G/DL (14.2-18.0) # Hematocrit 41.3 % (42.0-52.0) L Mean Corpuscular Volume 84 FL (80-99) # Mean Corpuscular Hemoglobin 29.9 PG (27.0-31.0) Mean Corpuscular Hemoglobin Concent 35.4 G/DL (32.0-36.0) Red Cell Distribution Width 12.5 % (11.6-14.8) Platelet Count 175 K/UL (150-450) Mean Platelet Volume 5.8 FL (6.5-10.1) L Neutrophils (%) (Auto) % (45.0-75.0) Lymphocytes (%) (Auto) % (20.0-45.0) Monocytes (%) (Auto) % (1.0-10.0) Eosinophils (%) (Auto) % (0.0-3.0) Basophils (%) (Auto) % (0.0-2.0) Differential Total Cells Counted 100 Neutrophils % (Manual) 76 % (45-75) H Lymphocytes % (Manual) 15 % (20-45) L Monocytes % (Manual) 7 % (1-10) Eosinophils % (Manual) 2 % (0-3) Basophils % (Manual) 0 % (0-2) Band Neutrophils 0 % (0-8) Platelet Estimate Adequate Platelet Morphology Normal Red Blood Cell Morphology Normal Sodium Level 141 MMOL/L (136-145) Potassium Level 3.8 MMOL/L (3.5-5.1) Chloride Level 105 MMOL/L (98-107) Carbon Dioxide Level 28 MMOL/L (21-32) Anion Gap 8 mmol/L (5-15) Blood Urea Nitrogen 8 mg/dL (7-18) Creatinine 0.7 MG/DL (0.55-1.30) Estimat Glomerular Filtration Rate > 60 mL/min (>60) Glucose Level 180 MG/DL (74-106) H Calcium Level 9.0 MG/DL (8.5-10.1) Phosphorus Level 3.4 MG/DL (2.5-4.9) Magnesium Level 1.6 MG/DL (1.8-2.4) L Total Bilirubin 1.3 MG/DL (0.2-1.0) H Direct Bilirubin 0.7 MG/DL (0.0-0.3) H Gamma Glutamyl Transpeptidase 155 U/L (5-85) H Aspartate Amino Transf (AST/SGOT) 26 U/L (15-37) Alanine Aminotransferase (ALT/SGPT) 79 U/L (12-78) H Alkaline Phosphatase 326 U/L (46-116) H Total Protein 6.6 G/DL (6.4-8.2) Albumin 2.5 G/DL (3.4-5.0) L Globulin 4.1 g/dL Albumin/Globulin Ratio 0.6 (1.0-2.7) L Carcinoembryonic Antigen Pending CA 19-9 Antigen Pending Current Medications Medications (Trade) Dose Ordered Sig/Charlette Route PRN Reason Start Time Stop Time Status Last Admin Dose Admin Acetaminophen (Tylenol) 500 mg Q4H PRN ORAL Mild Pain (Pain Scale 1-3) 06/03/19 16:45 07/03/19 16:44 Cefuroxime Axetil (Ceftin) 500 mg Q24H ORAL 06/06/19 21:00 06/13/19 20:59 06/06/19 20:58 Dextrose (Dextrose 50%) 25 ml Q30M PRN IV Hypoglycemia 06/03/19 16:00 09/01/19 15:59 Dextrose (Dextrose 50%) 50 ml Q30M PRN IV Hypoglycemia 06/03/19 16:00 09/01/19 15:59 Docusate Sodium (Colace) 100 mg TWICE A DAY ORAL 06/03/19 18:00 07/03/19 17:59 06/07/19 09:28 Haloperidol Lactate (Haldol) 5 mg Q6H PRN IM Agitation 06/04/19 16:15 07/19/19 16:14 06/06/19 09:40 Hydralazine HCl (Apresoline) 25 mg Q4H PRN ORAL bp over 160 syst 06/03/19 16:45 09/01/19 16:44 Insulin Aspart (NovoLOG) BEFORE MEALS AND HS SUBQ 06/03/19 16:30 09/01/19 16:29 06/07/19 05:44 Linezolid (Zyvox) 600 mg EVERY 12 HOURS ORAL 06/05/19 14:30 06/10/19 14:29 06/07/19 09:28 Magnesium Oxide (Mag-Ox 400mg) 400 mg THREE TIMES A DAY ORAL 06/07/19 09:00 07/07/19 08:59 06/07/19 09:29 Ondansetron HCl (Zofran) 4 mg Q6H PRN IV Nausea & Vomiting 06/03/19 16:45 07/03/19 16:44 Pantoprazole (Protonix) 40 mg EVERY 12 HOURS IVP 06/03/19 21:00 07/03/19 20:59 06/07/19 09:28 Risperidone (RisperDAL) 0.5 mg TID ORAL 06/04/19 18:00 07/19/19 17:59 06/07/19 09:28 Sodium 1,000 ml @ 75 mls/hr [id number] IV 06/03/19 17:00 07/03/19 16:59 06/04/19 05:20 Melvin Dominguez MD Jun 07, 2019 11:41
[2019-06-07 12:00] VITALS: BP 139/76
[2019-06-07] MEDS: Augmentin 875mg Tab ORAL SCH ×2 (12:41→21:13)
--- NOTE | 2019-06-07 12:41 | NUR ---
CASE MANAGEMENT: REVIEW SI: CHOLEDOCHOLITHIASIS w/ ACUTE CHOLECYSTITIS . DM . MRCP 06/05 COVID-19 NOT DETECTED T 98.6 HR 85 RR 18 BP 154/89 SAT 96% NC/2L MAG 1.6 T-BILI 1.3 D-BILI 0.7 ALT 79 IS: NS @ 75ML/HR PROTONIX IV Q12HR AUGMENTIN 875MG PO Q12HR NOVOLOG SUBQ AC+HS ERCP PENDING MED/SURG STATUS DCP: PATIENT IS FROM [facility]
--- NOTE | 2019-06-07 13:56 | Surgery Progress Note ---
Surgery Progress Note Subjective Additional Comments MRCP noted ERCP tomorrow discussed with GI Objective Last 24 Hour Vital Signs Date Time Temp Pulse Resp B/P (MAP) Pulse Ox O2 Delivery O2 Flow Rate FiO2 06/07/19 12:00 98.1 88 18 139/76 (97) 96 06/07/19 09:00 Nasal Cannula 2.0 06/07/19 08:00 98.6 85 18 146/80 (102) 96 06/07/19 04:00 98.2 80 18 149/82 (104) 96 06/07/19 00:13 98.5 82 20 154/89 (110) 96 06/06/19 21:11 Nasal Cannula 2.0 06/06/19 20:07 98.7 74 18 150/84 (106) 96 06/06/19 16:00 98.8 91 20 140/76 (97) 98 I&O Intake and Output 06/06/19 06/07/19 19:00 07:00 Intake Total 620 ml Balance 620 ml Intake Oral 620 ml # Voids 5 3 Cardiovascular: RSR Respiratory: decreased breath sounds Abdomen: soft, non-tender, present bowel sounds, non-distended Extremities: no edema, no tenderness, no cyanosis Laboratory Tests Test 06/07/19 05:30 White Blood Count 6.3 K/UL (4.8-10.8) # Red Blood Count 4.88 M/UL (4.70-6.10) Hemoglobin 14.6 G/DL (14.2-18.0) # Hematocrit 41.3 % (42.0-52.0) L Mean Corpuscular Volume 84 FL (80-99) # Mean Corpuscular Hemoglobin 29.9 PG (27.0-31.0) Mean Corpuscular Hemoglobin Concent 35.4 G/DL (32.0-36.0) Red Cell Distribution Width 12.5 % (11.6-14.8) Platelet Count 175 K/UL (150-450) Mean Platelet Volume 5.8 FL (6.5-10.1) L Neutrophils (%) (Auto) % (45.0-75.0) Lymphocytes (%) (Auto) % (20.0-45.0) Monocytes (%) (Auto) % (1.0-10.0) Eosinophils (%) (Auto) % (0.0-3.0) Basophils (%) (Auto) % (0.0-2.0) Differential Total Cells Counted 100 Neutrophils % (Manual) 76 % (45-75) H Lymphocytes % (Manual) 15 % (20-45) L Monocytes % (Manual) 7 % (1-10) Eosinophils % (Manual) 2 % (0-3) Basophils % (Manual) 0 % (0-2) Band Neutrophils 0 % (0-8) Platelet Estimate Adequate Platelet Morphology Normal Red Blood Cell Morphology Normal Sodium Level 141 MMOL/L (136-145) Potassium Level 3.8 MMOL/L (3.5-5.1) Chloride Level 105 MMOL/L (98-107) Carbon Dioxide Level 28 MMOL/L (21-32) Anion Gap 8 mmol/L (5-15) Blood Urea Nitrogen 8 mg/dL (7-18) Creatinine 0.7 MG/DL (0.55-1.30) Estimat Glomerular Filtration Rate > 60 mL/min (>60) Glucose Level 180 MG/DL (74-106) H Calcium Level 9.0 MG/DL (8.5-10.1) Phosphorus Level 3.4 MG/DL (2.5-4.9) Magnesium Level 1.6 MG/DL (1.8-2.4) L Total Bilirubin 1.3 MG/DL (0.2-1.0) H Direct Bilirubin 0.7 MG/DL (0.0-0.3) H Gamma Glutamyl Transpeptidase 155 U/L (5-85) H Aspartate Amino Transf (AST/SGOT) 26 U/L (15-37) Alanine Aminotransferase (ALT/SGPT) 79 U/L (12-78) H Alkaline Phosphatase 326 U/L (46-116) H Total Protein 6.6 G/DL (6.4-8.2) Albumin 2.5 G/DL (3.4-5.0) L Globulin 4.1 g/dL Albumin/Globulin Ratio 0.6 (1.0-2.7) L Carcinoembryonic Antigen Pending CA 19-9 Antigen Pending Plan Problems: (1) Choledocholithiasis with acute cholecystitis Assessment & Plan: 84-year-old male with leukocytosis, lactic acidosis, elevated LFTs, elevated T bilirubin direct and indirect indicative of potential duct obstruction, ultrasound with stones and liver disease. Physical examination fairly benign patient does not elicit any tenderness on right upper quadrant palpation. Labs noted and reviewed Imaging reviewed Would recommend an MRI but given patient's current condition and potential COVID r/o will hold on MRI as he is stable trend labs GI eval npo iv fluids iv abx will follow with recs d/c hida pending MRCP no surgical intervention planned at this time thank you MRCP noted ERCP tomorrow (2) Cholecystitis Assessment & Plan: Gallbladder demonstrates dependent layering of sludge and small stones. Sonographic Swift's sign is negative. Common bile duct measures 9 mm in diameter. No intrahepatic biliary ductal dilatation. Liver demonstrates diffusely increased echogenicity, consistent with diffuse hepatocellular disease, most likely fatty change. There is an area of focal sparing in the usual location adjacent to the gallbladder fossa. Portal vein and hepatic veins are patent. Pancreas is unremarkable. Spleen is unremarkable. Left kidney measures 11.4 cm in length. Right kidney measures 11 cm length. Both kidneys demonstrate normal echogenicity. There is no hydronephrosis. There are small cysts in both kidneys . Non- aneurysmal abdominal aorta . Impression: Cholelithiasis and gallbladder sludge Mildly dilated common bile duct. May be related to senescent changes, but downstream obstruction also possible. Correlate with liver function tests Liver demonstrates diffusely increased echogenicity, consistent with diffuse hepatocellular disease, most likely fatty change. Note area of focal sparing adjacent to the gallbladder fossa (3) Constipation (4) Balanitis (5) Fever (6) Cholelithiases (7) Diabetes (8) Weakness (9) Altered mental status (10) HTN (hypertension) (11) Encephalopathy acute (12) BPH (benign prostatic hyperplasia) (13) MDD (major depressive disorder), recurrent episode (14) Uncontrolled blood glucose Mark Valero Jun 07, 2019 13:56
[2019-06-07 16:00] VITALS: BP 142/80
--- NOTE | 2019-06-07 18:37 | Nephrology Progress Note ---
Assessment/Plan Problem List: (1) Electrolyte imbalance (2) Hypoalbuminemia (3) Diabetes (4) Encephalopathy acute (5) BPH (benign prostatic hyperplasia) (6) Choledocholithiasis with acute cholecystitis Assessment Hypokalemia Hypoalbuminemia coronary artery disease. Diabetes. Hypertension. Myocardial infarction. GB sludge + stones Cholelithiasis and gallbladder sludge fatty liver Elevated LFTS Plan Patient now on cardiac diet Magnesium sulfate p.o. to be started today IV hydration with potassium supplement Monitor electrolytes Monitor liver function enzymes which appears to be improving Per consultants Subjective ROS Limited/Unobtainable: No Constitutional: Reports: malaise, weakness Objective Objective Last 24 Hour Vital Signs Date Time Temp Pulse Resp B/P (MAP) Pulse Ox O2 Delivery O2 Flow Rate FiO2 06/07/19 16:00 98.3 90 18 142/80 (100) 96 06/07/19 12:00 98.1 88 18 139/76 (97) 96 06/07/19 09:00 Nasal Cannula 2.0 06/07/19 08:00 98.6 85 18 146/80 (102) 96 06/07/19 04:00 98.2 80 18 149/82 (104) 96 06/07/19 00:13 98.5 82 20 154/89 (110) 96 06/06/19 21:11 Nasal Cannula 2.0 06/06/19 20:07 98.7 74 18 150/84 (106) 96 Intake and Output 06/06/19 06/07/19 19:00 07:00 Intake Total 620 ml Balance 620 ml Intake Oral 620 ml # Voids 5 3 Current Medications Medications (Trade) Dose Ordered Sig/Charlette Route PRN Reason Start Time Stop Time Status Last Admin Dose Admin Acetaminophen (Tylenol) 500 mg Q4H PRN ORAL Mild Pain (Pain Scale 1-3) 06/03/19 16:45 07/03/19 16:44 Amoxicillin/ Clavulanate Potassium (Augmentin) 875 mg EVERY 12 HOURS ORAL 06/07/19 13:00 06/14/19 12:59 06/07/19 12:41 Dextrose (Dextrose 50%) 25 ml Q30M PRN IV Hypoglycemia 06/03/19 16:00 09/01/19 15:59 Dextrose (Dextrose 50%) 50 ml Q30M PRN IV Hypoglycemia 06/03/19 16:00 09/01/19 15:59 Docusate Sodium (Colace) 100 mg TWICE A DAY ORAL 06/03/19 18:00 07/03/19 17:59 06/07/19 17:55 Haloperidol Lactate (Haldol) 5 mg Q6H PRN IM Agitation 06/04/19 16:15 07/19/19 16:14 06/06/19 09:40 Hydralazine HCl (Apresoline) 25 mg Q4H PRN ORAL bp over 160 syst 06/03/19 16:45 09/01/19 16:44 Insulin Aspart (NovoLOG) BEFORE MEALS AND HS SUBQ 06/03/19 16:30 09/01/19 16:29 06/07/19 17:55 Magnesium Oxide (Mag-Ox 400mg) 400 mg THREE TIMES A DAY ORAL 06/07/19 09:00 07/07/19 08:59 06/07/19 17:55 Ondansetron HCl (Zofran) 4 mg Q6H PRN IV Nausea & Vomiting 06/03/19 16:45 07/03/19 16:44 Pantoprazole (Protonix) 40 mg EVERY 12 HOURS IVP 06/03/19 21:00 07/03/19 20:59 06/07/19 09:28 Risperidone (RisperDAL) 0.5 mg TID ORAL 06/04/19 18:00 07/19/19 17:59 06/07/19 17:56 Sodium 1,000 ml @ 75 mls/hr [id number] IV 06/03/19 17:00 07/03/19 16:59 06/04/19 05:20 Laboratory Tests 06/07/19 05:30: White Blood Count 6.3#, Red Blood Count 4.88, Hemoglobin 14.6#, Hematocrit 41.3L , Mean Corpuscular Volume 84#, Mean Corpuscular Hemoglobin 29.9, Mean Corpuscular Hemoglobin Concent 35.4, Red Cell Distribution Width 12.5, Platelet Count 175, Mean Platelet Volume 5.8L, Neutrophils (%) (Auto) , Lymphocytes (%) ( Auto) , Monocytes (%) (Auto) , Eosinophils (%) (Auto) , Basophils (%) (Auto) , Differential Total Cells Counted 100, Neutrophils % (Manual) 76H, Lymphocytes % (Manual) 15L, Monocytes % (Manual) 7, Eosinophils % (Manual) 2, Basophils % ( Manual) 0, Band Neutrophils 0, Platelet Estimate Adequate, Platelet Morphology Normal, Red Blood Cell Morphology Normal, Sodium Level 141, Potassium Level 3.8 , Chloride Level 105, Carbon Dioxide Level 28, Anion Gap 8, Blood Urea Nitrogen 8, Creatinine 0.7, Estimat Glomerular Filtration Rate > 60, Glucose Level 180H, Calcium Level 9.0, Phosphorus Level 3.4, Magnesium Level 1.6L, Total Bilirubin 1.3H, Direct Bilirubin 0.7H, Gamma Glutamyl Transpeptidase 155H, Aspartate Amino Transf (AST/SGOT) 26, Alanine Aminotransferase (ALT/SGPT) 79H, Alkaline Phosphatase 326H, Total Protein 6.6, Albumin 2.5L, Globulin 4.1, Albumin/ Globulin Ratio 0.6L, Carcinoembryonic Antigen [Pending], CA 19-9 Antigen [ Pending] Height (Feet): 5 Height (Inches): 7.00 Weight (Pounds): 85 General Appearance: no apparent distress, lethargic Cardiovascular: normal rate Respiratory/Chest: decreased breath sounds Abdomen: soft Objective No change Travis Casey MD Jun 07, 2019 18:37
--- NOTE | 2019-06-07 19:24 | NUR ---
NUHAND-OFF: Report given to Olya VARGAS, pt in stable condition. - consent sign for ERCP for tomorrow morning (9:00).
[2019-06-07 20:00] VITALS: BP 121/67
--- NOTE | 2019-06-07 21:33 | General Progress Note ---
Assessment/Plan Problem List: (1) Fever ICD Codes: R50.9 - Fever, unspecified SNOMED: 093232957 (2) Diabetes ICD Codes: E11.9 - Type 2 diabetes mellitus without complications SNOMED: 83103863 (3) Cholelithiases ICD Codes: K80.20 - Calculus of gallbladder without cholecystitis without obstruction SNOMED: 896698917 (4) Weakness ICD Codes: R53.1 - Weakness SNOMED: 60638636 (5) HTN (hypertension) ICD Codes: I10 - Essential (primary) hypertension SNOMED: 01148900 (6) Encephalopathy acute ICD Codes: G93.40 - Encephalopathy, unspecified SNOMED: 66465271, 941281878 (7) Choledocholithiasis with acute cholecystitis ICD Codes: K80.42 - Calculus of bile duct with acute cholecystitis without obstruction SNOMED: 98606982 (8) Cholecystitis ICD Codes: K81.9 - Cholecystitis, unspecified SNOMED: 86140353 (9) Hypoalbuminemia ICD Codes: E88.09 - Other disorders of plasma-protein metabolism, not elsewhere classified SNOMED: 881160706 Status: progressing Assessment/Plan: r/o covid low k replaced abx per id weak afebrile azotemia acute cholycystitis h Subjective ROS Limited/Unobtainable: Yes Allergies: Coded Allergies: No Known Allergies (Unverified , 03/23/18) Objective Last 24 Hour Vital Signs Date Time Temp Pulse Resp B/P (MAP) Pulse Ox O2 Delivery O2 Flow Rate FiO2 06/07/19 21:29 Nasal Cannula 2.0 06/07/19 20:00 96.3 78 18 121/67 (85) 96 06/07/19 16:00 98.3 90 18 142/80 (100) 96 06/07/19 12:00 98.1 88 18 139/76 (97) 96 06/07/19 09:00 Nasal Cannula 2.0 06/07/19 08:00 98.6 85 18 146/80 (102) 96 06/07/19 04:00 98.2 80 18 149/82 (104) 96 06/07/19 00:13 98.5 82 20 154/89 (110) 96 Intake and Output 06/06/19 06/07/19 19:00 07:00 Intake Total 620 ml Balance 620 ml Intake Oral 620 ml # Voids 5 3 Laboratory Tests 06/07/19 05:30: White Blood Count 6.3#, Red Blood Count 4.88, Hemoglobin 14.6#, Hematocrit 41.3L , Mean Corpuscular Volume 84#, Mean Corpuscular Hemoglobin 29.9, Mean Corpuscular Hemoglobin Concent 35.4, Red Cell Distribution Width 12.5, Platelet Count 175, Mean Platelet Volume 5.8L, Neutrophils (%) (Auto) , Lymphocytes (%) ( Auto) , Monocytes (%) (Auto) , Eosinophils (%) (Auto) , Basophils (%) (Auto) , Differential Total Cells Counted 100, Neutrophils % (Manual) 76H, Lymphocytes % (Manual) 15L, Monocytes % (Manual) 7, Eosinophils % (Manual) 2, Basophils % ( Manual) 0, Band Neutrophils 0, Platelet Estimate Adequate, Platelet Morphology Normal, Red Blood Cell Morphology Normal, Sodium Level 141, Potassium Level 3.8 , Chloride Level 105, Carbon Dioxide Level 28, Anion Gap 8, Blood Urea Nitrogen 8, Creatinine 0.7, Estimat Glomerular Filtration Rate > 60, Glucose Level 180H, Calcium Level 9.0, Phosphorus Level 3.4, Magnesium Level 1.6L, Total Bilirubin 1.3H, Direct Bilirubin 0.7H, Gamma Glutamyl Transpeptidase 155H, Aspartate Amino Transf (AST/SGOT) 26, Alanine Aminotransferase (ALT/SGPT) 79H, Alkaline Phosphatase 326H, Total Protein 6.6, Albumin 2.5L, Globulin 4.1, Albumin/ Globulin Ratio 0.6L, Carcinoembryonic Antigen [Pending], CA 19-9 Antigen [ Pending] Height (Feet): 5 Height (Inches): 7.00 Weight (Pounds): 85 Cardiovascular: normal rate Respiratory/Chest: lungs clear Ally Gross MD Jun 07, 2019 21:33
[2019-06-08] VITALS (10 sets, daily range): BP systolic 83–132; BP diastolic 63–85
[2019-06-08] MEDS: 1/2NS w/KCl 20mEq 1000ml 1,000 ML IV SCH (03:40)
[2019-06-08] MEDS: NovoLOG Insulin Flexpen SUBQ SCH ×3 (06:15→16:30)
--- NOTE | 2019-06-08 07:19 | NUR ---
HAND-OFF: Report given to Lauren Mancera LVN.
--- NOTE | 2019-06-08 07:20 | NUR ---
NURSE NOTES: Received report from Olya RN, pt a/a/oX1, confused. lying in bed supine. no signs of distress noted. patient is incontinentx2. IV access patent and intact. On bilateral soft wrist restrains from pulling out tubings. NPO for ERCP. consent signed by mundo. call light within reach, bed in lowest position. siderails up x3. brakes and lock engaged. will cont to monitor.
[2019-06-08] MEDS ORDERED: AUGMENTIN 875-1 EAC1 ORAL (08:56)
[2019-06-08] MEDS: Magnesium Oxide 400mg tab ORAL SCH ×2 (09:00→12:05)
[2019-06-08] MEDS: Augmentin 875mg Tab ORAL SCH (09:00)
[2019-06-08] MEDS: Docusate 100mg cap ORAL SCH (09:00)
--- NOTE | 2019-06-08 09:02 | Pre-Procedure Note/Attestation ---
Pre-Procedure Note/Attestation Complete Prior to Procedure Planned Procedure: not applicable Procedure Narrative: ercp Indications for Procedure Pre-Operative Diagnosis: choledocholithiasis Attestation I attest that I discussed the nature of the procedure; its benefits; risks and complications; and alternatives (and the risks and benefits of such alternatives ), prior to the procedure, with the patient (or the patient's legal financial service representative). I attest that, if there was a reasonable possibility of needing a blood transfusion, the patient (or the patient's legal financial service representative) was given the [facility] standardized written summary, pursuant to the [place] Nina Blood Safety Act ([place] Health and Safety Code # 1645, as amended). I attest that I re-evaluated the patient just prior to the surgery and that there has been no change in the patient's H&P, except as documented below: Yakov Quintero MD Jun 08, 2019 09:02
[2019-06-08] MEDS: Pantoprazole Inj IVP SCH (09:22)
[2019-06-08 09:25] LABS: EOSINOPHILS % (AUTO) 5.9 % (0.0-3.0); HEMATOCRIT 39.6 % (42.0-52.0); HEMOGLOBIN 13.7 G/DL (14.2-18.0); LYMPHOCYTES % (AUTO) 14.3 % (20.0-45.0); MEAN CORPUSCULAR VOLUME 85 FL (80-99); MONOCYTES % (AUTO) 7.5 % (1.0-10.0); NEUTROPHILS % (AUTO) 71.3 % (45.0-75.0); PLATELET COUNT 187 K/UL (150-450); RED BLOOD COUNT 4.66 M/UL (4.70-6.10); RED CELL DISTRIBUTION WIDTH 12.3 % (11.6-14.8); WHITE BLOOD COUNT 6.7 K/UL (4.8-10.8)
[2019-06-08 09:51] LABS: ALANINE AMINOTRANSFERASE 65 U/L (12-78); ALBUMIN 2.2 G/DL (3.4-5.0); ALBUMIN/GLOBULIN RATIO 0.5 (1.0-2.7); ALKALINE PHOSPHATASE 317 U/L (46-116); ANION GAP 10 mmol/L (5-15); ASPARTATE AMINO TRANSFERASE 26 U/L (15-37); BILIRUBIN,TOTAL 1.1 MG/DL (0.2-1.0); BLOOD UREA NITROGEN 9 mg/dL (7-18); CALCIUM 8.4 MG/DL (8.5-10.1); CARBON DIOXIDE 24 MMOL/L (21-32); CHLORIDE 106 MMOL/L (98-107); CREATININE 0.7 MG/DL (0.55-1.30); SODIUM 140 MMOL/L (136-145)
[2019-06-08 09:54] LABS: BILIRUBIN,DIRECT 0.4 MG/DL (0.0-0.3)
--- NOTE | 2019-06-08 10:01 | Surgery Progress Note ---
Surgery Progress Note Subjective Additional Comments ERCP today comfortable labs improved no acute events Objective Last 24 Hour Vital Signs Date Time Temp Pulse Resp B/P (MAP) Pulse Ox O2 Delivery O2 Flow Rate FiO2 06/08/19 08:00 98.3 82 18 121/85 (97) 96 06/08/19 04:17 98.2 70 18 132/76 (94) 95 06/08/19 00:33 97.7 72 20 126/66 (86) 97 06/07/19 21:29 Nasal Cannula 2.0 06/07/19 20:00 96.3 78 18 121/67 (85) 96 06/07/19 16:00 98.3 90 18 142/80 (100) 96 06/07/19 12:00 98.1 88 18 139/76 (97) 96 I&O Intake and Output 06/07/19 06/08/19 19:00 07:00 Intake Total 700 ml 300 ml Balance 700 ml 300 ml Intake Oral 700 ml IV Total 300 ml # Voids 3 2 Cardiovascular: RSR Respiratory: clear Abdomen: soft, non-tender, present bowel sounds Extremities: no tenderness, no cyanosis Laboratory Tests Test 06/08/19 09:00 White Blood Count 6.7 K/UL (4.8-10.8) Red Blood Count 4.66 M/UL (4.70-6.10) L Hemoglobin 13.7 G/DL (14.2-18.0) L Hematocrit 39.6 % (42.0-52.0) L Mean Corpuscular Volume 85 FL (80-99) Mean Corpuscular Hemoglobin 29.3 PG (27.0-31.0) Mean Corpuscular Hemoglobin Concent 34.5 G/DL (32.0-36.0) Red Cell Distribution Width 12.3 % (11.6-14.8) Platelet Count 187 K/UL (150-450) Mean Platelet Volume 5.5 FL (6.5-10.1) L Neutrophils (%) (Auto) 71.3 % (45.0-75.0) Lymphocytes (%) (Auto) 14.3 % (20.0-45.0) L Monocytes (%) (Auto) 7.5 % (1.0-10.0) Eosinophils (%) (Auto) 5.9 % (0.0-3.0) H Basophils (%) (Auto) 1.0 % (0.0-2.0) Sodium Level 140 MMOL/L (136-145) Potassium Level 4.0 MMOL/L (3.5-5.1) Chloride Level 106 MMOL/L (98-107) Carbon Dioxide Level 24 MMOL/L (21-32) Anion Gap 10 mmol/L (5-15) Blood Urea Nitrogen 9 mg/dL (7-18) Creatinine 0.7 MG/DL (0.55-1.30) Estimat Glomerular Filtration Rate > 60 mL/min (>60) Glucose Level 250 MG/DL (74-106) H Calcium Level 8.4 MG/DL (8.5-10.1) L Total Bilirubin 1.1 MG/DL (0.2-1.0) H Direct Bilirubin 0.4 MG/DL (0.0-0.3) H Aspartate Amino Transf (AST/SGOT) 26 U/L (15-37) Alanine Aminotransferase (ALT/SGPT) 65 U/L (12-78) Alkaline Phosphatase 317 U/L (46-116) H Total Protein 6.3 G/DL (6.4-8.2) L Albumin 2.2 G/DL (3.4-5.0) L Globulin 4.1 g/dL Albumin/Globulin Ratio 0.5 (1.0-2.7) L Plan Problems: (1) Choledocholithiasis with acute cholecystitis Assessment & Plan: 84-year-old male with leukocytosis, lactic acidosis, elevated LFTs, elevated T bilirubin direct and indirect indicative of potential duct obstruction, ultrasound with stones and liver disease. Physical examination fairly benign patient does not elicit any tenderness on right upper quadrant palpation. Labs noted and reviewed Imaging reviewed Would recommend an MRI but given patient's current condition and potential COVID r/o will hold on MRI as he is stable trend labs GI eval npo iv fluids iv abx will follow with recs d/c hida pending MRCP no surgical intervention planned at this time thank you MRCP noted ERCP today ? cholecystectomy (2) Cholecystitis Assessment & Plan: Gallbladder demonstrates dependent layering of sludge and small stones. Sonographic Swift's sign is negative. Common bile duct measures 9 mm in diameter. No intrahepatic biliary ductal dilatation. Liver demonstrates diffusely increased echogenicity, consistent with diffuse hepatocellular disease, most likely fatty change. There is an area of focal sparing in the usual location adjacent to the gallbladder fossa. Portal vein and hepatic veins are patent. Pancreas is unremarkable. Spleen is unremarkable. Left kidney measures 11.4 cm in length. Right kidney measures 11 cm length. Both kidneys demonstrate normal echogenicity. There is no hydronephrosis. There are small cysts in both kidneys . Non- aneurysmal abdominal aorta . Impression: Cholelithiasis and gallbladder sludge Mildly dilated common bile duct. May be related to senescent changes, but downstream obstruction also possible. Correlate with liver function tests Liver demonstrates diffusely increased echogenicity, consistent with diffuse hepatocellular disease, most likely fatty change. Note area of focal sparing adjacent to the gallbladder fossa (3) Constipation (4) Balanitis (5) Fever (6) Cholelithiases (7) Diabetes (8) Weakness (9) Altered mental status (10) HTN (hypertension) (11) Encephalopathy acute (12) BPH (benign prostatic hyperplasia) (13) MDD (major depressive disorder), recurrent episode (14) Uncontrolled blood glucose Mark Valero Jun 08, 2019 10:01
--- NOTE | 2019-06-08 10:15 | Nephrology Progress Note ---
Assessment/Plan Problem List: (1) Electrolyte imbalance (2) Hypoalbuminemia (3) Diabetes (4) Encephalopathy acute (5) BPH (benign prostatic hyperplasia) (6) Choledocholithiasis with acute cholecystitis Assessment Hypokalemia Hypoalbuminemia coronary artery disease. Diabetes. Hypertension. Myocardial infarction. GB sludge + stones Cholelithiasis and gallbladder sludge fatty liver Elevated LFTS Plan Patient now on cardiac diet Magnesium sulfate p.o. to be started today IV hydration with potassium supplement Monitor electrolytes Monitor liver function enzymes which appears to be improving Per consultants Subjective ROS Limited/Unobtainable: No Constitutional: Reports: malaise, weakness Objective Objective Last 24 Hour Vital Signs Date Time Temp Pulse Resp B/P (MAP) Pulse Ox O2 Delivery O2 Flow Rate FiO2 06/08/19 08:00 98.3 82 18 121/85 (97) 96 06/08/19 04:17 98.2 70 18 132/76 (94) 95 06/08/19 00:33 97.7 72 20 126/66 (86) 97 06/07/19 21:29 Nasal Cannula 2.0 06/07/19 20:00 96.3 78 18 121/67 (85) 96 06/07/19 16:00 98.3 90 18 142/80 (100) 96 06/07/19 12:00 98.1 88 18 139/76 (97) 96 Intake and Output 06/07/19 06/08/19 19:00 07:00 Intake Total 700 ml 300 ml Balance 700 ml 300 ml Intake Oral 700 ml IV Total 300 ml # Voids 3 2 Laboratory Tests 06/08/19 09:00: White Blood Count 6.7, Red Blood Count 4.66L, Hemoglobin 13.7L, Hematocrit 39.6L , Mean Corpuscular Volume 85, Mean Corpuscular Hemoglobin 29.3, Mean Corpuscular Hemoglobin Concent 34.5, Red Cell Distribution Width 12.3, Platelet Count 187, Mean Platelet Volume 5.5L, Neutrophils (%) (Auto) 71.3, Lymphocytes ( %) (Auto) 14.3L, Monocytes (%) (Auto) 7.5, Eosinophils (%) (Auto) 5.9H, Basophils (%) (Auto) 1.0, Sodium Level 140, Potassium Level 4.0, Chloride Level 106, Carbon Dioxide Level 24, Anion Gap 10, Blood Urea Nitrogen 9, Creatinine 0.7, Estimat Glomerular Filtration Rate > 60, Glucose Level 250H, Calcium Level 8.4L, Total Bilirubin 1.1H, Direct Bilirubin 0.4H, Aspartate Amino Transf (AST/ SGOT) 26, Alanine Aminotransferase (ALT/SGPT) 65, Alkaline Phosphatase 317H, Total Protein 6.3L, Albumin 2.2L, Globulin 4.1, Albumin/Globulin Ratio 0.5L Height (Feet): 5 Height (Inches): 5.00 Weight (Pounds): 151 General Appearance: no apparent distress, lethargic Objective No change Travis Casey MD Jun 08, 2019 10:15
--- NOTE | 2019-06-08 10:27 | NUR ---
DISCHARGE PLANNING PATIENT HAS BEEN REFERRED BACK TO [facility] P: [phone] F: [phone] Addendum: 06/08/19 at 1117 by KEITH SANCHEZ LVN LVN FOLLOW UP CALL MADE TO [facility]. S/W ALEXIS. CONFIRMED PATIENT ACCEPTED TO RETURN WITH ROOM ASSIGNMENT 12-A SKILLED AMBULANCE TRANSPORTATION SCHEDULED ON WILL CALL. PATIENT TO BE DISCHARGED AFTER ERCP PROCEDURE. Addendum: 06/08/19 at 1131 by KEITH SANCHEZ LVN LVN CALL MADE TO PATIENTS NEXT OF KIN TO INFORM PATIENT WILL BE DISCHARGED TODAY BACK TO [facility]. NO ANSWER. CATRINA LEFT.
[2019-06-08] MEDS ORDERED: Lidocaine 1% Plain 30 ml INJ ONE (10:35)
[2019-06-08] MEDS ORDERED: LR 1000ml 1,000 ML IVLG SCH (11:09)
[2019-06-08] MEDS ORDERED: LORazepam Inj 2mg/ml 1ml IV PRN (11:15)
[2019-06-08] MEDS ORDERED: fentaNYL 100 mcg/2 mL IV PRN (11:15)
[2019-06-08] MEDS ORDERED: Meperidine 25mg/0.5ml Inj (FOR RIGORS ONLY) IV PRN (11:15)
[2019-06-08] MEDS ORDERED: Midazolam 2mg/2ml Inj IVP PRN (11:15)
[2019-06-08] MEDS ORDERED: Hydromorphone 0.5mg/0.5ml inj IVP PRN (11:15)
[2019-06-08] MEDS ORDERED: Labetalol 5mg/ml 20ml vial IV PRN (11:15)
[2019-06-08] MEDS ORDERED: DiphenhydrAMINE 50mg/ml Inj IVP PRN (11:15)
[2019-06-08] MEDS ORDERED: Ketorolac 30mg Inj IV PRN ×2 (11:15)
[2019-06-08] MEDS ORDERED: HYDROcodone/Acetamin 5/325 tab ORAL PRN (11:15)
[2019-06-08] MEDS ORDERED: HYDROcodone/Acetamin 7.5/325 tab ORAL PRN (11:15)
[2019-06-08] MEDS ORDERED: oxyCODONE HCL/Acetaminophen 5/325mg ORAL PRN (11:15)
[2019-06-08] MEDS ORDERED: Atropine Sulfate 0.4mg/ml inj IVP PRN (11:15)
--- NOTE | 2019-06-08 11:15 | Anethesia Preoperative Eval ---
Anesthesia Pre-op PMH/ROS General Date of Evaluation: Jun 08, 2019 Time of Evaluation: 11:47 Anesthesiologist: Ravindra ASA Score: ASA 4 Mallampati Score Class I : Soft palate, uvula, fauces, pillars visible Class II: Soft palate, uvula, fauces visible Class III: Soft palate, base of uvula visible Class IV: Only hard plate visible Mallampati Classification: Class III Surgeon: Leon Diagnosis: Abd Pain Surgical Procedure: ERCP Anesthesia History: none Family History: no anesthesia problems Allergies: Coded Allergies: No Known Allergies (Unverified , 03/23/18) Medications: see eMAR Patient NPO?: Yes Past Medical History Cardiovascular: Reports: HTN, CAD Gastrointestinal/Genitourinary: Reports: other - Incontinence Neurologic/Psychiatric: Reports: dementia, other - Schizophrenia Endocrine: Reports: DM Musculoskeletal/Integumentary: Reports: other - Weakness Anesthesia Pre-op Phys. Exam Physician Exam Last Vital Signs Date Time Temp Pulse Resp B/P (MAP) Pulse Ox O2 Delivery O2 Flow Rate FiO2 06/08/19 08:00 98.3 82 18 121/85 (97) 96 06/07/19 21:29 Nasal Cannula 2.0 Constitutional: NAD Neurologic: CN 2-12 intact Cardiovascular: RRR Respiratory: CTA Gastrointestinal: S/NT/ND Airway Exam Mallampati Score: Class III MO: limited ROM: limited Teeth: missing, intact Anesthesia Pre-op A/P Labs Hematology Test 06/08/19 09:00 White Blood Count 6.7 K/UL (4.8-10.8) Red Blood Count 4.66 M/UL (4.70-6.10) L Hemoglobin 13.7 G/DL (14.2-18.0) L Hematocrit 39.6 % (42.0-52.0) L Mean Corpuscular Volume 85 FL (80-99) Mean Corpuscular Hemoglobin 29.3 PG (27.0-31.0) Mean Corpuscular Hemoglobin Concent 34.5 G/DL (32.0-36.0) Red Cell Distribution Width 12.3 % (11.6-14.8) Platelet Count 187 K/UL (150-450) Mean Platelet Volume 5.5 FL (6.5-10.1) L Neutrophils (%) (Auto) 71.3 % (45.0-75.0) Lymphocytes (%) (Auto) 14.3 % (20.0-45.0) L Monocytes (%) (Auto) 7.5 % (1.0-10.0) Eosinophils (%) (Auto) 5.9 % (0.0-3.0) H Basophils (%) (Auto) 1.0 % (0.0-2.0) Chemistry Test 06/08/19 09:00 Sodium Level 140 MMOL/L (136-145) Potassium Level 4.0 MMOL/L (3.5-5.1) Chloride Level 106 MMOL/L (98-107) Carbon Dioxide Level 24 MMOL/L (21-32) Anion Gap 10 mmol/L (5-15) Blood Urea Nitrogen 9 mg/dL (7-18) Creatinine 0.7 MG/DL (0.55-1.30) Estimat Glomerular Filtration Rate > 60 mL/min (>60) Glucose Level 250 MG/DL (74-106) H Calcium Level 8.4 MG/DL (8.5-10.1) L Total Bilirubin 1.1 MG/DL (0.2-1.0) H Direct Bilirubin 0.4 MG/DL (0.0-0.3) H Aspartate Amino Transf (AST/SGOT) 26 U/L (15-37) Alanine Aminotransferase (ALT/SGPT) 65 U/L (12-78) Alkaline Phosphatase 317 U/L (46-116) H Total Protein 6.3 G/DL (6.4-8.2) L Albumin 2.2 G/DL (3.4-5.0) L Globulin 4.1 g/dL Albumin/Globulin Ratio 0.5 (1.0-2.7) L Risk Assessment & Plan Assessment: ASA 3 Plan: TIVA Status Change Before Surgery: No Pre-Antibiotics Dru Gram Ancef IV Given Within 1 Hr of Incision: Yes Time Given: 12:37 Jose Ramon Waite MD Jun 08, 2019 11:15
--- NOTE | 2019-06-08 11:28 | Infectious Diseases Prog Note ---
Assessment/Plan Assessment/Plan A 1.Strep and Ecoli sepsis 2. Cholelithiasis.? cholecystitis. 3. Diabetes. 4. Hypertension. 5. Leukocytosis, improving. 6. Elevated liver function tests. 7. Negative COVID19 PLAN: 1. Continue PO Augmentin 2. Will have ERCP today . Subjective ROS Limited/Unobtainable: Yes Neurologic: Reports: confusion, other - on restraint Allergies: Coded Allergies: No Known Allergies (Unverified , 03/23/18) Objective Vital Signs Last 24 Hour Vital Signs Date Time Temp Pulse Resp B/P (MAP) Pulse Ox O2 Delivery O2 Flow Rate FiO2 06/08/19 08:00 98.3 82 18 121/85 (97) 96 06/08/19 04:17 98.2 70 18 132/76 (94) 95 06/08/19 00:33 97.7 72 20 126/66 (86) 97 06/07/19 21:29 Nasal Cannula 2.0 06/07/19 20:00 96.3 78 18 121/67 (85) 96 06/07/19 16:00 98.3 90 18 142/80 (100) 96 06/07/19 12:00 98.1 88 18 139/76 (97) 96 Height (Feet): 5 Height (Inches): 5.00 Weight (Pounds): 151 General Appearance: no acute distress HEENT: mucous membranes moist Respiratory/Chest: lungs clear Cardiovascular: normal rate Abdomen: soft, non tender Extremities: no edema Neurologic/Psychiatric: other - sleeping Laboratory Tests Test 06/08/19 09:00 White Blood Count 6.7 K/UL (4.8-10.8) Red Blood Count 4.66 M/UL (4.70-6.10) L Hemoglobin 13.7 G/DL (14.2-18.0) L Hematocrit 39.6 % (42.0-52.0) L Mean Corpuscular Volume 85 FL (80-99) Mean Corpuscular Hemoglobin 29.3 PG (27.0-31.0) Mean Corpuscular Hemoglobin Concent 34.5 G/DL (32.0-36.0) Red Cell Distribution Width 12.3 % (11.6-14.8) Platelet Count 187 K/UL (150-450) Mean Platelet Volume 5.5 FL (6.5-10.1) L Neutrophils (%) (Auto) 71.3 % (45.0-75.0) Lymphocytes (%) (Auto) 14.3 % (20.0-45.0) L Monocytes (%) (Auto) 7.5 % (1.0-10.0) Eosinophils (%) (Auto) 5.9 % (0.0-3.0) H Basophils (%) (Auto) 1.0 % (0.0-2.0) Sodium Level 140 MMOL/L (136-145) Potassium Level 4.0 MMOL/L (3.5-5.1) Chloride Level 106 MMOL/L (98-107) Carbon Dioxide Level 24 MMOL/L (21-32) Anion Gap 10 mmol/L (5-15) Blood Urea Nitrogen 9 mg/dL (7-18) Creatinine 0.7 MG/DL (0.55-1.30) Estimat Glomerular Filtration Rate > 60 mL/min (>60) Glucose Level 250 MG/DL (74-106) H Calcium Level 8.4 MG/DL (8.5-10.1) L Total Bilirubin 1.1 MG/DL (0.2-1.0) H Direct Bilirubin 0.4 MG/DL (0.0-0.3) H Aspartate Amino Transf (AST/SGOT) 26 U/L (15-37) Alanine Aminotransferase (ALT/SGPT) 65 U/L (12-78) Alkaline Phosphatase 317 U/L (46-116) H Total Protein 6.3 G/DL (6.4-8.2) L Albumin 2.2 G/DL (3.4-5.0) L Globulin 4.1 g/dL Albumin/Globulin Ratio 0.5 (1.0-2.7) L Current Medications Medications (Trade) Dose Ordered Sig/Charlette Route PRN Reason Start Time Stop Time Status Last Admin Dose Admin Acetaminophen (Tylenol) 500 mg Q4H PRN ORAL Mild Pain (Pain Scale 1-3) 06/03/19 16:45 07/03/19 16:44 Acetaminophen/ Hydrocodone Bitart ([place] 5/325) 1 tab Q1H PRN ORAL Mild Pain (Pain Scale 1-3) 06/08/19 11:15 06/08/19 19:00 Acetaminophen/ Hydrocodone Bitart ([place] 7.5/325) 1 tab Q1H PRN ORAL Moderate Pain (Pain Scale 4-6) 06/08/19 11:15 06/08/19 19:00 Al Hydroxide/Mg Hydroxide (Mylanta) 15 ml Q1H PRN ORAL gi upset 06/08/19 11:15 06/08/19 19:00 Amoxicillin/ Clavulanate Potassium (Augmentin) 875 mg EVERY 12 HOURS ORAL 06/07/19 13:00 06/14/19 12:59 06/07/19 21:13 Atropine Sulfate (Atropine 0.4mg/ ml) 0.5 mg Q5M PRN IVP HR<40 BPM 06/08/19 11:15 06/08/19 19:00 Dextrose (Dextrose 50%) 25 ml Q30M PRN IV Hypoglycemia 06/03/19 16:00 09/01/19 15:59 Dextrose (Dextrose 50%) 50 ml Q30M PRN IV Hypoglycemia 06/03/19 16:00 09/01/19 15:59 Diphenhydramine HCl (Benadryl) 25 mg Q15M PRN IVP Itching 06/08/19 11:15 06/08/19 19:00 Docusate Sodium (Colace) 100 mg TWICE A DAY ORAL 06/03/19 18:00 07/03/19 17:59 06/07/19 17:55 Fentanyl Citrate (Sublimaze 100 mcg/2 mL) 25 mcg Q10M PRN IV Moderate Pain (Pain Scale 4-6) 06/08/19 11:15 06/08/19 19:00 Haloperidol Lactate (Haldol) 5 mg Q6H PRN IM Agitation 06/04/19 16:15 07/19/19 16:14 06/06/19 09:40 Hydralazine HCl (Apresoline) 5 mg Q30M PRN IV SBP>160 / DBP>90 06/08/19 11:15 06/08/19 19:00 Hydralazine HCl (Apresoline) 25 mg Q4H PRN ORAL bp over 160 syst 06/03/19 16:45 09/01/19 16:44 Hydromorphone HCl (Dilaudid) 0.5 mg Q15M PRN IVP Severe Pain (Pain Scale 7-10) 06/08/19 11:15 06/08/19 19:00 Insulin Aspart (NovoLOG) BEFORE MEALS AND HS SUBQ 06/03/19 16:30 09/01/19 16:29 06/08/19 06:15 Ketorolac Tromethamine (Toradol 30mg) 15 mg Q1H PRN IV Moderate Breakthru Pain (5-7) 06/08/19 11:15 06/08/19 19:00 Ketorolac Tromethamine (Toradol 30mg) 30 mg Q1H PRN IV Severe Breakthru Pain (>7) 06/08/19 11:15 06/08/19 19:00 Labetalol HCl (Normodyne) 5 mg Q10M PRN IV SBP>160 / DBP>90 06/08/19 11:15 06/08/19 19:00 Lactated Ringer's 1,000 ml @ 10 mls/hr Q24H IVLG 06/08/19 11:09 06/08/19 13:08 Lorazepam (Ativan 2mg/ml 1ml) 1 mg Q15M PRN IV For Anxiety 06/08/19 11:15 06/08/19 19:00 Magnesium Oxide (Mag-Ox 400mg) 400 mg THREE TIMES A DAY ORAL 06/07/19 09:00 07/07/19 08:59 06/07/19 17:55 Meperidine HCl (Demerol) 25 mg Q5M PRN IV SHIVERING.MAY REPEAT X 1 06/08/19 11:15 06/08/19 19:00 Midazolam HCl (Versed 2mg/2ml vial) 1 mg Q15M PRN IVP For Anxiety 06/08/19 11:15 06/08/19 19:00 Ondansetron HCl (Zofran) 4 mg Q6H PRN IV Nausea & Vomiting 06/03/19 16:45 07/03/19 16:44 Oxycodone/ Acetaminophen (Percocet 5-325) 1 tab Q1H PRN ORAL Severe Pain (Pain Scale 7-10) 06/08/19 11:15 06/08/19 19:00 Pantoprazole (Protonix) 40 mg EVERY 12 HOURS IVP 06/03/19 21:00 07/03/19 20:59 06/08/19 09:22 Risperidone (RisperDAL) 0.5 mg TID ORAL 06/04/19 18:00 07/19/19 17:59 06/07/19 17:56 Sodium 1,000 ml @ 75 mls/hr [id number] IV 06/03/19 17:00 07/03/19 16:59 06/04/19 05:20 Melvin Dominguez MD Jun 08, 2019 11:28
--- NOTE | 2019-06-08 11:33 | Immediate Post-Op Evaluation ---
Immediate Post-Op Evalulation Immediate Post-Op Evalulation Procedure: ERCP Date of Evaluation: Jun 08, 2019 Time of Evaluation: 13:29 IV Fluids: 200 NS Blood Products: 0 Estimated Blood Loss: 12 Urinary Output: 0 Blood Pressure Systolic: 92 Blood Pressure Diastolic: 63 Pulse Rate: 82 Respiratory Rate: 16 O2 Sat by Pulse Oximetry: 99 Temperature (Fahrenheit): 97.2 Pain Score (1-10): 1 Nausea: No Vomiting: No Complications 0 Patient Status: awake, reacts, patent Hydration Status: adequate Dru Gram Ancef IV Given Within 1 Hr of Incision: Yes Time Given: 12:37 Jose Ramon Waite MD Jun 08, 2019 11:33
--- NOTE | 2019-06-08 11:34 | 48 Hour Post Anesthesia Eval ---
Post Anesthesia Evaluation Procedure: ERCP Date of Evaluation: Jun 08, 2019 Time of Evaluation: 15:34 Blood Pressure Systolic: 121 0: 72 Pulse Rate: 84 Respiratory Rate: 18 Temperature (Fahrenheit): 97.4 O2 Sat by Pulse Oximetry: 98 Airway: patent Nausea: No Vomiting: No Pain Intensity: 2 Hydration Status: adequate Cardiopulmonary Status: Stable Mental Status/LOC: patient returned to baseline Follow-up Care/Observations: 0 Post-Anesthesia Complications: 0 Follow-up care needed: ready to discharge Jose Ramon Waite MD Jun 08, 2019 11:34
--- NOTE | 2019-06-08 12:20 | NUR ---
HAND-OFF: Report given to ARNEL Valdez.
[2019-06-08] MEDS ORDERED: Iothalamate Meglumine 60% 50ML INJ ONE ×2 (12:23→12:40)
[2019-06-08] MEDS ORDERED: NS 500ML IVPB ONE (12:30)
--- NOTE | 2019-06-08 13:32 | Endoscopy Procedure Note ---
Endoscopy Procedure Note General Indication for Procedure: choledocholithiasis Procedures Performed: ERCP Operative Findings/Diagnosis: same Specimen: none Pt Tolerated Procedure Well: Yes Estimated Blood Loss: none Anesthesia Anesthesiologist: fariba Anesthesia: MAC Inserted Devices Implant(s) used?: No GI Core Measures 50 yrs or older w/o bx or poly: Not Applicable 10yrs. F/U recommended: Not Applicable Yakov Quintero MD Jun 08, 2019 13:32
--- NOTE | 2019-06-08 13:50 | NUR ---
NURSE NOTES: PATIENT BACK FROM GI LAB. VSS. ORDERED DIET. NO ACUTE RESP DISTRESS NOTED. WILL CONT TO MONITOR.
--- NOTE | 2019-06-08 14:09 | Diagnostic Imaging Report ---
Indication: Elbow pain, jaundice Technique: Intraoperative fluoroscopic imaging from ERCP submitted for archival the PACS. Total fluoroscopy time 113 seconds Total fluoroscopy dose 37.9 mGy Ordering physician: Leon Rodriguez fluoroscopic images saved: 6 Comparison: Is made to MRCP 06/06/2019 Findings: Fluoroscopic imaging from ERCP submitted for archival the PACS. Images demonstrate cannulation of the common bile duct with balloon sweeping. Final image demonstrates placement of a plastic common bile duct stent. IMPRESSION: Fluoroscopic imaging from ERCP. Please see endoscopist report
--- NOTE | 2019-06-08 14:58 | NUR ---
NURSE NOTES: DARSHAN VENCES AWARE OF THE DISCHARGE AND REPORT GIVEN TO NAS @ [facility] CON[facility]. AWAITING FOR AMBULANCE.
--- NOTE | 2019-06-08 16:25 | NUR ---
NURSE NOTES: DISCHARGED VIA AMBULANCE. REMOVED IV ACCESS. IN STABLE CONDITION. NO PERSONAL BELONGINGS NOTED. ON O2 2L VIA NC. DARSHAN ESCOBAR MADE AWARE.
[2019-06-08] MEDS ORDERED: Lidocaine 1% MPF 10mg/ml 5ml ONE (16:47)
[2019-06-08] MEDS ORDERED: Propofol 200mg/20ml IV ONE (16:47)
[2019-06-08] MEDS ORDERED: LR 1000ml ONE (16:47)
--- NOTE | 2019-06-08 22:30 | Procedure Note ---
DATE OF PROCEDURE: 06/08/2019 SURGEON: Yakov Quintero MD. PROCEDURE: ERCP with sphincterotomy, stone removal, and stent placement. ANESTHESIA: Per Dr. Waite INSTRUMENT: Olympus adult flexible ERCP scope. INDICATION: Choledocholithiasis. REASON FOR PROCEDURE: The procedure, risks, benefits, and possible consequences, including hemorrhage, aspiration, perforation and infection, and alternative treatments, were explained to the patient/legal guardian by Dr. Yakov Quintero and the patient/legal guardian understood and accepted these risks. DESCRIPTION OF PROCEDURE: After informed consent was obtained and the patient was adequately sedated, ERCP scope was advanced from mouth into the second portion of the duodenum. The patient had a large periampullary diverticulum. Actually, the ampulla was hiding inside the diverticulum. Using a sphincterotome, common bile duct was selectively cannulated. Initial common bile duct showed dilated to about 10 with at least 2 or 3 filling defect in the distal common bile duct. Over a guidewire, we used sphincterotome to do 95% sphincterotomy. Then a balloon was used to sweep the duct multiple times to perform balloon occlusion cholangiogram. Multiple stone and sludge was removed from distal common bile duct. Given the patient is not going for surgery according to the primary care physician as the patient is planning to get discharged today, we decided to put the stent in the common bile duct until the patient gets the gallbladder out and later we can remove the stent. Then over a guidewire we placed 10-Latvian 7 cm stent successfully in the distal common bile duct. The patient tolerated procedure very well without complications. Yakov Quintero M.D. DR: Jenn JOB#: [id number] CC:
--- NOTE | 2019-06-09 08:17 | Discharge Summary ---
Discharge Summary Discharge Summary _ DATE OF ADMISSION: 06/03/2019 DATE OF DISCHARGE: 06/08/2019 DISCHARGED BY: Dr. Gross REASON FOR ADMISSION: 84 years old male with past medical history significant for hypertension, diabetes mellitus, ischemic heart disease, dementia, was sent for evaluation from the assisted facility due to fever and upper respiratory symptoms , including cough and runny nose. Patient by himself was not able to provide any significant input regarding his history. Patient denied shortness of breath however. Upon evaluation patient was febrile and tachypneic. Pulse oximetry on 2 L of oxygen via nasal cannula was 99%. Chest x-ray demonstrated no acute cardiopulmonary pathology. EKG revealed sinus rhythm, no acute ischemic changes. Abdominal ultrasound demonstrated cholelithiasis and gallbladder sludge. Mildly dilated common bile duct. Liver demonstrated diffusely increased echogenicity , consistent with diffuse hepatocellular disease, most likely fatty change. Laboratory work-up revealed leukocytosis with WBC 15.3, hemoglobin 13.9 , hematocrit 40.8. Potassium 3.2. Glucose 321. Total bilirubin 3.6, direct bilirubin 2.8. AST 288, ALT 217. Troponin 0.023, pro BNP 1714. EKG revealed sinus rhythm no acute ischemic changes . Albumin 2.9. In emergency department patient was tested for COVID 19 , given fever and respiratory symptoms , pancultured and started on empiric antibiotics and admitted for further management. CONSULTANTS: ID specialist Dr. Dominguez GI specialist Dr. Quintero apron cleaner Dr. Casey surgery Dr. Valero psychiatrist [facility] COURSE: Patient admitted to medical surgical floor and intiially was in isolation room. Patient was kept n.p.o. and started on the IV fluids and empiric antibiotics. GI specialist and surgeon followed. Blood culture revealed E. coli and strep alpha hemolytic. Influenza screen was negative. COVID-19 was not detected. After negative COVID-19 result, patient was proceed with MRI. Abdominal MRI demonstrated choledocholithiasis. Dilatation of the common bile duct up to 12 mm in diameter. Small intraluminal gallstones, demonstrated on previous sonogram ,were not clearly evident. Probably was due to motion artifact. Surgeon closely followed with serial abdominal exam , which remained stable. Patient undergone 06/07 ERCP with sphincterotomy , stone removal and stent placement. Multiply stones and sludge were removed from distal common bile duct. Since no surgery was planned, stent was placed to the common bile duct with plan to remove later. Patient tolerated procedure well. Renal parameters and electrolytes were closely monitored. Electrolytes corrected as needed. Patient was on IV hydration. Blood sugar was closely monitored and managed with sliding scale of insulin. GI prophylaxis provided. Blood pressure was closely monitored and remained stable. No need for routine antihypertensive. LFT trended down to normal. Prior to discharge total bilirubin 1.1 , direct bilirubin 0.4, AST 26 , ALT 65. Cancer tumor markers CEA and CA-19-9 were both within normal limits. Leukocytosis resolved. No fevers. Antibiotic changed to oral Augmentin . Patient to continue antibiotic at the facility to complete the course. Patient clinically stabilized and was ready for discharge to assisted facility for continuation of care FINAL DIAGNOSES: Strep and E. coli sepsis due to choledocholithiasis Choledocholithiasis Acute encephalopathy Cholelithiasis and gallbladder sludge Fatty liver Status post ERCP with sphincterotomy, stone removal and stent placement Hypertension Diabetes Elevated liver function test-resolved Suspected COVID-19 infection -was ruled out Electrolyte imbalance BPH DISCHARGE MEDICATIONS: See Medication Reconciliation list. DISCHARGE INSTRUCTIONS: Patient was discharged to the assisted facility. Follow up with medical doctor at the facility. I have been assigned to dictate discharge summary for this account. I was not involved in the patient's management. Caroline Purvis NP Jun 09, 2019 08:17
== END 2019-06-08 16:48 | DRG 872 ==
LOC: EDBD 08:46 → EMR 09:15 → 4E 11:58 → EDBEDREQ 12:50
DX: A40.9 Streptococcal sepsis, unspecified (principal); K80.42 Calculus of bile duct with acute cholecystitis without obstruction; G93.40 Encephalopathy, unspecified; F33.9 Major depressive disorder, recurrent, unspecified; K80.70 Calculus of gallbladder and bile duct without cholecystitis without obstruction; A41.51 Sepsis due to Escherichia coli [E. coli]; E11.8 Type 2 diabetes mellitus with unspecified complications; K76.0 Fatty (change of) liver, not elsewhere classified; I10 Essential (primary) hypertension; E11.9 Type 2 diabetes mellitus without complications; E87.8 Other disorders of electrolyte and fluid balance, not elsewhere classified; N40.0 Benign prostatic hyperplasia without lower urinary tract symptoms
CPT/HCPCS: 36415; 71045; 74181; 74328; 76000; 76700; 80053; 80061; 81003; 82150; 82248; 82378; 82550; 82553; 82977; 83036; 83605; 83615; 83690; 83735; 83880; 84100; 84443; 84484; 84550; 85007; 85025; 86140; 86705; 86709; 86710; 86803; 87040; 87181; 87340; 87635; 94003; 94150; 99285; C9399; J1815; J8499